=== PATIENT | male | born 1965 | race Hispanic/Latino ===

== ENCOUNTER 2017-01-28 07:02 | Inpatient (IN) | payer MEDICAID, OTHER ==
--- NOTE | 2017-01-28 07:29 | ED PDOC ---
Arrival/HPI - General Time Seen by Provider: 01/28/17 07:13 Historian: Patient - Critical Care Critical Care Minutes: 30 minutes - History of Present Illness Narrative History of Present Illness (Text): 01/28/17 07:29 A 51 year old male presents to the emergency department complaining of worsening bilateral lower extremity edema and dyspnea of exertion for the past 10 days. Patient notes bilateral lower extremity pain when walking but denies any shortness of breath at rest, chest pain, cough, upper respiratory symptoms, or any other complaints at this time. Patient never smoked, drinks occasional, and does not use drugs. PMD: None Time/Duration: Other (10 days) Symptom Onset: Sudden Symptom Course: Worsening Quality: Other Activities at Onset: Other Context: Exertion, Home Associated Symptoms (Text): 01/28/17 07:53 Approximately 10 day history of worsening bilateral lower extremity edema. Patient also has dyspnea on exertion. No dyspnea at rest. No chest pain. No palpitations. No fever or chills. 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 Past Medical History - Provider Review Nursing Documentation Reviewed: Yes Family/Social History - Physician Review Nursing Documentation Reviewed: Yes Family/Social History: Unknown Family HX Smoking Status: Never Smoked Hx Alcohol Use: Yes Frequency of alcohol use: Socially Hx Substance Use: No Allergies/Home Meds Allergies/Adverse Reactions: Allergies No Known Allergies Allergy (Verified 01/28/17 08:49) Home Medications: Home Meds Medication Instructions Recorded Confirmed No Known Home Med 01/28/17 01/28/17 Review of Systems - Physician Review All systems were reviewed & negative as marked: Yes - Review of Systems Constitutional: Fatigue. absent: Fevers ENT: absent: Sore Throat, Rhinorrhea, Sinus Congestion Respiratory: absent: Cough, Wheezing Cardiovascular: Edema, REYNOSO. absent: Chest Pain, Palpitations, Syncope Gastrointestinal: absent: Abdominal Pain, Constipation, Diarrhea, Nausea, Vomiting Genitourinary Male: absent: Dysuria, Frequency, Hematuria Neurological: absent: Headache, Dizziness Physical Exam Vital Signs Reviewed: Yes Vital Signs Temp Pulse Resp BP Pulse Ox 01/28/17 09:59 197/146 H 01/28/17 09:03 107 H 221/168 H 01/28/17 08:53 104 H 16 221/158 H 94 L 01/28/17 08:39 98.1 F 106 H 17 237/164 H 96 Appearance: Positive for: Well-Appearing, Non-Toxic, Comfortable, Other (obese) Pain Distress: None Mental Status: Positive for: Alert and Oriented X 3 - Systems Exam Head: Present: Atraumatic, Normocephalic Pupils: Present: PERRL Extroacular Muscles: Present: EOMI Conjunctiva: Present: Normal Mouth: Present: Moist Mucous Membranes Pharnyx: No: ERYTHEMA, EXUDATE, TONSILS ENLARGED Neck: Present: Normal Range of Motion Respiratory/Chest: Present: Good Air Exchange, Decreased Breath Sounds. No: Respiratory Distress, Accessory Muscle Use, Rales, Retracting, Rhonchi, Tachypneic, Tender to Palpation Cardiovascular: Present: Regular Rate and Rhythm, Normal S1, S2. No: Murmurs Abdomen: Present: Normal Bowel Sounds. No: Tenderness, Distention, Peritoneal Signs Back: Present: Normal Inspection Upper Extremity: Present: Normal Inspection. No: Cyanosis, Edema Lower Extremity: Present: Edema (2+ edema up to the level of the knees bilaterally), Normal ROM, Swelling, Neurovascularly Intact. No: CALF TENDERNESS , Cyanosis, Regina's Sign, Tenderness, Erythema, Deformity Neurological: Present: GCS=15, CN II-XII Intact, Speech Normal, Motor Func Grossly Intact Skin: Present: Warm, Dry, Normal Color. No: Rashes Psychiatric: Present: Alert, Oriented x 3, Normal Insight, Normal Concentration Medical Decision Making ED Course and Treatment: 01/28/17 07:29 Impression: A 51 year old male with edema and dyspnea on exertion. Differential Diagnosis include but are not limited to: CHF vs. PE vs. DVT vs. ACS Plan: -- EKG -- Chest X-ray -- Bilateral Lower Extremity Duplex -- Labs -- Reassess and disposition Progress Notes: 01/28/17 08:39 Patient blood pressure was just taken for the first time. It is found to be 237/ 164. Will give Lopressor. 01/28/17 08:45 Chest x-ray 2 views shows severe cardiomegaly with no infiltrate or effusion 01/28/17 08:46 EKG shows sinus tachycardia rate approximately 110 with a right axis LVH and nonspecific ST and T-wave changes with no old available - Lab Interpretations Lab Results: 01/28/17 08:00 01/28/17 08:00 Lab Results 01/28/17 08:00: Sodium 135, Potassium 3.1 L, Chloride 92 L, Carbon Dioxide 31, Anion Gap 15, BUN 51 H, Creatinine 2.8 H, Est GFR ( Amer) 29, Est GFR ( Non-Af Amer) 24, Random Glucose 139 H, Calcium 9.5, Total Bilirubin 1.8 H, AST 46, ALT 48, Alkaline Phosphatase 167 H, Lactate Dehydrogenase 764 H, Total Creatine Kinase 166, Troponin I 0.19 H*, NT-Pro-B Natriuret Pep 26615 H, Total Protein 7.9, Albumin 3.7, Globulin 4.2, Albumin/Globulin Ratio 0.9 L 01/28/17 08:00: PT 12.0 H, INR 1.11 H, APTT 27.6, D-Dimer, Quantitative 0.73 H 01/28/17 08:00: WBC 9.3, RBC 5.10, Hgb 13.0 L, Hct 39.9 L, MCV 78.2 L, MCH 25.5 , MCHC 32.6, RDW 16.6 H, Plt Count 294, MPV 10.8, Gran % 83.0 H, Lymph % (Auto) 9.8 L, [place] % (Auto) 4.9, Eos % (Auto) 1.0 L, Baso % (Auto) 1.3, Gran # 7.68 H, Lymph # 0.9 L, [place] # 0.5, Eos # 0.1, Baso # 0.12 I have reviewed the lab results: Yes - RAD Interpretation Radiology Orders: 01/28/17 07:30 CHEST TWO VIEWS (PA/LAT) [RAD] Stat DUPLEX LOWER EXTRM VEIN BILAT [US] Stat Bilateral lower extremity venous Doppler as read by the radiologist is negative for DVT Electrician Manager: Radiologist - Medication Orders Current Medication Orders: Discontinued Medications Aspirin (Aspirin Chewable) 324 mg PO STAT STA Stop: 01/28/17 09:42 Last Admin: 01/28/17 10:00 Dose: 324 mg Furosemide (Lasix) 40 mg IVP ONCE ONE Stop: 01/28/17 09:40 Last Admin: 01/28/17 09:59 Dose: 40 mg Metoprolol Tartrate (Lopressor) 5 mg IVP STAT STA Stop: 01/28/17 08:44 Last Admin: 01/28/17 09:03 Dose: 5 mg Nitroglycerin (Nitro-Bid 2% Oint) 1 ea TOP STAT STA Stop: 01/28/17 09:42 Last Admin: 01/28/17 10:00 Dose: 1 ea - Scribe Statement The provider has reviewed the documentation as recorded by the Dwightibe Cy Cheng Provider Dwightibe Attestation: All medical record entries made by the Scribe were at my direction and personally dictated by me. I have reviewed the chart and agree that the record accurately reflects my personal performance of the history, physical exam, medical decision making, and the department course for this patient. I have also personally directed, reviewed, and agree with the discharge instructions and disposition. Disposition/Present on Arrival - Present on Arrival Any Indicators Present on Arrival: No History of DVT/PE: No History of Uncontrolled Diabetes: No Urinary Catheter: No History of Decub. Ulcer: No - Disposition Have Diagnosis and Disposition been Completed?: Yes Diagnosis: Hypertension, Renal failure, Cardiomegaly, Elevated troponin, Tachycardia, Hypokalemia, Anemia, Congestive heart failure Disposition: HOSPITALIZED Disposition Time: 10:01 Patient Plan: Admission, Telemetry Patient Problems: Current Active Problems Problem Status Onset Cardiomegaly Acute Elevated troponin Acute Hypertension Acute Hypokalemia Acute Renal failure Acute Tachycardia Acute Condition: CRITICAL Discharge Instructions (ExitCare): Heart Failure (ED) Referrals: PCP,NO [Primary Care Provider] - Follow up with primary
--- NOTE | 2017-01-28 08:35 | US ---
HISTORY: Leg pain and swelling. Evaluate for DVT PHYSICIAN(S): Isiah Angel MD. TECHNIQUE: Duplex sonography and color-flow Doppler with graded compression were used to evaluate the deep venous systems of both lower extremities. The exam is limited by body habitus and edema. FINDINGS: The visualized deep venous systems of both lower extremities are sonographically normal and compressible. Normal wave forms and augmentation are seen. There is no sonographic evidence for deep venous thrombosis in the visualized segments of both lower extremities. IMPRESSION: No sonographic evidence for deep venous thrombosis in the visualized segments of both lower extremities.
[2017-01-28] MEDS ORDERED: Metoprolol 1 mg/ml Inj IVP STA (08:43)
--- NOTE | 2017-01-28 08:59 | RAD ---
HISTORY: sob COMPARISON: No prior. TECHNIQUE: Chest PA and lateral FINDINGS: LUNGS: No active pulmonary disease. PLEURA: No significant pleural effusion identified. No pneumothorax apparent. CARDIOVASCULAR: Normal. OSSEOUS STRUCTURES: No significant abnormalities. VISUALIZED UPPER ABDOMEN: Normal. OTHER FINDINGS: None. IMPRESSION: No active disease.
[2017-01-28 09:04] LABS: ADD MANUAL DIFF? NO
[2017-01-28 09:09] LABS: BASO # 0.12 K/mm3 (0.0-2.0); BASO % 1.3 % (0.0-3.0); EOS # 0.1 (0.0-0.7); GRAN # 7.68 (1.4-6.5); HEMATOCRIT 39.9 % (42.0-52.0); LYMPH # 0.9 (1.2-3.4); LYMPH % 9.8 % (22.0-35.0); MEAN CELL VOLUME 78.2 fL (80.0-105.0); MEAN CORPUSCULAR HEMOGLOBIN 25.5 pg (25.0-35.0); MEAN CORPUSCULAR HGB CONC 32.6 g/dl (31.0-37.0); MEAN PLATELET VOLUME 10.8 fl (7.0-11.0); MONO # 0.5 (0.1-0.6); MONO % 4.9 % (1.0-6.0); PLATELET COUNT 294 10^3/uL (120.0-450.0); RED CELL DISTRIBUTION WIDTH 16.6 % (11.5-14.5); WHITE BLOOD COUNT 9.3 10^3/ul (4.5-11.0)
[2017-01-28 09:19] LABS: ALB/GLOB RATIO 0.9 (1.1-1.8); BILIRUBIN,TOTAL 1.8 mg/dL (0.2-1.3); CALCIUM 9.5 mg/dL (8.4-10.5); POTASSIUM 3.1 mmol/L (3.6-5.0); TOTAL PROTEIN 7.9 g/dL (5.8-8.3)
[2017-01-28 09:21] LABS: INR 1.11 (0.93-1.08); PARTIAL THROMBOPLASTIN TIME 27.6 Seconds (23.7-30.8)
[2017-01-28 09:33] LABS: TROPONIN I 0.19 ng/mL
[2017-01-28] MEDS ORDERED: Nitroglycerin 2% Ointment Foilpak UD TOP STA (09:41)
[2017-01-28 09:43] LABS: D DIMER 0.73 mg/L FEU (0-0.50)
[2017-01-28] MEDS ORDERED: Nitroglycerin 50mg in D5W 50 MG/250 ML BOTTLE IV PRN (10:53)
--- NOTE | 2017-01-28 11:09 | CP.PCM.HP ---
<Arin Sow - Last Filed: 01/28/17 14:48> History of Present Illness - History of Present Illness History of Present Illness: PGY-1 H&P 51 yo male with no significant PMH presented to ED with bilateral lower extremity swelling. Patient states that the swelling started about a week ago and has never occurred before. He states that the swelling increases after standing at work. He denies any weakness or numbness. Patient states that during the day the swelling increases to the back of his thighs. He experiences some tingling and discomfort when the swelling decreases at the end of the day. Patients reports sob on exertions. Over the past 3-4 days patient is unable to walk more then 2-3 blocks without having to stop. He Patient denies headache, dizziness, chest pain, n/v/d/c, urinary symptoms. He has not seen medical doctor within last 5 years. PMH: denies PSH: denies Social hx: denies smoking, social alcohol use (6 beers/week), denies illicit drug use works as a [employer], lives with girlfriend fam hx: father glioblastoma, mother breast ca allergy: NKDA home meds: none Present on Admission - Present on Admission Any Indicators Present on Admission: No Review of Systems - Constitutional Constitutional: absent: Chills, Fever - EENT Eyes: absent: Blurred Vision, Change in Vision Nose/Mouth/Throat: absent: Nasal Congestion, Sore Throat - Cardiovascular Cardiovascular: Dyspnea on Exertion. absent: Chest Pain, Dyspnea, Lightheadedness, Orthopnea, Palpitations - Respiratory Respiratory: Dyspnea on Exertion. absent: Cough, Dyspnea - Gastrointestinal Gastrointestinal: absent: Abdominal Pain, Constipation, Diarrhea, Nausea, Vomiting - Genitourinary Genitourinary: absent: Change in Urinary Stream, Difficulty Urinating, Dysuria - Musculoskeletal Musculoskeletal: Tingling. absent: Muscle Weakness, Myalgias, Numbness - Integumentary Integumentary: Swelling (bilateral legs). absent: Rash, Skin Ulcer - Neurological Neurological: Tingling. absent: Dizziness, Numbness, Headaches, Weakness - Hematologic/Lymphatic Hematologic: absent: Easy Bleeding, Easy Bruising Past Patient History - Infectious Disease Hx of Infectious Diseases: None - Past Social History Smoking Status: Never Smoked - PSYCHIATRIC Hx Substance Use: No - SURGICAL HISTORY Hx Surgeries: No Meds Allergies/Adverse Reactions: Allergies Allergy/AdvReac Type Severity Reaction Status Date / Time No Known Allergies Allergy Verified 01/28/17 08:49 Physical Exam - Constitutional Appears: Well, No Acute Distress - Head Exam Head Exam: ATRAUMATIC, NORMOCEPHALIC - Eye Exam Eye Exam: EOMI, Normal appearance - ENT Exam ENT Exam: Mucous Membranes Moist - Respiratory Exam Respiratory Exam: Clear to Auscultation Bilateral, NORMAL BREATHING PATTERN. absent: Rhonchi, Wheezes, Respiratory Distress - Cardiovascular Exam Cardiovascular Exam: REGULAR RHYTHM. absent: Tachycardia, Diastolic murmur, Systolic Murmur - GI/Abdominal Exam GI & Abdominal Exam: Normal Bowel Sounds, Soft. absent: Firm, Guarding, Tenderness - Extremities Exam Additional comments: bilateral +3 pitting edema of lower extremities - Neurological Exam Neurological exam: Alert, Oriented x3 - Skin Skin Exam: Dry, Intact, Normal Color, Warm Results - Vital Signs Recent Vital Signs: Last Vital Signs Temp 98.1 F 01/28/17 08:39 Pulse 94 H 01/28/17 10:25 Resp 16 01/28/17 10:11 BP 205/154 H 01/28/17 10:25 Pulse Ox 95 01/28/17 10:25 - Labs Result Diagrams: 01/28/17 08:00 01/28/17 08:00 Assessment & Plan - Assessment and Plan (Free Text) Assessment: 51 yo male with no significant PMH presented with HTN emergency with maribeth, myocardial ischemia, anemia and hypokalemia. Plan: 1. HTN emergency - admitted to ICU - patient was given nitroglycerin, lopressor, lasix to decrease BP - started on nitroglycerin drip - started on heparin drip - started on norvasc, lipitor - UDS was negative - cardio consulted - nephrology consulted - cont to monitor BP 2. MARIBETH - consulted nephro - cont to monitor kidney function 3. myocardial ischemia - cardio consulted - trend trops - echo ordered 4. hypokalemia - replaced - repeat in AM <Gladys Sosa - Last Filed: 01/29/17 16:40> Results - Vital Signs Recent Vital Signs: Last Vital Signs Temp 97.8 F 01/29/17 08:00 Pulse 71 01/29/17 14:40 Resp 24 01/29/17 14:40 BP 158/88 H 01/29/17 14:34 Pulse Ox 94 L 01/29/17 14:40 - Labs Result Diagrams: 01/29/17 06:10 01/29/17 06:10 Labs: Laboratory Results - last 24 hr 01/28/17 01/28/17 01/28/17 17:00 19:10 19:10 WBC RBC Hgb Hct MCV MCH MCHC RDW Plt Count MPV Gran % Lymph % (Auto) [place] % (Auto) Eos % (Auto) Baso % (Auto) Gran # Lymph # [place] # Eos # Baso # APTT 32.1 H Sodium Potassium Chloride Carbon Dioxide Anion Gap BUN Creatinine Est GFR ( Amer) Est GFR (Non-Af Amer) Random Glucose Calcium Phosphorus Total Bilirubin AST ALT Alkaline Phosphatase Troponin I 0.15 H* D Total Protein Albumin Globulin Albumin/Globulin Ratio Procalcitonin 0.30 Ur Random Creatinine Complement C3 Complement C4 01/29/17 01/29/17 01/29/17 02:00 02:15 06:10 WBC 10.6 RBC 5.11 Hgb 12.8 L Hct 40.3 L MCV 78.9 L MCH 25.0 MCHC 31.8 RDW 16.8 H Plt Count 308 MPV 11.4 H Gran % 76.3 H Lymph % (Auto) 14.2 L [place] % (Auto) 5.8 Eos % (Auto) 2.6 Baso % (Auto) 1.1 Gran # 8.08 H Lymph # 1.5 [place] # 0.6 Eos # 0.3 Baso # 0.12 APTT 49.5 H Sodium Potassium Chloride Carbon Dioxide Anion Gap BUN Creatinine Est GFR ( Amer) Est GFR (Non-Af Amer) Random Glucose Calcium Phosphorus Total Bilirubin AST ALT Alkaline Phosphatase Troponin I Total Protein Albumin Globulin Albumin/Globulin Ratio Procalcitonin Ur Random Creatinine Complement C3 138.0 Complement C4 22.8 01/29/17 01/29/17 06:10 10:30 WBC RBC Hgb Hct MCV MCH MCHC RDW Plt Count MPV Gran % Lymph % (Auto) [place] % (Auto) Eos % (Auto) Baso % (Auto) Gran # Lymph # [place] # Eos # Baso # APTT Sodium 138 Potassium 2.6 L* Chloride 92 L Carbon Dioxide 30 Anion Gap 19 BUN 48 H Creatinine 2.6 H Est GFR ( Amer) 32 Est GFR (Non-Af Amer) 26 Random Glucose 69 L Calcium 9.2 Phosphorus 4.5 Total Bilirubin 1.6 H AST 63 H ALT 49 Alkaline Phosphatase 162 H Troponin I Total Protein 7.9 Albumin 3.8 Globulin 4.2 Albumin/Globulin Ratio 0.9 L Procalcitonin Ur Random Creatinine 43 Complement C3 Complement C4 Attending/Attestation - Attestation I have personally seen and examined this patient.: Yes I have fully participated in the care of the patient.: Yes I have reviewed all pertinent clinical information: Yes Notes (Text): 01/29/17 15:00 attending note; Patient seen and examined With resident in ER. patient is a 51-year-old male admitted with progressive leg swelling for the past few weeks. Patient did not follow-up with any PMD over years. Patient was found to be in hypertensive emergency with acute renal failure, elevated troponin and elevated BNP. patient will be admitted to ICU for close monitoring. Will start IV nicardipine drip. monitor troponin closely. Cardiology evaluation requested. Echocardiogram ordered. started on aspirin and Plavix. heparin drip ordered. Elevated creatinine; baseline kidney function not known. urine studies ordered. Nephrology evaluation requested. diagnosis, follow-up plan discussed with patient in detail. Upon discharge the patient needs close follow-up with nephrology and cardiology. Patient will be referred to [facility].
[2017-01-28 11:24] LABS: URINE BILIRUBIN NEGATIVE (NEGATIVE); URINE BLOOD MODERATE (NEGATIVE); URINE GLUCOSE (UA) NEGATIVE (NEGATIVE); URINE KETONE NEGATIVE (NEGATIVE); URINE LEUKOCYTE ESTERASE NEGATIVE Leu/uL (NEGATIVE); URINE PROTEIN >=300 mg/dL (<30 mg/dL); URINE UROBILINOGEN 0.2 E.U./dL (<1 E.U./dL)
--- NOTE | 2017-01-28 11:24 | CON ---
DATE: 01/28/2017 HISTORY OF PRESENT ILLNESS: The patient is a 51-year-old gentleman without significant past medical history who presented with 7 days or so of increased lower extremity swelling, which became so bad that he was not able to bend his knees. At the same time, his shortness of breath became more progressive and his exercise tolerance decreased. The patient denies chest pain, nausea, vomiting, diarrhea, or constipation. Around the same time, patient had some flu -like symptoms which, however, went away. As patient walked a few steps today, he decided to seek medical attention for it. PAST MEDICAL HISTORY: None. SOCIAL HISTORY: No alcohol or illicit drug abuse. No tobacco smoking. FAMILY HISTORY: Noncontributory. ALLERGIES: NKDA. REVIEW OF SYSTEMS: Revealed 12-organ system other than mentioned in history of present illness is negative. MEDICATIONS AT HOME: None. PHYSICAL EXAMINATION: VITAL SIGNS: Blood pressure 205/154, heart rate 94, oxygen saturation 95% on room air, respiratory rate 16. HEAD AND NECK: Atraumatic. LUNGS: Clear to auscultation bilaterally. HEART: Regular rate and rhythm. S1, S2 normal. ABDOMEN: Soft, nontender, nondistended. MUSCULOSKELETAL: 2+ bilateral pedal and ankle edema. NEUROLOGIC: The patient moves all extremities spontaneously. SKIN: Moist. PSYCHIATRIC: The patient is alert and oriented x 3. LABORATORY DATA: WBC 9.3, hemoglobin 13, platelet count 294. Sodium 135, potassium 3.1, chloride 92, carbon dioxide 31, BUN 51, creatinine 2.8, AST 46, ALT 48. Troponin 0.19. ProBNP 17,600. Albumin 3.7. INR 1.11. Chest x-ray showed bilateral vascular congestion. ASSESSMENT AND PLAN: This is a 51-year-old gentleman who presented with hypertensive emergency with acute kidney injury and myocardial ischemia as a new onset hypertension. At present time, we will proceed with nitroglycerin drip, Lasix (with concomitant repletion of potassium and magnesium) to drop MAP 15-20% within first hour with subsequent normalization of BP over next 23 hours slowly and gradually.. I will start patient on metoprolol p.o. I agree with aspirin and Plavix. I will continue with trending troponin. I will order echocardiogram. There are some ST-T changes in the anterolateral leads of the EKG. I will start patient on heparin drip as well. I will get cardiology consult for consideration of coronary angiography/percutaneous coronary intervention. We will continue with gastrointestinal prophylaxis, statins, beta blockers, aspirin and Plavix. Addendum: switched to cardene drip, stopped Nitro as BP continued to be elevated despite uptitration. Echo--moderate LV systolic dysfunction--started hydralazine/isosorbide ccm time 40 min Elvis Cuellar MD cc: [id number] TT: 01/28/2017 11:23:03 Confirmation # [id number] Dictation # [id number] MTDD
[2017-01-28 11:34] LABS: URINE APPEARANCE CLEAR (CLEAR); URINE COLOR YELLOW (YELLOW)
[2017-01-28] MEDS: Heparin25000 units/250ml 1/2NS 25,000 UNITS/250 ML BAG IV SCH (11:51)
[2017-01-28 12:13] LABS: URINE BACTERIA FEW (NEG); URINE EPITHELIAL CELLS 0 - 2 /hpf (0-5); URINE RBC 0 - 2 /hpf (0-2); URINE WBC 0 - 2 /hpf (0-6)
[2017-01-28] MEDS ORDERED: Potassium Chloride 20 mEq ER Tab PO ONE (13:11)
[2017-01-28] MEDS: Nicardipine 20 MG/200 ML 20 MG/200 ML BAG IV PRN ×2 (14:17→18:00)
[2017-01-28 17:09] VITALS: BMI 39.3
[2017-01-28] MEDS ORDERED: Pneumococcal 23-Valent Vaccine IM ONE (17:09)
--- NOTE | 2017-01-28 17:59 | CARD ---
APPROVED REPORT EXAM: Two-dimensional and M-mode echocardiogram with Doppler and color Doppler. INDICATION NEW ONSET CHF 2D DIMENSIONS Left Atrium (2D)5.2 (1.6-4.0cm)IVSd1.5 (0.7-1.1cm) LVDd5.4 (3.9-5.9cm)PWd1.6 (0.7-1.1cm) LVDs4.3 (2.5-4.0cm)FS (%) 20.0 % LVEF (%)40.6 (>50%) M-Mode DIMENSIONS Aortic Root2.80 (2.2-3.7cm)Aortic Cusp Exc.1.60 (1.5-2.0cm) Aortic Valve AoV Peak Zibonvlj662.0cm/Gaby Peak GR.10mmHg Mitral Valve E/A ratio0.0 TDI E/Lateral E'0.0E/Medial E'0.0 Tricuspid Valve TR Peak [id number]/sRAP [id number] Peak Gr.40mmHg [id number] LEFT VENTRICLE The left ventricle is normal size. There is moderate concentric left ventricular hypertrophy. The systolic function is moderately impaired. There is global hypokinesis of the left ventricle. RIGHT VENTRICLE The right ventricle is mildly dilated. RV Systolic function is mildly to moderately reduced. ATRIA The left atrium is moderately dilated. The right atrium is mildly dilated. AORTIC VALVE The aortic valve is normal in structure. MITRAL VALVE Mitral regurgitation is moderate. TRICUSPID VALVE There is moderate pulmonary hypertension. GREAT VESSELS The aortic root is normal in size. The IVC collapses <50% with inspiration. PERICARDIAL EFFUSION There is no pericardial effusion. <Conclusion> The left ventricle is normal size. There is moderate concentric left ventricular hypertrophy. The systolic function is moderately impaired. There is global hypokinesis of the left ventricle. Mitral regurgitation is moderate. There is moderate pulmonary hypertension.
--- NOTE | 2017-01-28 22:42 | CARD ---
APPROVED REPORT EKG Measurement Heart [id number] <Conclusion> Sinus tachycardia Left atrial enlargement Rightward axis ST & T wave abnormality, consider inferior ischemia Abnormal ECG
[2017-01-29] MEDS: Heparin25000 units/250ml 1/2NS 25,000 UNITS/250 ML BAG IV SCH (01:35)
[2017-01-29] MEDS: Nicardipine 20 MG/200 ML 20 MG/200 ML BAG IV PRN ×3 (02:00→17:27)
[2017-01-29 06:45] LABS: ADD MANUAL DIFF? NO
[2017-01-29 06:59] LABS: BASO # 0.12 K/mm3 (0.0-2.0); BASO % 1.1 % (0.0-3.0); EOS # 0.3 (0.0-0.7); EOS % 2.6 % (1.5-5.0); GRAN # 8.08 (1.4-6.5); GRAN % 76.3 % (50.0-68.0); HEMATOCRIT 40.3 % (42.0-52.0); LYMPH # 1.5 (1.2-3.4); LYMPH % 14.2 % (22.0-35.0); MEAN CELL VOLUME 78.9 fL (80.0-105.0); MEAN CORPUSCULAR HGB CONC 31.8 g/dl (31.0-37.0); MEAN PLATELET VOLUME 11.4 fl (7.0-11.0); MONO # 0.6 (0.1-0.6); MONO % 5.8 % (1.0-6.0); PLATELET COUNT 308 10^3/uL (120.0-450.0); RED CELL DISTRIBUTION WIDTH 16.8 % (11.5-14.5); WHITE BLOOD COUNT 10.6 10^3/ul (4.5-11.0)
[2017-01-29] MEDS ORDERED: Heparin25000 units/250ml 1/2NS 25,000 UNITS/250 ML BAG IV SCH (07:30)
[2017-01-29 07:33] LABS: ALB/GLOB RATIO 0.9 (1.1-1.8); BILIRUBIN,TOTAL 1.6 mg/dL (0.2-1.3); CALCIUM 9.2 mg/dL (8.4-10.5); PHOSPHOROUS 4.5 mg/dL (2.5-4.5); TOTAL PROTEIN 7.9 g/dL (5.8-8.3)
[2017-01-29 07:35] LABS: POTASSIUM 2.6 mmol/L (3.6-5.0)
--- NOTE | 2017-01-29 08:11 | CON ---
DATE: 01/28/2017 HISTORY OF PRESENT ILLNESS: A 51-year-old male with no significant past medical history, presented t [facility] with increasing bilateral leg swelling, found to have hypertensive emergency with acute renal fa ilure and troponin elevation and found to be in decompensated CHF. The patient reports that overall his symptoms started about 2 weeks ago when he suffered what he call s a chest cold during which period, he was having a dry hacking cough and with inability to lay down without exacerbating the cough. 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 Shortness of b reath had improved. However, leg swelling continued to progress and he estimates that he has put on about 6 pounds during this period. The patient otherwise denies any chest pain or palpitations. Den ies any urinary symptoms (no dysuria, no hematuria, no difficulty urinating or decreased urination). Denies any fever or chills. PAST MEDICAL HISTORY: As mentioned above. ALLERGIES: None. SOCIAL HISTORY: Denies every smoking. Denies any illicit drugs. Occasional alcohol use. 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 FAMILY HISTORY: Mother with breast cancer, . Father with glioblastoma, . Brother w ith hypertension. REVIEW OF SYSTEMS: CONSTITUTIONAL: Denies any fevers, chills, weight loss or night sweats. Appetite is very good. HEENT: No visual disturbances. No hearing deficits. No sinus pain. RESPIRATORY: As mentioned in HPI, cough currently resolved. CARDIOVASCULAR: As mentioned in HPI. GASTROINTESTINAL: Denies nausea, vomiting or diarrhea. GENITOURINARY: As mentioned in HPI. HEMATOLOGIC: Denies easy bruising. SKIN: Reports small rash around his right wrist that he attributes possibly to a bug bite. Otherwis e, denies any itching or rashes. PSYCHIATRIC: Denies depression or anxiety. NEUROLOGIC: Denies any numbness in extremities. MUSCULOSKELETAL: Occasional knee pains. Denies using any pain medications. PHYSICAL EXAMINATION: VITAL SIGNS: On presentation, blood pressure 237/164, heart rate 106. Blood pressure this evening 1 34/68, heart rate 92, respirations 20, O2 sat 91%. GENERAL: No distress, lying flat, able to converse coherently in full sentences. HEENT: Moist mucous membranes. Nonicteric. NECK: No cervical lymphadenopathy. No thyromegaly. RESPIRATORY: Lungs clear to auscultation bilaterally. No rales, no rhonchi, no wheezes. CARDIOVASCULAR: Heart S1, S2 normal. Prominent S3. JVD elevated to earlobes.. GASTROINTESTINAL: Obese abdomen. Otherwise, soft, nontender, nondistended. GENITOURINARY: Bladder nondistended. EXTREMITIES: 3+ bilateral lower leg edema extending to upper thighs and lower back and abdominal wal l area. Normal capillary refill. SKIN: Bilateral toes and feet with blanching petechiae. No cyanosis. NEUROLOGIC: 5/5 motor strength in bilateral upper and lower extremities. No sensory deficits in fee t. PSYCHIATRIC: Normal affect, normal mood. LABORATORY DATA: CBC: WBC 9.3, hemoglobin 13.0, hematocrit 39.9, platelets 294. Chemistry: Sodium 135, potassium 3.1, chloride 92, bicarb 31, BUN 51, creatinine 2.8, glucose 139, calcium 9.5, LCH 76 4, CK 166. Pro BNP 17,600. Albumin 3.7. Troponin 0.19. UA: Urine protein greater than glucose of 300 mg/dL, moderate blood with 0-2 RBCs per high power field. Urine toxicology negative. Chest x-r ay directly observed consistent with mild pulmonary edema and increased pulmonary vascular congestion . ASSESSMENT AND PLAN: 1. Acute renal failure. Baseline serum creatinine unknown as the patient has not had medical care i n many years. However, the patient presents with severe hypertension with hematuria and elevated ser um creatinine. Acute renal failure possibly due to malignant hypertension. Significant proteinuria as well per urinalysis. However, this may be in the setting of markedly elevated glomerular pressure s. We will need to repeat urinalysis after blood pressure better controlled. We will check random u rine for protein and creatinine. Will check complements and hepatitis B and C serologies as we canno t rule out an acute glomerulonephritis. 2. Hypertensive emergency. Severely elevated blood pressures with findings of decompensated congest julius heart failure and acute renal failure. The patient currently put on nicardipine drip with signif icant improvement in blood pressure. Need to ensure that blood pressure is not lowered by more than 25% over the first 24 hours as this can precipitate further exacerbation of renal failure in the sett ing of loss of renal autoregulation. 3. Malignant hypertension. Need to rule out secondary causes of hypertension with markedly elevated blood pressures. We will check for hyperaldosteronism and pheochromocytoma screening with plasma re nnin aldosterone levels as well as plasma metanephrines, respectively. 4. Acute decompensated congestive heart failure, severe exacerbation with echo showing systolic dysf unction. The patient with signs of volume overload with elevated jugular venous distention and prese nce of S3. Agree with diuresis with IV Lasix 40 mg q. 12 hours. 5. Hypokalemia, possibly consistent with hyperaldosteronism in the setting of congestive heart failu re. Would recommend to keep potassium level closer to 4 mmol/L. 6. Myocardial ischemic, possible non-ST elevation myocardial infarction with elevated troponins, cur rently on heparin drip. We will follow up with cardiology recommendations. Devon Adams MD cc: [id number] TT: 01/29/2017 08:10:44 Confirmation # [id number] Dictation # [id number] tn
--- NOTE | 2017-01-29 08:42 | PN ---
DATE: 01/29/2017 The patient seen and examined at bedside. He is comfortable. He feels subjectively much better. He is not in respiratory or otherwise distress. PHYSICAL EXAMINATION: VITAL SIGNS: Heart rate 92, blood pressure 175/110, respiratory rate 16, oxygen saturation 96% on room air. The patient is on Cardene drip 3.5 mg per hour and heparin drip 12 units per kilogram per hour. HEAD AND NECK: Atraumatic. LUNGS: Clear to auscultation bilaterally. HEART: Regular rate and rhythm. S1, S2 normal. ABDOMEN: Soft, nontender, nondistended. MUSCULOSKELETAL: 2+ bilateral pedal and ankle edema; however, it appears to be a little bit better than yesterday. SKIN: Moist. PSYCHIATRIC: The patient is alert and oriented, more comfortable than yesterday. LABORATORY DATA: Sodium 135, potassium 3.1, chloride 92, BUN 51, creatinine 2.8 , glucose 139, calcium 9.5, AST 46, ALT 48. Troponin 0.15 down from 0.19. ProBNP 17,600. Albumin 3.7. PTT 49.5. MEDICATIONS: Norvasc, aspirin, Lipitor 80 mg daily, Plavix 75 mg daily, Lasix 20 mg IV q. 12, heparin drip, hydralazine 25 mg p.o. q.i.d., metoprolol 50 mg p.o. b.i.d., Cardene drip, Protonix, potassium supplementation. ASSESSMENT AND PLAN: This is a 51-year-old gentleman with hypertensive emergency complicated by myocardial ischemia and acute kidney injury. The patient is on Cardene drip. Echocardiogram revealed moderate left ventricular systolic dysfunction. The patient was started on amlodipine, hydralazine and Imdur for afterload reduction. PRADEEP inhibitors try to be avoided due to concern for acute kidney injury. The patient is subjectively doing better. He was also started on aspirin, Plavix, beta blockers, statins and therapeutic anticoagulation for acute coronary syndrome (shortness of breath, EKG changes, troponin leak). Cardiology consultation is still pending. Once patient is off of drip, he will be transferred out to telemetry. We will continue to target euvolemia, euglycemia, normothermia and oxygen saturation more than 90%. ccm time 40 min Elvis Cuellar MD cc: [id number] TT: 01/29/2017 08:41:57 Confirmation # [id number] Dictation # [id number] tn MTDD
[2017-01-29] MEDS: Pantoprazole 40 mg EC Tab PO SCH (09:17)
--- NOTE | 2017-01-29 10:52 | CP.PCM.PN ---
<Arin Sow - Last Filed: 01/29/17 15:39> Subjective - Date & Time of Evaluation Date of Evaluation: 01/29/17 Time of Evaluation: 10:00 - Subjective Subjective: PGY-1 Medicine progress note Patient seen and examined at bedside in the ICU. No acute distress. Nurse reports no events overnight. Patient is doing well, has no complaints. He denies fever, chills, sob, chest pain, n/v/d/c. He states that the swelling the his legs are unchanged. Patient is tolerating diet. Objective - Vital Signs/Intake and Output Vital Signs (last 24 hours): Temp Pulse Resp BP Pulse Ox 98.4 F 82 16 170/107 H 90 L 01/29/17 04:00 01/29/17 09:16 01/29/17 06:00 01/29/17 09:17 01/29/17 06:00 Intake and Output: 01/29/17 01/29/17 06:59 18:59 Intake Total 765 125 Output Total 4975 Balance -4210 125 - Medications Medications: Current Medications Amlodipine Besylate (Norvasc) 5 mg PO DAILY [facility] Last Admin: 01/29/17 09:17 Dose: 5 mg Aspirin (Aspirin Chewable) 81 mg PO DAILY [facility] Last Admin: 01/29/17 09:18 Dose: 81 mg Atorvastatin Calcium (Lipitor) 80 mg PO DAILY [facility] Last Admin: 01/29/17 09:17 Dose: 80 mg Furosemide (Lasix) 20 mg IVP Q12 [facility] Hydralazine HCl (Apresoline) 25 mg PO QID [facility] Last Admin: 01/29/17 09:17 Dose: 25 mg Nicardipine HCl (Cardene Iv Premix) 20 mg in 200 mls @ 50 mls/hr IV .Q4H PRN; Protocol; 5 MG/HR PRN Reason: TITRATE PER MD ORDER Last Admin: 01/29/17 08:50 Dose: 3.5 mg/hr, 35 mls/hr Potassium Chloride (Potassium Chloride 20 Meq/100 Ml) 20 meq in 100 mls @ 50 mls/hr IVPB Q2H [facility] Stop: 01/29/17 11:44 Last Admin: 01/29/17 08:00 Dose: 50 mls/hr Isosorbide Mononitrate (Imdur) 60 mg PO DAILY [facility] Last Admin: 01/29/17 09:16 Dose: 60 mg Metoprolol Tartrate (Lopressor) 50 mg PO BID [facility] Last Admin: 01/29/17 09:16 Dose: 50 mg Pantoprazole Sodium (Protonix Ec Tab) 40 mg PO 0630 [facility] Last Admin: 01/29/17 09:17 Dose: 40 mg - Labs Labs: 01/29/17 06:10 01/29/17 06:10 PT 12.0 Seconds (9.9-11.8) H 01/28/17 08:00 INR 1.11 (0.93-1.08) H 01/28/17 08:00 APTT 49.5 Seconds (23.7-30.8) H 01/29/17 02:15 - Constitutional Appears: Well, No Acute Distress - Head Exam Head Exam: ATRAUMATIC, NORMOCEPHALIC - Eye Exam Eye Exam: Normal appearance - ENT Exam ENT Exam: Mucous Membranes Moist - Respiratory Exam Respiratory Exam: Clear to Ausculation Bilateral, NORMAL BREATHING PATTERN. absent: Rales, Rhonchi, Wheezes, Respiratory Distress - GI/Abdominal Exam GI & Abdominal Exam: Soft, Normal Bowel Sounds. absent: Firm, Guarding, Tenderness - Extremities Exam Additional comments: bilateral lower extremity pitting edema +2 - Neurological Exam Neurological Exam: Alert, Awake, Oriented x3 - Skin Skin Exam: Dry, Intact, Normal Color, Warm Assessment and Plan - Assessment and Plan (Free Text) Assessment: 51 yo male with no significant PMH presented with HTN emergency with maribeth, myocardial ischemia, anemia and hypokalemia. Patient was admitted to ICU. Plan: 1. HTN emergency - BP improved - admitted to ICU - currently on nicardipine drip - started on lasix, hydralazine, metoprolol - cont norvasc and lipitor - UDS was negative - cardio consulted - nephrology consulted - cont to monitor BP 2. MARIBETH - unknown baseline functions - consulted nephro - once HTN is controlled will repeat UA - random urine protein and creatinine order - cont to monitor kidney function - aviod nephro toxic medication 3. myocardial ischemia - cardio consulted, recommend an eventual cardiac - trops elevated, trending down - echo showed EF of 40%, moderate left ventricular hypertrophy and hypokinesis, please see full report 4. hypokalemia - potassium 2.6 this AM - replaced - repeat in AM <Gladys Sosa - Last Filed: 01/29/17 16:49> Objective - Vital Signs/Intake and Output Vital Signs (last 24 hours): Temp Pulse Resp BP Pulse Ox 97.8 F 71 24 158/88 H 94 L 01/29/17 08:00 01/29/17 14:40 01/29/17 14:40 01/29/17 14:34 01/29/17 14:40 Intake and Output: 01/29/17 01/29/17 06:59 18:59 Intake Total 765 125 Output Total 4975 Balance -4210 125 - Medications Medications: Current Medications Amlodipine Besylate (Norvasc) 5 mg PO DAILY [facility] Last Admin: 01/29/17 09:17 Dose: 5 mg Aspirin (Aspirin Chewable) 81 mg PO DAILY [facility] Last Admin: 01/29/17 09:18 Dose: 81 mg Atorvastatin Calcium (Lipitor) 80 mg PO DAILY [facility] Last Admin: 01/29/17 09:17 Dose: 80 mg Furosemide (Lasix) 20 mg IVP Q12 [facility] Hydralazine HCl (Apresoline) 25 mg PO QID [facility] Last Admin: 01/29/17 14:34 Dose: 25 mg Nicardipine HCl (Cardene Iv Premix) 20 mg in 200 mls @ 50 mls/hr IV .Q4H PRN; Protocol; 5 MG/HR PRN Reason: TITRATE PER MD ORDER Last Admin: 01/29/17 08:50 Dose: 3.5 mg/hr, 35 mls/hr Isosorbide Mononitrate (Imdur) 60 mg PO DAILY [facility] Last Admin: 01/29/17 09:16 Dose: 60 mg Metoprolol Tartrate (Lopressor) 50 mg PO BID [facility] Last Admin: 01/29/17 09:16 Dose: 50 mg Pantoprazole Sodium (Protonix Ec Tab) 40 mg PO 0630 [facility] Last Admin: 01/29/17 09:17 Dose: 40 mg - Labs Labs: 01/29/17 06:10 01/29/17 06:10 PT 12.0 Seconds (9.9-11.8) H 01/28/17 08:00 INR 1.11 (0.93-1.08) H 01/28/17 08:00 APTT 49.5 Seconds (23.7-30.8) H 01/29/17 02:15 Attending/Attestation - Attestation I have personally seen and examined this patient.: Yes I have fully participated in the care of the patient.: Yes I have reviewed all pertinent clinical information, including history, physical exam and plan: Yes Notes (Text): 01/29/17 16:43 attending note; Patient seen and examined With resident in ICU. Patient is a 51-year-old male admitted with progressive leg swelling for the past few weeks. admitted to ICU for hypertensive emergency with end organ damage. on IV nicardipine drip. started on metoprolol, hydralazine,Imdur and Norvasc. blood pressure improved significantly. Will taper and discontinue nicardipine drip. troponin is trending down. Cardiology evaluation with Dr. Paredes appreciated. Echocardiogram showed impaired LV function/LVH and moderate pulmonary hypertension. Heparin drip discontinued by cardiology. Elevated creatinine; creatinine stable at 2.6. Nephrology evaluation appreciated. upon discharge the patient will follow up with [facility]. the diagnosis and follow-up plan discussed patient and patient's girlfriend in detail.
--- NOTE | 2017-01-29 11:57 | US ---
PROCEDURE: Ultrasound of the Kidneys HISTORY: Renal failure, htn emergency COMPARISON: None available. TECHNIQUE: Sonogram of the kidneys. FINDINGS: RIGHT KIDNEY: Measures: 11.3 x 4.3 x 5.8 cm. Normal in size, contour and echogenicity. No stone, solid mass lesion or hydronephrosis visualized. 2.1 x 2.1 x 2.1 cm lower pole renal cyst noted LEFT KIDNEY: Measures: 10.9 x 4.8 x 6.1 cm. Normal in size, contour and echogenicity. No stone, solid mass lesion or hydronephrosis visualized. OTHER FINDINGS: None. IMPRESSION: Right lower renal pole 2 cm cyst
--- NOTE | 2017-01-29 12:23 | CON ---
DATE: 01/29/2017 REQUESTING PHYSICIAN: Dr. Sosa. REASON FOR CONSULTATION: Accelerated hypertension. HISTORY OF PRESENT ILLNESS: This is a 51-year-old man who was unaware of any prior medical problems who presented to the Emergency Room with increasing leg edema. He was found to be markedly hypertens julius and admitted to the CCU. He is currently on intravenous nicardipine as well as heparin. He shawn es any prior cardiac history. He was last seen by a physician over 5 years ago. He takes no medicat ions at home. PAST MEDICAL HISTORY: Otherwise, unremarkable. SOCIAL HISTORY: He denies tobacco abuse. He drinks a few beers weekly. He currently works as a [employer] and has physical activity at his job. He has noticed some increasing dyspnea with exertion a s well as reduced stamina. He lives with his girlfriend. 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 FAMILY HISTORY: There is no premature heart disease noted. Mother of complications of breast c ancer. Father from a glioblastoma. ALLERGIES: None. REVIEW OF SYSTEMS: A 10-point review of systems is notable only for the problems mentioned above. PHYSICAL EXAMINATION: GENERAL: He is an overweight middle-aged man. VITAL SIGNS: His current blood pressure is 168/100 with a pulse of 90, respirations are 16. He is a febrile. HEENT: Normocephalic, atraumatic. NECK: No JVD noted. CHEST: A few scattered rhonchi heard. HEART: PMI displaced laterally with a systolic murmur at the apex. ABDOMEN: Soft, mildly obese, nontender, normoactive bowel sounds. EXTREMITIES: 1 to 2+ leg edema. SKIN: Warm and dry. PSYCHIATRIC: Normal mood and affect. NEUROLOGIC: Alert and oriented x 3. No gross motor or sensory deficits are present. DIAGNOSTIC DATA: Electrocardiogram reveals sinus rhythm with LVH. Chest x-ray reveals an enlarged c ardiac silhouette with increased vascular markings at the bases. Echocardiogram reveals a markedly e nlarged left atrium with moderately reduced LV systolic function and global hypokinesis as well as mo derate mitral regurgitation. Lower extremity ultrasound reveals no evidence of DVT. White count 10. 6, hemoglobin and hematocrit are 12.8 and 40.3 with an MCV of 78, platelet count is 308,000. Initial ____ PTT 12 and 27.6. Potassium 3.1. BUN and creatinine are 51 and 2.8, glucose 139. CK 166 with a troponin of 0.19, repeat of 0.15. BNP 17,600. Urinalysis is notable for 4+ protein. IMPRESSION: 1. Accelerated hypertension with evidence of end-organ damage. 2. Borderline troponin with negative CK and no evidence of chest pain, doubt acute myocardial ischem ia, likely elevated troponin secondary to reduced renal clearance. 3. Left ventricular dysfunction likely due to hypertensive heart disease. 4. Moderate mitral regurgitation due to the same. 5. Renal insufficiency with evidence of proteinuria, possible nephrotic syndrome. RECOMMENDATIONS: At this time, oral antihypertensive therapy with beta nikunj and calcium nikunj c an be initiated. Angiotensin receptor blockers and PRADEEP inhibitors will be avoided given his renal in sufficiency. IV heparin can be discontinued at this time. A followup electrocardiogram will be plan basil. An eventual cardiac stress test will be arranged. A 24-hour urine collection is advisable. Fu rther recommendations will be made based upon his clinical course and results of the above findings. Thank you for this consultation. Roberto Stapleton MD cc: [id number] TT: 01/29/2017 10:08:36 Confirmation # [id number] Dictation # [id number] mn 01/29/2017 11:22:29
--- NOTE | 2017-01-29 14:42 | US ---
PROCEDURE: Bilateral renal artery duplex ultrasound. CLINICAL HISTORY: Renal artery stenosis. Uncontrolled hypertension. Evaluate for renovascular hypertension. PHYSICIAN(S): Isiah Angel M.D. TECHNIQUE: Duplex sonography with color-flow Doppler was used to evaluate the visualized segments of the main renal arteries. The patient was evaluated in a fasting state. Imaging in a supine and decubitus position was performed. Limited evaluation of the arcuate waveforms and resistive indices were performed. FINDINGS: The exam is very limited by body habitus and bowel gas. The main renal arteries are not well seen. The kidneys are normal in size, shape, and location. The right kidney measures 12.0cm in length and the left kidney measures 11.4cm in length. No solid renal masses, abnormal calcifications, or hydronephrosis is seen. The main right renal artery is only visualized in segments from the aorta to the hilum.. The peak systolic velocity in the right main renal artery is 49 cm/sec. This is consistent with a 0 to 49% stenosis in the main right renal artery. The arcuate waveforms are normal. The resistive index is normal. The main left renal artery is also only visualized in segments from the aorta to the hilum.. The peak systolic velocity in the main left renal artery is 70cm/sec. This corresponds to a 0 to 49% stenosis in the main left renal artery. The arcuate waveforms and resistive indices are normal. IMPRESSION: 1. The main renal arteries are not well visualized. If clinical suspicion for renal artery stenosis is high, a CTA, MRA, or conventional arteriogram can be performed. 2. No sonographically significant stenosis is identified. 3. The kidneys are normal and symmetric in size. There are no solid renal masses, abnormal calcifications or hydronephrosis noted.
[2017-01-29 20:16] LABS: CALCIUM 8.9 mg/dL (8.4-10.5); POTASSIUM 4.2 mmol/L (3.6-5.0)
[2017-01-30 06:41] LABS: CREATININE, RANDOM URINE 51 mg/dL (20-370)
[2017-01-31] MEDS: Pantoprazole 40 mg EC Tab PO SCH (06:00)
[2017-01-31 06:57] LABS: ADD MANUAL DIFF? NO
[2017-01-31 07:09] LABS: BASO # 0.09 K/mm3 (0.0-2.0); BASO % 1.2 % (0.0-3.0); EOS # 0.3 (0.0-0.7); GRAN % 70.3 % (50.0-68.0); HEMATOCRIT 37.5 % (42.0-52.0); LYMPH # 1.1 (1.2-3.4); LYMPH % 14.8 % (22.0-35.0); MEAN CELL VOLUME 78.8 fL (80.0-105.0); MEAN CORPUSCULAR HGB CONC 31.7 g/dl (31.0-37.0); MEAN PLATELET VOLUME 11.1 fl (7.0-11.0); MONO # 0.7 (0.1-0.6); MONO % 9.7 % (1.0-6.0); PLATELET COUNT 276 10^3/uL (120.0-450.0); RED CELL DISTRIBUTION WIDTH 16.9 % (11.5-14.5); WHITE BLOOD COUNT 7.3 10^3/ul (4.5-11.0)
[2017-01-31 07:54] LABS: ALB/GLOB RATIO 0.9 (1.1-1.8); BILIRUBIN,TOTAL 1.1 mg/dL (0.2-1.3); CALCIUM 8.9 mg/dL (8.4-10.5); POTASSIUM 3.5 mmol/L (3.6-5.0); TOTAL PROTEIN 7.4 g/dL (5.8-8.3)
[2017-01-31] MEDS ORDERED: Metoprolol 1 mg/ml Inj IVP PRN (08:35)
[2017-01-31] MEDS ORDERED: Metoprolol 1 mg/ml Inj IVP STA (08:35)
--- NOTE | 2017-01-31 08:39 | CP.PCM.PN ---
Subjective - Date & Time of Evaluation Date of Evaluation: 01/31/17 Time of Evaluation: 07:00 - Subjective Subjective: Stable on 2R. BP up today. I spoke with Dr. Sosa. V/S noted PE: Lungs: clear Cor.: S1S2, sys. murmur Abd.: soft Ext.; + edema Neuro.; alert Labs noted: Cr.= 2.8, K+= 3.5 Echo noted Objective - Vital Signs/Intake and Output Vital Signs (last 24 hours): Temp Pulse Resp BP Pulse Ox 98.3 F 92 H 18 185/124 H 97 01/31/17 05:48 01/31/17 08:21 01/31/17 05:48 01/31/17 08:21 01/31/17 05:48 Intake and Output: 01/31/17 01/31/17 06:59 18:59 Intake Total 0 Output Total 875 Balance -875 - Medications Medications: Current Medications Amlodipine Besylate (Norvasc) 5 mg PO DAILY [facility] Last Admin: 01/31/17 08:21 Dose: 5 mg Aspirin (Aspirin Chewable) 81 mg PO DAILY [facility] Last Admin: 01/29/17 09:18 Dose: 81 mg Atorvastatin Calcium (Lipitor) 80 mg PO DAILY [facility] Last Admin: 01/29/17 09:17 Dose: 80 mg Clonidine HCl (Catapres) 0.1 mg PO TID [facility] Last Admin: 01/31/17 08:19 Dose: 0.1 mg Furosemide (Lasix) 40 mg IVP Q12 [facility] Last Admin: 01/30/17 22:13 Dose: 40 mg Hydralazine HCl (Apresoline) 25 mg PO QID [facility] Last Admin: 01/30/17 22:20 Dose: 25 mg Nicardipine HCl (Cardene Iv Premix) 20 mg in 200 mls @ 50 mls/hr IV .Q4H PRN; Protocol; 5 MG/HR PRN Reason: TITRATE PER MD ORDER Last Admin: 01/29/17 17:27 Dose: 2.5 mg/hr, 25 mls/hr Isosorbide Mononitrate (Imdur) 60 mg PO DAILY [facility] Last Admin: 01/29/17 09:16 Dose: 60 mg Metoprolol Tartrate (Lopressor) 50 mg PO BID [facility] Last Admin: 01/29/17 17:28 Dose: 50 mg Pantoprazole Sodium (Protonix Ec Tab) 40 mg PO 0630 [facility] Last Admin: 01/31/17 06:00 Dose: 40 mg - Labs Labs: 01/31/17 06:30 01/31/17 06:30 PT 12.0 Seconds (9.9-11.8) H 01/28/17 08:00 INR 1.11 (0.93-1.08) H 01/28/17 08:00 APTT 49.5 Seconds (23.7-30.8) H 01/29/17 02:15 Assessment and Plan - Assessment and Plan (Free Text) Plan: Assessment: Edema HBP, new LVD and mod. MR on echo Abn. ECG Acute/chronic renal insufficiency Plan: Needs increased antihypertensive therapy and renal evaluation for primary cause of hypertension-as per Dr. Adams. Once stabilized would get nuclear stress test to evaluate possible CAD Continue tel. Case D/W Dr. Sosa.
[2017-01-31] MEDS ORDERED: Potassium Chloride 20 mEq ER Tab PO STA (08:40)
[2017-01-31 12:28] LABS: HEMATOCRIT 39.9 % (42.0-52.0); MEAN CELL VOLUME 78.7 fL (80.0-105.0); MEAN CORPUSCULAR HEMOGLOBIN 25.4 pg (25.0-35.0); MEAN CORPUSCULAR HGB CONC 32.3 g/dl (31.0-37.0); MEAN PLATELET VOLUME 11.2 fl (7.0-11.0); RED CELL DISTRIBUTION WIDTH 16.8 % (11.5-14.5); WHITE BLOOD COUNT 9.1 10^3/ul (4.5-11.0)
--- NOTE | 2017-01-31 12:42 | CP.PCM.PN ---
<Arin Sow - Last Filed: 01/31/17 13:31> Subjective - Date & Time of Evaluation Date of Evaluation: 01/31/17 Time of Evaluation: 11:00 - Subjective Subjective: PGY-1 medicine progress not Pageant seen and examined at bedside. No acute distress. Patient was transferred out of ICU yesterday. Nurse reports no acute events overnight. Patient states he is feeling good. He denies any chest pain, SOB, headache, dizziness. He states that the swelling in his legs have improved. He denies any difficulty ambulating. Tolerating diet. Objective - Vital Signs/Intake and Output Vital Signs (last 24 hours): Temp Pulse Resp BP Pulse Ox 97.7 F 59 L 20 116/78 97 01/31/17 12:00 01/31/17 12:00 01/31/17 12:00 01/31/17 12:00 01/31/17 05:48 Intake and Output: 01/31/17 01/31/17 06:59 18:59 Intake Total 0 Output Total 875 Balance -875 - Medications Medications: Current Medications Amlodipine Besylate (Norvasc) 10 mg PO DAILY [facility] Last Admin: 01/31/17 09:38 Dose: 5 mg Aspirin (Aspirin Chewable) 81 mg PO DAILY [facility] Last Admin: 01/31/17 09:42 Dose: 81 mg Atorvastatin Calcium (Lipitor) 80 mg PO DAILY [facility] Last Admin: 01/31/17 09:52 Dose: 80 mg Carvedilol (Coreg) 6.25 mg PO BID [facility] Last Admin: 01/31/17 12:00 Dose: Not Given Clonidine HCl (Catapres) 0.2 mg PO TID [facility] Last Admin: 01/31/17 09:35 Dose: 0.1 mg Furosemide (Lasix) 40 mg IVP Q12 [facility] Last Admin: 01/31/17 09:42 Dose: 40 mg Hydralazine HCl (Apresoline) 50 mg PO QID [facility] Last Admin: 01/31/17 09:41 Dose: 50 mg Isosorbide Mononitrate (Imdur) 120 mg PO DAILY [facility] Last Admin: 01/31/17 09:38 Dose: 120 mg Metoprolol Tartrate (Lopressor) 5 mg IVP Q6 PRN PRN Reason: Systolic Blood Pressure Pantoprazole Sodium (Protonix Ec Tab) 40 mg PO 0630 [facility] Last Admin: 01/31/17 06:00 Dose: 40 mg - Labs Labs: 01/31/17 06:30 01/31/17 06:30 PT 12.0 Seconds (9.9-11.8) H 01/28/17 08:00 INR 1.11 (0.93-1.08) H 01/28/17 08:00 APTT 49.5 Seconds (23.7-30.8) H 01/29/17 02:15 - Constitutional Appears: Well, No Acute Distress - Head Exam Head Exam: ATRAUMATIC, NORMOCEPHALIC - Eye Exam Eye Exam: Normal appearance - ENT Exam ENT Exam: Mucous Membranes Moist - Respiratory Exam Respiratory Exam: Clear to Ausculation Bilateral, NORMAL BREATHING PATTERN. absent: Decreased Breath Sounds, Rhonchi, Wheezes, Respiratory Distress - Cardiovascular Exam Cardiovascular Exam: REGULAR RHYTHM. absent: Tachycardia, Murmur - GI/Abdominal Exam GI & Abdominal Exam: Soft, Normal Bowel Sounds. absent: Firm, Guarding, Rigid, Tenderness - Extremities Exam Additional comments: bilateral lower extremity +1 pitting edema - Neurological Exam Neurological Exam: Alert, Awake, Oriented x3 - Skin Skin Exam: Dry, Intact, Normal Color, Warm Assessment and Plan - Assessment and Plan (Free Text) Assessment: 51 yo male with no significant PMH presented with HTN emergency with maribeth, myocardial ischemia, anemia and hypokalemia. Patient was downgraded from ICU. Plan: 1. HTN emergency - BP improved, no longer on cardene drip - downgraded from ICU - BP increased this morning - norvasc, clonidine, hydralazine, imdur were increased - cont lasix - IV metoprolol PRN - cont asa and lipitor - coreg was started per nephro - UDS was negative - cardio consulted - nephrology consulted - cont to monitor BP 2. MARIBETH - unknown baseline functions - consulted nephro, recommend kidney biopsy once HTN is stablized - random total protein is elevated - cont to monitor kidney function - avoid nephro toxic medication 3. myocardial ischemia - cardio following, recommend an eventual cardiac stress test - trops elevated, trending down - echo showed EF of 40%, moderate left ventricular hypertrophy and hypokinesis, please see full report 4. hypokalemia - potassium 3.5, improved - replaced - repeat in AM Ppx - GI - protonix - DVT- scds <Gladys Sosa - Last Filed: 01/31/17 13:56> Objective - Vital Signs/Intake and Output Vital Signs (last 24 hours): Temp Pulse Resp BP Pulse Ox 97.7 F 59 L 20 116/78 97 01/31/17 12:00 01/31/17 12:00 01/31/17 12:00 01/31/17 12:00 01/31/17 05:48 Intake and Output: 01/31/17 01/31/17 06:59 18:59 Intake Total 0 Output Total 875 Balance -875 - Medications Medications: Current Medications Amlodipine Besylate (Norvasc) 10 mg PO DAILY [facility] Last Admin: 01/31/17 09:38 Dose: 5 mg Aspirin (Aspirin Chewable) 81 mg PO DAILY [facility] Last Admin: 01/31/17 09:42 Dose: 81 mg Atorvastatin Calcium (Lipitor) 80 mg PO DAILY [facility] Last Admin: 01/31/17 09:52 Dose: 80 mg Carvedilol (Coreg) 6.25 mg PO BID [facility] Last Admin: 01/31/17 12:00 Dose: Not Given Clonidine HCl (Catapres) 0.2 mg PO TID [facility] Last Admin: 01/31/17 09:35 Dose: 0.1 mg Furosemide (Lasix) 40 mg IVP Q12 [facility] Last Admin: 01/31/17 09:42 Dose: 40 mg Hydralazine HCl (Apresoline) 50 mg PO QID [facility] Last Admin: 01/31/17 09:41 Dose: 50 mg Methylprednisolone 1,000 mg/ (Sodium Chloride) 250 mls @ 250 mls/hr IVPB ONCE ONE Stop: 01/31/17 14:02 Isosorbide Mononitrate (Imdur) 120 mg PO DAILY [facility] Last Admin: 01/31/17 09:38 Dose: 120 mg Metoprolol Tartrate (Lopressor) 5 mg IVP Q6 PRN PRN Reason: Systolic Blood Pressure Pantoprazole Sodium (Protonix Ec Tab) 40 mg PO 0630 [facility] Last Admin: 01/31/17 06:00 Dose: 40 mg - Labs Labs: 01/31/17 06:30 01/31/17 06:30 PT 12.0 Seconds (9.9-11.8) H 01/28/17 08:00 INR 1.11 (0.93-1.08) H 01/28/17 08:00 APTT 49.5 Seconds (23.7-30.8) H 01/29/17 02:15 Attending/Attestation - Attestation I have personally seen and examined this patient.: Yes I have fully participated in the care of the patient.: Yes I have reviewed all pertinent clinical information, including history, physical exam and plan: Yes Notes (Text): 01/31/17 13:45 attending note; Patient seen and examined With resident. Patient is a 51-year-old male admitted with progressive leg swelling for few weeks. Initially admitted to ICU for hypertensive emergency with end organ damage. treated with IV nicardipine drip. started on coreg , hydralazine,Imdur and Norvasc. blood pressure improved significantly. today patient with elevated blood pressure. No headache,chest pain, shortness of breath. medications adjusted. Cardiology evaluation with Dr. Ricci appreciated. Echocardiogram showed impaired LV function/LVH and moderate pulmonary hypertension. patient needs stress test as outpatient. Elevated creatinine; creatinine stable at 2.8. Nephrology evaluation appreciated. 24-hour urine protein is 3.8 gram.got 1 dose of IV methylprednisolone. Kidney biopsy planned for Friday. dietitian education given. Patient is advised to complete [facility] Paperwork. upon discharge the patient will [place] [facility] [place]. 01/31/17 13:56
[2017-01-31 14:05] LABS: ALB/GLOB RATIO 0.9 (1.1-1.8); BILIRUBIN,TOTAL 1.2 mg/dL (0.2-1.3); CALCIUM 8.9 mg/dL (8.4-10.5); MAGNESIUM 2.1 mg/dL (1.7-2.2); PHOSPHOROUS 4.2 mg/dL (2.5-4.5); POTASSIUM 3.7 mmol/L (3.6-5.0); TOTAL PROTEIN 7.6 g/dL (5.8-8.3)
--- NOTE | 2017-01-31 21:12 | PN ---
DATE: 01/31/2017 NEPHROLOGY FOLLOWUP NOTE A 51-year-old male with no past medical history admitted with hypertensive emergency, acute renal gina banks, nephrology following for the same. The patient reports feeling well. Feels that his leg swelling has decreased and is ambulating around the hallways. PHYSICAL EXAMINATION: VITAL SIGNS: This evening blood pressure 132/102, heart rate 62, respirations earlier today 20, temp erature 97.7, O2 sat 100% on room air. GENERAL: No distress, conversing coherently in full sentences. HEENT: Moist mucous membranes. Nonicteric. LUNGS: Clear to auscultation bilaterally. No rales, no rhonchi, no wheezes. CARDIOVASCULAR: S1, S2 normal. S3 present. Elevated JVD. GASTROINTESTINAL: Soft, nontender, nondistended. EXTREMITIES: 2+ bilateral lower leg edema. SKIN: Warm. No cyanosis. PSYCHIATRIC: Normal mood, normal affect. LABORATORY DATA: This morning, CBC: WBC 7.3, hemoglobin 11.9, hematocrit 37.5, platelets 276. Chem istry panel: Sodium 135, potassium 3.5, chloride 93, bicarbonate 33, BUN 49, creatinine 2.8, glucose 96, calcium 8.9, albumin 3.5. Urine protein to creatinine ratio 3875 mg/g. ASSESSMENT: 1. Acute renal failure. Very suspicious for rapidly aggressive glomerulonephritis with marked hemat uria and almost nephrotic range proteinuria in the setting of marked hypertension consistent with a n ephritic picture, compliments normal. The patient was to undergo a renal biopsy today, but held off due to uncontrolled blood pressure, started on pulse dose Solu-Medrol 1 gram. We will repeat again f or the next 2 days. Otherwise, relatively stable renal function. Stable electrolyte status. 2. Malignant hypertension. Secondary causes workup in progress, awaiting result of plasma, renin an d aldosterone levels, as well as plasma metanephrines. 3. Hypertensive emergency. Blood pressure meds adjusted today. Currently on Coreg 6.25 mg b.i.d., switched from metoprolol today. Also on clonidine 0.1 mg t.i.d., hydralazine 50 mg q.i.d. and Imdur 120 mg daily increased from 60 mg today. Also on Lasix 40 mg IV push q. 12 hours. Still volume over loaded on exam. We will increase frequency of Lasix to q. 8 hours. 4. Acute decompensated congestive heart failure, severe exacerbation with echo showing systolic dysf unction. Increasing diuretics as mentioned above. 5. Hypokalemia, currently resolved. Continue to replenish as needed. Monitor magnesium level daily with the patient on increased diuretic doses. Devon Adams MD cc: [id number] TT: 01/31/2017 21:11:55 Confirmation # [id number] Dictation # [id number] mn
[2017-02-01] MEDS: Pantoprazole 40 mg EC Tab PO SCH (06:14)
[2017-02-01 07:52] LABS: ADD MANUAL DIFF? NO
[2017-02-01 08:01] LABS: GRAN # 5.95 (1.4-6.5); GRAN % 92.8 % (50.0-68.0); HEMATOCRIT 37.8 % (42.0-52.0); LYMPH # 0.4 (1.2-3.4); LYMPH % 6.7 % (22.0-35.0); MEAN CELL VOLUME 77.8 fL (80.0-105.0); MEAN CORPUSCULAR HEMOGLOBIN 24.9 pg (25.0-35.0); MEAN PLATELET VOLUME 11.8 fl (7.0-11.0); MONO % 0.5 % (1.0-6.0); PLATELET COUNT 259 10^3/uL (120.0-450.0); RED CELL DISTRIBUTION WIDTH 16.5 % (11.5-14.5); WHITE BLOOD COUNT 6.4 10^3/ul (4.5-11.0)
[2017-02-01 08:30] LABS: ALB/GLOB RATIO 1.1 (1.1-1.8); BILIRUBIN,TOTAL 1.2 mg/dL (0.2-1.3); CALCIUM 9.5 mg/dL (8.4-10.5); MAGNESIUM 2.3 mg/dL (1.7-2.2); POTASSIUM 4.2 mmol/L (3.6-5.0); TOTAL PROTEIN 7.2 g/dL (5.8-8.3)
--- NOTE | 2017-02-01 09:12 | PN ---
DATE: 02/01/2017 SUBJECTIVE: The patient is seen sitting in a chair on telemetry. He feels comfortable. His leg julianna ma has improved. His blood pressure control is improved as well. He is scheduled for renal biopsy o friday. CURRENT MEDICATIONS: Include hydralazine 50 mg q.i.d., aspirin, Catapres 0.1 mg t.i.d., carvedilol 6 .25 mg b.i.d., Imdur 120 mg daily, Lasix 40 mg IV q. 8 hours, Lipitor 80 mg daily, methylprednisolone , Norvasc 10 mg daily, Protonix 40 mg daily. OBJECTIVE: GENERAL: He is a middle-aged man who appears comfortable at rest. VITAL SIGNS: His blood pressure 146/80 with a pulse of 90, respirations are 16. He is afebrile. HEENT: No JVD. CHEST: Clear to auscultation and percussion. HEART: PMI displaced laterally, 4th heart sound is present. Systolic murmur is present in left ster nal border. ABDOMEN: Soft, nontender, normoactive bowel sounds. EXTREMITIES: Compression stockings are in place, 1+ edema is noted. DIAGNOSTIC DATA: White count 6.4, hemoglobin and hematocrit 12.1 and 37.8, with MCV of 78, platelet count is 249,000. BMP is pending for the morning. Intake and output were 1210 and 1800 respectively . IMPRESSION: 1. Hypertensive crisis, clinically improved. 2. Renal insufficiency, likely secondary to nephrotic syndrome. 3. Moderate mitral regurgitation. 4. Mild to moderate left ventricular systolic dysfunction. RECOMMENDATIONS: His current medications should be continued. He is stable from a cardiac standpoin t to proceed with the renal biopsy as planned. An eventual nuclear stress test will be planned. The need for compliance with sodium and fluid restriction as well as the appropriate medications was dis cussed in detail with him. We will be happy to follow as needed. Roberto Stapleton MD cc: [id number] TT: 02/01/2017 09:12:07 Confirmation # [id number] Dictation # [id number] gertrudis
--- NOTE | 2017-02-01 12:24 | CP.PCM.PN ---
<Arin Sow - Last Filed: 02/01/17 17:17> Subjective - Date & Time of Evaluation Date of Evaluation: 02/01/17 Time of Evaluation: 12:22 - Subjective Subjective: PGY-1 Medicine progress note Patient seen and examined at bedside on telemetry. No acute distress. Nurse reports no events overnight. Patient states he is doing well, swelling in his legs has improved. No other complaints, denies headache, dizziness, chest pain, n/v/d/c, urinary problems. Tolerating diet. Objective - Vital Signs/Intake and Output Vital Signs (last 24 hours): Temp Pulse Resp BP Pulse Ox 97.6 F 82 18 140/85 97 02/01/17 06:00 02/01/17 11:11 02/01/17 06:00 02/01/17 11:11 02/01/17 06:00 Intake and Output: 02/01/17 02/01/17 06:59 18:59 Intake Total 1210 Output Total 1800 Balance -590 - Medications Medications: Current Medications Amlodipine Besylate (Norvasc) 10 mg PO DAILY [facility] Last Admin: 02/01/17 11:11 Dose: 10 mg Aspirin (Aspirin Chewable) 81 mg PO DAILY [facility] Last Admin: 02/01/17 11:11 Dose: 81 mg Atorvastatin Calcium (Lipitor) 80 mg PO DAILY [facility] Last Admin: 02/01/17 11:10 Dose: 80 mg Carvedilol (Coreg) 6.25 mg PO BID [facility] Last Admin: 02/01/17 11:11 Dose: 6.25 mg Clonidine HCl (Catapres) 0.1 mg PO TID [facility] Last Admin: 02/01/17 11:10 Dose: 0.1 mg Furosemide (Lasix) 40 mg IVP Q8H [facility] Last Admin: 02/01/17 05:30 Dose: 40 mg Hydralazine HCl (Apresoline) 50 mg PO QID [facility] Last Admin: 02/01/17 11:10 Dose: 50 mg Methylprednisolone 1,000 mg/ (Sodium Chloride) 250 mls @ 200 mls/hr IVPB ONCE ONE Stop: 02/01/17 14:14 Isosorbide Mononitrate (Imdur) 120 mg PO DAILY [facility] Last Admin: 02/01/17 11:10 Dose: 120 mg Metoprolol Tartrate (Lopressor) 5 mg IVP Q6 PRN PRN Reason: Systolic Blood Pressure Pantoprazole Sodium (Protonix Ec Tab) 40 mg PO 0630 [facility] Last Admin: 02/01/17 06:14 Dose: Not Given - Labs Labs: 02/01/17 07:49 02/01/17 07:49 PT 12.0 Seconds (9.9-11.8) H 01/28/17 08:00 INR 1.11 (0.93-1.08) H 01/28/17 08:00 APTT 49.5 Seconds (23.7-30.8) H 01/29/17 02:15 - Constitutional Appears: Well, No Acute Distress - Head Exam Head Exam: ATRAUMATIC, NORMOCEPHALIC - Eye Exam Eye Exam: Normal appearance - ENT Exam ENT Exam: Mucous Membranes Moist - Respiratory Exam Respiratory Exam: Clear to Ausculation Bilateral, NORMAL BREATHING PATTERN. absent: Rhonchi, Wheezes, Respiratory Distress - Cardiovascular Exam Cardiovascular Exam: REGULAR RHYTHM. absent: Tachycardia, Murmur - GI/Abdominal Exam GI & Abdominal Exam: Soft, Normal Bowel Sounds. absent: Firm, Guarding, Tenderness - Extremities Exam Additional comments: bilateral lower extremity +1 pitting edema, improved - Neurological Exam Neurological Exam: Alert, Awake, Oriented x3 - Skin Skin Exam: Abrasion, Dry, Intact, Normal Color, Warm Assessment and Plan - Assessment and Plan (Free Text) Assessment: 51 yo male with no significant PMH presented with HTN emergency with maribeth, anemia and hypokalemia. Patient was downgraded from ICU 2 days ago. Plan: 1. HTN emergency - BP improved, no longer on cardene drip - BP improved continues to fluctuate - cont norvasc 10mg, hydralazine 50mg QID, imdur 120mg daily, theses meds were increased yesterday - cont clonidine 6.25mg - lasix were increased to q8 hours per nephro - IV metoprolol PRN - cont asa and lipitor - cont coreg 6.25 - UDS was negative - cardio following - nephrology following - cont to monitor BP 2. MARIBETH - unknown baseline functions - consulted nephro, recommend kidney biopsy once HTN is stablized - biopsy possibly on Friday - random total protein is elevated - cont to monitor kidney function - avoid nephro toxic medication 3. myocardial ischemia - cardio following, recommend an eventual outpatient cardiac stress test - trops trending down - echo showed EF of 40%, moderate left ventricular hypertrophy and hypokinesis, please see full report 4. hypokalemia - potassium 4.2 this morning, improved - continue to monitor Ppx - GI - protonix - DVT- scds <Gladys Sosa - Last Filed: 02/01/17 17:35> Objective - Vital Signs/Intake and Output Vital Signs (last 24 hours): Temp Pulse Resp BP Pulse Ox 97.5 F L 96 H 20 137/85 99 02/01/17 13:08 02/01/17 14:32 02/01/17 13:08 02/01/17 14:32 02/01/17 09:00 Intake and Output: 02/01/17 02/01/17 06:59 18:59 Intake Total 1210 Output Total 1800 Balance -590 - Medications Medications: Current Medications Amlodipine Besylate (Norvasc) 10 mg PO DAILY [facility] Last Admin: 02/01/17 11:11 Dose: 10 mg Aspirin (Aspirin Chewable) 81 mg PO DAILY [facility] Last Admin: 02/01/17 11:11 Dose: 81 mg Atorvastatin Calcium (Lipitor) 80 mg PO DAILY [facility] Last Admin: 02/01/17 11:10 Dose: 80 mg Carvedilol (Coreg) 6.25 mg PO BID [facility] Last Admin: 02/01/17 11:11 Dose: 6.25 mg Clonidine HCl (Catapres) 0.1 mg PO TID [facility] Last Admin: 02/01/17 14:32 Dose: 0.1 mg Furosemide (Lasix) 40 mg IVP Q8H [facility] Last Admin: 02/01/17 05:30 Dose: 40 mg Hydralazine HCl (Apresoline) 50 mg PO QID [facility] Last Admin: 02/01/17 14:32 Dose: 50 mg Isosorbide Mononitrate (Imdur) 120 mg PO DAILY [facility] Last Admin: 02/01/17 11:10 Dose: 120 mg Metoprolol Tartrate (Lopressor) 5 mg IVP Q6 PRN PRN Reason: Systolic Blood Pressure Pantoprazole Sodium (Protonix Ec Tab) 40 mg PO 0630 [facility] Last Admin: 02/01/17 06:14 Dose: Not Given - Labs Labs: 02/01/17 07:49 02/01/17 07:49 PT 12.0 Seconds (9.9-11.8) H 01/28/17 08:00 INR 1.11 (0.93-1.08) H 01/28/17 08:00 APTT 49.5 Seconds (23.7-30.8) H 01/29/17 02:15 Attending/Attestation - Attestation I have personally seen and examined this patient.: Yes I have fully participated in the care of the patient.: Yes I have reviewed all pertinent clinical information, including history, physical exam and plan: Yes Notes (Text): 02/01/17 17:34 attending note; Patient seen and examined With resident. Patient is a 51-year-old male admitted with progressive leg swelling for few weeks. Initially admitted to ICU for hypertensive emergency with end organ damage. treated with IV nicardipine drip. started on coreg , hydralazine,Imdur and Norvasc. blood pressure is adequately controlled. Cardiology evaluation with Dr. Ricci appreciated. Echocardiogram showed impaired LV function/LVH and moderate pulmonary hypertension. patient needs stress test as outpatient. Elevated creatinine; creatinine is 3.1 today. Nephrology evaluation appreciated. 24-hour urine protein is 3.8 gram.got 2 dose of IV methylprednisolone. Kidney biopsy planned for Friday. dietitian education given. Patient is advised to complete [facility] Paperwork. upon discharge the patient will follow up with [facility] [place].
[2017-02-02] MEDS: Pantoprazole 40 mg EC Tab PO SCH (05:46)
[2017-02-02 06:44] LABS: ADD MANUAL DIFF? NO
[2017-02-02 07:01] LABS: ALB/GLOB RATIO 1.1 (1.1-1.8); ALKALINE PHOSPHATASE 191 U/L (38-133); ALT/SGPT 45 U/L (7-56); AST/SGOT 42 U/L (15-59); BLOOD UREA NITROGEN 62 mg/dL (7-21); CALCIUM 8.8 mg/dL (8.4-10.5); CARBON DIOXIDE 29 mmol/L (21-33); CHLORIDE 90 mmol/L (98-107); GFR AFRICAN-AMERICAN 28; MAGNESIUM 2.1 mg/dL (1.7-2.2); POTASSIUM 4.2 mmol/L (3.6-5.0); SODIUM 130 mmol/L (132-148); TOTAL PROTEIN 7.7 g/dL (5.8-8.3)
[2017-02-02 07:14] LABS: GRAN # 14.71 (1.4-6.5); GRAN % 96.4 % (50.0-68.0); HEMATOCRIT 36.8 % (42.0-52.0); LYMPH # 0.3 (1.2-3.4); LYMPH % 1.9 % (22.0-35.0); MEAN CORPUSCULAR HEMOGLOBIN 25.1 pg (25.0-35.0); MEAN CORPUSCULAR HGB CONC 32.6 g/dl (31.0-37.0); MEAN PLATELET VOLUME 11.9 fl (7.0-11.0); MONO # 0.3 (0.1-0.6); MONO % 1.7 % (1.0-6.0); PLATELET COUNT 252 10^3/uL (120.0-450.0); RED CELL DISTRIBUTION WIDTH 16.4 % (11.5-14.5); WHITE BLOOD COUNT 15.3 10^3/ul (4.5-11.0)
[2017-02-02 07:38] LABS: GLUCOSE,RANDOM 304 mg/dL (70-110)
--- NOTE | 2017-02-02 10:50 | CP.PCM.PN ---
Subjective - Date & Time of Evaluation Date of Evaluation: 02/02/17 Time of Evaluation: 08:00 - Subjective Subjective: patient seen and examined in room 260. Patient is alert, awake and oriented. sitting in the chair. Denies any chest pain. Denies any shortness of breath. Denies any abdominal pain, nausea, vomiting. Denies any urinary symptoms. Leg swelling improved significantly. Review of Systems - Constitutional Constitutional: absent: Fever, Chills - EENT Eyes: absent: Blurred Vision Nose/Mouth/Throat: absent: Nasal Congestion - Cardiovascular Cardiovascular: absent: Chest Pain, Chest Pain at Rest - Respiratory Respiratory: absent: Cough, Dyspnea, Dyspnea on Exertion - Gastrointestinal Gastrointestinal: absent: Abdominal Pain, Nausea, Vomiting - Genitourinary Genitourinary: absent: Change in Urinary Stream - Psychiatric Psychiatric: absent: Anxiety, Depression - Hematologic/Lymphatic Hematologic: absent: Easy Bleeding, Easy Bruising Objective - Vital Signs/Intake and Output Vital Signs (last 24 hours): Temp Pulse Resp BP Pulse Ox 98.7 F 82 18 166/94 H 99 02/01/17 23:40 02/02/17 09:36 02/02/17 00:01 02/02/17 09:36 02/01/17 09:00 Intake and Output: 02/02/17 02/02/17 06:59 18:59 Intake Total 540 250 Output Total 1975 3475 Balance -1435 -3225 - Medications Medications: Current Medications Amlodipine Besylate (Norvasc) 10 mg PO DAILY [facility] Last Admin: 02/02/17 09:36 Dose: 10 mg Aspirin (Aspirin Chewable) 81 mg PO DAILY [facility] Last Admin: 02/02/17 09:33 Dose: 81 mg Atorvastatin Calcium (Lipitor) 80 mg PO DAILY [facility] Last Admin: 02/02/17 09:36 Dose: 80 mg Carvedilol (Coreg) 6.25 mg PO BID [facility] Last Admin: 02/02/17 09:35 Dose: 6.25 mg Clonidine HCl (Catapres) 0.1 mg PO Q8H [facility] Furosemide (Lasix) 40 mg IVP Q8H [facility] Last Admin: 02/02/17 04:32 Dose: 40 mg Hydralazine HCl (Apresoline) 50 mg PO QID [facility] Last Admin: 02/02/17 09:32 Dose: 50 mg Methylprednisolone 1,000 mg/ (Sodium Chloride) 250 mls @ 250 mls/hr IVPB ONCE ONE Stop: 02/02/17 11:18 Insulin Human Regular (Humulin R Low) 0 units SC ACHS [facility] PRN Reason: Protocol Isosorbide Mononitrate (Imdur) 120 mg PO DAILY [facility] Last Admin: 02/02/17 09:35 Dose: 120 mg Metoprolol Tartrate (Lopressor) 5 mg IVP Q6 PRN PRN Reason: Systolic Blood Pressure Pantoprazole Sodium (Protonix Ec Tab) 40 mg PO 0630 [facility] Last Admin: 02/02/17 05:46 Dose: 40 mg - Labs Labs: 02/02/17 06:00 02/02/17 06:00 PT 12.0 Seconds (9.9-11.8) H 01/28/17 08:00 INR 1.11 (0.93-1.08) H 01/28/17 08:00 APTT 49.5 Seconds (23.7-30.8) H 01/29/17 02:15 - Constitutional Appears: Well, Non-toxic - Head Exam Head Exam: NORMAL INSPECTION - Eye Exam Eye Exam: Normal appearance - ENT Exam ENT Exam: Mucous Membranes Moist - Neck Exam Neck Exam: Normal Inspection - Respiratory Exam Respiratory Exam: NORMAL BREATHING PATTERN - GI/Abdominal Exam GI & Abdominal Exam: Soft, Normal Bowel Sounds. absent: Tenderness - Extremities Exam Extremities Exam: Pedal Edema - Back Exam Back Exam: absent: CVA tenderness (L), CVA tenderness (R) - Neurological Exam Neurological Exam: Alert - Psychiatric Exam Psychiatric exam: Normal Affect - Skin Skin Exam: Normal Color Attending/Attestation - Attestation I have personally seen and examined this patient.: Yes I have fully participated in the care of the patient.: Yes I have reviewed all pertinent clinical information, including history, physical exam and plan: Yes Notes (Text): 02/02/17 10:45 1.Patient is a 51-year-old male admitted with progressive leg swelling for few weeks. Initially admitted to ICU for hypertensive emergency with end organ damage. treated with IV nicardipine drip. Currently on coreg , hydralazine, Lasix, clonidine, Imdur and Norvasc. blood pressure is adequately controlled. Cardiology evaluation with Dr. Ricci appreciated. Echocardiogram showed impaired LV function/LVH and moderate pulmonary hypertension. patient needs stress test as outpatient. Elevated creatinine; creatinine is 2.9 today. Nephrology evaluation appreciated. 24-hour urine protein is 3.8 gram.got 2 dose of IV methylprednisolone. Kidney biopsy planned for Friday. mild hyponatremia; corrected sodium is 132. leukocytosis; secondary to high dose of steroids. Patient is afebrile and nontoxic. Monitor closely. Elevated blood sugar; secondary to steroids. Started on insulin sliding scale.started on glpizide. Diabetic nurse education evaluation ordered. Hemoglobin A1c ordered. dietitian education given. Patient is advised to complete [facility] Paperwork. upon discharge the [place] [facility] [place]
[2017-02-02] MEDS ORDERED: Insulin Reg-LOW-Coverage SC SCH (11:30)
[2017-02-02] MEDS: Insulin Reg-HIGH-Coverage SC SCH ×3 (11:56→21:43)
--- NOTE | 2017-02-02 13:04 | PN ---
DATE: 02/02/2017 A 51-year-old male with no past medical history, admitted with hypertensive emergency with decompensa андрей CHF and acute renal failure. Nephrology following for the same. The patient reports leg swelling is improved since yesterday. Otherwise, denies any complaints. PHYSICAL EXAMINATION: VITAL SIGNS: This morning, blood pressure 166/94, heart rate 82, respirations 20, temperature 97.6. GENERAL: No distress, sitting up in chair, conversing coherently, in full sentences. HEENT: Moist mucous membranes. Nonicteric. CHEST: Clear to auscultation bilaterally. No rales, no rhonchi, no wheezes. CARDIOVASCULAR: S1, S2 normal. S3 present. No murmurs, no rubs. ABDOMEN: Soft, nontender, nondistended. EXTREMITIES: Mild to moderate bilateral lower leg edema. SKIN: Blanching erythema over lower legs. No cyanosis. Warm to touch extremities. LABORATORIES: WBC 15.3, hemoglobin 12.0, hematocrit 36.8, platelets 252. Chemistry panel: Sodium 1 30, potassium 4.2, chloride 90, bicarb 29, BUN 62, creatinine 2.9, glucose 304, albumin 3.9. ASSESSMENT: 1. 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 Started on pulse Solu-Medrol 1 gram daily, today being day #3. Biopsy was supposed to take place 2 days ago. However, postponed due to uncontrolled hypertension, which poses a bleeding risk. Biopsy now schedul ed for tomorrow. 2. Follow up on rest of serologic workup (ANCA, anti-GBM antibody, hepatitis B and C profile, HIV). 3. Malignant hypertension, secondary, workup in progress. Awaiting plasma renin and aldosterone lev els as well as plasma metanephrines. 4. Hypertensive emergency. Blood pressure control worsened in the setting of pulse Solu-Medrol admi nistration. Changing clonidine to q. 8 hours for longer lasting coverage and giving p.r.n. clonidine 0.1 q. 6 hours as needed. Will keep Lasix as 40 mg IV q. 8 hours as patient still has signs of volu me excess on exam. 5. Acute decompensated systolic congestive heart failure, still with evidence of volume excess on ex am with a positive S3. Continue with diuresis as mentioned above. Holding off on renin-angiotensin system blockade in the setting of advanced renal dysfunction. However, if this current level of crea tinine is his baseline, should add renin-angiotensin system blockade at some point as this will help control the proteinuria as well as improve cardiac optimization. Continue with beta blockers. Devon Adams MD cc: [id number] TT: 02/02/2017 13:04:07 Confirmation # [id number] Dictation # [id number]
[2017-02-03 06:28] LABS: HEMATOCRIT 35.5 % (42.0-52.0); MEAN CELL VOLUME 77.2 fL (80.0-105.0); MEAN CORPUSCULAR HEMOGLOBIN 24.8 pg (25.0-35.0); MEAN CORPUSCULAR HGB CONC 32.1 g/dl (31.0-37.0); MEAN PLATELET VOLUME 11.3 fl (7.0-11.0); PLATELET COUNT 217 10^3/uL (120.0-450.0); RED CELL DISTRIBUTION WIDTH 16.3 % (11.5-14.5); WHITE BLOOD COUNT 13.7 10^3/ul (4.5-11.0)
[2017-02-03 06:45] LABS: ADD MANUAL DIFF? YES
[2017-02-03 07:08] LABS: ALB/GLOB RATIO 1.2 (1.1-1.8); BILIRUBIN,TOTAL 0.7 mg/dL (0.2-1.3); CALCIUM 8.6 mg/dL (8.4-10.5); POTASSIUM 3.2 mmol/L (3.6-5.0); TOTAL PROTEIN 6.6 g/dL (5.8-8.3)
[2017-02-03] MEDS: Insulin Reg-HIGH-Coverage SC SCH ×4 (07:49→22:06)
[2017-02-03 08:39] LABS: BAND 2 % (0-2); HYPOCHROMIA SLIGHT; NEUTROPHIL 95 % (50.0-70.0); PLATELET ESTIMATE NORMAL (NORMAL); POIKILOCYTOSIS SLIGHT
[2017-02-03 08:40] LABS: ANISOCYTOSIS 1+; MICROCYTOSIS 1+; OVALOCYTES SLIGHT; TEAR DROP CELLS SLIGHT; TOXIC GRANULATION SLIGHT
--- NOTE | 2017-02-03 08:55 | PN ---
DATE: 02/01/2017 A 51-year-old male with no past medical history, admitted with acute decompensated congestive heart f ailure, hypertensive emergency and acute renal failure, nephrology following for the same. The patient reports feeling well. He is ambulating in the hallways. Reports that his leg swelling h as improved. VITAL SIGNS: This morning, blood pressure 145/80, heart rate 91, respirations 18, temperature 97.6, O2 sat 97% on room air. PHYSICAL EXAMINATION: GENERAL: No distress, conversing coherently in full sentences. HEENT: Moist mucous membranes. Nonicteric. CHEST: Clear to auscultation bilaterally. No rales, no rhonchi, no wheezes. HEART: S1, S2 normal. S3 present. ABDOMEN: Soft, nontender, nondistended. EXTREMITIES: 2+ bilateral lower leg edema. Normal capillary refill. PSYCHIATRIC: Normal mood, normal affect. LABORATORY DATA: This morning, CBC: WBC 6.4, hemoglobin 12.1, hematocrit 37.8, platelets 259. Chem istry panel: Sodium 130, potassium 4.2, chloride 91, bicarbonate 30, BUN 55, creatinine 3.1, glucose 226, calcium 9.5, albumin 3.7. 24-hour urine protein is 5547 mg. ASSESSMENT: 1. Acute renal failure, suspicious for RPGN with nephritic picture as patient presented with hyperte nsion, hematuria and proteinuria, nephrotic range proteinuria per 24-hour protein collection. The pa tient is status post day 1 of pulse Solu-Medrol 1 gram yesterday, getting second dose today followed by third dose tomorrow. Planning for renal biopsy on Friday (was not done yesterday due to uncontrol led hypertension). 2. Malignant hypertension, secondary causes. Workup in progress. Awaiting result of plasma rennin and aldosterone levels as well as plasma metanephrines. 3. Hypertensive emergency. Blood pressure meds continue to be adjusted. Lasix 40 mg IV push increas ed to q. 8 hours yesterday, was likely the cause of increase in creatinine seen today, still volume o verloaded on exam. We will decrease frequency back to q. 12 hours. 4. Acute decompensated congestive heart failure, severe exacerbation with echo showing systolic dysf unction. Continue diuretics as mentioned above. 5. Electrolyte imbalances, hypokalemia currently resolved. Continue to replenish as needed and jessy tor magnesium levels daily. 6. Proteinuria, nephrotic range. Compliments unremarkable. 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 Serology sent, awaiting result. We will hold off on starting blockade as renal function is still not stable. Devon Adams MD cc: 1630 TT: 02/01/2017 13:56:55 Confirmation # [id number] Dictation # [id number] rn
[2017-02-03] MEDS ORDERED: Midazolam 2 MG/2 ML VIAL ONE (10:33)
[2017-02-03] MEDS ORDERED: Oxycodone/Acetaminophen 5/325 mg Tab PO PRN (11:18)
[2017-02-03] MEDS ORDERED: Sodium Chloride 0.45% 1,000 ML IV SCH (11:30)
[2017-02-03 12:14] LABS: METANEPHRINES <25 pg/mL (<=57); TOTAL METANEPHRINES 120 pg/mL (<=205)
[2017-02-03 12:54] LABS: ALDO/PRA RATIO 0.2 Ratio (0.9-28.9)
--- NOTE | 2017-02-03 16:28 | CP.PCM.PN ---
<Ally Collins - Last Filed: 02/03/17 16:25> Subjective - Date & Time of Evaluation Date of Evaluation: 02/03/17 Time of Evaluation: 16:25 - Subjective Subjective: HOSPITALISTS PROGRESS NOTE Pt is seen and examined at bedside. No acute events overnight. Patient will be going for kidney biopsy today and has been NPO past midnight. Patient denies having any CP, SOB, abd pain, N/V/D/C. Patient is resting comfortably. Objective - Vital Signs/Intake and Output Vital Signs (last 24 hours): Temp Pulse Resp BP Pulse Ox 98.3 F 76 19 140/80 99 02/03/17 12:20 02/03/17 14:18 02/03/17 12:20 02/03/17 14:18 02/03/17 12:20 Intake and Output: 02/03/17 02/03/17 06:59 18:59 Intake Total 300 50 Output Total 3000 Balance -2700 50 - Medications Medications: Current Medications Acetaminophen (Tylenol 325mg Tab) 650 mg PO Q4 PRN PRN Reason: Pain, Mild (1-3) Amlodipine Besylate (Norvasc) 10 mg PO DAILY [facility] Last Admin: 02/03/17 12:51 Dose: 10 mg Aspirin (Aspirin Chewable) 81 mg PO DAILY [facility] Last Admin: 02/03/17 10:03 Dose: Not Given Atorvastatin Calcium (Lipitor) 80 mg PO DAILY [facility] Last Admin: 02/03/17 12:49 Dose: 80 mg Carvedilol (Coreg) 6.25 mg PO BID [facility] Last Admin: 02/03/17 12:50 Dose: 6.25 mg Clonidine HCl (Catapres) 0.1 mg PO Q6H PRN PRN Reason: Systolic Blood Pressure Clonidine HCl (Catapres) 0.2 mg PO Q8H [facility] Last Admin: 02/03/17 12:50 Dose: 0.2 mg Furosemide (Lasix) 40 mg IVP Q8H [facility] Last Admin: 02/03/17 12:51 Dose: 40 mg Glipizide (Glucotrol) 5 mg PO ACB [facility] Last Admin: 02/03/17 08:06 Dose: 5 mg Hydralazine HCl (Apresoline) 50 mg PO QID [facility] Last Admin: 02/03/17 12:49 Dose: 50 mg Sodium Chloride (Sodium Chloride 0.45%) 1,000 mls @ 80 mls/hr IV .[id number] [facility] Insulin Human Regular (Humulin R High) 0 units SC ACHS [facility] PRN Reason: Protocol Last Admin: 02/03/17 13:23 Dose: 4 units Isosorbide Mononitrate (Imdur) 120 mg PO DAILY [facility] Last Admin: 02/03/17 12:49 Dose: 120 mg Metoprolol Tartrate (Lopressor) 5 mg IVP Q6 PRN PRN Reason: Systolic Blood Pressure Oxycodone/Acetaminophen (Percocet 5/325 Mg Tab) 1 tab PO Q4H PRN PRN Reason: Pain, moderate (4-7) Stop: 02/06/17 11:19 Pantoprazole Sodium (Protonix Ec Tab) 40 mg PO 0630 [facility] Last Admin: 02/02/17 05:46 Dose: 40 mg - Labs Labs: 02/03/17 06:00 02/03/17 06:00 PT 12.0 Seconds (9.9-11.8) H 01/28/17 08:00 INR 1.11 (0.93-1.08) H 01/28/17 08:00 APTT 49.5 Seconds (23.7-30.8) H 01/29/17 02:15 - Constitutional Appears: Non-toxic, No Acute Distress - Head Exam Head Exam: ATRAUMATIC - Eye Exam Eye Exam: EOMI - ENT Exam ENT Exam: Mucous Membranes Moist - Respiratory Exam Respiratory Exam: Clear to Ausculation Bilateral, NORMAL BREATHING PATTERN. absent: Rales, Rhonchi, Wheezes - Cardiovascular Exam Cardiovascular Exam: REGULAR RHYTHM, +S1, +S2. absent: Diastolic murmur, Gallop , Rubs, Murmur - GI/Abdominal Exam GI & Abdominal Exam: Soft, Normal Bowel Sounds. absent: Distended, Firm, Guarding, Rigid, Tenderness - Extremities Exam Extremities Exam: absent: Pedal Edema, Tenderness Additional comments: pressure stockings in place. No edema noted - Neurological Exam Neurological Exam: Alert, Awake, Oriented x3 - Psychiatric Exam Psychiatric exam: Normal Affect, Normal Mood - Skin Skin Exam: Dry, Intact, Normal Color, Warm Assessment and Plan - Assessment and Plan (Free Text) Assessment: 51 yo male with no significant PMH presented with HTN emergency with maribeth, myocardial ischemia, anemia and hypokalemia. Plan: 1. HTN emergency with end organ damage - Patient is currently on hydralazine, clonidine q8 prn, coreg 6.25 mg, Imdur, Lasix 40 mg IVP q8, Metoprolol 5 mg q6 PRN, Norvasc 10 mg po qd - Cardiology is consulted - nephrology consulted - cont to monitor BP - Plasma metanephrines are negative 2. 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 Will f/u results - Patient is getting doses of steroids - Will follow up on renal workup. - Hep B & C and HIV are negative 3. myocardial ischemia - cardio following, recommend an eventual cardiac stress test outpatient - trops elevated, trending down - echo showed EF of 40%, moderate left ventricular hypertrophy and hypokinesis, please see full report 4. hypokalemia - replaced - repeat in AM 5. 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 Escobar <Shreya Escobar - Last Filed: 02/03/17 17:51> Objective - Vital Signs/Intake and Output Vital Signs (last 24 hours): Temp Pulse Resp BP Pulse Ox 98.3 F 76 19 140/80 99 02/03/17 12:20 02/03/17 14:18 02/03/17 12:20 02/03/17 14:18 02/03/17 12:20 Intake and Output: 02/03/17 02/03/17 06:59 18:59 Intake Total 300 50 Output Total 3000 Balance -2700 50 - Medications Medications: Current Medications Acetaminophen (Tylenol 325mg Tab) 650 mg PO Q4 PRN PRN Reason: Pain, Mild (1-3) Amlodipine Besylate (Norvasc) 10 mg PO DAILY [facility] Last Admin: 02/03/17 12:51 Dose: 10 mg Aspirin (Aspirin Chewable) 81 mg PO DAILY [facility] Last Admin: 02/03/17 10:03 Dose: Not Given Atorvastatin Calcium (Lipitor) 80 mg PO DAILY [facility] Last Admin: 02/03/17 12:49 Dose: 80 mg Carvedilol (Coreg) 6.25 mg PO BID [facility] Last Admin: 02/03/17 12:50 Dose: 6.25 mg Clonidine HCl (Catapres) 0.1 mg PO Q6H PRN PRN Reason: Systolic Blood Pressure Clonidine HCl (Catapres) 0.2 mg PO Q8H [facility] Last Admin: 02/03/17 12:50 Dose: 0.2 mg Furosemide (Lasix) 40 mg IVP Q8H [facility] Last Admin: 02/03/17 12:51 Dose: 40 mg Glipizide (Glucotrol) 5 mg PO ACB [facility] Last Admin: 02/03/17 08:06 Dose: 5 mg Hydralazine HCl (Apresoline) 50 mg PO QID [facility] Last Admin: 02/03/17 12:49 Dose: 50 mg Insulin Human Regular (Humulin R High) 0 units SC ACHS [facility] PRN Reason: Protocol Last Admin: 02/03/17 17:30 Dose: 7 units Isosorbide Mononitrate (Imdur) 120 mg PO DAILY [facility] Last Admin: 02/03/17 12:49 Dose: 120 mg Metoprolol Tartrate (Lopressor) 5 mg IVP Q6 PRN PRN Reason: Systolic Blood Pressure Oxycodone/Acetaminophen (Percocet 5/325 Mg Tab) 1 tab PO Q4H PRN PRN Reason: Pain, moderate (4-7) Stop: 02/06/17 11:19 Pantoprazole Sodium (Protonix Ec Tab) 40 mg PO 0630 [facility] Last Admin: 02/02/17 05:46 Dose: 40 mg - Labs Labs: 02/03/17 06:00 02/03/17 06:00 PT 12.0 Seconds (9.9-11.8) H 01/28/17 08:00 INR 1.11 (0.93-1.08) H 01/28/17 08:00 APTT 49.5 Seconds (23.7-30.8) H 01/29/17 02:15 Attending/Attestation - Attestation I have personally seen and examined this patient.: Yes I have fully participated in the care of the patient.: Yes I have reviewed all pertinent clinical information, including history, physical exam and plan: Yes Notes (Text): I have seen and examined patient at bedside with the resident. Agree with the note dictated by the resident with the following additions/ exceptions: This is 51 year old male who came for bilateral lower extremity swelling and found to have decompensated CHF due to systolic dysfunction (EF~40%), moderate pulmonary hypertension , Moderate MR, hypertensive emergency, elevated troponin, acute renal failure, microcytic anemia and leukocytosis. BP much improved today. Work up in progress to rule out secondary causes of hypertension. Continue norvasc, coreg, clonidine 0.1 q8, 0.1 q6 prb, lasix q8 iv , lopressor prn and imdur. Renal on board. Carpet Inspector Finished recommended stress test as an outpatient. He also has uremia, hematuria, proteinuria and hypertension which points more toward nephritic syndrome. Hep panel, HIV and UDS negative. Complement levels are normal. He was given pulse doses of steroids. Patient is scheduled for renal biopsy today by IR. He has leukocytosis which can be due to steroids. Cultures and procal pending. He has hyperglycemia and is currently on glipizide and ISS. Hba1c is pending. Upon discharge the patient will follow up with [facility] clinic. Dr Shreya Escobar
--- NOTE | 2017-02-03 23:42 | CP.PCM.PN ---
Subjective - Date & Time of Evaluation Date of Evaluation: 02/03/17 Time of Evaluation: 12:00 - Subjective Subjective: Patient s/p renal biopsy today, denies any associated pain; leg swelling improved; Objective - Vital Signs/Intake and Output Vital Signs (last 24 hours): Temp Pulse Resp BP Pulse Ox 97.6 F 74 20 140/83 99 02/03/17 18:00 02/03/17 18:00 02/03/17 18:00 02/03/17 22:07 02/03/17 16:30 Intake and Output: 02/03/17 02/04/17 18:59 06:59 Intake Total 50 Balance 50 - Medications Medications: Current Medications Acetaminophen (Tylenol 325mg Tab) 650 mg PO Q4 PRN PRN Reason: Pain, Mild (1-3) Amlodipine Besylate (Norvasc) 10 mg PO DAILY [facility] Last Admin: 02/03/17 12:51 Dose: 10 mg Aspirin (Aspirin Chewable) 81 mg PO DAILY [facility] Last Admin: 02/03/17 10:03 Dose: Not Given Atorvastatin Calcium (Lipitor) 80 mg PO DAILY [facility] Last Admin: 02/03/17 12:49 Dose: 80 mg Carvedilol (Coreg) 6.25 mg PO BID [facility] Last Admin: 02/03/17 17:33 Dose: 6.25 mg Clonidine HCl (Catapres) 0.1 mg PO Q6H PRN PRN Reason: Systolic Blood Pressure Clonidine HCl (Catapres) 0.2 mg PO Q8H [facility] Last Admin: 02/03/17 12:50 Dose: 0.2 mg Furosemide (Lasix) 40 mg IVP Q8H [facility] Last Admin: 02/03/17 22:07 Dose: 40 mg Glipizide (Glucotrol) 5 mg PO ACB [facility] Last Admin: 02/03/17 08:06 Dose: 5 mg Hydralazine HCl (Apresoline) 50 mg PO QID [facility] Last Admin: 02/03/17 17:34 Dose: 50 mg Insulin Human Regular (Humulin R High) 0 units SC ACHS [facility] PRN Reason: Protocol Last Admin: 02/03/17 22:06 Dose: 2 units Isosorbide Mononitrate (Imdur) 120 mg PO DAILY [facility] Last Admin: 02/03/17 12:49 Dose: 120 mg Metoprolol Tartrate (Lopressor) 5 mg IVP Q6 PRN PRN Reason: Systolic Blood Pressure Oxycodone/Acetaminophen (Percocet 5/325 Mg Tab) 1 tab PO Q4H PRN PRN Reason: Pain, moderate (4-7) Stop: 02/06/17 11:19 Pantoprazole Sodium (Protonix Ec Tab) 40 mg PO 0630 [facility] Last Admin: 02/02/17 05:46 Dose: 40 mg - Labs Labs: 02/03/17 06:00 02/03/17 06:00 PT 12.0 Seconds (9.9-11.8) H 01/28/17 08:00 INR 1.11 (0.93-1.08) H 01/28/17 08:00 APTT 49.5 Seconds (23.7-30.8) H 01/29/17 02:15 - Constitutional Appears: Well, No Acute Distress - Head Exam Head Exam: NORMAL INSPECTION - Eye Exam Eye Exam: Normal appearance. absent: Scleral icterus - ENT Exam ENT Exam: Mucous Membranes Moist - Neck Exam Neck Exam: Normal Inspection - Respiratory Exam Respiratory Exam: Clear to Ausculation Bilateral, NORMAL BREATHING PATTERN. absent: Rales - Cardiovascular Exam Cardiovascular Exam: REGULAR RHYTHM, +S1, +S2 Additional comments: S3 present; - GI/Abdominal Exam GI & Abdominal Exam: Soft. absent: Distended, Tenderness - Extremities Exam Additional comments: Mild bilateral lower leg edema; - Neurological Exam Neurological Exam: Alert, Awake - Psychiatric Exam Psychiatric exam: Normal Affect, Normal Mood - Skin Skin Exam: Warm. absent: Cyanosis Assessment and Plan (1) Acute renal failure Assessment & Plan: Suspecting RPGN with nephritic picture (hematuria, proteinuria, hypertension); s /p renal biopsy today, will seek to obtain results tomorrow; s/p pulse solumedrol 1 g daily x 3 days; renal function relatively stable; if crescentic GN present, will plan for a dose of immunosuppressive agent while still admitted ; Status: Acute (2) Hypertensive emergency Assessment & Plan: Improved after increasing clonidine dose to 0.2 mg q8h; worsened by pulse solumedrol; secondary causes of hyperaldosteronism and pheo ruled out; continue current anti-htn regimen including lasix 40 mg IV q8h, will switch to PO tomorrow in preparation for outpatient regimen; Status: Acute (3) Proteinuria Assessment & Plan: Nephrotic range by 24 hr urine collection; will need to be on ARB/PRADEEP inhibitor ; will start small dose lisinopril tomorrow if renal function remains stable; Status: Acute (4) Congestive heart failure Assessment & Plan: Acute severely decompensated systolic CHF; still with volume excess on exam although much improved; continue IV lasix as above; Status: Acute (5) Hypokalemia Assessment & Plan: Improved; continue to monitor especially since on diuretics; Status: Acute
[2017-02-04 02:46] LABS: TOTAL PROTEIN, SERUM 6.3 g/dL (6.1-8.1)
[2017-02-04 06:48] LABS: HEMATOCRIT 35.7 % (42.0-52.0); MEAN CELL VOLUME 77.1 fL (80.0-105.0); MEAN CORPUSCULAR HEMOGLOBIN 24.8 pg (25.0-35.0); MEAN CORPUSCULAR HGB CONC 32.2 g/dl (31.0-37.0); MEAN PLATELET VOLUME 11.2 fl (7.0-11.0); RED CELL DISTRIBUTION WIDTH 16.1 % (11.5-14.5); WHITE BLOOD COUNT 10.9 10^3/ul (4.5-11.0)
[2017-02-04] MEDS: Pantoprazole 40 mg EC Tab PO SCH (06:52)
[2017-02-04] MEDS: Insulin Reg-LOW-Coverage SC SCH ×3 (08:27→17:10)
[2017-02-04 09:13] LABS: CALCIUM 8.7 mg/dL (8.4-10.5); POTASSIUM 3.6 mmol/L (3.6-5.0)
[2017-02-04] MEDS: Insulin Human NPH/Reg 70/30 Vial(3 ml) SC SCH ×2 (10:23→22:17)
--- NOTE | 2017-02-04 16:39 | CP.PCM.PN ---
<Ally Collins - Last Filed: 02/04/17 16:35> Subjective - Date & Time of Evaluation Date of Evaluation: 02/04/17 Time of Evaluation: 16:35 - Subjective Subjective: HOSPITALISTS PROGRESS NOTE Pt is seen and examined at bedside. No acute events overnight. Patient had kidney biopsy (Left) yesterday which he tolerated well. Patient denies having any pain at site of biopsy, no CP, SOB, abd pain, N/V/D/C, dysuria, hematuria. Patient is tolerating diet and ambulating. Objective - Vital Signs/Intake and Output Vital Signs (last 24 hours): Temp Pulse Resp BP Pulse Ox 96.6 F L 76 20 150/100 H 99 02/04/17 12:00 02/04/17 14:45 02/04/17 12:00 02/04/17 14:46 02/03/17 16:30 Intake and Output: 02/04/17 02/04/17 06:59 18:59 Intake Total 720 Output Total 2600 Balance -1880 - Medications Medications: Current Medications Acetaminophen (Tylenol 325mg Tab) 650 mg PO Q4 PRN PRN Reason: Pain, Mild (1-3) Amlodipine Besylate (Norvasc) 10 mg PO DAILY [facility] Last Admin: 02/04/17 10:20 Dose: 10 mg Aspirin (Aspirin Chewable) 81 mg PO DAILY [facility] Last Admin: 02/04/17 10:22 Dose: 81 mg Atorvastatin Calcium (Lipitor) 80 mg PO DAILY [facility] Last Admin: 02/04/17 10:23 Dose: 80 mg Carvedilol (Coreg) 6.25 mg PO BID [facility] Last Admin: 02/04/17 10:22 Dose: 6.25 mg Clonidine HCl (Catapres) 0.1 mg PO Q6H PRN PRN Reason: Systolic Blood Pressure Last Admin: 02/04/17 07:03 Dose: 0.1 mg Clonidine HCl (Catapres) 0.2 mg PO Q8H [facility] Last Admin: 02/04/17 11:58 Dose: 0.2 mg Furosemide (Lasix) 40 mg PO Q8 [facility] Last Admin: 02/04/17 14:46 Dose: 40 mg Glipizide (Glucotrol) 5 mg PO ACB [facility] Last Admin: 02/04/17 08:27 Dose: 5 mg Hydralazine HCl (Apresoline) 50 mg PO QID [facility] Last Admin: 02/04/17 14:45 Dose: 50 mg Insulin Human Regular (Humulin R Low) 0 units SC ACHS [facility] PRN Reason: Protocol Last Admin: 02/04/17 11:58 Dose: 3 units Isosorbide Mononitrate (Imdur) 120 mg PO DAILY [facility] Last Admin: 02/04/17 10:22 Dose: 120 mg Metoprolol Tartrate (Lopressor) 5 mg IVP Q6 PRN PRN Reason: Systolic Blood Pressure Oxycodone/Acetaminophen (Percocet 5/325 Mg Tab) 1 tab PO Q4H PRN PRN Reason: Pain, moderate (4-7) Stop: 02/06/17 11:19 Pantoprazole Sodium (Protonix Ec Tab) 40 mg PO 0630 [facility] Last Admin: 02/04/17 06:52 Dose: 40 mg - Labs Labs: 02/04/17 06:05 02/04/17 06:05 PT 12.0 Seconds (9.9-11.8) H 01/28/17 08:00 INR 1.11 (0.93-1.08) H 01/28/17 08:00 APTT 49.5 Seconds (23.7-30.8) H 01/29/17 02:15 - Constitutional Appears: Non-toxic, No Acute Distress - Head Exam Head Exam: ATRAUMATIC - Eye Exam Eye Exam: EOMI - ENT Exam ENT Exam: Mucous Membranes Moist - Respiratory Exam Respiratory Exam: Clear to Ausculation Bilateral, NORMAL BREATHING PATTERN. absent: Rales, Rhonchi, Wheezes - Cardiovascular Exam Cardiovascular Exam: REGULAR RHYTHM, +S1, +S2. absent: Gallop, Rubs, Murmur - GI/Abdominal Exam GI & Abdominal Exam: Soft, Normal Bowel Sounds. absent: Distended, Firm, Guarding, Rigid, Tenderness - Extremities Exam Extremities Exam: absent: Pedal Edema, Tenderness - Neurological Exam Neurological Exam: Alert, Awake, Oriented x3 - Psychiatric Exam Psychiatric exam: Normal Affect, Normal Mood - Skin Skin Exam: Dry, Intact, Normal Color, Warm Assessment and Plan - Assessment and Plan (Free Text) Assessment: 51 yo male with no significant PMH presented with HTN emergency with maribeth, myocardial ischemia, anemia and hypokalemia. Plan: 1. HTN emergency with end organ damage - Patient is currently on hydralazine, clonidine q8 prn, coreg 6.25 mg, Imdur, Metoprolol 5 mg q6 PRN, Norvasc 10 mg po qd. will switch lasix IV to PO 40 mg q8 - Cardiology is consulted - nephrology consulted - cont to monitor BP - Plasma metanephrines are negative 2. 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 - Hep B & C and HIV are negative 3. myocardial ischemia - cardio following, recommend an eventual cardiac stress test outpatient - trops elevated, trending down - echo showed EF of 40%, moderate left ventricular hypertrophy and hypokinesis, please see full report 4. hypokalemia -resolved. will continue to follow and replace as needed 5. 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 Escobar <Shreya Escobar - Last Filed: 02/04/17 17:11> Objective - Vital Signs/Intake and Output Vital Signs (last 24 hours): Temp Pulse Resp BP Pulse Ox 96.6 F L 76 20 150/100 H 99 02/04/17 12:00 02/04/17 14:45 02/04/17 12:00 02/04/17 14:46 02/03/17 16:30 Intake and Output: 02/04/17 02/04/17 06:59 18:59 Intake Total 720 Output Total 2600 Balance -1880 - Medications Medications: Current Medications Acetaminophen (Tylenol 325mg Tab) 650 mg PO Q4 PRN PRN Reason: Pain, Mild (1-3) Amlodipine Besylate (Norvasc) 10 mg PO DAILY [facility] Last Admin: 02/04/17 10:20 Dose: 10 mg Aspirin (Aspirin Chewable) 81 mg PO DAILY [facility] Last Admin: 02/04/17 10:22 Dose: 81 mg Atorvastatin Calcium (Lipitor) 80 mg PO DAILY [facility] Last Admin: 02/04/17 10:23 Dose: 80 mg Carvedilol (Coreg) 6.25 mg PO BID [facility] Last Admin: 02/04/17 10:22 Dose: 6.25 mg Clonidine HCl (Catapres) 0.1 mg PO Q6H PRN PRN Reason: Systolic Blood Pressure Last Admin: 02/04/17 07:03 Dose: 0.1 mg Clonidine HCl (Catapres) 0.2 mg PO Q8H [facility] Last Admin: 02/04/17 11:58 Dose: 0.2 mg Furosemide (Lasix) 40 mg PO Q8 [facility] Last Admin: 02/04/17 14:46 Dose: 40 mg Glipizide (Glucotrol) 10 mg PO ACB [facility] Hydralazine HCl (Apresoline) 50 mg PO QID [facility] Last Admin: 02/04/17 14:45 Dose: 50 mg Insulin Human Regular (Humulin R Low) 0 units SC ACHS [facility] PRN Reason: Protocol Last Admin: 02/04/17 11:58 Dose: 3 units Isosorbide Mononitrate (Imdur) 120 mg PO DAILY [facility] Last Admin: 02/04/17 10:22 Dose: 120 mg Metoprolol Tartrate (Lopressor) 5 mg IVP Q6 PRN PRN Reason: Systolic Blood Pressure Oxycodone/Acetaminophen (Percocet 5/325 Mg Tab) 1 tab PO Q4H PRN PRN Reason: Pain, moderate (4-7) Stop: 02/06/17 11:19 Pantoprazole Sodium (Protonix Ec Tab) 40 mg PO 0630 [facility] Last Admin: 02/04/17 06:52 Dose: 40 mg - Labs Labs: 02/04/17 06:05 02/04/17 06:05 PT 12.0 Seconds (9.9-11.8) H 01/28/17 08:00 INR 1.11 (0.93-1.08) H 01/28/17 08:00 APTT 49.5 Seconds (23.7-30.8) H 01/29/17 02:15 Attending/Attestation - Attestation I have personally seen and examined this patient.: Yes I have fully participated in the care of the patient.: Yes I have reviewed all pertinent clinical information, including history, physical exam and plan: Yes Notes (Text): I have seen and examined patient at bedside with the resident. Agree with the note dictated by the resident with the following additions/ exceptions: This is 51 year old male who came for bilateral lower extremity swelling and found to have decompensated CHF due to systolic dysfunction (EF~40%), moderate pulmonary hypertension, Moderate MR, hypertensive emergency, elevated troponin, acute renal failure, microcytic anemia and leukocytosis. BP much improved today. Work up in progress to rule out secondary causes of hypertension. Pheo and Hyperaldosteronism ruled out. Continue norvasc, coreg, clonidine 0.1 q8, 0.1 q6 prn, lasix q8 iv, lopressor prn and imdur. Account Manager recommended stress test as an outpatient. He also has uremia, hematuria, proteinuria and hypertension which points more toward nephritic syndrome. Hep panel, HIV and UDS negative. Complement levels are normal. He was given pulse doses of steroids. Patient underwent renal biopsy yesterday which he tolerated that well. Results are pending. Discussed with Dr Adams. He has leukocytosis which can be due to steroids. Procal 0.3. He has hyperglycemia. Will increase the dose of glipizide and continue ISS. Hba1c is still pending. Upon discharge the patient will follow up with [facility]. Dr Shreya Escobar
[2017-02-04 17:09] LABS: BETA 1 GLOBULIN 0.5 g/dL (0.4-0.6); BETA 2 GLOBULIN 0.3 g/dL (0.2-0.5); GAMMA GLOBULIN 1.1 g/dL (0.8-1.7)
--- NOTE | 2017-02-04 18:54 | CT ---
PROCEDURE: CT guided left renal cortex biopsy. HISTORY: Proteinuria. Possible glomerulonephritis. Acute renal failure. Diabetes. Hypertension PHYSICIAN(S): Isiah Angel MD. TECHNIQUE: The relative risks and indications of the procedure were explained to the patient and consent obtained. The patient was placed prone on the CT scanner and preliminary images through the lower kidneys obtained. Conscious sedation and monitoring were provided throughout the procedure by a nurse. Limited noncontrast images of the kidneys is unremarkable. A left posterior approach was selected and the area prepped and draped in the usual sterile fashion. 1% Xylocaine was used to anesthetize the skin and soft tissues. A 17-gauge guiding needle was advanced into the left renal cortex laterally and inferiorly.. Its position was confirmed with CT. Using coaxial technique, multiple core biopsies were obtained. The postprocedure images show no evidence of significant hemorrhage. IMPRESSION: 1. CT-guided left renal cortex biopsy as described above.
--- NOTE | 2017-02-04 22:56 | CP.PCM.PN ---
Objective - Vital Signs/Intake and Output Vital Signs (last 24 hours): Temp Pulse Resp BP Pulse Ox 97 F L 64 20 145/89 99 02/04/17 18:00 02/04/17 18:00 02/04/17 18:00 02/04/17 22:19 02/03/17 16:30 - Medications Medications: Current Medications Acetaminophen (Tylenol 325mg Tab) 650 mg PO Q4 PRN PRN Reason: Pain, Mild (1-3) Amlodipine Besylate (Norvasc) 10 mg PO DAILY [facility] Last Admin: 02/04/17 10:20 Dose: 10 mg Aspirin (Aspirin Chewable) 81 mg PO DAILY [facility] Last Admin: 02/04/17 10:22 Dose: 81 mg Atorvastatin Calcium (Lipitor) 80 mg PO DAILY [facility] Last Admin: 02/04/17 10:23 Dose: 80 mg Carvedilol (Coreg) 6.25 mg PO BID [facility] Last Admin: 02/04/17 17:35 Dose: 6.25 mg Clonidine HCl (Catapres) 0.1 mg PO Q6H PRN PRN Reason: Systolic Blood Pressure Last Admin: 02/04/17 07:03 Dose: 0.1 mg Clonidine HCl (Catapres) 0.2 mg PO Q8H [facility] Last Admin: 02/04/17 20:37 Dose: 0.2 mg Furosemide (Lasix) 40 mg PO Q8 [facility] Last Admin: 02/04/17 22:19 Dose: 40 mg Glipizide (Glucotrol) 10 mg PO ACB [facility] Hydralazine HCl (Apresoline) 50 mg PO QID [facility] Last Admin: 02/04/17 22:18 Dose: 50 mg Insulin Human Regular (Humulin R Low) 0 units SC ACHS [facility] PRN Reason: Protocol Last Admin: 02/04/17 17:10 Dose: 1 units Isosorbide Mononitrate (Imdur) 120 mg PO DAILY [facility] Last Admin: 02/04/17 10:22 Dose: 120 mg Metoprolol Tartrate (Lopressor) 5 mg IVP Q6 PRN PRN Reason: Systolic Blood Pressure Oxycodone/Acetaminophen (Percocet 5/325 Mg Tab) 1 tab PO Q4H PRN PRN Reason: Pain, moderate (4-7) Stop: 02/06/17 11:19 Pantoprazole Sodium (Protonix Ec Tab) 40 mg PO 0630 [facility] Last Admin: 02/04/17 06:52 Dose: 40 mg - Labs Labs: 02/04/17 06:05 02/04/17 06:05 PT 12.0 Seconds (9.9-11.8) H 01/28/17 08:00 INR 1.11 (0.93-1.08) H 01/28/17 08:00 APTT 49.5 Seconds (23.7-30.8) H 01/29/17 02:15 Assessment and Plan (1) Acute renal failure Status: Acute (2) Hypertensive emergency Status: Acute (3) Proteinuria Status: Acute (4) Congestive heart failure Status: Acute (5) Hypokalemia Status: Acute
[2017-02-05 01:24] VITALS: O2SAT 96
[2017-02-05] MEDS: Pantoprazole 40 mg EC Tab PO SCH (06:14)
[2017-02-05] MEDS: Insulin Reg-LOW-Coverage SC SCH ×3 (06:51→12:16)
[2017-02-05 07:18] LABS: CALCIUM 8.4 mg/dL (8.4-10.5); POTASSIUM 3.1 mmol/L (3.6-5.0)
[2017-02-05 07:43] LABS: HEMATOCRIT 37.4 % (42.0-52.0); MEAN CELL VOLUME 77.6 fL (80.0-105.0); MEAN CORPUSCULAR HEMOGLOBIN 24.5 pg (25.0-35.0); MEAN CORPUSCULAR HGB CONC 31.6 g/dl (31.0-37.0); MEAN PLATELET VOLUME 11.3 fl (7.0-11.0); RED CELL DISTRIBUTION WIDTH 16.2 % (11.5-14.5); WHITE BLOOD COUNT 9.6 10^3/ul (4.5-11.0)
[2017-02-05] MEDS ORDERED: Potassium Chloride 20 mEq ER Tab PO ONE (08:18)
[2017-02-05] MEDS: Insulin Human NPH/Reg 70/30 Vial(3 ml) SC SCH (09:58)
[2017-02-05 12:07] VITALS: BP 160/100; PULSE 64; RESP 18; TEMP 97.7
--- NOTE | 2017-02-05 13:31 | CP.PCM.DIS ---
<Ally Collins - Last Filed: 02/05/17 15:18> Provider - Provider Date of Admission: 01/28/17 10:23 Attending physician: Shreya Escobar MD Primary care physician: NO PRIMARY CARE PROVIDER Consults: Nephrology, Dr. Adams Cardiology: Dr. Ricci Vascular: Dr. Angel Time Spent in preparation of Discharge (in minutes): 45 Diagnosis - Discharge Diagnosis (1) Hypertensive emergency Status: Acute (2) Hypokalemia Status: Acute (3) Proteinuria Status: Acute Hospital Course - Lab Results Lab Results: Most Recent Lab Values WBC 9.6 10^3/ul (4.5-11.0) 02/05/17 06:30 RBC 4.82 10^6/uL (3.5-6.1) 02/05/17 06:30 Hgb 11.8 gm/dL (14.0-18.0) L 02/05/17 06:30 Hct 37.4 % (42.0-52.0) L 02/05/17 06:30 MCV 77.6 fL (80.0-105.0) L 02/05/17 06:30 MCH 24.5 pg (25.0-35.0) L 02/05/17 06:30 MCHC 31.6 g/dl (31.0-37.0) 02/05/17 06:30 RDW 16.2 % (11.5-14.5) H 02/05/17 06:30 Plt Count 209 10^3/uL (120.0-450.0) 02/05/17 06:30 MPV 11.3 fl (7.0-11.0) H 02/05/17 06:30 Gran % [employer]lass Autobody Repairer 02/03/17 06:00 Lymph % (Auto) [employer] Autobody Repairer 02/03/17 06:00 Ceiba % (Auto) [employer]lass Autobody Repairer 02/03/17 06:00 Eos % (Auto) [employer] Autobody Repairer 02/03/17 06:00 Baso % (Auto) [employer]ob[employer] Repairer 02/03/17 06:00 Gran # [employer] Repairer 02/03/17 06:00 Lymph # [employer]ob[employer] Repairer 02/03/17 06:00 Ceiba # [employer] Autob[employer] Repairer 02/03/17 06:00 Eos # [employer]ob[employer] Repairer 02/03/17 06:00 Baso # [employer] Repairer 02/03/17 06:00 Neutrophils % (Manual) 95 % (50.0-70.0) H 02/03/17 06:00 Band Neutrophils % 2 % (0-2) 02/03/17 06:00 Lymphocytes % (Manual) 2 % (22.0-35.0) L 02/03/17 06:00 Monocytes % (Manual) 1 % (1.0-6.0) 02/03/17 06:00 Toxic Granulation Slight 02/03/17 06:00 Platelet Evaluation Normal (NORMAL) 02/03/17 06:00 Hypochromasia Slight 02/03/17 06:00 Poikilocytosis (manual Slight 02/03/17 06:00 Anisocytosis (manual) 1+ 02/03/17 06:00 Microcytosis (manual) 1+ 02/03/17 06:00 Tear Drop Cells Slight 02/03/17 06:00 Ovalocytes Slight 02/03/17 06:00 PT 12.0 Seconds (9.9-11.8) H 01/28/17 08:00 INR 1.11 (0.93-1.08) H 01/28/17 08:00 APTT 49.5 Seconds (23.7-30.8) H 01/29/17 02:15 D-Dimer, Quantitative 0.73 mg/L FEU (0-0.50) H 01/28/17 08:00 Sodium 136 mmol/L (132-148) 02/05/17 06:30 Potassium 3.1 mmol/L (3.6-5.0) L 02/05/17 06:30 Chloride 91 mmol/L (98-107) L 02/05/17 06:30 Carbon Dioxide 37 mmol/L (21-33) H 02/05/17 06:30 Anion Gap 11 (10-20) 02/05/17 06:30 BUN 68 mg/dL (7-21) H 02/05/17 06:30 Creatinine 2.9 mg/dL (0.5-1.4) H 02/05/17 06:30 Est GFR ( Amer) 28 02/05/17 06:30 Est GFR (Non-Af Amer) 23 02/05/17 06:30 POC Glucose (mg/dL) 335 mg/dL (65-110) H 02/03/17 21:04 Random Glucose 88 mg/dL (70-110) 02/05/17 06:30 Hemoglobin A1c 7.1 % (4.2-6.5) H 02/03/17 06:15 Calcium 8.4 mg/dL (8.4-10.5) 02/05/17 06:30 Phosphorus 4.2 mg/dL (2.5-4.5) 01/30/17 07:00 Magnesium 2.0 mg/dL (1.7-2.2) 02/03/17 06:00 Total Bilirubin 0.7 mg/dL (0.2-1.3) 02/03/17 06:00 AST 25 U/L (15-59) 02/03/17 06:00 ALT 41 U/L (7-56) 02/03/17 06:00 Alkaline Phosphatase 160 U/L (38-133) H 02/03/17 06:00 Lactate Dehydrogenase 764 U/L (333-699) H 01/28/17 08:00 Total Creatine Kinase 166 U/L (35-230) 01/28/17 08:00 Troponin I 0.15 ng/mL H* D 01/28/17 19:10 NT-Pro-B Natriuret Pep 76251 pg/mL (0-450) H 01/28/17 08:00 Total Protein 6.6 g/dL (5.8-8.3) 02/03/17 06:00 Total Protein (PEP) 6.3 g/dL (6.1-8.1) 02/03/17 06:00 Albumin 3.6 g/dL (3.0-4.8) 02/03/17 06:00 Albumin (PEP) 3.0 g/dL (3.8-4.8) L 02/03/17 06:00 Globulin 3.1 gm/dL 02/03/17 06:00 Albumin/Globulin Ratio 1.2 (1.1-1.8) 02/03/17 06:00 Wbwwd-3-Qzuzdfday 0.4 g/dL (0.2-0.3) H 02/03/17 06:00 Ecxsv-1-Tmabbqfgx 0.9 g/dL (0.5-0.9) 02/03/17 06:00 Gixk-1-Rkhprqfb 0.5 g/dL (0.4-0.6) 02/03/17 06:00 Wcen-7-Aatnzckt 0.3 g/dL (0.2-0.5) 02/03/17 06:00 Gamma Globulins 1.1 g/dL (0.8-1.7) 02/03/17 06:00 Abnorm Protein Band 1 TEST NOT PERFORMED 02/03/17 06:00 Abnorm Protein Band 2 TEST NOT PERFORMED 02/03/17 06:00 Abnorm Protein Band 3 TEST NOT PERFORMED 02/03/17 06:00 Renin 21.67 ng/mL/h (0.25-5.82) H 01/29/17 02:00 Aldosterone 5 ng/dL 01/29/17 02:00 Aldosterone/Renin Ratio 0.2 Ratio (0.9-28.9) L 01/29/17 02:00 Procalcitonin 0.30 NG/ML (0.19-0.49) 01/28/17 17:00 Plasma Metanephrine <25 pg/mL (<=57) 01/31/17 05:00 Plasma Normetanephrine 120 pg/mL (<=148) 01/31/17 05:00 Plas Total Metaneph 120 pg/mL (<=205) 01/31/17 05:00 Urine Color Yellow (YELLOW) 01/28/17 11:00 Urine Appearance Clear (CLEAR) 01/28/17 11:00 Urine pH 6.0 (4.7-8.0) 01/28/17 11:00 Ur Specific [place] 1.025 (1.005-1.035) 01/28/17 11:00 Urine Protein >=300 mg/dL (<30 mg/dL) H 01/28/17 11:00 Urine Glucose (UA) Negative mg/dL (NEGATIVE) 01/28/17 11:00 Urine Ketones Negative mg/dL (NEGATIVE) 01/28/17 11:00 Urine Blood Moderate (NEGATIVE) H 01/28/17 11:00 Urine Nitrate Negative (NEGATIVE) 01/28/17 11:00 Urine Bilirubin Negative (NEGATIVE) 01/28/17 11:00 Urine Urobilinogen 0.2 E.U./dL (<1 E.U./dL) 01/28/17 11:00 Ur Leukocyte Esterase Negative Hector/uL (NEGATIVE) 01/28/17 11:00 Urine RBC 0 - 2 /hpf (0-2) 01/28/17 11:00 Urine WBC 0 - 2 /hpf (0-6) 01/28/17 11:00 Ur Epithelial Cells 0 - 2 /hpf (0-5) 01/28/17 11:00 Urine Bacteria Few (NEG) 01/28/17 11:00 Ur Random Creatinine 43 mg/dL 01/29/17 10:30 U Random Total Protein 1681 mg/L (50-250) H 01/31/17 09:00 Urine Collection Time 24 HOURS 01/30/17 09:00 Urine Total Volume 3300 mL (800-1400) H 01/30/17 09:00 Creatinine Clearance 37.0 ml/min (80-120) L 01/30/17 09:00 Ur Total Protein 24 Hr 5547 mg/24 h (<150) H 01/31/17 09:00 Urine Opiates Screen Negative (NEGATIVE) 01/28/17 11:00 Urine Methadone Screen Negative (NEGATIVE) 01/28/17 11:00 Ur Barbiturates Screen Negative (NEGATIVE) 01/28/17 11:00 Ur Phencyclidine Scrn Negative (NEGATIVE) 01/28/17 11:00 Ur Amphetamines Screen Negative (NEGATIVE) 01/28/17 11:00 U Benzodiazepines Scrn Negative (NEGATIVE) 01/28/17 11:00 U Oth Cocaine Metabols Negative (NEGATIVE) 01/28/17 11:00 U Cannabinoids Screen Negative (NEGATIVE) 01/28/17 11:00 HUNTER & SPEP Interp See note 02/03/17 06:00 TAWNY Screen Negative (Negative) 02/03/17 06:00 Proteinase 3 (PR3) <1.0 AI (<1.0) 01/31/17 05:00 Myeloperoxidase Ab <1.0 AI (<1.0) 01/31/17 05:00 Glomerular Base Mem IgG <1.0 AI (<1.0) 01/31/17 05:00 Complement C3 138.0 mg/dL (88.0-165.0) 01/29/17 02:00 Complement C4 22.8 mg/dL (14.0-44.0) 01/29/17 02:00 Hep Bs Antigen Negative (NEGATIVE) 02/02/17 06:00 Hepatitis C Antibody Negative (NEGATIVE) 02/02/17 06:00 HIV 1&2 Antibody Screen Negative (NEGATIVE) 02/02/17 06:00 - Hospital Course Hospital Course: 51 year old male with no past medical history presented with hypertensive emergency with end organ dysfunction, MARIBETH and myocardial ischemia. Patient was admitted to ICU and started on medication to control his blood pressure. Patient 's blood pressure was eventually lowered and stabilized on multiple medications. He was transferred out of ICU. 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 Nephrology was consulted. Patient had extensive workup for renal damage including immune markers, renal US, renal doppler and renal biopsy. Biopsy showed like FSGN. During the stay, patient received pulse doses of prednisone for treatment of glomerulonephritis. Patient eventually became hyperglycemic and developed new onset diabetes. Patient was started on oral hypoglycemic agent as well as insulin. Patient was given diabetic education as well. Patient presented with myrocardial ischemia as well. Troponins eventually started trending down. ECHO showed impaired LV function/LVH and moderate pulmonary hypertension. Patient will need stress test as outpatient. Please see MAR for full details. - Date & Time of H&P Date of H&P: 02/05/17 Time of H&P: 13:31 Discharge Exam - Head Exam Head Exam: ATRAUMATIC - ENT Exam ENT Exam: Mucous Membranes Moist - Respiratory Exam Respiratory Exam: Clear to PA & Lateral, NORMAL BREATHING PATTERN. absent: Rales, Rhonchi, Wheezes - Cardiovascular Exam Cardiovascular Exam: REGULAR RHYTHM, +S1, +S2. absent: Diastolic murmur, Gallop , Rubs, Systolic Murmur - GI/Abdominal Exam GI & Abdominal Exam: Normal Bowel Sounds, Soft. absent: Distended, Firm, Guarding, Rigid, Tenderness - Extremities Exam Extremities exam: pedal edema (trace edema ), tenderness - Neurological Exam Neurological exam: Alert, Oriented x3 - Psychiatric Exam Psychiatric exam: Normal Affect, Normal Mood - Skin Skin Exam: Dry, Intact, Normal Color, Warm Discharge Plan - Discharge Medications Prescriptions: amLODIPine [Norvasc] 10 mg PO DAILY #30 tab Aspirin [Aspirin Chewable] 81 mg PO DAILY #30 Atorvastatin [Lipitor] 80 mg PO DAILY #30 tab Carvedilol [Coreg] 6.25 mg PO BID #60 tab cloNIDine [Catapres] 0.2 mg PO Q8 #120 tab Furosemide [Lasix] 40 mg PO Q8 #120 tab GlipiZIDE [Glucotrol] 10 mg PO ACB #30 tab hydrALAZINE [Apresoline] 50 mg PO QID #30 tab Insulin Lispro Mix 75/25 [HumaLog MIX 75/25] 5 units SC Q12 #1 vial Isosorbide Mononitrate [Imdur] 120 mg PO DAILY #30 tab Losartan [Cozaar] 25 mg PO DAILY #30 tab Pantoprazole [Protonix EC Tab] 40 mg PO 0630 #30 ect Potassium Chloride 10 meq PO DAILY #30 tab.er.prt predniSONE [predniSONE Tab] 60 mg PO DAILY #14 tab - Follow Up Plan Condition: CRITICAL Disposition: HOME/ ROUTINE Instructions: Acute Kidney Injury (DC), Acute Kidney Injury (GEN), Heart Healthy Diet (DC), Heart Healthy Diet (GEN), Hypertensive Crisis (DC), Hypertension (DC), Hypertension (GEN), Glomerulonephritis (GEN) Additional Instructions: Patient is to follow up with PMD upon discharge. Patient is to follow up with control supervisor, Dr. Adams upon discharge. Patient will get [facility] information prior to being discharged. Patient is sent home with the following medications: Norvasc, Aspirin, prednisone, lipitor, coreg, coreg, catapres, Lasixs, glucotrol, apresoline, Humalog 75/25, Imdur, protonix. Scripts will be delivered to patient before discharge. Patient will need outpatient stress test. Patient is given referral to [facility]. Please follow up with [facility] upon discharge. Referrals: Jan Ricci MD [Staff Provider] - Devon Adams MD [Staff Provider] - PCP,NO [Primary Care Provider] - <Shreya Escobar - Last Filed: 02/05/17 16:30> Provider - Provider Date of Admission: 01/28/17 10:23 Attending physician: Shreya Escobar MD Primary care physician: NO PRIMARY CARE PROVIDER Hospital Course - Lab Results Lab Results: Most Recent Lab Values WBC 9.6 10^3/ul (4.5-11.0) 02/05/17 06:30 RBC 4.82 10^6/uL (3.5-6.1) 02/05/17 06:30 Hgb 11.8 gm/dL (14.0-18.0) L 02/05/17 06:30 Hct 37.4 % (42.0-52.0) L 02/05/17 06:30 MCV 77.6 fL (80.0-105.0) L 02/05/17 06:30 MCH 24.5 pg (25.0-35.0) L 02/05/17 06:30 MCHC 31.6 g/dl (31.0-37.0) 02/05/17 06:30 RDW 16.2 % (11.5-14.5) H 02/05/17 06:30 Plt Count 209 10^3/uL (120.0-450.0) 02/05/17 06:30 MPV 11.3 fl (7.0-11.0) H 02/05/17 06:30 Gran % [employer] Repairer 02/03/17 06:00 Lymph % (Auto) [employer] Repairer 02/03/17 06:00 Ceiba % (Auto) [employer] Repairer 02/03/17 06:00 Eos % (Auto) [employer] Repairer 02/03/17 06:00 Baso % (Auto) [employer] Repairer 02/03/17 06:00 Gran # [employer] Repairer 02/03/17 06:00 Lymph # [employer] Repairer 02/03/17 06:00 Ceiba # [employer]ob[employer] Repairer 02/03/17 06:00 Eos # [employer] Autob[employer] Repairer 02/03/17 06:00 Baso # [employer] Repairer 02/03/17 06:00 Neutrophils % (Manual) 95 % (50.0-70.0) H 02/03/17 06:00 Band Neutrophils % 2 % (0-2) 02/03/17 06:00 Lymphocytes % (Manual) 2 % (22.0-35.0) L 02/03/17 06:00 Monocytes % (Manual) 1 % (1.0-6.0) 02/03/17 06:00 Toxic Granulation Slight 02/03/17 06:00 Platelet Evaluation Normal (NORMAL) 02/03/17 06:00 Hypochromasia Slight 02/03/17 06:00 Poikilocytosis (manual Slight 02/03/17 06:00 Anisocytosis (manual) 1+ 02/03/17 06:00 Microcytosis (manual) 1+ 02/03/17 06:00 Tear Drop Cells Slight 02/03/17 06:00 Ovalocytes Slight 02/03/17 06:00 PT 12.0 Seconds (9.9-11.8) H 01/28/17 08:00 INR 1.11 (0.93-1.08) H 01/28/17 08:00 APTT 49.5 Seconds (23.7-30.8) H 01/29/17 02:15 D-Dimer, Quantitative 0.73 mg/L FEU (0-0.50) H 01/28/17 08:00 Sodium 136 mmol/L (132-148) 02/05/17 06:30 Potassium 3.1 mmol/L (3.6-5.0) L 02/05/17 06:30 Chloride 91 mmol/L (98-107) L 02/05/17 06:30 Carbon Dioxide 37 mmol/L (21-33) H 02/05/17 06:30 Anion Gap 11 (10-20) 02/05/17 06:30 BUN 68 mg/dL (7-21) H 02/05/17 06:30 Creatinine 2.9 mg/dL (0.5-1.4) H 02/05/17 06:30 Est GFR ( Amer) 28 02/05/17 06:30 Est GFR (Non-Af Amer) 23 02/05/17 06:30 POC Glucose (mg/dL) 335 mg/dL (65-110) H 02/03/17 21:04 Random Glucose 88 mg/dL (70-110) 02/05/17 06:30 Hemoglobin A1c 7.1 % (4.2-6.5) H 02/03/17 06:15 Calcium 8.4 mg/dL (8.4-10.5) 02/05/17 06:30 Phosphorus 4.2 mg/dL (2.5-4.5) 01/30/17 07:00 Magnesium 2.0 mg/dL (1.7-2.2) 02/03/17 06:00 Total Bilirubin 0.7 mg/dL (0.2-1.3) 02/03/17 06:00 AST 25 U/L (15-59) 02/03/17 06:00 ALT 41 U/L (7-56) 02/03/17 06:00 Alkaline Phosphatase 160 U/L (38-133) H 02/03/17 06:00 Lactate Dehydrogenase 764 U/L (333-699) H 01/28/17 08:00 Total Creatine Kinase 166 U/L (35-230) 01/28/17 08:00 Troponin I 0.15 ng/mL H* D 01/28/17 19:10 NT-Pro-B Natriuret Pep 19559 pg/mL (0-450) H 01/28/17 08:00 Total Protein 6.6 g/dL (5.8-8.3) 02/03/17 06:00 Total Protein (PEP) 6.3 g/dL (6.1-8.1) 02/03/17 06:00 Albumin 3.6 g/dL (3.0-4.8) 02/03/17 06:00 Albumin (PEP) 3.0 g/dL (3.8-4.8) L 02/03/17 06:00 Globulin 3.1 gm/dL 02/03/17 06:00 Albumin/Globulin Ratio 1.2 (1.1-1.8) 02/03/17 06:00 Ogkvz-9-Acnvauddl 0.4 g/dL (0.2-0.3) H 02/03/17 06:00 Kizfa-0-Zgwznqozo 0.9 g/dL (0.5-0.9) 02/03/17 06:00 Cwgy-6-Vlofggjk 0.5 g/dL (0.4-0.6) 02/03/17 06:00 Nrge-7-Hiipmswe 0.3 g/dL (0.2-0.5) 02/03/17 06:00 Gamma Globulins 1.1 g/dL (0.8-1.7) 02/03/17 06:00 Abnorm Protein Band 1 TEST NOT PERFORMED 02/03/17 06:00 Abnorm Protein Band 2 TEST NOT PERFORMED 02/03/17 06:00 Abnorm Protein Band 3 TEST NOT PERFORMED 02/03/17 06:00 Renin 21.67 ng/mL/h (0.25-5.82) H 01/29/17 02:00 Aldosterone 5 ng/dL 01/29/17 02:00 Aldosterone/Renin Ratio 0.2 Ratio (0.9-28.9) L 01/29/17 02:00 Procalcitonin 0.30 NG/ML (0.19-0.49) 01/28/17 17:00 Plasma Metanephrine <25 pg/mL (<=57) 01/31/17 05:00 Plasma Normetanephrine 120 pg/mL (<=148) 01/31/17 05:00 Plas Total Metaneph 120 pg/mL (<=205) 01/31/17 05:00 Urine Color Yellow (YELLOW) 01/28/17 11:00 Urine Appearance Clear (CLEAR) 01/28/17 11:00 Urine pH 6.0 (4.7-8.0) 01/28/17 11:00 Ur Specific [place] 1.025 (1.005-1.035) 01/28/17 11:00 Urine Protein >=300 mg/dL (<30 mg/dL) H 01/28/17 11:00 Urine Glucose (UA) Negative mg/dL (NEGATIVE) 01/28/17 11:00 Urine Ketones Negative mg/dL (NEGATIVE) 01/28/17 11:00 Urine Blood Moderate (NEGATIVE) H 01/28/17 11:00 Urine Nitrate Negative (NEGATIVE) 01/28/17 11:00 Urine Bilirubin Negative (NEGATIVE) 01/28/17 11:00 Urine Urobilinogen 0.2 E.U./dL (<1 E.U./dL) 01/28/17 11:00 Ur Leukocyte Esterase Negative Hector/uL (NEGATIVE) 01/28/17 11:00 Urine RBC 0 - 2 /hpf (0-2) 01/28/17 11:00 Urine WBC 0 - 2 /hpf (0-6) 01/28/17 11:00 Ur Epithelial Cells 0 - 2 /hpf (0-5) 01/28/17 11:00 Urine Bacteria Few (NEG) 01/28/17 11:00 Ur Random Creatinine 43 mg/dL 01/29/17 10:30 U Random Total Protein 1681 mg/L (50-250) H 01/31/17 09:00 Urine Collection Time 24 HOURS 01/30/17 09:00 Urine Total Volume 3300 mL (800-1400) H 01/30/17 09:00 Creatinine Clearance 37.0 ml/min (80-120) L 01/30/17 09:00 Ur Total Protein 24 Hr 5547 mg/24 h (<150) H 01/31/17 09:00 Urine Opiates Screen Negative (NEGATIVE) 01/28/17 11:00 Urine Methadone Screen Negative (NEGATIVE) 01/28/17 11:00 Ur Barbiturates Screen Negative (NEGATIVE) 01/28/17 11:00 Ur Phencyclidine Scrn Negative (NEGATIVE) 01/28/17 11:00 Ur Amphetamines Screen Negative (NEGATIVE) 01/28/17 11:00 U Benzodiazepines Scrn Negative (NEGATIVE) 01/28/17 11:00 U Oth Cocaine Metabols Negative (NEGATIVE) 01/28/17 11:00 U Cannabinoids Screen Negative (NEGATIVE) 01/28/17 11:00 HUNTER & SPEP Interp See note 02/03/17 06:00 TAWNY Screen Negative (Negative) 02/03/17 06:00 Proteinase 3 (PR3) <1.0 AI (<1.0) 01/31/17 05:00 Myeloperoxidase Ab <1.0 AI (<1.0) 01/31/17 05:00 Glomerular Base Mem IgG <1.0 AI (<1.0) 01/31/17 05:00 Complement C3 138.0 mg/dL (88.0-165.0) 01/29/17 02:00 Complement C4 22.8 mg/dL (14.0-44.0) 01/29/17 02:00 Hep Bs Antigen Negative (NEGATIVE) 02/02/17 06:00 Hepatitis C Antibody Negative (NEGATIVE) 02/02/17 06:00 HIV 1&2 Antibody Screen Negative (NEGATIVE) 02/02/17 06:00 Attending/Attestation - Attestation I have personally seen and examined this patient.: Yes I have fully participated in the care of the patient.: Yes I have reviewed all pertinent clinical information, including history, physical exam and plan: Yes Notes (Text): I have seen and examined patient at bedside with the resident. Agree with the note dictated by the resident with the following additions/ exceptions: This is 51 year old male who came for bilateral lower extremity swelling and found to have decompensated CHF due to systolic dysfunction (EF~40%), moderate pulmonary hypertension, Moderate MR, hypertensive emergency, elevated troponin, acute renal failure, microcytic anemia and leukocytosis. BP much improved. Work up in progress to rule out secondary causes of hypertension. Pheo and Hyperaldosteronism ruled out. Medications adjusted by control supervisor. Shaping Machine Operator recommended stress test as an outpatient. He also has uremia, hematuria, proteinuria and hypertension which points more toward nephritic syndrome. Hep panel, HIV and UDS negative. Complement levels are normal. He was given pulse doses of steroids. 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 Discussed with Dr Adams. Patient will be sent home on PO steroids. He has leukocytosis which can be due to steroids. Procal 0.3. He has hyperglycemia. Will continue glipizide. Hba1c is 7.1. Upon discharge the patient will follow up with [facility] clinic. Dr Shreya Escobar
[2017-02-05 18:08] LABS: KAPPA/LAMBDA FREE RATIO 1.11 (0.26-1.65)
--- NOTE | 2017-02-05 19:50 | PN ---
DATE: 02/05/2017 A 51-year-old male with no past medical history admitted with hypertensive emergency and acute decomp ensated systolic congestive heart failure and acute renal failure. Nephrology following for the same . The patient reports feeling well. Reports leg swelling is much improved. PHYSICAL EXAMINATION: VITAL SIGNS: Blood pressure this morning 160/100, heart rate 64, respirations 18, temperature 97.7. GENERAL: No distress, conversing coherently in full sentences. HEENT: Moist mucous membranes. Nonicteric. RESPIRATORY: Lungs clear to auscultation bilaterally. No rales, no rhonchi, no wheezes. HEART: S1, S2 normal, no murmurs, no gallops, no rubs. ABDOMEN: Soft, nontender, nondistended. EXTREMITIES: Mild to moderate bilateral lower leg edema. SKIN: Warm. No cyanosis. PSYCHIATRIC: Normal mood, normal affect. LABORATORY DATA: This morning, WBC 9.6, hemoglobin 11.8, hematocrit 37.4, platelets 209. Chemistry panel: Sodium 136, potassium 3.1, chloride 91, bicarbonate 37, BUN 68, creatinine 2.9, glucose 88, c alcium 8.4. Previous serologic workup: TAWNY negative, free kappa light chains and light chains ratio 1.1. ASSESSMENT: 1. Acute renal failure. Renal biopsy results reviewed with pathologist from [facility]. Reports no prolif erative GN findings, does have FSGS findings and also has significant arterial sclerosis consistent w ith his malignant hypertension. Whether this FSGS is primary, particularly with nephrotic range prot einuria or whether this is secondary to vascular damage, is unclear at this point and proteinuria jazmin l need to be reassessed once blood pressure is better controlled. Nevertheless, as it is unclear whe ther this is a primary process. We will start patient on prednisone 60 mg daily and will follow as o utpatient. 2. Malignant hypertension. No secondary cause found, still with elevated blood pressure, although s ignificantly improved. We will discharge patient on current regimen of Coreg 6.25 mg b.i.d., clonidi ne 0.2 mg q. 8 hours, amlodipine 10 mg daily, hydralazine 50 mg b.i.d. instead of q.i.d. and Lasix 40 mg b.i.d. instead of q. 8 hours. Continue Imdur 120 mg daily. We will also add losartan 25 mg raven y. 3. Proteinuria, nephrotic range. As mentioned above, it may be due to the primary FSGS or may simpl y be a transient findings associated with severe uncontrolled hypertension. If this is primary FSGS, then immunosuppressive therapy is warranted for nephrotic range proteinuria, will also start RAAS bl ockade as mentioned above. 4. Acute decompensated systolic congestive heart failure. Volume status overall, improved, still wi th some lower extremity edema. Will decrease Lasix to 40 mg p.o. q. 12 hours, especially as patient is becoming alkalotic per chemistry panel. 5. Electrolyte imbalances. The patient hypokalemia that is being induced with intense diuretic des tment should improve with cutting back of diuretics and also starting losartan. Agree with continuin g small dose of p.o. potassium chloride 10 mEq daily. 6. Diabetes, new diagnosis with hemoglobin A1c 7.1. Started on glipizide 10 mg before breakfast. A lso started on 75/25 insulin lispro 5 units q. 12 hours. We will need to adjust regimen as patient w ill be on a high dose of prednisone for the time being. Devon Adams MD cc: [id number] TT: 02/05/2017 19:49:44 Confirmation # [id number] Dictation # [id number] jn
--- NOTE | 2017-02-26 09:38 | PQF GENQUE ---
This form is a permanent part of the medical recordDr. Dr. Adams, Clarification of your documentation is requested to better reflect the severity of illness and intensity of treatment of your patient. Indicators present : patient was diagnosed with hypertensive emergency with end organ dysfunction with MARIBETH. He had kidney bx done on 02/03/17. We just received the kidney bx pathology report. Please provide us a specific diagnosis (see result in the EMR). Thank you. [] Specify: [] [] Specify: [] [] Specify: [] [] Specify: [] Location in the medical record that reflects the above clinical findings: [] kidney pathology report Treatment Provided: [] PHYSICIAN'S RESPONSE Based on your medical judgment of the clinical indicators outlined above please clarify the following: [] Practitioner response [] If unable to determine, please check the box, sign and date. Present On Admission (POA) Indicator: [] Present at the time of admission [] Not present at the time of admission [] Clinically Undetermined In responding to this query, please exercise your independent professional judgment. The fact that a question is asked does not imply that any particular answer is desired or expected. Thank you for your clarification on this documentation. If you have any questions please call:[ ] * Thank you, [ ]jorge a MAreview rn AMANDA
== END 2017-02-05 18:55 | disposition home or self-care (01) | DRG 543 ==
LOC: ED 07:02 → ERH 10:23 → CCU 13:36 → 2RNO 01-30 16:45
PROVIDERS: ADMIT Internal Medicine; ATTEND Hospitalist
PROC: 0TB13ZX Excision of Left Kidney, Percutaneous Approach, Diagnostic (ICD-10-PCS; principal; 2017-02-03 14:00)
DX: I16.1 Hypertensive emergency (principal); N17.9 Acute kidney failure, unspecified; I50.23 Acute on chronic systolic (congestive) heart failure; I27.2 Other secondary pulmonary hypertension; E87.1 Hypo-osmolality and hyponatremia; N18.9 Chronic kidney disease, unspecified; E87.6 Hypokalemia; E09.65 Drug or chemical induced diabetes mellitus with hyperglycemia; T38.0X5A Adverse effect of glucocorticoids and synthetic analogues, initial encounter; I13.0 Hypertensive heart and chronic kidney disease with heart failure and stage 1 through stage 4 chronic kidney disease, or unspecified chronic kidney disease; D50.9 Iron deficiency anemia, unspecified; N05.1 Unspecified nephritic syndrome with focal and segmental glomerular lesions; I25.9 Chronic ischemic heart disease, unspecified; I34.0 Nonrheumatic mitral (valve) insufficiency; D72.829 Elevated white blood cell count, unspecified

== ENCOUNTER 2017-06-13 17:14 | Inpatient (IN) | payer MEDICAID ==
--- NOTE | 2017-06-13 17:26 | ED PDOC ---
Arrival/HPI - General Time Seen by Provider: 06/13/17 17:17 Historian: Patient - Critical Care Critical Care Minutes: 45 minutes (patient required immediate attention upon arrival, in respiratory distress) - History of Present Illness Narrative History of Present Illness (Text): 06/13/17 17:23 A 51 year old male, whose past medical history includes hypertension, hyperlipidemia, diabetes, and chronic kidney disease/glomerulonephritis, CHF EF 40%, is brought in by EMS and presents to the emergency department complaining of shortness of breath prior to arrival. Patient experiences subjective fever, cough productive of yellow sputum. Denies pain, vomiting, dysuria. PMD: Dr. Nohemi Tan Past Medical History - Provider Review Nursing Documentation Reviewed: Yes - Infectious Disease Hx of Infectious Diseases: None - Cardiac Hx Hypertension: Yes Hx Peripheral Vascular Disease: Yes - Pulmonary Hx Asthma: (SOB) - HEENT Hx HEENT Disorder: Yes (reading glasses) - Integumentary Other/Comment: lower arms and lower legs tanned, brown skin discolorations to ble noted - Musculoskeletal/Rheumatological Hx Falls: No - Gastrointestinal Hx Gastrointestinal Disorders: Yes (obese) - Psychiatric Hx Substance Use: No Family/Social History - Physician Review Nursing Documentation Reviewed: Yes Family/Social History: No Known Family HX Smoking Status: Never Smoked Hx Alcohol Use: Yes (occasional social) Hx Substance Use: No Allergies/Home Meds Allergies/Adverse Reactions: Allergies No Known Allergies Allergy (Verified 06/13/17 17:28) Home Medications: Home Meds Medication Instructions Recorded Confirmed hydrALAZINE [Apresoline] 50 mg PO TID 02/26/17 06/13/17 Atorvastatin [Lipitor] 80 mg PO HS 06/13/17 06/13/17 Furosemide [Lasix] 40 mg PO BID 06/13/17 06/13/17 Isosorbide Mononitrate [Imdur] 60 mg PO BID 06/13/17 06/13/17 Losartan [Cozaar] 100 mg PO DAILY 06/13/17 06/13/17 Pantoprazole [Protonix EC Tab] 40 mg PO DAILY 06/13/17 06/13/17 Prednisone [Mireya] 30 mg PO .AM 06/13/17 06/13/17 cloNIDine [Catapres] 0.2 mg PO TID 06/13/17 06/13/17 predniSONE [predniSONE Tab] 20 mg PO .HS 06/13/17 06/13/17 Review of Systems - Physician Review All systems were reviewed & negative as marked: Yes - Review of Systems Constitutional: Fevers Respiratory: SOB. absent: Cough Physical Exam - Physical Exam Narrative Physical Exam (Text): Constitutional: In respiratory distress. Head: Normocephalic. Atraumatic. Eyes: PERRL. ENT: Moist mucous membranes. Neck: Supple. Cardiovascular: Tachycardic. Chest: No tenderness. Respiratory: Rhonchi bilaterally. Pulse Oximetry currently at 90% on CPAP. GI: Soft. Nontender. Nondistended. Back: No CVA tenderness. Musculoskeletal: Bilateral foot edema Skin: No rash. Neurologic: Alert, no focal deficit. Vital Signs Temp Pulse Resp BP Pulse Ox 06/13/17 19:40 100 F H 06/13/17 19:31 110 H 21 95/58 L 98 06/13/17 17:24 101.7 F H 119 H 28 H 145/74 92 L Medical Decision Making ED Course and Treatment: 06/13/17 17:26 Impression: 51 year old male p/w shortness of breath, fever, tachycardia, hypoxia. Physical exam shows b/l rhonchi and decreased breath sounds of the lungs. Plan: -- EKG -- Chest X-ray -- Labs -- Urine Culture -- Blood Culture -- Urinalysis -- Blood Gas -- Reassess and disposition Prior Visits: Notes and results from previous visits were reviewed. Patient was last seen in the emergency department on 01/28/2017 for worsening b/l lower extremity edema and dyspnea of exertion. Patient was admitted. Progress Notes: Upon arrival, patient's blood pressure was at 110/80. EKG: Ordered, reviewed, and independently interpreted the EKG. Rate : 120 BPM Rhythm : Sinus tachycardia Interpretation : No ST-segment elevations. Poor baseline. Comparison : No previous EKG for comparison. 06/13/17 17:41 Chest X-ray shows left side consolidation, as interpreted by me. 06/13/17 17:51 Code Sepsis called. Antibiotics initiated. Discussed fluid resuscitation with patient, he requested that full IVF bolus not be given due to his history of CHF and the possibility of intubation. Patient with elevated troponin, aspirin administered. Dr. Hale consulted for ICU , will accept to unit. - Critical Care Critical Care Minutes: 45 minutes (patient requires immediate attention upon arrival) - Lab Interpretations Lab Results: 06/13/17 17:26 06/13/17 17:26 Lab Results 06/13/17 19:19: POC Glucose (mg/dL) 87 06/13/17 17:51: POC Glucose (mg/dL) 25 L* 06/13/17 17:26: Sodium 130 L, Chloride 92 L, Potassium 4.1, Carbon Dioxide 22, Anion Gap 20, BUN 74 H, Creatinine 4.8 H, Est GFR ( Amer) 16, Est GFR ( Non-Af Amer) 13, Random Glucose 40 L* D, Calcium 9.0, Total Bilirubin 1.4 H, AST 63 H, ALT 57 H, Alkaline Phosphatase 64, Total Creatine Kinase 95, Troponin I 0.26 H* D, NT-Pro-B Natriuret Pep 6960 H, Total Protein 7.1, Albumin 3.7, Globulin 3.4, Albumin/Globulin Ratio 1.1, Lipase 152 06/13/17 17:26: pO2 33, VBG pH 7.35, VBG pCO2 39.0 L, VBG HCO3 21.5, VBG Total CO2 22.7, VBG O2 Sat (Calc) 65.6 H, VBG Base Excess -3.8 L, VBG Potassium 4.9, Sodium 128.0 L, Chloride 93.0 L, Glucose 37 L*, Lactate 2.9 H, FiO2 21.0, Venous Blood Potassium 4.9 06/13/17 17:26: PT 10.7, INR 0.99, APTT 35.3 H 06/13/17 17:26: WBC 18.5 H D, RBC 3.42 L, Hgb 10.4 L, Hct 30.5 L, MCV 89.2, MCH 30.4, MCHC 34.1, RDW 16.1 H, Plt Count 97 L, MPV 9.9, Gran % 97.3 H, Lymph % ( Auto) 1.3 L, Swift % (Auto) 1.3, Eos % (Auto) 0.0 L, Baso % (Auto) 0.1, Gran # 18.04 H, Lymph # 0.2 L, Swift # 0.2, Eos # 0.0, Baso # 0.01, Neutrophils % ( Manual) 87 H, Band Neutrophils % 9 H, Lymphocytes % (Manual) 2 L, Monocytes % ( Manual) 2, Large Platelets Present I have reviewed the lab results: Yes - RAD Interpretation Radiology Orders: 06/13/17 17:29 CHEST PORTABLE [RAD] Stat - Medication Orders Current Medication Orders: Cefepime HCl (Maxipime 1gm) 1 gm in 100 mls @ 100 mls/hr IVPB Q24H OSCAR PRN Reason: Protocol Last Admin: 06/13/17 18:10 Dose: 100 mls/hr eMAR Start Stop Document 06/13/17 18:10 MD (Rec: 06/13/17 18:10 [id number] Intravenous Solution Start Date 06/13/17 Start Time 18:10 End Date 06/13/17 End time 19:05 Total Infusion Time 55 Discontinued Medications Acetaminophen (Tylenol 325mg Tab) 650 mg PO STAT STA Stop: 06/13/17 18:34 Last Admin: 06/13/17 18:48 Dose: 650 mg MAR Pain/Vitals Document 06/13/17 18:48 (Rec: 06/13/17 18:50 [id number] Pain Reassessment Is This A Pain ReAssessment? Yes Sleep Is patient sleeping during reassessment? No Presence of Pain Presence of Pain No Aspirin (Aspirin) 325 mg PO STAT STA Stop: 06/13/17 18:09 Last Admin: 06/13/17 18:11 Dose: 325 mg Dextrose (Dextrose 50% Inj) 50 ml IVP STAT STA Stop: 06/13/17 18:35 Last Admin: 06/13/17 18:50 Dose: 50 ml IVP Administration Document 06/13/17 18:50 (Rec: 06/13/17 18:50 [id number] Charges for Administration # of IVP Administrations 1 Vancomycin HCl (Vancomycin 1gm) 1 gm in 250 mls @ 167 mls/hr IVPB STAT STA PRN Reason: Protocol Stop: 06/13/17 19:10 Last Admin: 06/13/17 19:05 Dose: 167 mls/hr eMAR Start Stop Document 06/13/17 19:05 (Rec: 06/13/17 19:05 [id number] Intravenous Solution Start Date 06/13/17 Start Time 19:05 Sodium Chloride (Sodium Chloride 0.9%) 1,000 mls @ 999 mls/hr IV .Q1H1M STA Stop: 06/13/17 18:54 Last Admin: 06/13/17 18:10 Dose: 999 mls/hr eMAR Start Stop Document 06/13/17 18:10 (Rec: 06/13/17 18:10 [id number] Intravenous Solution Start Date 06/13/17 Start Time 18:10 - Scribe Statement The provider has reviewed the documentation as recorded by the Dale Vaughn Provider Scribe Attestation: All medical record entries made by the Dwightibkimberly were at my direction and personally dictated by me. I have reviewed the chart and agree that the record accurately reflects my personal performance of the history, physical exam, medical decision making, and the department course for this patient. I have also personally directed, reviewed, and agree with the discharge instructions and disposition. Disposition/Present on Arrival - Present on Arrival Any Indicators Present on Arrival: No History of DVT/PE: No History of Uncontrolled Diabetes: No Urinary Catheter: No History Surgical Site Infection Following: None - Disposition Have Diagnosis and Disposition been Completed?: Yes Diagnosis: Elevated troponin, Pneumonia, Sepsis, Hypoglycemia Disposition: HOSPITALIZED Disposition Time: 19:47 Patient Plan: Admission, ICU Condition: CRITICAL
[2017-06-13 17:39] LABS: BASO # 0.01 K/mm3 (0.0-2.0); BASO % 0.1 % (0.0-3.0); GRAN # 18.04 (1.4-6.5); GRAN % 97.3 % (50.0-68.0); HEMATOCRIT 30.5 % (42.0-52.0); LYMPH # 0.2 (1.2-3.4); LYMPH % 1.3 % (22.0-35.0); MEAN CELL VOLUME 89.2 fl (80.0-105.0); MEAN CORPUSCULAR HEMOGLOBIN 30.4 pg (25.0-35.0); MEAN CORPUSCULAR HGB CONC 34.1 g/dl (31.0-37.0); MEAN PLATELET VOLUME 9.9 fl (7.0-11.0); MONO # 0.2 (0.1-0.6); MONO % 1.3 % (1.0-6.0); PLATELET COUNT 97 10^3/uL (120.0-450.0); RED CELL DISTRIBUTION WIDTH 16.1 % (11.5-14.5); WHITE BLOOD COUNT 18.5 10^3/ul (4.5-11.0)
[2017-06-13 17:40] LABS: VENOUS BLOOD GAS BASE EXCESS -3.8 mmol/L (0.0-2.0); VENOUS BLOOD PH 7.35 (7.32-7.43)
[2017-06-13] MEDS ORDERED: Vancomycin 1gm in NS 250ml 1 GM/250 ML BAG IVPB STA (17:41)
[2017-06-13] MEDS ORDERED: Cefepime 1gm in NS 100ml 1 GM/100 ML BAG IVPB SCH (17:45)
[2017-06-13 17:47] LABS: ALB/GLOB RATIO 1.1 (1.1-1.8); BILIRUBIN,TOTAL 1.4 mg/dL (0.2-1.3); POTASSIUM 4.1 mmol/L (3.6-5.0); TOTAL PROTEIN 7.1 g/dL (5.8-8.3)
[2017-06-13 17:50] LABS: INR 0.99 (0.93-1.08); PARTIAL THROMBOPLASTIN TIME 35.3 Seconds (23.7-30.8)
[2017-06-13] MEDS ORDERED: Sodium Chloride 0.9% 1,000 ML IV STA (17:54)
[2017-06-13 18:03] LABS: TROPONIN I 0.26 ng/mL
[2017-06-13 18:07] LABS: BAND 9 % (0-2); LARGE PLATELETS PRESENT; NEUTROPHIL 87 % (50.0-70.0)
[2017-06-13] MEDS ORDERED: Dextrose 50% SYRINGE Inj (50 ml) IVP STA ×2 (18:34→21:15)
--- NOTE | 2017-06-13 19:21 | RAD ---
HISTORY: SOB COMPARISON: Chest 01/28/2017. FINDINGS: LUNGS: Interval infiltrates are identified throughout the majority left lung with the left apex spared. Limited right infrahilar infiltrate is not excluded. PLEURA: A left pleural effusions not excluded. None is seen the right. No pneumothorax bilaterally. CARDIOVASCULAR: Stable cardiomegaly. No pulmonary vascular derangement. OSSEOUS STRUCTURES: No significant abnormalities. VISUALIZED UPPER ABDOMEN: Normal. OTHER FINDINGS: None. IMPRESSION: Bilateral airspace disease seen greater the left and right chest as discussed above with trace of pleural effusion not excluded. Cardiomegaly appears stable.
[2017-06-13 20:27] LABS: ARTERIAL BLOOD GAS HCO3 19.2 mmol/L (21-28); ARTERIAL BLOOD GAS PH 7.46 (7.35-7.45)
[2017-06-13 21:08] LABS: VENOUS BLOOD GAS BASE EXCESS -3.3 mmol/L (0.0-2.0); VENOUS BLOOD PH 7.38 (7.32-7.43)
[2017-06-13] MEDS ORDERED: Dextrose 5%/0.9% NS 1,000 ML IV SCH (21:45)
[2017-06-13 22:26] VITALS: BMI 37.3
--- NOTE | 2017-06-13 22:34 | CP.PCM.HP ---
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 Patient admits that he has been feeling poorly for the past few days, and believed he had a cold. Today, he awoke, and felt like he had no energy, had difficulty getting out of bed. at bedside reports patient has been coughing up some greenish mucous for the last 2-3 days. Denies ever having been short of breath like this before, does not wear O2 at home, denies any smoking hx. Admits to subjective fevers/chills, but denies nausea/emesis, chest pain, pain with respiration, hemoptysis/hematemesis, diarrhea, constipation, dysuria/hematuria, focal weakness or focal paresthesias. Reports on a prednisone taper (previously on chronic oral prednisone for his FSGS), now down to 20mg PO BID. All other ROS negative in 12-point system review. In the ED, patient was initially hypertensive to 145/74, tachy to 119, tachypnic to 28, and satting 92% on Bipap, with a temp of 101.7F. Lactate on VBG was 2.9, and labs were also notable for a glucose was 40. Code sepsis was called, and patient was given a 1L Bolus of NS (not full fluid-resucitation due to hx of CHF and acute signs of fluid overload in bilateral LE), and an amp of D50. His was switched to Non-rebreather mask and began to sat at 98%, tachycardia improved to 110, and tachypnea improved to 21. PMH: as above PSH: Renal Biopsy FHx: father glioblastoma, mother breast ca SHx: Denies tobacco/alcohol/Illicits/IVDA PMD: Dr. Tan Present on Admission - Present on Admission Any Indicators Present on Admission: No History of DVT/PE: No History of Uncontrolled Diabetes: No Urinary Catheter: No Review of Systems - Review of Systems All systems: reviewed and no additional remarkable complaints except (as per HPI ) Past Patient History - Infectious Disease Hx of Infectious Diseases: None - Past Social History Smoking Status: Never Smoked - CARDIAC Hx Hypertension: Yes Hx Peripheral Vascular Disease: Yes - PULMONARY Hx Asthma: (SOB) - NEUROLOGICAL Hx Neurological Disorder: No - HEENT Hx HEENT Problems: Yes (reading glasses) - RENAL Hx Chronic Kidney Disease: No - ENDOCRINE/METABOLIC Hx Endocrine Disorders: Yes Hx Diabetes Mellitus Type 2: Yes - HEMATOLOGICAL/ONCOLOGICAL Hx Blood Disorders: No - INTEGUMENTARY Other/Comment: lower arms and lower legs tanned, brown skin discolorations to ble noted - MUSCULOSKELETAL/RHEUMATOLOGICAL Hx Falls: No - GASTROINTESTINAL Hx Gastrointestinal Disorders: Yes (obese) - GENITOURINARY/GYNECOLOGICAL Hx Genitourinary Disorders: No - PSYCHIATRIC Hx Substance Use: No - SURGICAL HISTORY Hx Surgeries: No Meds Allergies/Adverse Reactions: Allergies Allergy/AdvReac Type Severity Reaction Status Date / Time No Known Allergies Allergy Verified 06/13/17 17:28 Physical Exam - Constitutional Appears: Non-toxic, In Acute Distress (mildly tachypnic, but not overtly gasping for breath) - Head Exam Head Exam: ATRAUMATIC, NORMAL INSPECTION, NORMOCEPHALIC Additional comments: Gutiérrez facies - Eye Exam Eye Exam: EOMI, Normal appearance, PERRL. absent: Conjunctival injection, Scleral icterus Pupil Exam: NORMAL ACCOMODATION, PERRL. absent: Fixed, Irregular, Unequal - ENT Exam ENT Exam: Mucous Membranes Dry - Neck Exam Neck exam: Positive for: Full Rom, Normal Inspection. Negative for: Lymphadenopathy, Tenderness, Thyromegaly - Respiratory Exam Respiratory Exam: Decreased Breath Sounds (decreased breath sounds most prominently ), Clear to Auscultation Bilateral, Rales (bilateral rales, most prominent at bases bilaterally). absent: Accessory Muscle Use, Chest Wall Tenderness, Prolonged Expiratory Phase, Rhonchi, Wheezes, NORMAL BREATHING PATTERN (tachypnic) - Cardiovascular Exam Cardiovascular Exam: REGULAR RHYTHM, RRR, +S1, +S2. absent: Bradycardia, Tachycardia, Irregular Rhythm, JVD, +S4 - GI/Abdominal Exam GI & Abdominal Exam: Normal Bowel Sounds, Soft. absent: Diminished Bowel Sounds , Distended, Firm, Guarding, Hyperactive Bowel Sounds, Hypoactive Bowel Sounds, Rigid, Tenderness - Extremities Exam Extremities exam: Positive for: normal inspection. Negative for: calf tenderness, normal capillary refill, pedal edema, tenderness, pedal pulses present - Neurological Exam Neurological exam: Alert, CN II-XII Intact, Oriented x3 - Psychiatric Exam Psychiatric exam: Normal Affect, Normal Mood - Skin Skin Exam: Dry, Intact, Pallor, Warm Results - Vital Signs Recent Vital Signs: Last Vital Signs Temp 100 F H 06/13/17 19:40 Pulse 101 H 06/13/17 21:25 Resp 19 06/13/17 21:25 BP 104/67 06/13/17 21:25 Pulse Ox 98 06/13/17 21:25 - Labs Result Diagrams: 06/13/17 17:26 06/13/17 17:26 Labs: Laboratory Results - last 24 hr 06/13/17 06/13/17 06/13/17 20:25 21:03 21:10 pCO2 27 L pO2 150.0 H 132 H HCO3 19.2 L ABG pH 7.46 H ABG Total CO2 20.0 L ABG O2 Saturation 99.1 H ABG Base Excess -3.9 L ABG Potassium 3.8 VBG pH 7.38 VBG pCO2 36.0 L VBG HCO3 21.3 VBG Total CO2 22.4 VBG O2 Sat (Calc) 98.5 H VBG Base Excess -3.3 L VBG Potassium 4.1 Sodium 128.0 L 127.0 L Chloride 100.0 98.0 Glucose 61 L 66 L Lactate 1.2 1.4 FiO2 100.0 21.0 POC Glucose (mg/dL) 55 L Arterial Blood Potassium 3.8 Venous Blood Potassium 4.1 Assessment & Plan - Assessment and Plan (Free Text) Assessment: This is a 51 yo M with PMH of HTN, DLD, DM, CHF (EF 40%), and 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 He was called as a code Sepsis for pneumonia with elevated lactate and hypotension. Plan: Neuro: -awake and alert, oriented, following commands -febrile in the ED, Tmax 101.7F, given tylenol in ED -maintain normothermia Pulm: -Shortness of breath likely multifactorial, CHF exacerbation vs pneumonia -CXR in the ED concerning for left lower lobe pneumonia, CT chest ordered -Desatting on Bipap, improved on Non-rebreather, ABG on non-rebreather pCO2 27, pO2 150, HCO3 19.2, pH 7.46 -Procal ordered, f/u -BNP elevated at 6960 -Covering with Vanco and Cefepime IV -legionella sent, f/u -maintain SaO2 > 92%, paO2 > 60 -Aspiration precautions Cardio: -continue home ASA, lipitor, Coreg -hx of CHF, avoid aggressive fluid replacement, D5NS at 100 cc/hr given repeated hypoglycemic episodes -Maintain MAP > 65, no need for pressor support at this time -EKG in ED with sinus tachy at 120, will repeat in AM and f/u -trop of 0.26, elevated over baseline of 0.15-0.19 but may be elevated 2/2 worsening renal injury -BNP elevated at 6960 GI: -NPO -Protonix for GI ppx, Zofran prn for nausea/emesis Renal: -Cr 4.8 (baseline per prior charting 2.5-3.0); MARIBETH on CKD -hx of FSGS confirmed on biopsy, placed on prolonged steroids, now on steroid taper (20mg PO BID), continue taper to prevent adrenal insufficiency -monitor and replete electrolyes as needed -Dr. Bianchi (Nephro) consulted, appreciate all recs -Maintain euglycemia, now on D5NS due to repeated hypoglycemic episodes Heme: -Hgb 10.4, platelets 97, INR 0.99 -continue to monitor -SCDs for DVT ppx ID: -leukocytosis of 18.5 on admission, Tmax 101.7F -Started on Vanco and Cefepime -Procal and Legionella pending -CXR suspicious for PNA, UA not indicative of UTI Endo: -initial hypoglycemic episode likely 2/2 taking Glipizide without eating today, patient admits to this -hold Glipizide and home Insulin, start on fingersticks Q2 and sliding scale insulin low q6 -D5NS 100cc/hr Dispo: ICU on IV abx, Ventilatory support with High-flow NC, pending sepsis workup and chest CT FEN: NPO overnight, D5NS 100cc/hr, s/p 2x D50 and 1/2 D50 amp Access: Peripheral IV Consults: Nephro Ppx: Protonix for GI, SCDs for DVT Patient seen, reviewed, and discussed with attending, Dr. Hale. Decision To Admit - Pt Status Changed To: Hospital Disposition Of: Inpatient Admission - Admit Certification Admit to Inpatient:: After my assessment, the patient will require hospitalization for at least two midnights. This is because of the severity of symptoms shown, intensity of services needed, and/or the medical risk in this patient being treated as an outpatient. - . Bed Request Type: Critical Care <Edy Hale Q - Last Filed: 06/14/17 06:37> Results - Vital Signs Recent Vital Signs: Last Vital Signs Temp 99.5 F 06/14/17 00:00 Pulse 118 H 06/14/17 05:10 Resp 25 H 06/14/17 05:10 BP 120/69 06/13/17 23:56 Pulse Ox 99 06/14/17 05:10 - Labs Result Diagrams: 06/14/17 05:20 06/14/17 05:20 Labs: Laboratory Results - last 24 hr 06/13/17 06/13/17 06/13/17 20:25 21:03 21:10 WBC RBC Hgb Hct MCV MCH MCHC RDW Plt Count MPV Gran % Lymph % (Auto) Polk % (Auto) Eos % (Auto) Baso % (Auto) Gran # Lymph # Polk # Eos # Baso # pCO2 27 L pO2 150.0 H 132 H HCO3 19.2 L ABG pH 7.46 H ABG Total CO2 20.0 L ABG O2 Saturation 99.1 H ABG Base Excess -3.9 L ABG Potassium 3.8 VBG pH 7.38 VBG pCO2 36.0 L VBG HCO3 21.3 VBG Total CO2 22.4 VBG O2 Sat (Calc) 98.5 H VBG Base Excess -3.3 L VBG Potassium 4.1 Sodium 128.0 L 127.0 L Chloride 100.0 98.0 Glucose 61 L 66 L Lactate 1.2 1.4 FiO2 100.0 21.0 Potassium Carbon Dioxide Anion Gap BUN Creatinine Est GFR ( Amer) Est GFR (Non-Af Amer) POC Glucose (mg/dL) 55 L Random Glucose Calcium Total Bilirubin AST ALT Alkaline Phosphatase Troponin I Total Protein Albumin Globulin Albumin/Globulin Ratio Arterial Blood Potassium 3.8 Venous Blood Potassium 4.1 Urine Color Urine Appearance Urine pH Ur Specific [place] Urine Protein Urine Glucose (UA) Urine Ketones Urine Blood Urine Nitrate Urine Bilirubin Urine Urobilinogen Ur Leukocyte Esterase Urine RBC Urine WBC Ur Epithelial Cells Amorphous Sediment Urine Bacteria 06/13/17 06/13/17 06/13/17 22:56 23:11 23:59 WBC RBC Hgb Hct MCV MCH MCHC RDW Plt Count MPV Gran % Lymph % (Auto) Polk % (Auto) Eos % (Auto) Baso % (Auto) Gran # Lymph # Polk # Eos # Baso # pCO2 pO2 HCO3 ABG pH ABG Total CO2 ABG O2 Saturation ABG Base Excess ABG Potassium VBG pH VBG pCO2 VBG HCO3 VBG Total CO2 VBG O2 Sat (Calc) VBG Base Excess VBG Potassium Sodium Chloride Glucose Lactate FiO2 Potassium Carbon Dioxide Anion Gap BUN Creatinine Est GFR ( Amer) Est GFR (Non-Af Amer) POC Glucose (mg/dL) 57 L 120 H Random Glucose Calcium Total Bilirubin AST ALT Alkaline Phosphatase Troponin I Total Protein Albumin Globulin Albumin/Globulin Ratio Arterial Blood Potassium Venous Blood Potassium Urine Color Yellow Urine Appearance Clear Urine pH 5.5 Ur Specific [place] 1.020 Urine Protein 30 H Urine Glucose (UA) Negative Urine Ketones Negative Urine Blood Negative Urine Nitrate Negative Urine Bilirubin Negative Urine Urobilinogen 0.2 Ur Leukocyte Esterase Negative Urine RBC 0 - 2 Urine WBC Negative Ur Epithelial Cells 0 - 2 Amorphous Sediment Moderate Urine Bacteria Many 06/14/17 06/14/17 06/14/17 00:45 02:02 04:21 WBC RBC Hgb Hct MCV MCH MCHC RDW Plt Count MPV Gran % Lymph % (Auto) Polk % (Auto) Eos % (Auto) Baso % (Auto) Gran # Lymph # Polk # Eos # Baso # pCO2 pO2 HCO3 ABG pH ABG Total CO2 ABG O2 Saturation ABG Base Excess ABG Potassium VBG pH VBG pCO2 VBG HCO3 VBG Total CO2 VBG O2 Sat (Calc) VBG Base Excess VBG Potassium Sodium Chloride Glucose Lactate FiO2 Potassium Carbon Dioxide Anion Gap BUN Creatinine Est GFR ( Amer) Est GFR (Non-Af Amer) POC Glucose (mg/dL) 63 L 62 L Random Glucose Calcium Total Bilirubin AST ALT Alkaline Phosphatase Troponin I 0.23 H* Total Protein Albumin Globulin Albumin/Globulin Ratio Arterial Blood Potassium Venous Blood Potassium Urine Color Urine Appearance Urine pH Ur Specific [place] Urine Protein Urine Glucose (UA) Urine Ketones Urine Blood Urine Nitrate Urine Bilirubin Urine Urobilinogen Ur Leukocyte Esterase Urine RBC Urine WBC Ur Epithelial Cells Amorphous Sediment Urine Bacteria 06/14/17 06/14/17 05:20 05:20 WBC 9.9 D RBC 2.93 L Hgb 8.8 L Hct 25.8 L MCV 88.1 MCH 30.0 MCHC 34.1 RDW 15.8 H Plt Count 72 L MPV 10.0 Gran % 97.5 H Lymph % (Auto) 1.4 L Polk % (Auto) 1.1 Eos % (Auto) 0.0 L Baso % (Auto) 0.0 Gran # 9.62 H Lymph # 0.1 L Polk # 0.1 Eos # 0.0 Baso # 0.00 pCO2 pO2 HCO3 ABG pH ABG Total CO2 ABG O2 Saturation ABG Base Excess ABG Potassium VBG pH VBG pCO2 VBG HCO3 VBG Total CO2 VBG O2 Sat (Calc) VBG Base Excess VBG Potassium Sodium 129 L Chloride 97 L Glucose Lactate FiO2 Potassium 4.1 Carbon Dioxide 19 L Anion Gap 17 BUN 76 H Creatinine 5.2 H Est GFR ( Amer) 14 Est GFR (Non-Af Amer) 12 POC Glucose (mg/dL) Random Glucose 66 L Calcium 8.3 L Total Bilirubin 1.0 AST 57 ALT 55 Alkaline Phosphatase 51 Troponin I 0.22 H* Total Protein 5.7 L Albumin 2.9 L Globulin 2.8 Albumin/Globulin Ratio 1.0 L Arterial Blood Potassium Venous Blood Potassium Urine Color Urine Appearance Urine pH Ur Specific [place] Urine Protein Urine Glucose (UA) Urine Ketones Urine Blood Urine Nitrate Urine Bilirubin Urine Urobilinogen Ur Leukocyte Esterase Urine RBC Urine WBC Ur Epithelial Cells Amorphous Sediment Urine Bacteria Attending/Attestation - Attestation I have personally seen and examined this patient.: Yes I have fully participated in the care of the patient.: Yes I have reviewed all pertinent clinical information: Yes Notes (Text): 06/14/17 06:31 51 yo M with PMH of HTN, dyslipidemia, acute kidney injury earlier this year secondary to FSGS (baseline Cr around 3.0 since), steroid induced hyperglycemia presented to the ED with acute shortness of breath, malaise, lethargy along with fevers/chills. Patient was treated as a code SEPSIS however did not fully recieve IVF bolus' secondary to elevated BNP. CT Chest done overnight shows an impressive left sided infiltrate concerning for bacterial pneumonia. He was treated with Vanco + Cefepime in the ED, however continued to spike a fever overnight (tmax 101.3). He was admitted to the ICU for severe sepsis secondary to bacterial pneumonia. He was also shown to have persistently low blood sugars , so he was placed on D5 overnight along with normal saline without a significant improvement in his blood glucose levels. D10 drip started this AM; ID consult for further IV Abx; endocrine consulted for persistent hypoglycemia and nephrology consulted secondary to MARIBETH on CKD. Patient was also being tapered recently off of prednisone which was prescribed for his renal failure. Case discussed with Dr. Henderson in the ED labs and imaging reviewed Total time of care: 55 minutes
[2017-06-13] MEDS ORDERED: Dextrose 50% SYRINGE Inj (50 ml) IVP ONE (22:58)
[2017-06-13 23:22] LABS: PH,URINE 5.5 (4.7-8.0); URINE BILIRUBIN NEGATIVE (NEGATIVE); URINE BLOOD NEGATIVE (NEGATIVE); URINE GLUCOSE (UA) NEGATIVE (NEGATIVE); URINE KETONE NEGATIVE (NEGATIVE); URINE LEUKOCYTE ESTERASE NEGATIVE Leu/uL (NEGATIVE); URINE PROTEIN 30 mg/dL (<30 mg/dL); URINE UROBILINOGEN 0.2 E.U./dL (<1 E.U./dL)
--- NOTE | 2017-06-13 23:42 | PCM.SEPTIC ---
Sepsis Progress Note - Reassessment Type Date of Evaluation: 06/13/17 Time of Evaluation: 23:41 Reassessment Type: Non-invasive reassessment - Non Invasive Reassessment Were the most recent vital sign reviewed: Yes Vital Sign (Latest): Temp Pulse Resp BP Pulse Ox 101.3 F H 96 H 32 H 118/70 98 06/13/17 22:05 06/13/17 22:05 06/13/17 22:05 06/13/17 22:05 06/13/17 21:25 Cardiovascular: Yes: Regular Rate, Rhythm. No: Bradycardia, Tachycardia, Irregularly Irregular Respiratory: Yes: Decreased Breath Sounds, Rales. No: Normal Breath Sounds, Accessory Muscle Use, Rhonchi, Stridor, Wheezing, Respiratory Distress Capillary Refill: Normal (Less than 2 sec) Pulses: Normal Radial, Normal Dorsalis Pedis, Absent Posterior Tibialis (unable to palpate) Skin: Normal Color, Warm, Dry
[2017-06-13 23:59] LABS: URINE APPEARANCE CLEAR (CLEAR); URINE BACTERIA MANY (NEG); URINE COLOR YELLOW (YELLOW); URINE EPITHELIAL CELLS 0 - 2 /hpf (0-5); URINE RBC 0 - 2 /hpf (0-2); URINE WBC NEGATIVE /hpf (0-6)
[2017-06-14] LABS: URINE AMORPHOUS SEDIMENT MODERATE
[2017-06-14 05:48] LABS: GRAN # 9.62 (1.4-6.5); GRAN % 97.5 % (50.0-68.0); HEMATOCRIT 25.8 % (42.0-52.0); LYMPH # 0.1 (1.2-3.4); LYMPH % 1.4 % (22.0-35.0); MEAN CELL VOLUME 88.1 fl (80.0-105.0); MEAN CORPUSCULAR HGB CONC 34.1 g/dl (31.0-37.0); MONO # 0.1 (0.1-0.6); MONO % 1.1 % (1.0-6.0); RED CELL DISTRIBUTION WIDTH 15.8 % (11.5-14.5); WHITE BLOOD COUNT 9.9 10^3/ul (4.5-11.0)
[2017-06-14 05:55] LABS: CALCIUM 8.3 mg/dL (8.4-10.5); POTASSIUM 4.1 mmol/L (3.6-5.0); TOTAL PROTEIN 5.7 g/dL (5.8-8.3)
[2017-06-14 06:23] LABS: TROPONIN I 0.22 ng/mL
[2017-06-14] MEDS ORDERED: Sodium Chloride 0.9% 1,000 ML IV SCH (06:30)
[2017-06-14] MEDS ORDERED: Insulin Lispro (humaLOG) LOW Coverage SC SCH (07:30)
[2017-06-14] MEDS ORDERED: Dextrose 50% SYRINGE Inj (50 ml) IVP ONE ×2 (08:11→15:58)
--- NOTE | 2017-06-14 08:44 | CARD ---
APPROVED REPORT EKG Measurement Heart [id number] <Conclusion> Sinus tachycardia with premature atrial complex PRWP Possible Left atrial enlargement T wave abnormality, consider lateral ischemia ST elevations 2,3,F, possible acute IMI
--- NOTE | 2017-06-14 08:53 | CT ---
EXAM: CT Chest Without Intravenous Contrast CLINICAL HISTORY: 51 years old, male; Pain; Chest pain; Type not specified; Additional info: Assess pna vs pleural effusion TECHNIQUE: Axial computed tomography images of the chest without intravenous contrast. All CT scans at this facility use one or more dose reduction techniques, viz.: automated exposure control; ma/kV adjustment per patient size (including targeted exams where dose is matched to indication; i.e. head); or iterative reconstruction technique. MIP reconstructed images were created and reviewed. Coronal and sagittal reformatted images were created and reviewed. COMPARISON: DX - CHEST PORTABLE 06/13/2017 5:31:25 PM FINDINGS: Lungs: There is scattered dense consolidation throughout the left upper and lower lobes with air bronchograms and patchy nodular changes in the left lower lobe. Similar but less pronounced findings are present within the right lower lobe. Findings are compatible with bilateral lobar pneumonia. Close clinical and imaging followup is recommended to confirm resolution following treatment. Pleural space: Unremarkable. No pneumothorax. No significant effusion. Heart: There is cardiomegaly. There is a small pericardial effusion. Bones/joints: Unremarkable. No acute fracture. No dislocation. Soft tissues: Unremarkable. Vasculature: Unremarkable. No thoracic aortic aneurysm. Lymph nodes: There are scattered borderline enlarged mediastinal lymph nodes. Spleen: There is splenomegaly. IMPRESSION: 1. There is scattered dense consolidation throughout the left upper and lower lobes with air bronchograms and patchy nodular changes in the left lower lobe. Similar but less pronounced findings are present within the right lower lobe. Findings are compatible with bilateral lobar pneumonia. Close clinical and imaging followup is recommended to confirm resolution following treatment. 2. There is cardiomegaly. 3. There is splenomegaly. 4. There is a small pericardial effusion.
--- NOTE | 2017-06-14 09:14 | RAD ---
HISTORY: f/u pneumonia COMPARISON: 06/13/2017 FINDINGS: LUNGS: Extensive left-sided diffuse pulmonary opacity. Followup to clearing advised to exclude underlying neoplasm. Right perihilar opacity, possibly artifact. PLEURA: Left costophrenic angle excluded from this film. Right costophrenic angle clear. No pneumothorax. CARDIOVASCULAR: Normal. OSSEOUS STRUCTURES: No significant abnormalities. VISUALIZED UPPER ABDOMEN: Normal. OTHER FINDINGS: Limited examination due to oblique positioning. Extensive diffuse left-sided pulmonary opacity. Right perihilar opacity. IMPRESSION: No active disease.
--- NOTE | 2017-06-14 09:18 | CP.CCUPN ---
CCU Subjective - Physician Review Events Since Last Encounter (Free Text): 06/14/17 09:13 51 y/o M w/ Large multifocal PNA . Ovrnight placed on HFNC and abx started with minimal improvement. Patient continues to have coughing episodes and SOB. Currently speaking in phrases and is borderline for possible intubation. CCU Objective - Vital Signs / Intake & Output Vital Signs (Last 4 hours): Vital Signs Temp Pulse Resp Pulse Ox 06/14/17 08:20 102.9 F H 06/14/17 06:40 122 H 28 H 96 06/14/17 06:30 124 H 32 H 97 06/14/17 06:20 119 H 35 H 95 06/14/17 06:10 120 H 33 H 97 06/14/17 06:00 117 H 29 H 97 06/14/17 05:50 120 H 34 H 96 06/14/17 05:40 118 H 25 H 99 06/14/17 05:30 115 H 24 99 06/14/17 05:20 121 H 34 H 97 Intake and Output (Last 8hrs): Intake & Output 06/13/17 06/14/17 06/14/17 22:59 06:59 14:59 Intake Total 900 Output Total 250 Balance 650 Weight 275 lb 299 lb 11.2 oz Intake: IV 900 Left Antecubital 900 Output: Urine 250 Urine, Voided 250 - Physical Exam Head: Positive for: Atraumatic, Normocephalic Pupils: Positive for: PERRL Extroacular Muscles: Positive for: EOMI Conjunctiva: Positive for: Normal Mouth: Positive for: Moist Mucous Membranes Nose (Internal): Positive for: Normal Inspection Respiratory/Chest: Positive for: Rhonchi Cardiovascular: Positive for: Regular Rate and Rhythm Abdomen: Positive for: Normal Bowel Sounds Lower Extremity: Positive for: Edema Neurological: Positive for: CN II-XII Intact Skin: Positive for: Warm Psychiatric: Positive for: Alert, Oriented x 3 - Medications Active Medications: Active Medications Generic Name Dose Route Start Last Admin Trade Name Freq PRN Reason Stop Dose Admin Acetaminophen 650 mg 06/14/17 00:27 06/14/17 08:20 Tylenol 325mg Tab PO 650 mg Q6H PRN Administration Fever >100.4 F Aspirin 81 mg 06/14/17 10:00 Aspirin Chewable PO DAILY OSCAR Atorvastatin Calcium 80 mg 06/14/17 22:00 Lipitor PO HS OSCAR Carvedilol 6.25 mg 06/14/17 10:00 Coreg PO BID OSCAR Cefepime HCl 1 gm in 100 mls @ 100 mls/hr 06/13/17 17:45 06/13/17 18:10 Maxipime 1gm IVPB 100 mls/hr Q24H OSCAR Administration Protocol Vancomycin HCl 1 gm in 250 mls @ 167 mls/hr 06/14/17 10:00 Vancomycin 1gm IVPB Q12H OSCAR Protocol Dextrose 500 mls @ 30 mls/hr 06/14/17 06:30 06/14/17 06:33 Dextrose 10% In Water IV 30 mls/hr .[id number] OSCAR Administration Sodium Chloride 1,000 mls @ 100 mls/hr 06/14/17 06:30 06/14/17 08:54 Sodium Chloride 0.9% IV 100 mls/hr .Q10H OSCAR Administration Insulin Human Lispro 0 units 06/14/17 07:30 Humalog Low SC ACHS OSCAR Protocol Ondansetron HCl 4 mg 06/14/17 00:28 Zofran Inj IVP Q6H PRN Nausea/Vomiting Pantoprazole Sodium 40 mg 06/14/17 10:00 Protonix Ec Tab PO DAILY OSCAR Prednisone 20 mg 06/14/17 10:00 Prednisone Tab PO BID OSCAR - Patient Studies Lab Studies: Lab Studies 06/14/17 06/14/17 06/14/17 Range/Units 08:08 07:30 06:17 WBC (4.5-11.0) 10^3/ul RBC (3.5-6.1) 10^6/uL Hgb (14.0-18.0) g/dL Hct (42.0-52.0) % MCV (80.0-105.0) fl MCH (25.0-35.0) pg MCHC (31.0-37.0) g/dl RDW (11.5-14.5) % Plt Count (120.0-450.0) 10^3/uL MPV (7.0-11.0) fl Gran % (50.0-68.0) % Lymph % (Auto) (22.0-35.0) % [place] % (Auto) (1.0-6.0) % Eos % (Auto) (1.5-5.0) % Baso % (Auto) (0.0-3.0) % Gran # (1.4-6.5) Lymph # (1.2-3.4) [place] # (0.1-0.6) Eos # (0.0-0.7) Baso # (0.0-2.0) K/mm3 pCO2 (35-45) mm/Hg pO2 (80-100) mm/Hg HCO3 (21-28) mmol/L ABG pH (7.35-7.45) ABG Total CO2 (22-28) mmol.L ABG O2 Saturation (95-98) % ABG Base Excess (-2.0-3.0) mmol/L ABG Potassium (3.6-5.2) mmol/L VBG pH (7.32-7.43) VBG pCO2 (40-60) VBG HCO3 (21-28) mmol/l VBG Total CO2 (22-28) mmol.L VBG O2 Sat (Calc) (40-65) % VBG Base Excess (0.0-2.0) mmol/L VBG Potassium (3.6-5.2) mmol/L Sodium (132-148) mmol/L Chloride (98-107) mmol/L Glucose (75-110) mg/dl Lactate (0.7-2.1) mmol/L FiO2 % Potassium (3.6-5.0) mmol/L Carbon Dioxide (21-33) mmol/L Anion Gap (10-20) BUN (7-21) mg/dL Creatinine (0.5-1.4) mg/dL Est GFR ( Amer) Est GFR (Non-Af Amer) POC Glucose (mg/dL) 50 L 54 L (65-110) mg/dL Random Glucose (70-110) mg/dL Calcium (8.4-10.5) mg/dL Total Bilirubin (0.2-1.3) mg/dL AST (17-59) U/L ALT (7-56) U/L Alkaline Phosphatase (38-126) U/L Troponin I ng/mL Total Protein (5.8-8.3) g/dL Albumin (3.0-4.8) g/dL Globulin gm/dL Albumin/Globulin Ratio (1.1-1.8) Arterial Blood Potassium (3.6-5.2) mmol/L Venous Blood Potassium (3.6-5.2) mmol/L Urine Color (YELLOW) Urine Appearance (CLEAR) Urine pH (4.7-8.0) Ur Specific [place] (1.005-1.035) Urine Protein (<30 mg/dL) mg/dL Urine Glucose (UA) (NEGATIVE) mg/dL Urine Ketones (NEGATIVE) mg/dL Urine Blood (NEGATIVE) Urine Nitrate (NEGATIVE) Urine Bilirubin (NEGATIVE) Urine Urobilinogen (<1 E.U./dL) E.U./dL Ur Leukocyte Esterase (NEGATIVE) Hector/uL Urine RBC (0-2) /hpf Urine WBC (0-6) /hpf Ur Epithelial Cells (0-5) /hpf Amorphous Sediment Urine Bacteria (NEG) Influenza Typ A,B (EIA) Negative for flu a/b (NEGATIVE) 06/14/17 06/14/17 06/14/17 Range/Units 05:20 05:20 04:21 WBC 9.9 D (4.5-11.0) 10^3/ul RBC 2.93 L (3.5-6.1) 10^6/uL Hgb 8.8 L (14.0-18.0) g/dL Hct 25.8 L (42.0-52.0) % MCV 88.1 (80.0-105.0) fl MCH 30.0 (25.0-35.0) pg MCHC 34.1 (31.0-37.0) g/dl RDW 15.8 H (11.5-14.5) % Plt Count 72 L (120.0-450.0) 10^3/uL MPV 10.0 (7.0-11.0) fl Gran % 97.5 H (50.0-68.0) % Lymph % (Auto) 1.4 L (22.0-35.0) % [place] % (Auto) 1.1 (1.0-6.0) % Eos % (Auto) 0.0 L (1.5-5.0) % Baso % (Auto) 0.0 (0.0-3.0) % Gran # 9.62 H (1.4-6.5) Lymph # 0.1 L (1.2-3.4) [place] # 0.1 (0.1-0.6) Eos # 0.0 (0.0-0.7) Baso # 0.00 (0.0-2.0) K/mm3 pCO2 (35-45) mm/Hg pO2 (80-100) mm/Hg HCO3 (21-28) mmol/L ABG pH (7.35-7.45) ABG Total CO2 (22-28) mmol.L ABG O2 Saturation (95-98) % ABG Base Excess (-2.0-3.0) mmol/L ABG Potassium (3.6-5.2) mmol/L VBG pH (7.32-7.43) VBG pCO2 (40-60) VBG HCO3 (21-28) mmol/l VBG Total CO2 (22-28) mmol.L VBG O2 Sat (Calc) (40-65) % VBG Base Excess (0.0-2.0) mmol/L VBG Potassium (3.6-5.2) mmol/L Sodium 129 L (132-148) mmol/L Chloride 97 L (98-107) mmol/L Glucose (75-110) mg/dl Lactate (0.7-2.1) mmol/L FiO2 % Potassium 4.1 (3.6-5.0) mmol/L Carbon Dioxide 19 L (21-33) mmol/L Anion Gap 17 (10-20) BUN 76 H (7-21) mg/dL Creatinine 5.2 H (0.5-1.4) mg/dL Est GFR ( Amer) 14 Est GFR (Non-Af Amer) 12 POC Glucose (mg/dL) 62 L (65-110) mg/dL Random Glucose 66 L (70-110) mg/dL Calcium 8.3 L (8.4-10.5) mg/dL Total Bilirubin 1.0 (0.2-1.3) mg/dL AST 57 (17-59) U/L ALT 55 (7-56) U/L Alkaline Phosphatase 51 (38-126) U/L Troponin I 0.22 H* ng/mL Total Protein 5.7 L (5.8-8.3) g/dL Albumin 2.9 L (3.0-4.8) g/dL Globulin 2.8 gm/dL Albumin/Globulin Ratio 1.0 L (1.1-1.8) Arterial Blood Potassium (3.6-5.2) mmol/L Venous Blood Potassium (3.6-5.2) mmol/L Urine Color (YELLOW) Urine Appearance (CLEAR) Urine pH (4.7-8.0) Ur Specific [place] (1.005-1.035) Urine Protein (<30 mg/dL) mg/dL Urine Glucose (UA) (NEGATIVE) mg/dL Urine Ketones (NEGATIVE) mg/dL Urine Blood (NEGATIVE) Urine Nitrate (NEGATIVE) Urine Bilirubin (NEGATIVE) Urine Urobilinogen (<1 E.U./dL) E.U./dL Ur Leukocyte Esterase (NEGATIVE) Hector/uL Urine RBC (0-2) /hpf Urine WBC (0-6) /hpf Ur Epithelial Cells (0-5) /hpf Amorphous Sediment Urine Bacteria (NEG) Influenza Typ A,B (EIA) (NEGATIVE) 06/14/17 06/14/17 06/13/17 Range/Units 02:02 00:45 23:59 WBC (4.5-11.0) 10^3/ul RBC (3.5-6.1) 10^6/uL Hgb (14.0-18.0) g/dL Hct (42.0-52.0) % MCV (80.0-105.0) fl MCH (25.0-35.0) pg MCHC (31.0-37.0) g/dl RDW (11.5-14.5) % Plt Count (120.0-450.0) 10^3/uL MPV (7.0-11.0) fl Gran % (50.0-68.0) % Lymph % (Auto) (22.0-35.0) % [place] % (Auto) (1.0-6.0) % Eos % (Auto) (1.5-5.0) % Baso % (Auto) (0.0-3.0) % Gran # (1.4-6.5) Lymph # (1.2-3.4) [place] # (0.1-0.6) Eos # (0.0-0.7) Baso # (0.0-2.0) K/mm3 pCO2 (35-45) mm/Hg pO2 (80-100) mm/Hg HCO3 (21-28) mmol/L ABG pH (7.35-7.45) ABG Total CO2 (22-28) mmol.L ABG O2 Saturation (95-98) % ABG Base Excess (-2.0-3.0) mmol/L ABG Potassium (3.6-5.2) mmol/L VBG pH (7.32-7.43) VBG pCO2 (40-60) VBG HCO3 (21-28) mmol/l VBG Total CO2 (22-28) mmol.L VBG O2 Sat (Calc) (40-65) % VBG Base Excess (0.0-2.0) mmol/L VBG Potassium (3.6-5.2) mmol/L Sodium (132-148) mmol/L Chloride (98-107) mmol/L Glucose (75-110) mg/dl Lactate (0.7-2.1) mmol/L FiO2 % Potassium (3.6-5.0) mmol/L Carbon Dioxide (21-33) mmol/L Anion Gap (10-20) BUN (7-21) mg/dL Creatinine (0.5-1.4) mg/dL Est GFR ( Amer) Est GFR (Non-Af Amer) POC Glucose (mg/dL) 63 L 120 H (65-110) mg/dL Random Glucose (70-110) mg/dL Calcium (8.4-10.5) mg/dL Total Bilirubin (0.2-1.3) mg/dL AST (17-59) U/L ALT (7-56) U/L Alkaline Phosphatase (38-126) U/L Troponin I 0.23 H* ng/mL Total Protein (5.8-8.3) g/dL Albumin (3.0-4.8) g/dL Globulin gm/dL Albumin/Globulin Ratio (1.1-1.8) Arterial Blood Potassium (3.6-5.2) mmol/L Venous Blood Potassium (3.6-5.2) mmol/L Urine Color (YELLOW) Urine Appearance (CLEAR) Urine pH (4.7-8.0) Ur Specific [place] (1.005-1.035) Urine Protein (<30 mg/dL) mg/dL Urine Glucose (UA) (NEGATIVE) mg/dL Urine Ketones (NEGATIVE) mg/dL Urine Blood (NEGATIVE) Urine Nitrate (NEGATIVE) Urine Bilirubin (NEGATIVE) Urine Urobilinogen (<1 E.U./dL) E.U./dL Ur Leukocyte Esterase (NEGATIVE) Hector/uL Urine RBC (0-2) /hpf Urine WBC (0-6) /hpf Ur Epithelial Cells (0-5) /hpf Amorphous Sediment Urine Bacteria (NEG) Influenza Typ A,B (EIA) (NEGATIVE) 06/13/17 06/13/17 06/13/17 Range/Units 23:11 22:56 21:10 WBC (4.5-11.0) 10^3/ul RBC (3.5-6.1) 10^6/uL Hgb (14.0-18.0) g/dL Hct (42.0-52.0) % MCV (80.0-105.0) fl MCH (25.0-35.0) pg MCHC (31.0-37.0) g/dl RDW (11.5-14.5) % Plt Count (120.0-450.0) 10^3/uL MPV (7.0-11.0) fl Gran % (50.0-68.0) % Lymph % (Auto) (22.0-35.0) % [place] % (Auto) (1.0-6.0) % Eos % (Auto) (1.5-5.0) % Baso % (Auto) (0.0-3.0) % Gran # (1.4-6.5) Lymph # (1.2-3.4) [place] # (0.1-0.6) Eos # (0.0-0.7) Baso # (0.0-2.0) K/mm3 pCO2 (35-45) mm/Hg pO2 (80-100) mm/Hg HCO3 (21-28) mmol/L ABG pH (7.35-7.45) ABG Total CO2 (22-28) mmol.L ABG O2 Saturation (95-98) % ABG Base Excess (-2.0-3.0) mmol/L ABG Potassium (3.6-5.2) mmol/L VBG pH (7.32-7.43) VBG pCO2 (40-60) VBG HCO3 (21-28) mmol/l VBG Total CO2 (22-28) mmol.L VBG O2 Sat (Calc) (40-65) % VBG Base Excess (0.0-2.0) mmol/L VBG Potassium (3.6-5.2) mmol/L Sodium (132-148) mmol/L Chloride (98-107) mmol/L Glucose (75-110) mg/dl Lactate (0.7-2.1) mmol/L FiO2 % Potassium (3.6-5.0) mmol/L Carbon Dioxide (21-33) mmol/L Anion Gap (10-20) BUN (7-21) mg/dL Creatinine (0.5-1.4) mg/dL Est GFR ( Amer) Est GFR (Non-Af Amer) POC Glucose (mg/dL) 57 L 55 L (65-110) mg/dL Random Glucose (70-110) mg/dL Calcium (8.4-10.5) mg/dL Total Bilirubin (0.2-1.3) mg/dL AST (17-59) U/L ALT (7-56) U/L Alkaline Phosphatase (38-126) U/L Troponin I ng/mL Total Protein (5.8-8.3) g/dL Albumin (3.0-4.8) g/dL Globulin gm/dL Albumin/Globulin Ratio (1.1-1.8) Arterial Blood Potassium (3.6-5.2) mmol/L Venous Blood Potassium (3.6-5.2) mmol/L Urine Color Yellow (YELLOW) Urine Appearance Clear (CLEAR) Urine pH 5.5 (4.7-8.0) Ur Specific [place] 1.020 (1.005-1.035) Urine Protein 30 H (<30 mg/dL) mg/dL Urine Glucose (UA) Negative (NEGATIVE) mg/dL Urine Ketones Negative (NEGATIVE) mg/dL Urine Blood Negative (NEGATIVE) Urine Nitrate Negative (NEGATIVE) Urine Bilirubin Negative (NEGATIVE) Urine Urobilinogen 0.2 (<1 E.U./dL) E.U./dL Ur Leukocyte Esterase Negative (NEGATIVE) Hector/uL Urine RBC 0 - 2 (0-2) /hpf Urine WBC Negative (0-6) /hpf Ur Epithelial Cells 0 - 2 (0-5) /hpf Amorphous Sediment Moderate Urine Bacteria Many (NEG) Influenza Typ A,B (EIA) (NEGATIVE) 06/13/17 06/13/17 Range/Units 21:03 20:25 WBC (4.5-11.0) 10^3/ul RBC (3.5-6.1) 10^6/uL Hgb (14.0-18.0) g/dL Hct (42.0-52.0) % MCV (80.0-105.0) fl MCH (25.0-35.0) pg MCHC (31.0-37.0) g/dl RDW (11.5-14.5) % Plt Count (120.0-450.0) 10^3/uL MPV (7.0-11.0) fl Gran % (50.0-68.0) % Lymph % (Auto) (22.0-35.0) % [place] % (Auto) (1.0-6.0) % Eos % (Auto) (1.5-5.0) % Baso % (Auto) (0.0-3.0) % Gran # (1.4-6.5) Lymph # (1.2-3.4) [place] # (0.1-0.6) Eos # (0.0-0.7) Baso # (0.0-2.0) K/mm3 pCO2 27 L (35-45) mm/Hg pO2 132 H 150.0 H (80-100) mm/Hg HCO3 19.2 L (21-28) mmol/L ABG pH 7.46 H (7.35-7.45) ABG Total CO2 20.0 L (22-28) mmol.L ABG O2 Saturation 99.1 H (95-98) % ABG Base Excess -3.9 L (-2.0-3.0) mmol/L ABG Potassium 3.8 (3.6-5.2) mmol/L VBG pH 7.38 (7.32-7.43) VBG pCO2 36.0 L (40-60) VBG HCO3 21.3 (21-28) mmol/l VBG Total CO2 22.4 (22-28) mmol.L VBG O2 Sat (Calc) 98.5 H (40-65) % VBG Base Excess -3.3 L (0.0-2.0) mmol/L VBG Potassium 4.1 (3.6-5.2) mmol/L Sodium 127.0 L 128.0 L (132-148) mmol/L Chloride 98.0 100.0 (98-107) mmol/L Glucose 66 L 61 L (75-110) mg/dl Lactate 1.4 1.2 (0.7-2.1) mmol/L FiO2 21.0 100.0 % Potassium (3.6-5.0) mmol/L Carbon Dioxide (21-33) mmol/L Anion Gap (10-20) BUN (7-21) mg/dL Creatinine (0.5-1.4) mg/dL Est GFR ( Amer) Est GFR (Non-Af Amer) POC Glucose (mg/dL) (65-110) mg/dL Random Glucose (70-110) mg/dL Calcium (8.4-10.5) mg/dL Total Bilirubin (0.2-1.3) mg/dL AST (17-59) U/L ALT (7-56) U/L Alkaline Phosphatase (38-126) U/L Troponin I ng/mL Total Protein (5.8-8.3) g/dL Albumin (3.0-4.8) g/dL Globulin gm/dL Albumin/Globulin Ratio (1.1-1.8) Arterial Blood Potassium 3.8 (3.6-5.2) mmol/L Venous Blood Potassium 4.1 (3.6-5.2) mmol/L Urine Color (YELLOW) Urine Appearance (CLEAR) Urine pH (4.7-8.0) Ur Specific [place] (1.005-1.035) Urine Protein (<30 mg/dL) mg/dL Urine Glucose (UA) (NEGATIVE) mg/dL Urine Ketones (NEGATIVE) mg/dL Urine Blood (NEGATIVE) Urine Nitrate (NEGATIVE) Urine Bilirubin (NEGATIVE) Urine Urobilinogen (<1 E.U./dL) E.U./dL Ur Leukocyte Esterase (NEGATIVE) Hector/uL Urine RBC (0-2) /hpf Urine WBC (0-6) /hpf Ur Epithelial Cells (0-5) /hpf Amorphous Sediment Urine Bacteria (NEG) Influenza Typ A,B (EIA) (NEGATIVE) Laboratory Results - last 24 hr 06/13/17 06/13/17 06/13/17 20:25 21:03 21:10 WBC RBC Hgb Hct MCV MCH MCHC RDW Plt Count MPV Gran % Lymph % (Auto) [place] % (Auto) Eos % (Auto) Baso % (Auto) Gran # Lymph # [place] # Eos # Baso # pCO2 27 L pO2 150.0 H 132 H HCO3 19.2 L ABG pH 7.46 H ABG Total CO2 20.0 L ABG O2 Saturation 99.1 H ABG Base Excess -3.9 L ABG Potassium 3.8 VBG pH 7.38 VBG pCO2 36.0 L VBG HCO3 21.3 VBG Total CO2 22.4 VBG O2 Sat (Calc) 98.5 H VBG Base Excess -3.3 L VBG Potassium 4.1 Sodium 128.0 L 127.0 L Chloride 100.0 98.0 Glucose 61 L 66 L Lactate 1.2 1.4 FiO2 100.0 21.0 Potassium Carbon Dioxide Anion Gap BUN Creatinine Est GFR ( Amer) Est GFR (Non-Af Amer) POC Glucose (mg/dL) 55 L Random Glucose Calcium Total Bilirubin AST ALT Alkaline Phosphatase Troponin I Total Protein Albumin Globulin Albumin/Globulin Ratio Arterial Blood Potassium 3.8 Venous Blood Potassium 4.1 Urine Color Urine Appearance Urine pH Ur Specific [place] Urine Protein Urine Glucose (UA) Urine Ketones Urine Blood Urine Nitrate Urine Bilirubin Urine Urobilinogen Ur Leukocyte Esterase Urine RBC Urine WBC Ur Epithelial Cells Amorphous Sediment Urine Bacteria Influenza Typ A,B (EIA) 06/13/17 06/13/17 06/13/17 22:56 23:11 23:59 WBC RBC Hgb Hct MCV MCH MCHC RDW Plt Count MPV Gran % Lymph % (Auto) [place] % (Auto) Eos % (Auto) Baso % (Auto) Gran # Lymph # [place] # Eos # Baso # pCO2 pO2 HCO3 ABG pH ABG Total CO2 ABG O2 Saturation ABG Base Excess ABG Potassium VBG pH VBG pCO2 VBG HCO3 VBG Total CO2 VBG O2 Sat (Calc) VBG Base Excess VBG Potassium Sodium Chloride Glucose Lactate FiO2 Potassium Carbon Dioxide Anion Gap BUN Creatinine Est GFR ( Amer) Est GFR (Non-Af Amer) POC Glucose (mg/dL) 57 L 120 H Random Glucose Calcium Total Bilirubin AST ALT Alkaline Phosphatase Troponin I Total Protein Albumin Globulin Albumin/Globulin Ratio Arterial Blood Potassium Venous Blood Potassium Urine Color Yellow Urine Appearance Clear Urine pH 5.5 Ur Specific [place] 1.020 Urine Protein 30 H Urine Glucose (UA) Negative Urine Ketones Negative Urine Blood Negative Urine Nitrate Negative Urine Bilirubin Negative Urine Urobilinogen 0.2 Ur Leukocyte Esterase Negative Urine RBC 0 - 2 Urine WBC Negative Ur Epithelial Cells 0 - 2 Amorphous Sediment Moderate Urine Bacteria Many Influenza Typ A,B (EIA) 06/14/17 06/14/17 06/14/17 00:45 02:02 04:21 WBC RBC Hgb Hct MCV MCH MCHC RDW Plt Count MPV Gran % Lymph % (Auto) [place] % (Auto) Eos % (Auto) Baso % (Auto) Gran # Lymph # [place] # Eos # Baso # pCO2 pO2 HCO3 ABG pH ABG Total CO2 ABG O2 Saturation ABG Base Excess ABG Potassium VBG pH VBG pCO2 VBG HCO3 VBG Total CO2 VBG O2 Sat (Calc) VBG Base Excess VBG Potassium Sodium Chloride Glucose Lactate FiO2 Potassium Carbon Dioxide Anion Gap BUN Creatinine Est GFR ( Amer) Est GFR (Non-Af Amer) POC Glucose (mg/dL) 63 L 62 L Random Glucose Calcium Total Bilirubin AST ALT Alkaline Phosphatase Troponin I 0.23 H* Total Protein Albumin Globulin Albumin/Globulin Ratio Arterial Blood Potassium Venous Blood Potassium Urine Color Urine Appearance Urine pH Ur Specific [place] Urine Protein Urine Glucose (UA) Urine Ketones Urine Blood Urine Nitrate Urine Bilirubin Urine Urobilinogen Ur Leukocyte Esterase Urine RBC Urine WBC Ur Epithelial Cells Amorphous Sediment Urine Bacteria Influenza Typ A,B (EIA) 06/14/17 06/14/17 06/14/17 05:20 05:20 06:17 WBC 9.9 D RBC 2.93 L Hgb 8.8 L Hct 25.8 L MCV 88.1 MCH 30.0 MCHC 34.1 RDW 15.8 H Plt Count 72 L MPV 10.0 Gran % 97.5 H Lymph % (Auto) 1.4 L [place] % (Auto) 1.1 Eos % (Auto) 0.0 L Baso % (Auto) 0.0 Gran # 9.62 H Lymph # 0.1 L [place] # 0.1 Eos # 0.0 Baso # 0.00 pCO2 pO2 HCO3 ABG pH ABG Total CO2 ABG O2 Saturation ABG Base Excess ABG Potassium VBG pH VBG pCO2 VBG HCO3 VBG Total CO2 VBG O2 Sat (Calc) VBG Base Excess VBG Potassium Sodium 129 L Chloride 97 L Glucose Lactate FiO2 Potassium 4.1 Carbon Dioxide 19 L Anion Gap 17 BUN 76 H Creatinine 5.2 H Est GFR ( Amer) 14 Est GFR (Non-Af Amer) 12 POC Glucose (mg/dL) 54 L Random Glucose 66 L Calcium 8.3 L Total Bilirubin 1.0 AST 57 ALT 55 Alkaline Phosphatase 51 Troponin I 0.22 H* Total Protein 5.7 L Albumin 2.9 L Globulin 2.8 Albumin/Globulin Ratio 1.0 L Arterial Blood Potassium Venous Blood Potassium Urine Color Urine Appearance Urine pH Ur Specific [place] Urine Protein Urine Glucose (UA) Urine Ketones Urine Blood Urine Nitrate Urine Bilirubin Urine Urobilinogen Ur Leukocyte Esterase Urine RBC Urine WBC Ur Epithelial Cells Amorphous Sediment Urine Bacteria Influenza Typ A,B (EIA) 06/14/17 06/14/17 07:30 08:08 WBC RBC Hgb Hct MCV MCH MCHC RDW Plt Count MPV Gran % Lymph % (Auto) [place] % (Auto) Eos % (Auto) Baso % (Auto) Gran # Lymph # [place] # Eos # Baso # pCO2 pO2 HCO3 ABG pH ABG Total CO2 ABG O2 Saturation ABG Base Excess ABG Potassium VBG pH VBG pCO2 VBG HCO3 VBG Total CO2 VBG O2 Sat (Calc) VBG Base Excess VBG Potassium Sodium Chloride Glucose Lactate FiO2 Potassium Carbon Dioxide Anion Gap BUN Creatinine Est GFR ( Amer) Est GFR (Non-Af Amer) POC Glucose (mg/dL) 50 L Random Glucose Calcium Total Bilirubin AST ALT Alkaline Phosphatase Troponin I Total Protein Albumin Globulin Albumin/Globulin Ratio Arterial Blood Potassium Venous Blood Potassium Urine Color Urine Appearance Urine pH Ur Specific [place] Urine Protein Urine Glucose (UA) Urine Ketones Urine Blood Urine Nitrate Urine Bilirubin Urine Urobilinogen Ur Leukocyte Esterase Urine RBC Urine WBC Ur Epithelial Cells Amorphous Sediment Urine Bacteria Influenza Typ A,B (EIA) Negative for flu a/b EKG/Cardiology Studies: Cardiology / EKG Studies 06/13/17 17:20 EKG [ELECTROCARDIOGRAM] Stat Comment: Reason For Exam: TROUBLE BREATHING 06/14/17 07:00 EKG [ELECTROCARDIOGRAM] DAILY Comment: Reason For Exam: f/u, elevated trop Fingerstick Blood Sugar Results: 54 Review of Systems - EENT Eyes: UNREMARKABLE Nose/Mouth/Throat: UNREMARKABLE - Cardiovascular Cardiovascular: UNREMARKABLE - Respiratory Respiratory: Cough, Dyspnea on Exertion, Snoring, Change in Mucous Color - Genitourinary Genitourinary: UNREMARKABLE Critical Care Progress Note - Ventilator Checklist Daily Spontaneous Breathing Trial: Yes PUD Prophalyxis: Yes DVT Prophylaxis: Yes Oral Care with Chlorhexidine Gluconate {CHG}: Yes Assessment/Plan - Assessment and Plan (Free Text) Assessment: 51 y/o M w/ Multifocal PNA Chest XR and CT reviewed. Multifocal infiltrates noted. Hypoxia and dyspnea noted . On hfnc 90% 50L. If any furthe distress, will need to be intubated. Plan was discussed with the patient. On empiric abx, w/ cx and further lab work pending. Fevers controlled. Immunocompromised state due to chronic steroid use. FSGS noted, Nephrology following along. dvt p cc time 55 min
[2017-06-14] MEDS: Pantoprazole 40 mg EC Tab PO SCH (09:24)
[2017-06-14] MEDS ORDERED: Vancomycin 1gm in NS 250ml 1 GM/250 ML BAG IVPB SCH (10:00)
--- NOTE | 2017-06-14 10:41 | CP.PCM.PN ---
<Subha Noriega - Last Filed: 06/14/17 13:34> Subjective - Date & Time of Evaluation Date of Evaluation: 06/14/17 Time of Evaluation: 10:15 - Subjective Subjective: Hospitalist Service Progress Note: Patient seen and examined at bedside. Patient still having recurrent episodes of hypoglycemia. Currently in bed with HFNC on, still SOB. States still coughing with greenish sputum production. Also states that he is having trouble passing urine x 1 day, however flow is normal. Denies headaches, dizziness, cp, palpitations, abdominal pain. Objective - Vital Signs/Intake and Output Vital Signs (last 24 hours): Temp Pulse Resp BP Pulse Ox 102.8 F H 117 H 28 H 130/61 96 06/14/17 09:19 06/14/17 09:23 06/14/17 06:40 06/14/17 09:23 06/14/17 06:40 Intake and Output: 06/14/17 06/14/17 06:59 18:59 Intake Total 900 Output Total 250 Balance 650 - Medications Medications: Current Medications Acetaminophen (Tylenol 325mg Tab) 650 mg PO Q6H PRN PRN Reason: Fever >100.4 F Last Admin: 06/14/17 08:20 Dose: 650 mg Aspirin (Aspirin Chewable) 81 mg PO DAILY [facility] Last Admin: 06/14/17 09:24 Dose: 81 mg Atorvastatin Calcium (Lipitor) 80 mg PO HS [facility] Carvedilol (Coreg) 6.25 mg PO BID [facility] Last Admin: 06/14/17 09:23 Dose: 6.25 mg Cefepime HCl (Maxipime 1gm) 1 gm in 100 mls @ 100 mls/hr IVPB Q24H [facility] PRN Reason: Protocol Last Admin: 06/13/17 18:10 Dose: 100 mls/hr Vancomycin HCl (Vancomycin 1gm) 1 gm in 250 mls @ 167 mls/hr IVPB Q12H [facility] PRN Reason: Protocol Last Admin: 06/14/17 09:23 Dose: 167 mls/hr Dextrose (Dextrose 10% In Water) 500 mls @ 30 mls/hr IV .[id number] [facility] Last Admin: 06/14/17 06:33 Dose: 30 mls/hr Sodium Chloride (Sodium Chloride 0.9%) 1,000 mls @ 100 mls/hr IV .Q10H [facility] Last Admin: 06/14/17 08:54 Dose: 100 mls/hr Insulin Human Lispro (Humalog Low) 0 units SC ACHS [facility] PRN Reason: Protocol Ondansetron HCl (Zofran Inj) 4 mg IVP Q6H PRN PRN Reason: Nausea/Vomiting Pantoprazole Sodium (Protonix Ec Tab) 40 mg PO DAILY [facility] Last Admin: 06/14/17 09:24 Dose: 40 mg Prednisone (Prednisone Tab) 20 mg PO BID [facility] - Labs Labs: 06/14/17 05:20 06/14/17 05:20 PT 10.7 Seconds (9.9-11.8) 06/13/17 17:26 INR 0.99 (0.93-1.08) 06/13/17 17:26 APTT 35.3 Seconds (23.7-30.8) H 06/13/17 17:26 - Constitutional Appears: In Acute Distress, Older Than Stated Age - Head Exam Head Exam: ATRAUMATIC, NORMAL INSPECTION - Eye Exam Eye Exam: EOMI, Normal appearance Pupil Exam: PERRL - ENT Exam ENT Exam: Mucous Membranes Moist Additional comments: With HFNC on currently - Neck Exam Neck Exam: Full ROM - Respiratory Exam Respiratory Exam: Decreased Breath Sounds, Rhonchi, Respiratory Distress - Cardiovascular Exam Cardiovascular Exam: Tachycardia, +S1, +S2 - GI/Abdominal Exam GI & Abdominal Exam: Soft, Normal Bowel Sounds. absent: Guarding, Rigid, Tenderness - Extremities Exam Additional comments: +2 b/l lower extremity edema - Back Exam Back Exam: NORMAL INSPECTION - Neurological Exam Neurological Exam: Alert, Awake, Oriented x3 - Psychiatric Exam Psychiatric exam: Normal Affect, Normal Mood - Skin Skin Exam: Normal Color, Warm Assessment and Plan - Assessment and Plan (Free Text) Assessment: 51 year old male with past medical history of HTN, DLD, CHF (EF 40%), FSGS presents with shortness of breath x 1 week, currently being treated for sepsis 2 /2 multifocal pneumonia. Plan: 1. Sepsis 2/2 multifocal pneumonia -Last fever 101.3 yesterday 22:05 -Currently afebrile -Leukocytosis improving 18.5 --> 9.9 today -Abx: Cefepime and Vancomycin -Tylenol prn fever, Zofran prn nausea -CT Chest official read pending -Currently on HFNC, sats 90s -F/U procal, urine legionella/strep ag, rodriguez cultures -As patient is immunocompromised 2/2 chronic steroid use, will f/u CMV, cryptoccocus studies -If respiratory status declines, may need to be intubated -ID on consult f/u recommendations -ICU management in progress 2. Acute on Chronic Kidney disease/ Hx of Focal Segmental Glomerular Sclerosis -Baseline Cr 2.5-3.0 -BUN/Cr today 76/5.2 -MARIBETH likely secondary to dehydration -Continue IVF hydration -Continue steroids -Nephrology on consult, f/u recommendations 3. Recurrent Hypoglycemia -Continue accuchecks -Continue D10% 4. Elevated Troponins -Trops 0.26 -> 0.23 -> 0.22 (trending down) -Likely secondary to acute on chronic kidney disease -Cardiology following, f/u recommendations 5. Hx of CHF (EF 40%) -BNP 6960 on admission -Strict I/Os, daily weights -Lower extremity swelling noted -Will order LE ultrasound -Cardiology on consult, f/u recommendations 6. Hx of Hypertension -Currently normotensive -Continue Coreg 7. Hx of CAD -Continue ASA and Lipitor GI/DVT ppx Protonix 40mg daily <Shreya Escobar - Last Filed: 06/14/17 18:02> Objective - Vital Signs/Intake and Output Vital Signs (last 24 hours): Temp Pulse Resp BP Pulse Ox 101.9 F H 119 H 33 H 140/66 93 L 06/14/17 16:47 06/14/17 17:31 06/14/17 16:30 06/14/17 17:31 06/14/17 16:30 Intake and Output: 06/14/17 06/14/17 06:59 18:59 Intake Total 900 Output Total 250 Balance 650 - Medications Medications: Current Medications Acetaminophen (Tylenol 325mg Tab) 650 mg PO Q6H PRN PRN Reason: Fever >100.4 F Last Admin: 06/14/17 16:47 Dose: 650 mg Aspirin (Aspirin Chewable) 81 mg PO DAILY [facility] Last Admin: 06/14/17 09:24 Dose: 81 mg Atorvastatin Calcium (Lipitor) 80 mg PO HS [facility] Carvedilol (Coreg) 6.25 mg PO BID [facility] Last Admin: 09/30/17 17:31 Dose: 6.25 mg Doxycycline Hyclate (Doryx) 100 mg PO Q12 [facility] PRN Reason: Protocol Stop: 06/22/17 11:01 Last Admin: 06/14/17 11:20 Dose: 100 mg Dextrose (Dextrose 10% In Water) 500 mls @ 30 mls/hr IV .[id number] [facility] Last Admin: 06/14/17 06:33 Dose: 30 mls/hr Sodium Chloride (Sodium Chloride 0.9%) 1,000 mls @ 100 mls/hr IV .Q10H [facility] Last Admin: 06/14/17 08:54 Dose: 100 mls/hr Meropenem 250 mg/ Sodium (Chloride) 100 mls @ 100 mls/hr IVPB Q12H [facility] PRN Reason: Protocol Stop: 06/23/17 11:01 Last Admin: 06/14/17 11:40 Dose: 100 mls/hr Insulin Human Lispro (Humalog Low) 0 units SC ACHS [facility] PRN Reason: Protocol Ondansetron HCl (Zofran Inj) 4 mg IVP Q6H PRN PRN Reason: Nausea/Vomiting Pantoprazole Sodium (Protonix Ec Tab) 40 mg PO DAILY [facility] Last Admin: 06/14/17 09:24 Dose: 40 mg Prednisone (Prednisone Tab) 20 mg PO BID [facility] Last Admin: 06/14/17 17:31 Dose: 20 mg - Labs Labs: 06/14/17 05:20 06/14/17 05:20 PT 10.7 Seconds (9.9-11.8) 06/13/17 17:26 INR 0.99 (0.93-1.08) 06/13/17 17:26 APTT 35.3 Seconds (23.7-30.8) H 06/13/17 17:26 Attending/Attestation - Attestation I have personally seen and examined this patient.: Yes I have fully participated in the care of the patient.: Yes I have reviewed all pertinent clinical information, including history, physical exam and plan: Yes Notes (Text): I have seen and examined the patient at bedside. Agree with the above note with the following additions/ exceptions: Briefly this is 51 year old male with history of HTN, dyslipidemia, CHF due to systolic dysfunction (EF~40%), 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 Patient is on HFNC and is able to talk in complete sentences. He has bilateral rhonchi. He also was found to have acute on CKD, anemia, elevated troponins and hypoglycemia. Leukocytosis improved from 18.5 to 9. Will do anemia work up. Patient is on IV antibiotics. Echo and cardiology consult pending. Baseline Cr is 2.5. Today Cr is 5.2. Urine lytes pending. Renal on board. He is on chronic steroids for FSGS. Blood sugars need to be monitored closely. LE ultrasound negative for DVT. Upon discharge patient will follow up with Dr Dominick Pickett. Dr Shreya Escobar
[2017-06-14 14:33] LABS: ARTERIAL BLOOD GAS HCO3 17.7 mmol/L (21-28); ARTERIAL BLOOD GAS PH 7.41 (7.35-7.45)
--- NOTE | 2017-06-14 15:45 | US ---
HISTORY: Leg pain and swelling. Evaluate for DVT PHYSICIAN(S): Isiah Angel MD. TECHNIQUE: Duplex sonography and color-flow Doppler with graded compression were used to evaluate the deep venous systems of both lower extremities. The study is limited by body habitus and edema. FINDINGS: The visualized deep venous systems of both lower extremities are sonographically normal and compressible. Normal wave forms and augmentation are seen. There is no sonographic evidence for deep venous thrombosis in the visualized segments of both lower extremities. IMPRESSION: No sonographic evidence for deep venous thrombosis in the visualized segments of both lower extremities.
--- NOTE | 2017-06-14 18:42 | CON ---
DATE: The patient is seen in the ICU and CCU 129, bed 1. CHIEF COMPLAINT: Shortness of breath. HISTORY OF PRESENT ILLNESS: This is a 51-year-old male with morbid obesity with a BMI of 41. 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 The patient does have fevers that was up to 102, he states and shortness of breath. Significant for hypertension, morbid obesity with a BMI of 41, diabetes mellitus, congestive heart failure, peripheral vascular disease, and high cholesterol. PAST SURGICAL HISTORY: Significant for kidney biopsy and the kidney biopsy had showed FSGS. MEDICATIONS AT HOME: Reveals the patient to be on prednisone 30 mg q.a.m. and 20 mg h.s. The duration of the prednisone is not clear in addition to insulin, Catapres, Lasix, aspirin, and Lipitor. REVIEW OF SYSTEMS: Reveals no abdominal pain, no diarrhea or constipation and no dysuria or frequency. PHYSICAL EXAMINATION GENERAL: The patient is in bed. VITAL SIGNS: Temperature of 102.9, pulse of 124, respiratory rate of 32, blood pressure is 130/60. HEENT: Unremarkable NECK: Supple. HEART: Normal S1 and S2. LUNGS: Decreased breath sounds. ABDOMEN: Soft, nontender. No rebound or guarding. LABORATORY DATA: Reveals white count of 18,500, hemoglobin 10, platelets of 97 with 97% granulocytosis, 9% lymphocytosis, coagulation is noted. Blood gases are reviewed, BUN of 76, creatinine of 5.2. Urinalysis is noted and has many bacteria. Negative WBC serology, his influenza is negative, microbiology is pending. Review of orders reveals a blood cultures are pending, urine cultures are pending, sputum cultures are pending. IMAGING: Reveals the patient's chest x-ray interval infiltrates throughout the majority of the left lung and bilateral airspace disease. The patient also had a CAT scan of the chest, which revealed consolidation air bronchogram, nodules. ASSESSMENT: This is a 51-year-old male with morbid obesity with BMI of 41, hypertension, diabetes, hyperlipidemia, chronic kidney disease, focal segmental glomerulosclerosis on kidney biopsy, congestive heart failure, peripheral vascular disease now with severe sepsis with healthcare associated pneumonia on prednisone high dose at home with acute kidney injury on top of chronic kidney disease with a troponin of 0.22. Procalcitonin pending, Legionella pending, rodriguez cultures pending. The patient had a HIV test done in January of 2017, which was negative. Hepatitis profile was negative at the time. PLAN: We will treat the patient with apparently on cefepime 1 g q.24h., a dose of vancomycin was given. The patient was placed on a gram of vancomycin q.12h, we discontinued that because of the acute kidney injury with a creatinine of 5. We will discontinue the cefepime also and treat the patient with meropenem and doxycycline, pending initial culture results. Overall prognosis is quite poor with the empiric antibiotics as the patient does not respond with empiric antibiotics, will need further workup to determine the etiology of this infiltrate. We will follow closely with you. Case was discussed with director global medical affairs unit and nursing staff in the unit and Dr. Escobar, the union representative in the ICU at length. The patient's condition is guarded. We will order urine Legionella and Strep. Nayan Jones MD
[2017-06-14] MEDS ORDERED: Levalbuterol 1.25 MG/3 ML Inhal Soln UD IH PRN (19:46)
[2017-06-14] MEDS: Levalbuterol 1.25 MG/3 ML Inhal Soln UD IH SCH (20:15)
[2017-06-14] MEDS: MethylPREDNISolone 40 mg Vial IVP SCH (21:09)
--- NOTE | 2017-06-14 22:39 | CON ---
DATE: 06/14/2017 REASON FOR CONSULTATION: Acute kidney injury, hyponatremia, shortness of breath. HISTORY OF PRESENT ILLNESS: A 51-year-old male known to Dr. Bianchi from our group, presented to the emergency room yesterday with complaints of difficulty getting out of bed, shortness of breath, cough, fever, chills, which has been progressively getting worse for the last one week. The patient denies any abdominal pain, nausea, vomiting, diarrhea. He denies any urinary complaints at home, but today he is reporting that he has not been able to urinate since this morning. Review of his old record show that he has a history of malignant hypertension, acute kidney injury, nephrotic syndrome, biopsy showing primary and secondary FSGS. In the emergency room, the patient was found to have bilateral pneumonia, bilateral consolidations and also found to have cardiomegaly and splenomegaly on his CT scan. The patient is currently now in the ICU, appears to be in moderate respiratory distress, unable to complete a sentences. He also febrile, temperature is 102.9. His initial WBC count was 18,000. PAST MEDICAL AND SURGICAL HISTORY: Poor medical followup prior to January?, presented with hypertensive emergency, acute kidney injury, nephrotic syndrome. Biopsy revealed malignant hypertension, primary and secondary FSGS. The patient was started on steroids in January. He was seen by Dr. Bianchi in the office in April and May. Steroids were being tapered off because of secondary FSGS. His creatinine was 2.7 in April. Therefore, he has underlying chronic kidney disease, stage IV. FAMILY HISTORY: Glioblastoma, in father. Breast cancer in mother. SOCIAL HISTORY: No smoking, no alcohol use, no IV drug abuse. ALLERGIES: NO KNOWN DRUG ALLERGIES. MEDICATIONS AT HOME: 1. Prednisone 20 mg, 15 mg daily, was being tapered. 2. Insulin. 3. Clonidine 0.2 t.i.d. 4. Lasix 40 b.i.d. 5. Amlodipine 10. 6. Coreg 6.125. 7. Lipitor. 8. Aspirin. 9. I think his Cozaar was discontinued because of advanced kidney failure. REVIEW OF SYSTEMS: All systems are reviewed, pertinent positives as mentioned in the history of presenting illness, rest unremarkable. PHYSICAL EXAMINATION: GENERAL: Morbidly obese male, lying in bed in moderate respiratory distress. VITAL SIGNS: Blood pressure 117/69, heart rate 118, respiratory rate 27-40, and temperature 102.8. HEENT: Normocephalic, atraumatic, positive pallor, no icterus. NECK: Supple, no JVD. CARDIAC: S1 and S2, regular rate and rhythm, no murmur, no rub. LUNGS: Bilateral air entry, bilateral equal expansion, no rales appreciated anteriorly. ABDOMEN: Obese, distended, soft, bowel sounds present. EXTREMITIES: 3+ pitting edema. INTAKE AND OUTPUT: 900/250. LABORATORY DATA: WBC 9.9, hemoglobin 8.8, hematocrit 25.8, and platelets 72 with poly 97.5% and bands 9%. Sodium 129, potassium 4.1, chloride 97, CO2 of 19, BUN 76, creatinine 5.2, glucose 66, calcium 8.3, AST 57, ALT 55, troponin 0.22, and albumin 2.9. Urinalysis yellow clear pH of 5.5, specific gravity 1.020, protein 30, nitrite negative, leukocyte esterase negative. Influenza negative. Blood gas pH of 7.4, pCO2 of 28, pO2 of 125 on 96%. INR 0.99. Sputum culture pending. Lower extremity Dopperls negative for DVT. Chest CT showing scattered dense consolidation throughout left upper and lower lobes with air bronchograms and patchy nodular changes in the left lower lobe, bilateral consolidations of right lower lobe, cardiomegaly, splenomegaly, and small pericardial effusion. CURRENT MEDICATIONS: Aspirin, Coreg 6.25 b.i.d., D5W at 30 mL/hour, doxycycline 100 q. 12 hours, insulin, Lipitor, meropenem 250 q. 12 hours, prednisone 20 b.i.d., Protonix 40, normal saline at 100, Tylenol and vancomycin 1 g given yesterday and 1 g given today. ASSESSMENT: 1. Acute kidney injury superimposed on chronic kidney disease stage IV. 2. Systemic inflammatory response syndrome. 3. Bilateral pneumonia. 4. Respiratory failure. 5. Hyponatremia. 6. Anion gap metabolic acidosis. 7. Severe anemia. 8. Leukocytosis with bandemia. 9. Immunocompromised state secondary to steroid use. 10. Biopsy proven primary and secondary focal segmental glomerulosclerosis. 11. Nephrotic syndrome. 12. Lower extremity edema. 13. Congestive heart failure/total body volume overload/cardiac strain. PLAN: 1. Bladder scan. 2. Place Mas if greater than 150 mL of urine in bladder. 3. Antibiotics for community acquired pneumonia. 4. Dual antibiotics for creatinine clearance 10-30. 5. Close monitoring of respiratory status. 6. Check urine sodium, urine osmolality, urine creatinine, uric acid levels. 7. Monitor daily labs. Monitor Fingerstick's closely, the patient is profoundly hypoglycemic. 8. Continue prednisone for the time being, agree with 40 mg a day. 9. Discussed case with the patient at bedside at length, may need renal replacement therapy soon. Case discussed with ICU staff at length. More than 35 minutes was spent in the care of this critically ill patient. Shelly Marte MD
[2017-06-14] MEDS ORDERED: levoFLOXacin 750 mg in D5W 750 MG/150 ML BAG IVPB STA (23:49)
[2017-06-15] MEDS: Levalbuterol 1.25 MG/3 ML Inhal Soln UD IH SCH ×5 (04:00→20:36)
[2017-06-15 06:21] LABS: BILIRUBIN,TOTAL 0.9 mg/dL (0.2-1.3); CALCIUM 8.2 mg/dL (8.4-10.5); MAGNESIUM 1.8 mg/dL (1.7-2.2); PHOSPHOROUS 9.8 mg/dL (2.5-4.5); POTASSIUM 4.4 mmol/L (3.6-5.0); TOTAL PROTEIN 5.6 g/dL (5.8-8.3)
[2017-06-15 06:38] LABS: GRAN # 5.48 (1.4-6.5); GRAN % 97.1 % (50.0-68.0); LYMPH # 0.1 (1.2-3.4); LYMPH % 0.9 % (22.0-35.0); MEAN CELL VOLUME 87.7 fl (80.0-105.0); MEAN CORPUSCULAR HEMOGLOBIN 29.9 pg (25.0-35.0); MEAN CORPUSCULAR HGB CONC 34.1 g/dl (31.0-37.0); MEAN PLATELET VOLUME 10.3 fl (7.0-11.0); MONO # 0.1 (0.1-0.6); PLATELET COUNT 58 10^3/uL (120.0-450.0); RED CELL DISTRIBUTION WIDTH 15.5 % (11.5-14.5); RETIC% 0.93 % (0.5-1.5); WHITE BLOOD COUNT 5.6 10^3/ul (4.5-11.0)
[2017-06-15 06:57] LABS: HEMATOCRIT 22.9 % (42.0-52.0)
--- NOTE | 2017-06-15 08:18 | CARD ---
APPROVED REPORT EKG Measurement Heart [id number] ID [id number] <Conclusion> Sinus tachycardia Possible Left atrial enlargement ST & T wave abnormality, consider lateral ischemia ST elevations 2,3,F c/w [place] or injury pattern, new Artifact present
[2017-06-15 08:34] LABS: ARTERIAL BLOOD GAS HCO3 16.3 mmol/L (21-28); ARTERIAL BLOOD GAS O2 CAPACITY 15.9 mL/dl (16-24); ARTERIAL BLOOD GAS O2 CONTENT 15.5 ML/dl (15-23); ARTERIAL BLOOD GAS PH 7.39 (7.35-7.45); ARTERIAL BLOOD HGB O2 SAT 95.9 % (95.0-98.0); CARBOXYHEMOGLOBIN 0.8 % (0.5-1.5); HHB 2.5 % (0-5); METHEMOGLOBIN 0.8 % (0.0-3.0)
--- NOTE | 2017-06-15 08:50 | PN ---
DATE: 06/15/2017 SUBJECTIVE: The patient is in bed, in no acute distress, nontoxic. He has much improved. He states he had noted an uneventful night. He still had a temperature. PHYSICAL EXAMINATION VITAL SIGNS: This morning, his temperature is 98, T-max is 102.2, respiratory rate of 22, heart rate of 105, blood pressure is 135/75. HEENT: Unremarkable. NECK: Supple. LUNGS: Decreased breath sounds. HEART: Normal S1 and S2. ABDOMEN: Soft and nontender. No rebound or guarding. No masses. LABORATORY DATA: Reveals a white count has came down from 18,000 to 5,000, hemoglobin of 7.8, platelets are 58. Coagulation is noted. ABGs were reviewed. Chemistry reveals BUN of 87, creatinine of 6.1, AST is 246, ALT is 139, and normal alkaline phosphatase. The patient's procalcitonin is elevated at 85. Urinalysis is many bacteria, but no wbc's. Urine for legionella antigen is positive. Microbiology reveals a gram negative sarah in urine and blood cultures have no growth. ASSESSMENT AND PLAN: This is a 51-year-old male with morbid obesity with a BMI of 41, history of hypertension, hyperlipidemia, diabetes mellitus, chronic kidney disease with focal sclerotic glomerulonephritis with hypertension and congestive heart failure, admitted now with severe sepsis with legionella pneumonia and acute kidney injury. We will continue treatment with Levaquin. Most likely, we will discontinue the meropenem for the next 24 hours. The patient also has a gram negative sarah in urine, however, the patient was on idosteroids since January since he was discharged. He has a history of coronary artery disease and congestive heart failure. We will follow closely with you. Nayan Jones MD
[2017-06-15 08:55] LABS: IRON 16 ug/dL (45-180)
[2017-06-15] MEDS: MethylPREDNISolone 40 mg Vial IVP SCH ×2 (09:46→21:41)
[2017-06-15] MEDS: Pantoprazole 40 mg EC Tab PO SCH (09:47)
--- NOTE | 2017-06-15 09:56 | RAD ---
HISTORY: evaluate left lung infiltrate COMPARISON: 06/14/2017 FINDINGS: LUNGS: Extensive left-sided pulmonary opacity. No clear right-sided infiltrate identified. PLEURA: Cannot rule out left pleural effusion due to superimposed opacity of left-sided consolidation. CARDIOVASCULAR: Normal. OSSEOUS STRUCTURES: No significant abnormalities. VISUALIZED UPPER ABDOMEN: Normal. OTHER FINDINGS: None. IMPRESSION: Extensive left-sided opacity. No significant change from previous. Right-sided perihilar opacity not evident.
[2017-06-15] MEDS ORDERED: levoFLOXacin 500 mg in D5W 500 MG/100 ML BAG IVPB SCH (10:00)
--- NOTE | 2017-06-15 10:24 | CON ---
"ADDENDUM" DATE: LABORATORY DATA: His glucose levels have ranged from 25 to 55 and 87 mg/dL. His chemistry showed a BUN of 74, sodium 130, potassium 4.1, chloride 92, CO2 of 22, glucose 40 and creatinine 4.2. His ProBNP is 6960. ASSESSMENT: This is a 51-year-old male with uncontrolled and decompensated type 2 insulin-requiring diabetes, presenting here with extreme glycemic fluctuation and marked hypoglycemia with associated neuroglycopenic and hyperadrenergic manifestations to the same and this is most likely related to the aggressive renal insufficiency with continued insulin administration as an outpatient with no recent glucose monitoring and developing supervening hypoglycemic episode as expected at all. He also has diabetic microvascular complications of retinopathy, polyneuropathy and nephropathy with progressive renal insufficiency as noted above. He also has diabetic microvascular complications with coronary artery disease and severe cardiomyopathy with fluid overload and congestive heart failure with continued admissions for the same conditions. PLAN OF MANAGEMENT: As discussed with the staff. We will continue the low-dose correction scale using regular insulin with fingersticks done a.c. and at bedtime as ordered. We will observe his glycemic fluctuation and determine the need to start on a low dose or hypoglycemic therapy as indicated and/or based on insulin therapy also indicated. Hemoglobin A1c to confirm his prior glycemic control and baseline thyroid function studies will be ordered. We will follow and advise accordingly. Angela Ledezma MD
--- NOTE | 2017-06-15 11:01 | CP.CCUPN ---
CCU Subjective - Physician Review Events Since Last Encounter (Free Text): 06/15/17 10:58 Overnight remained on HFNC 90-100% for acute hypoxemic failure secondary to pneumonia. No other acute events. CCU Objective - Vital Signs / Intake & Output Vital Signs (Last 4 hours): Vital Signs Temp Pulse Resp BP Pulse Ox 06/15/17 09:46 104 H 155/91 H 06/15/17 09:00 108 H 28 H 93 L 06/15/17 08:50 107 H 25 H 96 06/15/17 08:40 107 H 15 97 06/15/17 08:30 106 H 20 96 06/15/17 08:20 105 H 23 97 06/15/17 08:10 105 H 33 H 98 06/15/17 08:00 98 F 107 H 27 H 98 06/15/17 07:56 24 06/15/17 07:50 108 H 29 H 97 06/15/17 07:40 106 H 27 H 97 06/15/17 07:30 108 H 27 H 97 06/15/17 07:20 109 H 27 H 97 06/15/17 07:10 107 H 24 96 06/15/17 07:00 106 H 24 144/82 98 Intake and Output (Last 8hrs): Intake & Output 06/14/17 06/15/17 06/15/17 22:59 06:59 14:59 Intake Total 850 Output Total 900 Balance -50 Intake: IV 850 Left Antecubital 850 Output: Urine 900 Urine, Voided 900 - Physical Exam Head: Positive for: Atraumatic, Normocephalic Pupils: Positive for: PERRL Extroacular Muscles: Positive for: EOMI Conjunctiva: Positive for: Normal Mouth: Positive for: Moist Mucous Membranes Pharnyx: Positive for: Normal Nose (Internal): Positive for: Normal Inspection Neck: Positive for: Normal Range of Motion Respiratory/Chest: Positive for: Respiratory Distress, Accessory Muscle Use, Rhonchi Cardiovascular: Positive for: Regular Rate and Rhythm, Tachycardic Abdomen: Positive for: Normal Bowel Sounds Upper Extremity: Positive for: Normal Inspection Lower Extremity: Positive for: Normal Inspection, Edema Neurological: Positive for: CN II-XII Intact, Speech Normal Skin: Positive for: Warm, Dry Psychiatric: Positive for: Alert, Oriented x 3 - Medications Active Medications: Active Medications Generic Name Dose Route Start Last Admin Trade Name Freq PRN Reason Stop Dose Admin Acetaminophen 650 mg 06/14/17 00:27 06/15/17 01:48 Tylenol 325mg Tab PO 650 mg Q6H PRN Administration Fever >100.4 F Aspirin 81 mg 06/14/17 10:00 06/15/17 09:47 Aspirin Chewable PO 81 mg DAILY OSCAR Administration Atorvastatin Calcium 80 mg 06/14/17 22:00 06/14/17 21:09 Lipitor PO 80 mg HS OSCAR Administration Carvedilol 6.25 mg 06/14/17 10:00 06/15/17 09:46 Coreg PO 6.25 mg BID OSCAR Administration Meropenem 250 mg/ Sodium 100 mls @ 100 mls/hr 06/14/17 11:00 06/14/17 23:58 Chloride IVPB 06/23/17 11:01 100 mls/hr Q12H OSCAR Administration Protocol Levofloxacin/Dextrose 500 mg in 100 mls @ 100 mls/hr 06/15/17 10:00 06/15/17 09:46 Levaquin 500mg IVPB 100 mls/hr DAILY OSCAR Administration Dextrose 500 mls @ 10 mls/hr 06/15/17 08:08 06/15/17 08:20 Dextrose 10% In Water IV 10 mls/hr .Q24H OSCAR Administration Insulin Human Lispro 0 units 06/14/17 07:30 Humalog Low SC ACHS OSCAR Protocol Levalbuterol HCl 1.25 mg 06/14/17 19:46 Xopenex IH [id number] PRN Shortness of Breath Levalbuterol HCl 1.25 mg 06/15/17 14:00 Xopenex IH [id number] OSCAR Methylprednisolone 40 mg 06/14/17 22:00 06/15/17 09:46 Solu-Medrol IVP 40 mg Q12 OSCAR Administration Ondansetron HCl 4 mg 06/14/17 00:28 Zofran Inj IVP Q6H PRN Nausea/Vomiting Pantoprazole Sodium 40 mg 06/14/17 10:00 06/15/17 09:47 Protonix Ec Tab PO 40 mg DAILY OSCAR Administration - Patient Studies Lab Studies: Microbiology Studies 06/13/17 23:08 MRSA Culture (Admit) - Final Naris MRSA NOT DETECTED 06/13/17 23:11 Urine Culture - Preliminary Urine,Clean Catch Gram Negative Barry 06/14/17 08:00 Gram Stain - Final Sputum Lab Studies 06/15/17 06/15/17 06/15/17 Range/Units 10: 08:30 07:50 WBC (4.5-11.0) 10^3/ul RBC (3.5-6.1) 10^6/uL Hgb (14.0-18.0) g/dL Hct (42.0-52.0) % MCV (80.0-105.0) fl MCH (25.0-35.0) pg MCHC (31.0-37.0) g/dl RDW (11.5-14.5) % Plt Count (120.0-450.0) 10^3/uL MPV (7.0-11.0) fl Gran % (50.0-68.0) % Lymph % (Auto) (22.0-35.0) % Bibb % (Auto) (1.0-6.0) % Eos % (Auto) (1.5-5.0) % Baso % (Auto) (0.0-3.0) % Gran # (1.4-6.5) Lymph # (1.2-3.4) Bibb # (0.1-0.6) Eos # (0.0-0.7) Baso # (0.0-2.0) K/mm3 Retic Count (0.5-1.5) % pCO2 27 L (35-45) mm/Hg pO2 97.0 (80-100) mm/Hg HCO3 16.3 L (21-28) mmol/L ABG pH 7.39 (7.35-7.45) ABG Total CO2 17.1 L (22-28) mmol.L ABG O2 Saturation 97.5 (95-98) % ABG O2 Content 15.5 (15-23) ML/dl ABG Base Excess -7.3 L (-2.0-3.0) mmol/L ABG Hemoglobin 11.4 L (11.7-17.4) g/dL ABG Carboxyhemoglobin 0.8 (0.5-1.5) % POC ABG HHb (Measured) 2.5 (0-5) % ABG Methemoglobin 0.8 (0.0-3.0) % ABG O2 Capacity 15.9 L (16-24) mL/dl ABG Potassium (3.6-5.2) mmol/L Hgb O2 Saturation 95.9 (95.0-98.0) % Sodium (132-148) mmol/L Chloride (98-107) mmol/L Glucose (75-110) mg/dl Lactate (0.7-2.1) mmol/L FiO2 90.0 % Potassium (3.6-5.0) mmol/L Carbon Dioxide (21-33) mmol/L Anion Gap (10-20) BUN (7-21) mg/dL Creatinine (0.5-1.4) mg/dL Est GFR ( Amer) Est GFR (Non-Af Amer) POC Glucose (mg/dL) 175 H 182 H (65-110) mg/dL Random Glucose (70-110) mg/dL Uric Acid (3.5-8.5) mg/dL Calcium (8.4-10.5) mg/dL Phosphorus (2.5-4.5) mg/dL Magnesium (1.7-2.2) mg/dL Iron (45-180) ug/dL TIBC (261-462) ug/dL % Saturation (20-55) % Total Bilirubin (0.2-1.3) mg/dL AST (17-59) U/L ALT (7-56) U/L Alkaline Phosphatase (38-126) U/L Total Protein (5.8-8.3) g/dL Albumin (3.0-4.8) g/dL Globulin gm/dL Albumin/Globulin Ratio (1.1-1.8) Vitamin B12 (239-931) pg/mL Procalcitonin (0.19-0.49) NG/ML TSH 3rd Generation (0.46-4.68) mIU/mL Arterial Blood Potassium (3.6-5.2) mmol/L Urine Osmolality (300-1000) mosm/kg Ur Random Creatinine mg/dL Ur Random Sodium meq/L Ur L.pneumophila Ag (NEGATIVE) 06/15/17 06/15/17 06/15/17 Range/Units 05:52 05:30 05:30 WBC (4.5-11.0) 10^3/ul RBC (3.5-6.1) 10^6/uL Hgb (14.0-18.0) g/dL Hct (42.0-52.0) % MCV (80.0-105.0) fl MCH (25.0-35.0) pg MCHC (31.0-37.0) g/dl RDW (11.5-14.5) % Plt Count (120.0-450.0) 10^3/uL MPV (7.0-11.0) fl Gran % (50.0-68.0) % Lymph % (Auto) (22.0-35.0) % Bibb % (Auto) (1.0-6.0) % Eos % (Auto) (1.5-5.0) % Baso % (Auto) (0.0-3.0) % Gran # (1.4-6.5) Lymph # (1.2-3.4) Bibb # (0.1-0.6) Eos # (0.0-0.7) Baso # (0.0-2.0) K/mm3 Retic Count (0.5-1.5) % pCO2 (35-45) mm/Hg pO2 (80-100) mm/Hg HCO3 (21-28) mmol/L ABG pH (7.35-7.45) ABG Total CO2 (22-28) mmol.L ABG O2 Saturation (95-98) % ABG O2 Content (15-23) ML/dl ABG Base Excess (-2.0-3.0) mmol/L ABG Hemoglobin (11.7-17.4) g/dL ABG Carboxyhemoglobin (0.5-1.5) % POC ABG HHb (Measured) (0-5) % ABG Methemoglobin (0.0-3.0) % ABG O2 Capacity (16-24) mL/dl ABG Potassium (3.6-5.2) mmol/L Hgb O2 Saturation (95.0-98.0) % Sodium (132-148) mmol/L Chloride (98-107) mmol/L Glucose (75-110) mg/dl Lactate (0.7-2.1) mmol/L FiO2 % Potassium (3.6-5.0) mmol/L Carbon Dioxide (21-33) mmol/L Anion Gap (10-20) BUN (7-21) mg/dL Creatinine (0.5-1.4) mg/dL Est GFR ( Amer) Est GFR (Non-Af Amer) POC Glucose (mg/dL) 174 H (65-110) mg/dL Random Glucose (70-110) mg/dL Uric Acid (3.5-8.5) mg/dL Calcium (8.4-10.5) mg/dL Phosphorus (2.5-4.5) mg/dL Magnesium (1.7-2.2) mg/dL Iron 16 L (45-180) ug/dL TIBC 151 L (261-462) ug/dL % Saturation 10 L (20-55) % Total Bilirubin (0.2-1.3) mg/dL AST (17-59) U/L ALT (7-56) U/L Alkaline Phosphatase (38-126) U/L Total Protein (5.8-8.3) g/dL Albumin (3.0-4.8) g/dL Globulin gm/dL Albumin/Globulin Ratio (1.1-1.8) Vitamin B12 (239-931) pg/mL Procalcitonin (0.19-0.49) NG/ML TSH 3rd Generation 1.28 (0.46-4.68) mIU/mL Arterial Blood Potassium (3.6-5.2) mmol/L Urine Osmolality (300-1000) mosm/kg Ur Random Creatinine mg/dL Ur Random Sodium meq/L Ur L.pneumophila Ag (NEGATIVE) 06/15/17 06/15/17 06/15/17 Range/Units 05:30 05:30 03:53 WBC 5.6 D (4.5-11.0) 10^3/ul RBC 2.61 L (3.5-6.1) 10^6/uL Hgb 7.8 L (14.0-18.0) g/dL Hct 22.9 L (42.0-52.0) % MCV 87.7 (80.0-105.0) fl MCH 29.9 (25.0-35.0) pg MCHC 34.1 (31.0-37.0) g/dl RDW 15.5 H (11.5-14.5) % Plt Count 58 L (120.0-450.0) 10^3/uL MPV 10.3 (7.0-11.0) fl Gran % 97.1 H (50.0-68.0) % Lymph % (Auto) 0.9 L (22.0-35.0) % Bibb % (Auto) 2.0 (1.0-6.0) % Eos % (Auto) 0.0 L (1.5-5.0) % Baso % (Auto) 0.0 (0.0-3.0) % Gran # 5.48 (1.4-6.5) Lymph # 0.1 L (1.2-3.4) Bibb # 0.1 (0.1-0.6) Eos # 0.0 (0.0-0.7) Baso # 0.00 (0.0-2.0) K/mm3 Retic Count 0.93 (0.5-1.5) % pCO2 (35-45) mm/Hg pO2 (80-100) mm/Hg HCO3 (21-28) mmol/L ABG pH (7.35-7.45) ABG Total CO2 (22-28) mmol.L ABG O2 Saturation (95-98) % ABG O2 Content (15-23) ML/dl ABG Base Excess (-2.0-3.0) mmol/L ABG Hemoglobin (11.7-17.4) g/dL ABG Carboxyhemoglobin (0.5-1.5) % POC ABG HHb (Measured) (0-5) % ABG Methemoglobin (0.0-3.0) % ABG O2 Capacity (16-24) mL/dl ABG Potassium (3.6-5.2) mmol/L Hgb O2 Saturation (95.0-98.0) % Sodium 130 L (132-148) mmol/L Chloride 97 L (98-107) mmol/L Glucose (75-110) mg/dl Lactate (0.7-2.1) mmol/L FiO2 % Potassium 4.4 (3.6-5.0) mmol/L Carbon Dioxide 18 L (21-33) mmol/L Anion Gap 19 (10-20) BUN 87 H (7-21) mg/dL Creatinine 6.1 H (0.5-1.4) mg/dL Est GFR ( Amer) 12 Est GFR (Non-Af Amer) 10 POC Glucose (mg/dL) 157 H (65-110) mg/dL Random Glucose 157 H (70-110) mg/dL Uric Acid (3.5-8.5) mg/dL Calcium 8.2 L (8.4-10.5) mg/dL Phosphorus 9.8 H (2.5-4.5) mg/dL Magnesium 1.8 (1.7-2.2) mg/dL Iron (45-180) ug/dL TIBC (261-462) ug/dL % Saturation (20-55) % Total Bilirubin 0.9 (0.2-1.3) mg/dL AST 246 H D (17-59) U/L ALT 139 H (7-56) U/L Alkaline Phosphatase 54 (38-126) U/L Total Protein 5.6 L (5.8-8.3) g/dL Albumin 2.8 L (3.0-4.8) g/dL Globulin 2.8 gm/dL Albumin/Globulin Ratio 1.0 L (1.1-1.8) Vitamin B12 562 (239-931) pg/mL Procalcitonin (0.19-0.49) NG/ML TSH 3rd Generation (0.46-4.68) mIU/mL Arterial Blood Potassium (3.6-5.2) mmol/L Urine Osmolality (300-1000) mosm/kg Ur Random Creatinine mg/dL Ur Random Sodium meq/L Ur L.pneumophila Ag (NEGATIVE) 06/15/17 06/14/17 06/14/17 Range/Units 02:11 23:58 22:37 WBC (4.5-11.0) 10^3/ul RBC (3.5-6.1) 10^6/uL Hgb (14.0-18.0) g/dL Hct (42.0-52.0) % MCV (80.0-105.0) fl MCH (25.0-35.0) pg MCHC (31.0-37.0) g/dl RDW (11.5-14.5) % Plt Count (120.0-450.0) 10^3/uL MPV (7.0-11.0) fl Gran % (50.0-68.0) % Lymph % (Auto) (22.0-35.0) % Bibb % (Auto) (1.0-6.0) % Eos % (Auto) (1.5-5.0) % Baso % (Auto) (0.0-3.0) % Gran # (1.4-6.5) Lymph # (1.2-3.4) Bibb # (0.1-0.6) Eos # (0.0-0.7) Baso # (0.0-2.0) K/mm3 Retic Count (0.5-1.5) % pCO2 (35-45) mm/Hg pO2 (80-100) mm/Hg HCO3 (21-28) mmol/L ABG pH (7.35-7.45) ABG Total CO2 (22-28) mmol.L ABG O2 Saturation (95-98) % ABG O2 Content (15-23) ML/dl ABG Base Excess (-2.0-3.0) mmol/L ABG Hemoglobin (11.7-17.4) g/dL ABG Carboxyhemoglobin (0.5-1.5) % POC ABG HHb (Measured) (0-5) % ABG Methemoglobin (0.0-3.0) % ABG O2 Capacity (16-24) mL/dl ABG Potassium (3.6-5.2) mmol/L Hgb O2 Saturation (95.0-98.0) % Sodium (132-148) mmol/L Chloride (98-107) mmol/L Glucose (75-110) mg/dl Lactate (0.7-2.1) mmol/L FiO2 % Potassium (3.6-5.0) mmol/L Carbon Dioxide (21-33) mmol/L Anion Gap (10-20) BUN (7-21) mg/dL Creatinine (0.5-1.4) mg/dL Est GFR ( Amer) Est GFR (Non-Af Amer) POC Glucose (mg/dL) 128 H 111 H 91 (65-110) mg/dL Random Glucose (70-110) mg/dL Uric Acid (3.5-8.5) mg/dL Calcium (8.4-10.5) mg/dL Phosphorus (2.5-4.5) mg/dL Magnesium (1.7-2.2) mg/dL Iron (45-180) ug/dL TIBC (261-462) ug/dL % Saturation (20-55) % Total Bilirubin (0.2-1.3) mg/dL AST (17-59) U/L ALT (7-56) U/L Alkaline Phosphatase (38-126) U/L Total Protein (5.8-8.3) g/dL Albumin (3.0-4.8) g/dL Globulin gm/dL Albumin/Globulin Ratio (1.1-1.8) Vitamin B12 (239-931) pg/mL Procalcitonin (0.19-0.49) NG/ML TSH 3rd Generation (0.46-4.68) mIU/mL Arterial Blood Potassium (3.6-5.2) mmol/L Urine Osmolality (300-1000) mosm/kg Ur Random Creatinine mg/dL Ur Random Sodium meq/L Ur L.pneumophila Ag (NEGATIVE) 06/14/17 06/14/17 06/14/17 Range/Units 19:31 17:48 16:30 WBC (4.5-11.0) 10^3/ul RBC (3.5-6.1) 10^6/uL Hgb (14.0-18.0) g/dL Hct (42.0-52.0) % MCV (80.0-105.0) fl MCH (25.0-35.0) pg MCHC (31.0-37.0) g/dl RDW (11.5-14.5) % Plt Count (120.0-450.0) 10^3/uL MPV (7.0-11.0) fl Gran % (50.0-68.0) % Lymph % (Auto) (22.0-35.0) % Bibb % (Auto) (1.0-6.0) % Eos % (Auto) (1.5-5.0) % Baso % (Auto) (0.0-3.0) % Gran # (1.4-6.5) Lymph # (1.2-3.4) Bibb # (0.1-0.6) Eos # (0.0-0.7) Baso # (0.0-2.0) K/mm3 Retic Count (0.5-1.5) % pCO2 (35-45) mm/Hg pO2 (80-100) mm/Hg HCO3 (21-28) mmol/L ABG pH (7.35-7.45) ABG Total CO2 (22-28) mmol.L ABG O2 Saturation (95-98) % ABG O2 Content (15-23) ML/dl ABG Base Excess (-2.0-3.0) mmol/L ABG Hemoglobin (11.7-17.4) g/dL ABG Carboxyhemoglobin (0.5-1.5) % POC ABG HHb (Measured) (0-5) % ABG Methemoglobin (0.0-3.0) % ABG O2 Capacity (16-24) mL/dl ABG Potassium (3.6-5.2) mmol/L Hgb O2 Saturation (95.0-98.0) % Sodium (132-148) mmol/L Chloride (98-107) mmol/L Glucose (75-110) mg/dl Lactate (0.7-2.1) mmol/L FiO2 % Potassium (3.6-5.0) mmol/L Carbon Dioxide (21-33) mmol/L Anion Gap (10-20) BUN (7-21) mg/dL Creatinine (0.5-1.4) mg/dL Est GFR ( Amer) Est GFR (Non-Af Amer) POC Glucose (mg/dL) 79 83 (65-110) mg/dL Random Glucose (70-110) mg/dL Uric Acid (3.5-8.5) mg/dL Calcium (8.4-10.5) mg/dL Phosphorus (2.5-4.5) mg/dL Magnesium (1.7-2.2) mg/dL Iron (45-180) ug/dL TIBC (261-462) ug/dL % Saturation (20-55) % Total Bilirubin (0.2-1.3) mg/dL AST (17-59) U/L ALT (7-56) U/L Alkaline Phosphatase (38-126) U/L Total Protein (5.8-8.3) g/dL Albumin (3.0-4.8) g/dL Globulin gm/dL Albumin/Globulin Ratio (1.1-1.8) Vitamin B12 (239-931) pg/mL Procalcitonin (0.19-0.49) NG/ML TSH 3rd Generation (0.46-4.68) mIU/mL Arterial Blood Potassium (3.6-5.2) mmol/L Urine Osmolality (300-1000) mosm/kg Ur Random Creatinine 91 mg/dL Ur Random Sodium 55 meq/L Ur L.pneumophila Ag (NEGATIVE) 06/14/17 06/14/17 06/14/17 Range/Units 16:30 16:30 15:40 WBC (4.5-11.0) 10^3/ul RBC (3.5-6.1) 10^6/uL Hgb (14.0-18.0) g/dL Hct (42.0-52.0) % MCV (80.0-105.0) fl MCH (25.0-35.0) pg MCHC (31.0-37.0) g/dl RDW (11.5-14.5) % Plt Count (120.0-450.0) 10^3/uL MPV (7.0-11.0) fl Gran % (50.0-68.0) % Lymph % (Auto) (22.0-35.0) % Bibb % (Auto) (1.0-6.0) % Eos % (Auto) (1.5-5.0) % Baso % (Auto) (0.0-3.0) % Gran # (1.4-6.5) Lymph # (1.2-3.4) Bibb # (0.1-0.6) Eos # (0.0-0.7) Baso # (0.0-2.0) K/mm3 Retic Count (0.5-1.5) % pCO2 (35-45) mm/Hg pO2 (80-100) mm/Hg HCO3 (21-28) mmol/L ABG pH (7.35-7.45) ABG Total CO2 (22-28) mmol.L ABG O2 Saturation (95-98) % ABG O2 Content (15-23) ML/dl ABG Base Excess (-2.0-3.0) mmol/L ABG Hemoglobin (11.7-17.4) g/dL ABG Carboxyhemoglobin (0.5-1.5) % POC ABG HHb (Measured) (0-5) % ABG Methemoglobin (0.0-3.0) % ABG O2 Capacity (16-24) mL/dl ABG Potassium (3.6-5.2) mmol/L Hgb O2 Saturation (95.0-98.0) % Sodium (132-148) mmol/L Chloride (98-107) mmol/L Glucose (75-110) mg/dl Lactate (0.7-2.1) mmol/L FiO2 % Potassium (3.6-5.0) mmol/L Carbon Dioxide (21-33) mmol/L Anion Gap (10-20) BUN (7-21) mg/dL Creatinine (0.5-1.4) mg/dL Est GFR ( Amer) Est GFR (Non-Af Amer) POC Glucose (mg/dL) 54 L (65-110) mg/dL Random Glucose (70-110) mg/dL Uric Acid (3.5-8.5) mg/dL Calcium (8.4-10.5) mg/dL Phosphorus (2.5-4.5) mg/dL Magnesium (1.7-2.2) mg/dL Iron (45-180) ug/dL TIBC (261-462) ug/dL % Saturation (20-55) % Total Bilirubin (0.2-1.3) mg/dL AST (17-59) U/L ALT (7-56) U/L Alkaline Phosphatase (38-126) U/L Total Protein (5.8-8.3) g/dL Albumin (3.0-4.8) g/dL Globulin gm/dL Albumin/Globulin Ratio (1.1-1.8) Vitamin B12 (239-931) pg/mL Procalcitonin (0.19-0.49) NG/ML TSH 3rd Generation (0.46-4.68) mIU/mL Arterial Blood Potassium (3.6-5.2) mmol/L Urine Osmolality 297 L (300-1000) mosm/kg Ur Random Creatinine mg/dL Ur Random Sodium meq/L Ur L.pneumophila Ag Positive H (NEGATIVE) 06/14/17 06/14/17 06/14/17 Range/Units 14:29 13:38 11:56 WBC (4.5-11.0) 10^3/ul RBC (3.5-6.1) 10^6/uL Hgb (14.0-18.0) g/dL Hct (42.0-52.0) % MCV (80.0-105.0) fl MCH (25.0-35.0) pg MCHC (31.0-37.0) g/dl RDW (11.5-14.5) % Plt Count (120.0-450.0) 10^3/uL MPV (7.0-11.0) fl Gran % (50.0-68.0) % Lymph % (Auto) (22.0-35.0) % Bibb % (Auto) (1.0-6.0) % Eos % (Auto) (1.5-5.0) % Baso % (Auto) (0.0-3.0) % Gran # (1.4-6.5) Lymph # (1.2-3.4) Bibb # (0.1-0.6) Eos # (0.0-0.7) Baso # (0.0-2.0) K/mm3 Retic Count (0.5-1.5) % pCO2 28 L (35-45) mm/Hg pO2 125.0 H (80-100) mm/Hg HCO3 17.7 L (21-28) mmol/L ABG pH 7.41 (7.35-7.45) ABG Total CO2 18.6 L (22-28) mmol.L ABG O2 Saturation 98.2 H (95-98) % ABG O2 Content (15-23) ML/dl ABG Base Excess -5.5 L (-2.0-3.0) mmol/L ABG Hemoglobin (11.7-17.4) g/dL ABG Carboxyhemoglobin (0.5-1.5) % POC ABG HHb (Measured) (0-5) % ABG Methemoglobin (0.0-3.0) % ABG O2 Capacity (16-24) mL/dl ABG Potassium 4.0 (3.6-5.2) mmol/L Hgb O2 Saturation (95.0-98.0) % Sodium 128.0 L (132-148) mmol/L Chloride 100.0 (98-107) mmol/L Glucose 66 L (75-110) mg/dl Lactate 0.9 (0.7-2.1) mmol/L FiO2 96.0 % Potassium (3.6-5.0) mmol/L Carbon Dioxide (21-33) mmol/L Anion Gap (10-20) BUN (7-21) mg/dL Creatinine (0.5-1.4) mg/dL Est GFR ( Amer) Est GFR (Non-Af Amer) POC Glucose (mg/dL) 62 L 62 L (65-110) mg/dL Random Glucose (70-110) mg/dL Uric Acid (3.5-8.5) mg/dL Calcium (8.4-10.5) mg/dL Phosphorus (2.5-4.5) mg/dL Magnesium (1.7-2.2) mg/dL Iron (45-180) ug/dL TIBC (261-462) ug/dL % Saturation (20-55) % Total Bilirubin (0.2-1.3) mg/dL AST (17-59) U/L ALT (7-56) U/L Alkaline Phosphatase (38-126) U/L Total Protein (5.8-8.3) g/dL Albumin (3.0-4.8) g/dL Globulin gm/dL Albumin/Globulin Ratio (1.1-1.8) Vitamin B12 (239-931) pg/mL Procalcitonin (0.19-0.49) NG/ML TSH 3rd Generation (0.46-4.68) mIU/mL Arterial Blood Potassium 4.0 (3.6-5.2) mmol/L Urine Osmolality (300-1000) mosm/kg Ur Random Creatinine mg/dL Ur Random Sodium meq/L Ur L.pneumophila Ag (NEGATIVE) 06/14/17 06/14/17 Range/Units 05:20 00:45 WBC (4.5-11.0) 10^3/ul RBC (3.5-6.1) 10^6/uL Hgb (14.0-18.0) g/dL Hct (42.0-52.0) % MCV (80.0-105.0) fl MCH (25.0-35.0) pg MCHC (31.0-37.0) g/dl RDW (11.5-14.5) % Plt Count (120.0-450.0) 10^3/uL MPV (7.0-11.0) fl Gran % (50.0-68.0) % Lymph % (Auto) (22.0-35.0) % Bibb % (Auto) (1.0-6.0) % Eos % (Auto) (1.5-5.0) % Baso % (Auto) (0.0-3.0) % Gran # (1.4-6.5) Lymph # (1.2-3.4) Bibb # (0.1-0.6) Eos # (0.0-0.7) Baso # (0.0-2.0) K/mm3 Retic Count (0.5-1.5) % pCO2 (35-45) mm/Hg pO2 (80-100) mm/Hg HCO3 (21-28) mmol/L ABG pH (7.35-7.45) ABG Total CO2 (22-28) mmol.L ABG O2 Saturation (95-98) % ABG O2 Content (15-23) ML/dl ABG Base Excess (-2.0-3.0) mmol/L ABG Hemoglobin (11.7-17.4) g/dL ABG Carboxyhemoglobin (0.5-1.5) % POC ABG HHb (Measured) (0-5) % ABG Methemoglobin (0.0-3.0) % ABG O2 Capacity (16-24) mL/dl ABG Potassium (3.6-5.2) mmol/L Hgb O2 Saturation (95.0-98.0) % Sodium (132-148) mmol/L Chloride (98-107) mmol/L Glucose (75-110) mg/dl Lactate (0.7-2.1) mmol/L FiO2 % Potassium (3.6-5.0) mmol/L Carbon Dioxide (21-33) mmol/L Anion Gap (10-20) BUN (7-21) mg/dL Creatinine (0.5-1.4) mg/dL Est GFR ( Amer) Est GFR (Non-Af Amer) POC Glucose (mg/dL) (65-110) mg/dL Random Glucose (70-110) mg/dL Uric Acid 11.9 H (3.5-8.5) mg/dL Calcium (8.4-10.5) mg/dL Phosphorus (2.5-4.5) mg/dL Magnesium (1.7-2.2) mg/dL Iron (45-180) ug/dL TIBC (261-462) ug/dL % Saturation (20-55) % Total Bilirubin (0.2-1.3) mg/dL AST (17-59) U/L ALT (7-56) U/L Alkaline Phosphatase (38-126) U/L Total Protein (5.8-8.3) g/dL Albumin (3.0-4.8) g/dL Globulin gm/dL Albumin/Globulin Ratio (1.1-1.8) Vitamin B12 (239-931) pg/mL Procalcitonin 85.40 H (0.19-0.49) NG/ML TSH 3rd Generation (0.46-4.68) mIU/mL Arterial Blood Potassium (3.6-5.2) mmol/L Urine Osmolality (300-1000) mosm/kg Ur Random Creatinine mg/dL Ur Random Sodium meq/L Ur L.pneumophila Ag (NEGATIVE) Laboratory Results - last 24 hr 06/14/17 06/14/17 06/14/17 00:45 05:20 11:56 WBC RBC Hgb Hct MCV MCH MCHC RDW Plt Count MPV Gran % Lymph % (Auto) Bibb % (Auto) Eos % (Auto) Baso % (Auto) Gran # Lymph # Bibb # Eos # Baso # Retic Count pCO2 pO2 HCO3 ABG pH ABG Total CO2 ABG O2 Saturation ABG O2 Content ABG Base Excess ABG Hemoglobin ABG Carboxyhemoglobin POC ABG HHb (Measured) ABG Methemoglobin ABG O2 Capacity ABG Potassium Hgb O2 Saturation Sodium Chloride Glucose Lactate FiO2 Potassium Carbon Dioxide Anion Gap BUN Creatinine Est GFR ( Amer) Est GFR (Non-Af Amer) POC Glucose (mg/dL) 62 L Random Glucose Uric Acid 11.9 H Calcium Phosphorus Magnesium Iron TIBC % Saturation Total Bilirubin AST ALT Alkaline Phosphatase Total Protein Albumin Globulin Albumin/Globulin Ratio Vitamin B12 Procalcitonin 85.40 H TSH 3rd Generation Arterial Blood Potassium Urine Osmolality Ur Random Creatinine Ur Random Sodium Ur L.pneumophila Ag 06/14/17 06/14/17 06/14/17 13:38 14:29 15:40 WBC RBC Hgb Hct MCV MCH MCHC RDW Plt Count MPV Gran % Lymph % (Auto) Bibb % (Auto) Eos % (Auto) Baso % (Auto) Gran # Lymph # Bibb # Eos # Baso # Retic Count pCO2 28 L pO2 125.0 H HCO3 17.7 L ABG pH 7.41 ABG Total CO2 18.6 L ABG O2 Saturation 98.2 H ABG O2 Content ABG Base Excess -5.5 L ABG Hemoglobin ABG Carboxyhemoglobin POC ABG HHb (Measured) ABG Methemoglobin ABG O2 Capacity ABG Potassium 4.0 Hgb O2 Saturation Sodium 128.0 L Chloride 100.0 Glucose 66 L Lactate 0.9 FiO2 96.0 Potassium Carbon Dioxide Anion Gap BUN Creatinine Est GFR ( Amer) Est GFR (Non-Af Amer) POC Glucose (mg/dL) 62 L 54 L Random Glucose Uric Acid Calcium Phosphorus Magnesium Iron TIBC % Saturation Total Bilirubin AST ALT Alkaline Phosphatase Total Protein Albumin Globulin Albumin/Globulin Ratio Vitamin B12 Procalcitonin TSH 3rd Generation Arterial Blood Potassium 4.0 Urine Osmolality Ur Random Creatinine Ur Random Sodium Ur L.pneumophila Ag 06/14/17 06/14/17 06/14/17 16:30 16:30 16:30 WBC RBC Hgb Hct MCV MCH MCHC RDW Plt Count MPV Gran % Lymph % (Auto) Bibb % (Auto) Eos % (Auto) Baso % (Auto) Gran # Lymph # Bibb # Eos # Baso # Retic Count pCO2 pO2 HCO3 ABG pH ABG Total CO2 ABG O2 Saturation ABG O2 Content ABG Base Excess ABG Hemoglobin ABG Carboxyhemoglobin POC ABG HHb (Measured) ABG Methemoglobin ABG O2 Capacity ABG Potassium Hgb O2 Saturation Sodium Chloride Glucose Lactate FiO2 Potassium Carbon Dioxide Anion Gap BUN Creatinine Est GFR ( Amer) Est GFR (Non-Af Amer) POC Glucose (mg/dL) Random Glucose Uric Acid Calcium Phosphorus Magnesium Iron TIBC % Saturation Total Bilirubin AST ALT Alkaline Phosphatase Total Protein Albumin Globulin Albumin/Globulin Ratio Vitamin B12 Procalcitonin TSH 3rd Generation Arterial Blood Potassium Urine Osmolality 297 L Ur Random Creatinine 91 Ur Random Sodium 55 Ur L.pneumophila Ag Positive H 06/14/17 06/14/17 06/14/17 17:48 19:31 22:37 WBC RBC Hgb Hct MCV MCH MCHC RDW Plt Count MPV Gran % Lymph % (Auto) Bibb % (Auto) Eos % (Auto) Baso % (Auto) Gran # Lymph # Bibb # Eos # Baso # Retic Count pCO2 pO2 HCO3 ABG pH ABG Total CO2 ABG O2 Saturation ABG O2 Content ABG Base Excess ABG Hemoglobin ABG Carboxyhemoglobin POC ABG HHb (Measured) ABG Methemoglobin ABG O2 Capacity ABG Potassium Hgb O2 Saturation Sodium Chloride Glucose Lactate FiO2 Potassium Carbon Dioxide Anion Gap BUN Creatinine Est GFR ( Amer) Est GFR (Non-Af Amer) POC Glucose (mg/dL) 83 79 91 Random Glucose Uric Acid Calcium Phosphorus Magnesium Iron TIBC % Saturation Total Bilirubin AST ALT Alkaline Phosphatase Total Protein Albumin Globulin Albumin/Globulin Ratio Vitamin B12 Procalcitonin TSH 3rd Generation Arterial Blood Potassium Urine Osmolality Ur Random Creatinine Ur Random Sodium Ur L.pneumophila Ag 06/14/17 06/15/17 06/15/17 23:58 02:11 03:53 WBC RBC Hgb Hct MCV MCH MCHC RDW Plt Count MPV Gran % Lymph % (Auto) Bibb % (Auto) Eos % (Auto) Baso % (Auto) Gran # Lymph # Bibb # Eos # Baso # Retic Count pCO2 pO2 HCO3 ABG pH ABG Total CO2 ABG O2 Saturation ABG O2 Content ABG Base Excess ABG Hemoglobin ABG Carboxyhemoglobin POC ABG HHb (Measured) ABG Methemoglobin ABG O2 Capacity ABG Potassium Hgb O2 Saturation Sodium Chloride Glucose Lactate FiO2 Potassium Carbon Dioxide Anion Gap BUN Creatinine Est GFR ( Amer) Est GFR (Non-Af Amer) POC Glucose (mg/dL) 111 H 128 H 157 H Random Glucose Uric Acid Calcium Phosphorus Magnesium Iron TIBC % Saturation Total Bilirubin AST ALT Alkaline Phosphatase Total Protein Albumin Globulin Albumin/Globulin Ratio Vitamin B12 Procalcitonin TSH 3rd Generation Arterial Blood Potassium Urine Osmolality Ur Random Creatinine Ur Random Sodium Ur L.pneumophila Ag 06/15/17 06/15/17 06/15/17 05:30 05:30 05:30 WBC 5.6 D RBC 2.61 L Hgb 7.8 L Hct 22.9 L MCV 87.7 MCH 29.9 MCHC 34.1 RDW 15.5 H Plt Count 58 L MPV 10.3 Gran % 97.1 H Lymph % (Auto) 0.9 L Bibb % (Auto) 2.0 Eos % (Auto) 0.0 L Baso % (Auto) 0.0 Gran # 5.48 Lymph # 0.1 L Bibb # 0.1 Eos # 0.0 Baso # 0.00 Retic Count 0.93 pCO2 pO2 HCO3 ABG pH ABG Total CO2 ABG O2 Saturation ABG O2 Content ABG Base Excess ABG Hemoglobin ABG Carboxyhemoglobin POC ABG HHb (Measured) ABG Methemoglobin ABG O2 Capacity ABG Potassium Hgb O2 Saturation Sodium 130 L Chloride 97 L Glucose Lactate FiO2 Potassium 4.4 Carbon Dioxide 18 L Anion Gap 19 BUN 87 H Creatinine 6.1 H Est GFR ( Amer) 12 Est GFR (Non-Af Amer) 10 POC Glucose (mg/dL) Random Glucose 157 H Uric Acid Calcium 8.2 L Phosphorus 9.8 H Magnesium 1.8 Iron 16 L TIBC 151 L % Saturation 10 L Total Bilirubin 0.9 AST 246 H D ALT 139 H Alkaline Phosphatase 54 Total Protein 5.6 L Albumin 2.8 L Globulin 2.8 Albumin/Globulin Ratio 1.0 L Vitamin B12 562 Procalcitonin TSH 3rd Generation Arterial Blood Potassium Urine Osmolality Ur Random Creatinine Ur Random Sodium Ur L.pneumophila Ag 06/15/17 06/15/17 06/15/17 05:30 05:52 07:50 WBC RBC Hgb Hct MCV MCH MCHC RDW Plt Count MPV Gran % Lymph % (Auto) Bibb % (Auto) Eos % (Auto) Baso % (Auto) Gran # Lymph # Bibb # Eos # Baso # Retic Count pCO2 pO2 HCO3 ABG pH ABG Total CO2 ABG O2 Saturation ABG O2 Content ABG Base Excess ABG Hemoglobin ABG Carboxyhemoglobin POC ABG HHb (Measured) ABG Methemoglobin ABG O2 Capacity ABG Potassium Hgb O2 Saturation Sodium Chloride Glucose Lactate FiO2 Potassium Carbon Dioxide Anion Gap BUN Creatinine Est GFR ( Amer) Est GFR (Non-Af Amer) POC Glucose (mg/dL) 174 H 182 H Random Glucose Uric Acid Calcium Phosphorus Magnesium Iron TIBC % Saturation Total Bilirubin AST ALT Alkaline Phosphatase Total Protein Albumin Globulin Albumin/Globulin Ratio Vitamin B12 Procalcitonin TSH 3rd Generation 1.28 Arterial Blood Potassium Urine Osmolality Ur Random Creatinine Ur Random Sodium Ur L.pneumophila Ag 06/15/17 06/15/17 08:30 10:01 WBC RBC Hgb Hct MCV MCH MCHC RDW Plt Count MPV Gran % Lymph % (Auto) Bibb % (Auto) Eos % (Auto) Baso % (Auto) Gran # Lymph # Bibb # Eos # Baso # Retic Count pCO2 27 L pO2 97.0 HCO3 16.3 L ABG pH 7.39 ABG Total CO2 17.1 L ABG O2 Saturation 97.5 ABG O2 Content 15.5 ABG Base Excess -7.3 L ABG Hemoglobin 11.4 L ABG Carboxyhemoglobin 0.8 POC ABG HHb (Measured) 2.5 ABG Methemoglobin 0.8 ABG O2 Capacity 15.9 L ABG Potassium Hgb O2 Saturation 95.9 Sodium Chloride Glucose Lactate FiO2 90.0 Potassium Carbon Dioxide Anion Gap BUN Creatinine Est GFR ( Amer) Est GFR (Non-Af Amer) POC Glucose (mg/dL) 175 H Random Glucose Uric Acid Calcium Phosphorus Magnesium Iron TIBC % Saturation Total Bilirubin AST ALT Alkaline Phosphatase Total Protein Albumin Globulin Albumin/Globulin Ratio Vitamin B12 Procalcitonin TSH 3rd Generation Arterial Blood Potassium Urine Osmolality Ur Random Creatinine Ur Random Sodium Ur L.pneumophila Ag Fingerstick Blood Sugar Results: 182 Review of Systems - Review of Systems Systems not reviewed;Unavailable: Acuity of Condition Critical Care Progress Note - Ventilator Checklist Daily Assessment of Readiness to Wean: Yes PUD Prophalyxis: Yes DVT Prophylaxis: Yes Oral Care with Chlorhexidine Gluconate {CHG}: Yes Assessment/Plan - Assessment and Plan (Free Text) Assessment: 51 y/o M w/ acute respiratory failure Found to have dense multilobar infiltrates on CT chest. Postiive for urine legionella ABX on levaquin and Meropenum. ( immunocompromised state) CX pending, Urin cx gram - barry. ABG, keep pao2 > 60. If any new respiratory distress , would intubate as the next step. Discussed with the patient. FSGS , nephrology following. Urine output adequate. Immunocompromised state bloodwork pending. c time 65 min
--- NOTE | 2017-06-15 12:36 | CP.PCM.PN ---
<Subha Noriega - Last Filed: 06/15/17 13:10> Subjective - Date & Time of Evaluation Date of Evaluation: 06/15/17 Time of Evaluation: 09:50 - Subjective Subjective: Hospitalist Service Progress Note: Patient seen and examined at bedside. Per nursing no acute events overnight. Urine legionella ab positive. Patient started on Levaquin. Reports being less short of breath today, currently on HFNC. Offers no other complaints at this time. Denies headaches, dizziness, cp, palpitations, abdominal pain, urinary symptoms, changes in bowel habits. Objective - Vital Signs/Intake and Output Vital Signs (last 24 hours): Temp Pulse Resp BP Pulse Ox 98.9 F 106 H 27 H 136/82 95 06/15/17 12:00 06/15/17 12:00 06/15/17 12:00 06/15/17 12:00 06/15/17 12:00 Intake and Output: 06/15/17 06/15/17 06:59 18:59 Intake Total 850 Output Total 900 Balance -50 - Medications Medications: Current Medications Aspirin (Aspirin Chewable) 81 mg PO DAILY [facility] Last Admin: 06/15/17 09:47 Dose: 81 mg Aspirin (Aspirin) 325 mg PO Q6 PRN PRN Reason: Fever >100.4 F Atorvastatin Calcium (Lipitor) 80 mg PO HS [facility] Last Admin: 06/14/17 21:09 Dose: 80 mg Carvedilol (Coreg) 6.25 mg PO BID [facility] Last Admin: 06/15/17 09:46 Dose: 6.25 mg Meropenem 250 mg/ Sodium (Chloride) 100 mls @ 100 mls/hr IVPB Q12H [facility] PRN Reason: Protocol Stop: 06/23/17 11:01 Last Admin: 06/15/17 10:56 Dose: 100 mls/hr Levofloxacin/Dextrose (Levaquin 500mg) 500 mg in 100 mls @ 100 mls/hr IVPB DAILY [facility] Last Admin: 06/15/17 09:46 Dose: 100 mls/hr Dextrose (Dextrose 10% In Water) 500 mls @ 10 mls/hr IV .Q24H [facility] Last Admin: 06/15/17 08:20 Dose: 10 mls/hr Insulin Human Lispro (Humalog Low) 0 units SC ACHS [facility] PRN Reason: Protocol Levalbuterol HCl (Xopenex) 1.25 mg IH [id number] PRN PRN Reason: Shortness of Breath Levalbuterol HCl (Xopenex) 1.25 mg IH [id number] [facility] Methylprednisolone (Solu-Medrol) 40 mg IVP Q12 [facility] Last Admin: 06/15/17 09:46 Dose: 40 mg Ondansetron HCl (Zofran Inj) 4 mg IVP Q6H PRN PRN Reason: Nausea/Vomiting Pantoprazole Sodium (Protonix Ec Tab) 40 mg PO DAILY [facility] Last Admin: 06/15/17 09:47 Dose: 40 mg - Labs Labs: 06/15/17 05:30 06/15/17 05:30 PT 10.7 Seconds (9.9-11.8) 06/13/17 17:26 INR 0.99 (0.93-1.08) 06/13/17 17:26 APTT 35.3 Seconds (23.7-30.8) H 06/13/17 17:26 - Constitutional Appears: Non-toxic, No Acute Distress - Head Exam Head Exam: ATRAUMATIC, NORMAL INSPECTION - Eye Exam Eye Exam: EOMI, Normal appearance Pupil Exam: NORMAL ACCOMODATION, PERRL - ENT Exam ENT Exam: Mucous Membranes Moist - Neck Exam Neck Exam: Full ROM - Respiratory Exam Respiratory Exam: Rhonchi, NORMAL BREATHING PATTERN. absent: Clear to Ausculation Bilateral, Rales, Wheezes - Cardiovascular Exam Cardiovascular Exam: Tachycardia, +S1, +S2 - GI/Abdominal Exam GI & Abdominal Exam: Soft. absent: Guarding, Rigid, Tenderness - Exam Additional comments: Mas in draining tea colored cloudy urine - Extremities Exam Extremities Exam: absent: Calf Tenderness Additional comments: LE pedal edema L>R +SCDs in place - Neurological Exam Neurological Exam: Alert, Awake, Oriented x3 - Psychiatric Exam Psychiatric exam: Normal Affect, Normal Mood - Skin Skin Exam: Normal Color, Warm Assessment and Plan - Assessment and Plan (Free Text) Assessment: 51 year old male with past medical history of HTN, DLD, CHF (EF 40%), FSGS presents with shortness of breath x 1 week, currently being treated for sepsis 2 /2 multifocal pneumonia. Plan: 1. Sepsis 2/2 Multifocal Pneumonia/UTI -Last fever 102.2 at 01:48, currently afebrile -ASA 325mg Q6H prn fever -Currently on HFNC, sats 90-100s -Urine legionalla ag positive -Urine cx growing gram negative rods, f/u sensitivities -Abx: Levaquin and Merrem -CT Chest showing dense multilobar infiltrates -F/U procal, urine strep ag, rodriguez cultures -As patient is immunocompromised 2/2 chronic steroid use, will f/u CMV, cryptoccocus studies -If any new respiratory distress, may need to be intubated -ID on consult f/u recommendations -ICU management in progress 2. Acute on Chronic Kidney disease/ Hx of Focal Segmental Glomerular Sclerosis -Baseline Cr 2.5-3.0 -BUN/Cr today 87/6.1 -MARIBETH likely secondary to dehydration; Fena suggesting intrinsic cause -Continue IVF hydration -Continue Prednisone 40mg Q12H -Strict I/Os -Nephrology on consult, f/u recommendations 3. Recurrent Hypoglycemia -F/U hga1c -Continue accuchecks -No hypoglycemic events overnight -Endocrine consulted, f/u recommendations 4. Transaminitis likely 2/2 to Acetaminophen administration -AST/ALT trending up, today 246/139 -Will discontinue Tylenol, avoid hepatotoxic agents -Hepatic US ordered -F/U Hepatitis panel 5. Anemia (multifactorial) -Hgb 7.8 today; baseline 11.0 -F/U iron studies -Will continue to monitor 6. Elevated Troponins -Trops 0.26 -> 0.23 -> 0.22 (trending down) -Likely secondary to acute on chronic kidney disease -Cardiology following, f/u recommendations 7. Hx of CHF (EF 40%) -BNP 6960 on admission -F/U echo -Strict I/Os, daily weights -Lower extremity swelling noted -Extremity US negative for DVT -Cardiology on consult, f/u recommendations 8. Hx of Hypertension -Currently normotensive -Continue Coreg 9. Hx of CAD -Continue ASA and Lipitor GI/DVT ppx Protonix 40mg daily <Shreya Escobar - Last Filed: 06/15/17 14:59> Objective - Vital Signs/Intake and Output Vital Signs (last 24 hours): Temp Pulse Resp BP Pulse Ox 98.9 F 107 H 27 H 138/82 95 06/15/17 12:00 06/15/17 14:20 06/15/17 14:20 06/15/17 14:00 06/15/17 14:20 Intake and Output: 06/15/17 06/15/17 06:59 18:59 Intake Total 850 Output Total 900 Balance -50 - Medications Medications: Current Medications Aspirin (Aspirin Chewable) 81 mg PO DAILY [facility] Last Admin: 06/15/17 09:47 Dose: 81 mg Aspirin (Aspirin) 325 mg PO Q6 PRN PRN Reason: Fever >100.4 F Atorvastatin Calcium (Lipitor) 80 mg PO HS [facility] Last Admin: 06/14/17 21:09 Dose: 80 mg Carvedilol (Coreg) 6.25 mg PO BID [facility] Last Admin: 06/15/17 09:46 Dose: 6.25 mg Meropenem 250 mg/ Sodium (Chloride) 100 mls @ 100 mls/hr IVPB Q12H [facility] PRN Reason: Protocol Stop: 06/23/17 11:01 Last Admin: 06/15/17 10:56 Dose: 100 mls/hr Levofloxacin/Dextrose (Levaquin 500mg) 500 mg in 100 mls @ 100 mls/hr IVPB DAILY [facility] Last Admin: 06/15/17 09:46 Dose: 100 mls/hr Dextrose (Dextrose 10% In Water) 500 mls @ 10 mls/hr IV .Q24H [facility] Last Admin: 06/15/17 08:20 Dose: 10 mls/hr Insulin Human Lispro (Humalog Low) 0 units SC ACHS [facility] PRN Reason: Protocol Levalbuterol HCl (Xopenex) 1.25 mg IH [id number] PRN PRN Reason: Shortness of Breath Levalbuterol HCl (Xopenex) 1.25 mg IH [id number] [facility] Last Admin: 06/15/17 13:10 Dose: 1.25 mg Methylprednisolone (Solu-Medrol) 40 mg IVP Q12 [facility] Last Admin: 06/15/17 09:46 Dose: 40 mg Ondansetron HCl (Zofran Inj) 4 mg IVP Q6H PRN PRN Reason: Nausea/Vomiting Pantoprazole Sodium (Protonix Ec Tab) 40 mg PO DAILY [facility] Last Admin: 06/15/17 09:47 Dose: 40 mg - Labs Labs: 06/15/17 05:30 06/15/17 05:30 PT 10.7 Seconds (9.9-11.8) 06/13/17 17:26 INR 0.99 (0.93-1.08) 06/13/17 17:26 APTT 35.3 Seconds (23.7-30.8) H 06/13/17 17:26 Attending/Attestation - Attestation I have personally seen and examined this patient.: Yes I have fully participated in the care of the patient.: Yes I have reviewed all pertinent clinical information, including history, physical exam and plan: Yes Notes (Text): I have seen and examined the patient at bedside. Agree with the above note with the following additions/ exceptions: Briefly this is 51 year old male with history of HTN, dyslipidemia, CHF due to systolic dysfunction (EF~40%), 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 Urine legionella antigen came back positive. He was started on levaquin. Ucx is growing gram negative sarah. Continue meropenem. Patient had fever last night. Patient is on HFNC and is able to talk in complete sentences. He also was found to have acute on CKD, anemia and elevated troponins . Hypoglycemia and leukocytosis resolved. He has anemia of chronic disease. Echo and cardiology consult pending. Baseline Cr is 2.5. Today Cr is 6. FeNA suggests intrinsic cause. Renal on board. He is on chronic steroids for FSGS. Blood sugars need to be monitored closely. Mas in place and urine output is adequate. LE ultrasound negative for DVT. Upon discharge patient will follow up with Dr Dominick Pickett. Dr Shreya Escobar
--- NOTE | 2017-06-15 17:40 | US ---
HISTORY: Transaminitis COMPARISON: None. TECHNIQUE: Sonographic evaluation of the right upper quadrant of the abdomen. FINDINGS: LIVER: Measures 18.0 cm in length. Diffusely increased echogenicity of the liver parenchyma. Consistent with fatty infiltration. No mass. Smooth contour. No biliary dilatation. GALLBLADDER: Unremarkable. No gallstones. COMMON BILE DUCT: Measures 3 mm. No stones. No dilatation. PANCREAS: Unremarkable as visualized. No mass. No ductal dilatation. RIGHT KIDNEY: Measures 9.2 cm in length. Normal cortical echogenicity. Right parapelvic renal cyst, 1.2 x 1.3 x 2.0 cm. No solid mass. No calculus or hydronephrosis. AORTA: Obscured. IVC: Obscured OTHER FINDINGS: None . IMPRESSION: Limited examination due to patient body habitus. Mild hepatomegaly with fatty infiltration of the liver. Incidental 2.0 cm right parapelvic renal cyst. No evidence of biliary obstruction or cholecystitis.
[2017-06-16] MEDS: Levalbuterol 1.25 MG/3 ML Inhal Soln UD IH SCH ×4 (02:51→20:06)
--- NOTE | 2017-06-16 04:35 | PN ---
DATE: 06/15/2017 SUBJECTIVE: The patient is seen in the ICU. He is lying in bed. He appears comfortable today. He appears to be in mild respiratory distress. He denies any problems overnight. He is receiving meropenem 250 Levaquin 500 daily. PHYSICAL EXAMINATION: GENERAL: Morbidly obese, middle-age male, lying in bed in the ICU. VITAL SIGNS: Blood pressure 121/76, heart rate 115, respiratory rate 26 to 30, and temperature 99.8, T-max is 102.3. HEENT: Normocephalic, atraumatic. Positive pallor. NECK: Supple, no JVD. LUNGS: Bilateral rhonchi, bilateral equal expansion, crackles scattered. CARDIAC: S1 and S2, regular rate and rhythm, no murmur, no rub. ABDOMEN: Obese, distended, soft, bowel sounds present. EXTREMITIES: 3+ pitting edema of the lower extremities. INTAKE AND OUTPUT: 850/900. LABORATORY DATA: WBC 5.6, hemoglobin 7.8, hematocrit 23, and platelets 58. Sodium 130, potassium 4.4, chloride 97, CO2 of 18, BUN 87, creatinine 6.1, glucose 157, calcium 8.2, phosphorous 9.8, magnesium 1.8, , AST is 246, ALT 139, total protein is 5.6, albumin 2.8. Urine, Legionella positive. Urine culture Gram-negative rods. CURRENT MEDICATIONS: Aspirin, Coreg 6.25 b.i.d., 10% dextrose at 10 mL/hour, insulin, Levaquin, Lipitor, meropenem 250 q.12, Protonix, Solu-Medrol 40 q.12, and Zofran. ASSESSMENT: 1. Acute kidney injury, superimposed on chronic kidney disease stage IV, worsening renal function. 2. Multilobar Legionella pneumonia. 3. Severe anemia. 4. ?Pancytopenia 5. Nephrotic syndrome\focal segmental glomerulosclerosis. 6. History of severe hypertension. 7. Septic shock. 8. Morbid obesity. 9. Anion gap metabolic acidosis. 10. Elevated liver function tests. PLAN: 1. Continue antibiotic as per ID recommendation. 2. Monitor urine output closely. 3. Monitor daily labs. 4. May need renal replacement therapy soon. 5. Continue to monitor in the ICU. Shelly Marte MD
[2017-06-16 06:16] LABS: GRAN # 6.89 (1.4-6.5); GRAN % 96.9 % (50.0-68.0); HEMATOCRIT 24.7 % (42.0-52.0); LYMPH # 0.1 (1.2-3.4); LYMPH % 1.1 % (22.0-35.0); MEAN CORPUSCULAR HEMOGLOBIN 29.6 pg (25.0-35.0); MEAN PLATELET VOLUME 10.9 fl (7.0-11.0); MONO # 0.1 (0.1-0.6); RED CELL DISTRIBUTION WIDTH 15.6 % (11.5-14.5); WHITE BLOOD COUNT 7.1 10^3/ul (4.5-11.0)
[2017-06-16 06:34] LABS: BILIRUBIN,TOTAL 0.9 mg/dL (0.2-1.3); CALCIUM 8.8 mg/dL (8.4-10.5); PHOSPHOROUS 11.2 mg/dL (2.5-4.5); POTASSIUM 4.7 mmol/L (3.6-5.0); TOTAL PROTEIN 5.9 g/dL (5.8-8.3)
--- NOTE | 2017-06-16 08:02 | RAD ---
HISTORY: evaluate left lung infiltrate COMPARISON: Portable chest 06/15/2017. FINDINGS: LUNGS: Prominent airspace disease again at the seen affecting the left lung with only the left apex spared. Right airspace disease may be increase however patient's somewhat less rotated toward the right in this may be further on covering the right right sided infiltrate rather than demonstrating an increase. PLEURA: No pneumothorax bilaterally. No right pleural effusion. Limited left pleural effusion is not excluded once again. CARDIOVASCULAR: Cardiac silhouette is obscured by a prominent left infiltrate. No prominent pulmonary vascular derangement evident grossly. OSSEOUS STRUCTURES: No significant abnormalities. VISUALIZED UPPER ABDOMEN: Normal. OTHER FINDINGS: None. IMPRESSION: Stable prominent left-sided infiltrate with potential increase in right perihilar infiltrate.
--- NOTE | 2017-06-16 09:11 | CON ---
ENDOCRINOLOGY CONSULTATION DATE: 06/14/2017 LOCATION: In [facility]U 129, room #1. HISTORY OF PRESENT ILLNESS: This is a 51-year-old male with known history of type 2 diabetes and hypertension, currently receiving a premixed insulin regimen at home with Humalog 75/25 given as 5 units b.i.d. as noted with glipizide given as 10 mg once daily also. He was admitted here with sudden onset of shortness of breath with progressive bronchorrhea and was evaluated for acute pneumonitis with concomitant fever, chills, and generalized body weakness. PAST MEDICAL HISTORY: As mentioned above, history of type 2 insulin-requiring diabetes, on a premixed insulin regimen as mentioned; history of hypertensive cardiovascular disease and dyslipidemia; history of coronary artery disease with dilated . . FAMILY HISTORY: Positive for hypertension and heart disease, and his mother had breast cancer and glioblastoma. SOCIAL HISTORY: The patient has supportive family. No known substance use. REVIEW OF SYSTEMS: As mentioned above, admitted with generalized body weakness with easy fatigability and tiredness and suboptimal energy level. Also admits to episodic bouts of dizziness and lightheadedness, worse on the day of admission. Also admits to precordial chest pain with progressive shortness of breath especially on exertion, , and pleuritic chest pain and episodic bouts of paroxysmal nocturnal dyspnea. His oral intake has been variable and suboptimal with nausea, dyspepsia, vague upper abdominal pain. No recent alterations with bowel or urinary patterns as noted. PHYSICAL EXAMINATION: GENERAL: An obese male, in mild respiratory distress. VITAL SIGNS: Blood pressure 160/100, pulse of 110 beats per minute and regular, temperature 101, respirations 28, height 6 feet, weight is 300 pounds. HEENT: Head is normocephalic. Eyes: Anicteric with pink conjunctivae. Funduscopy not possible at this time. Ears, nose and throat otherwise normal. NECK: Supple. Thyroid gland is normal in size. No carotid bruits or cervical adenopathy. CARDIOPULMONARY: Adynamic precordium. S1 and S2 is rapid and regular. LUNGS: Scattered rhonchi. ABDOMEN: Obese and soft with positive bowel sounds. EXTREMITIES: There is +1 pedal edema. Pulses are +2 bilaterally. LABORATORY DATA: His initial chemistry showed BUN of 74, sodium 130, potassium 4.1, chloride 92, CO2 22, glucose 40 and creatinine 4.8. His glucose levels have raised from 25 to . Angela Ledezma MD
[2017-06-16] MEDS: Pantoprazole 40 mg EC Tab PO SCH (09:22)
[2017-06-16] MEDS: MethylPREDNISolone 40 mg Vial IVP SCH ×2 (09:23→22:45)
[2017-06-16] MEDS: levoFLOXacin 500 mg in D5W 500 MG/100 ML BAG IVPB SCH (09:23)
--- NOTE | 2017-06-16 10:22 | CP.PCM.PN ---
Subjective - Date & Time of Evaluation Date of Evaluation: 06/16/17 Time of Evaluation: 09:50 - Subjective Subjective: Still on high flow oxygen and still having low grade fevers overnight, not in distress at rest, no diarrhea. Objective - Vital Signs/Intake and Output Vital Signs (last 24 hours): Temp Pulse Resp BP Pulse Ox 99.9 F H 115 H 35 H 135/71 89 L 06/16/17 04:00 06/16/17 06:30 06/16/17 06:30 06/16/17 06:00 06/16/17 06:40 Intake and Output: 06/16/17 06/16/17 06:59 18:59 Intake Total 450 Output Total 900 Balance -450 - Medications Medications: Current Medications Aspirin (Aspirin Chewable) 81 mg PO DAILY [facility] Last Admin: 06/15/17 09:47 Dose: 81 mg Aspirin (Aspirin) 325 mg PO Q6 PRN PRN Reason: Fever >100.4 F Atorvastatin Calcium (Lipitor) 80 mg PO HS [facility] Last Admin: 06/15/17 21:41 Dose: 80 mg Carvedilol (Coreg) 6.25 mg PO BID [facility] Last Admin: 06/15/17 17:14 Dose: 6.25 mg Meropenem 250 mg/ Sodium (Chloride) 100 mls @ 100 mls/hr IVPB Q12H [facility] PRN Reason: Protocol Stop: 06/23/17 11:01 Last Admin: 06/15/17 23:35 Dose: 100 mls/hr Levofloxacin/Dextrose (Levaquin 500mg) 500 mg in 100 mls @ 100 mls/hr IVPB QOTHERDAY [facility] Insulin Human Lispro (Humalog Low) 0 units SC ACHS [facility] PRN Reason: Protocol Levalbuterol HCl (Xopenex) 1.25 mg IH [id number] PRN PRN Reason: Shortness of Breath Levalbuterol HCl (Xopenex) 1.25 mg IH [id number] [facility] Last Admin: 06/16/17 07:28 Dose: 1.25 mg Methylprednisolone (Solu-Medrol) 40 mg IVP Q12 [facility] Last Admin: 06/15/17 21:41 Dose: 40 mg Ondansetron HCl (Zofran Inj) 4 mg IVP Q6H PRN PRN Reason: Nausea/Vomiting Pantoprazole Sodium (Protonix Ec Tab) 40 mg PO DAILY [facility] Last Admin: 06/15/17 09:47 Dose: 40 mg - Labs Labs: 06/16/17 05:50 06/16/17 05:50 PT 10.7 Seconds (9.9-11.8) 06/13/17 17:26 INR 0.99 (0.93-1.08) 06/13/17 17:26 APTT 35.3 Seconds (23.7-30.8) H 06/13/17 17:26 - Constitutional Appears: Other (on high flow oxygen) - Head Exam Head Exam: NORMAL INSPECTION - Neck Exam Neck Exam: absent: Meningismus - Respiratory Exam Respiratory Exam: Decreased Breath Sounds - Cardiovascular Exam Cardiovascular Exam: +S1, +S2 - GI/Abdominal Exam GI & Abdominal Exam: Soft. absent: Tenderness Assessment and Plan - Assessment and Plan (Free Text) Plan: Assessment Severe sepsis with acute on chronic renal failure due to multilobar Legionella pneumonia, as well as Pseudomonas UTI morbid obesity with BMI 41 HTN DM dyslipidemia chronic renal failure with focal segmental glomerulonephritis chronic CHF Plan Continue Merrem and Levaquin (day 3), renally-adjusted especially since renal failure is worsening Continue to monitor clinically, monitor oxygenation, trend fever curve
--- NOTE | 2017-06-16 10:55 | PN ---
ENDO FOLLOWUP NOTE DATE: 06/15/2017 LOCATION: In [facility] 129 room 1. SUBJECTIVE: This is a 51-year-old male with recent admission for acute pneumonitis and concomitant marked symptomatic hypoglycemic episodes and is now being followed closely for metabolic management. He was also started on IV steroid therapy with Solu-Medrol given as 40 mg IV push every 12 hours as ordered. His glycemic levels are fluctuating as noted with glucose levels today ranging from 164 to 172 and 181 mg/dL. His latest chemistry showed a BUN of 87, sodium 130, potassium 4.4, chloride 97, CO2 of 18, glucose 157 and creatinine 6.1. He also has advanced azotemia with progressive renal insufficiency as noted. So, at this time we will hold off any insulin coverage, but if hyperglycemic levels supervene over the next day also because of the IV steroid therapy and associated increased insulin resistance thereof, then we will start him on the low dose basal insulin with Levemir given twice daily as indicated. We will follow and advise accordingly. Angela Ledezma MD
--- NOTE | 2017-06-16 11:43 | PN ---
DATE: 06/16/2017 SUBJECTIVE: The patient is seen and examined at bedside. He is still on high-flow with FiO2 of 85% and flow 50 L per minute. His oxygen saturation is 95%. He subjectively reports feeling better. His chest x-ray showed Left lobar infiltrate and questionably worsening of the right hilar infiltrate as well. PHYSICAL EXAMINATION: VITAL SIGNS: Oxygen saturation 95%, respiratory rate 30 (32), blood pressure 118/74, heart rate 106, temperature 99.9 with T-max 100.3. ENT, HEAD AND NECK: Atraumatic. LUNGS: Crackles bibasilarly. HEART: Regular rate and rhythm. S1 and S2 normal. ABDOMEN: Soft, nontender, and nondistended. MUSCULOSKELETAL EXAM: There is bilateral pedal and ankle edema. SKIN: Moist. PSYCHIATRIC: The patient is alert and oriented x3. not in respiratory distress. LABORATORY DATA: Sodium 130, potassium 4.7, chloride 96, carbon dioxide 16, BUN 116, creatinine 6.6, glucose 149. WBC 7.1, hemoglobin 8.4, platelet count 80. INR of 0.99. ABG yesterday 7.39/ on 90% FiO2. Urine positive for legionella. MEDICATIONS: Aspirin, Lipitor, Coreg, Xopenex p.r.n., levofloxacin, meropenem, Solu-Medrol 40 mg IV q. 12, Zofran p.r.n. and Protonix. ASSESSMENT AND PLAN: This is a 51-year-old gentleman with history of focal segmental glomerular sclerosis, on chronic steroid therapy, who presented with hypoxemic respiratory failure secondary to legionella community-acquired pneumonia. The patient is on high-flow oxygen with high FiO2. He is subjectively doing better. However still tachypneic and his respiratory status remains teneuous. The patient is on levofloxacin. Appropriateness of double coverage for Legionella was discussed with Dr. Jones, however as per ID service, as there is no data on advantages of double coverage for Legionella over monotherapy, monotherapy will continue. We will continue with conservative oxygen (with HFO2) and conservative fluid management. Maintaining conservative fluid balance may potentially become challenging as the patient has chronic kidney disease complicated by acute kidney injury. If the patient continues to be oliguric, he may need renal replacement therapy according to nephrology service. Patient is on chronic steroids for FSGS and currently in the process of gradual taper by nephrology service. We will be careful however and monitor for any signs of BP drop to avoid adrenal insufficiency. At present time, however, the patient is doing subjectively better. We will continue close monitoring in the intensive care unit. We will continue with deep venous thrombosis and gastrointestinal prophylaxis with head of bed elevated to ?35 degrees. We will get septic workup. Addendum: spoke with Dr. Marte--will have urgent HD, catheter placed, nephro service notified. ccm time 40 min Elvis Cuellar MD MTDD
--- NOTE | 2017-06-16 12:51 | CP.PCM.PN ---
<Subha Noriega - Last Filed: 06/17/17 13:05> Subjective - Date & Time of Evaluation Date of Evaluation: 06/16/17 Time of Evaluation: 07:30 - Subjective Subjective: Hospitalist Service Progress Note: Patient seen and examined at bedside. Per nursing no acute events overnight. States sob improving, still coughing. Wants to be OOB to chair. Offers no other complaints at this time. Denies headache, dizziness, cp, palpitations, abdominal pain, urinary symptoms, changes in bowel habits. Objective - Vital Signs/Intake and Output Vital Signs (last 24 hours): Temp Pulse Resp BP Pulse Ox 99.9 F H 111 H 36 H 121/57 L 93 L 06/16/17 04:00 06/16/17 11:50 06/16/17 11:50 06/16/17 11:00 06/16/17 11:50 Intake and Output: 06/16/17 06/16/17 06:59 18:59 Intake Total 450 Output Total 900 Balance -450 - Medications Medications: Current Medications Aspirin (Aspirin Chewable) 81 mg PO DAILY [facility] Last Admin: 06/16/17 09:22 Dose: 81 mg Aspirin (Aspirin) 325 mg PO Q6 PRN PRN Reason: Fever >100.4 F Atorvastatin Calcium (Lipitor) 80 mg PO HS [facility] Last Admin: 06/15/17 21:41 Dose: 80 mg Meropenem 250 mg/ Sodium (Chloride) 100 mls @ 100 mls/hr IVPB Q12H [facility] PRN Reason: Protocol Stop: 06/23/17 11:01 Last Admin: 06/16/17 12:19 Dose: 100 mls/hr Levofloxacin/Dextrose (Levaquin 500mg) 500 mg in 100 mls @ 100 mls/hr IVPB QOTHERDAY [facility] Last Admin: 06/16/17 09:23 Dose: 100 mls/hr Insulin Human Lispro (Humalog Low) 0 units SC ACHS [facility] PRN Reason: Protocol Levalbuterol HCl (Xopenex) 1.25 mg IH [id number] PRN PRN Reason: Shortness of Breath Levalbuterol HCl (Xopenex) 1.25 mg IH [id number] [facility] Last Admin: 06/16/17 07:28 Dose: 1.25 mg Methylprednisolone (Solu-Medrol) 40 mg IVP Q12 [facility] Last Admin: 06/16/17 09:23 Dose: 40 mg Ondansetron HCl (Zofran Inj) 4 mg IVP Q6H PRN PRN Reason: Nausea/Vomiting Pantoprazole Sodium (Protonix Ec Tab) 40 mg PO DAILY [facility] Last Admin: 06/16/17 09:22 Dose: 40 mg Verapamil HCl (Calan Tab) 40 mg PO TID [facility] - Labs Labs: 06/16/17 05:50 06/16/17 05:50 PT 10.7 Seconds (9.9-11.8) 06/13/17 17:26 INR 0.99 (0.93-1.08) 06/13/17 17:26 APTT 35.3 Seconds (23.7-30.8) H 06/13/17 17:26 - Constitutional Appears: Non-toxic, No Acute Distress - Head Exam Head Exam: ATRAUMATIC, NORMAL INSPECTION - Eye Exam Eye Exam: EOMI, Normal appearance - ENT Exam ENT Exam: Mucous Membranes Moist Additional comments: HFNC on 50L - Neck Exam Neck Exam: Full ROM - Respiratory Exam Respiratory Exam: Rhonchi, Wheezes. absent: Rales - Cardiovascular Exam Cardiovascular Exam: REGULAR RHYTHM, +S1, +S2 - GI/Abdominal Exam GI & Abdominal Exam: Distended, Soft. absent: Guarding, Rigid, Tenderness - Extremities Exam Extremities Exam: Pedal Edema. absent: Calf Tenderness Additional comments: +SCDS and Heel protectors - Back Exam Back Exam: NORMAL INSPECTION - Neurological Exam Neurological Exam: Alert, Awake - Psychiatric Exam Psychiatric exam: Normal Affect, Normal Mood - Skin Skin Exam: Dry, Normal Color, Warm Assessment and Plan - Assessment and Plan (Free Text) Assessment: 51 year old male with past medical history of HTN, DLD, CHF (EF 40%), FSGS presents with shortness of breath x 1 week, currently being treated for sepsis 2 /2 multifocal pneumonia. Plan: 1. Sepsis 2/2 Multifocal Pneumonia/UTI -Currently afebrile -ASA 325mg Q6H prn fever -Currently on HFNC, sats 90-100s -Urine legionalla ag positive -Urine cx growing gram negative rods, f/u sensitivities -Abx: Levaquin and Merrem -CT Chest showing dense multilobar infiltrates -F/U procal, urine strep ag, rodriguez cultures -As patient is immunocompromised 2/2 chronic steroid use, will f/u CMV, cryptoccocus studies -If any new respiratory distress, may need to be intubated -ID on consult f/u recommendations -ICU management in progress 2. Acute on Chronic Kidney disease/ Hx of Focal Segmental Glomerular Sclerosis -Baseline Cr 2.5-3.0 -BUN/Cr today 116/6.6 -MARIBETH likely secondary to dehydration; Fena suggesting intrinsic cause -Continue IVF hydration -Taper Prednisone 30mg Q12H -Strict I/Os -Nephrology on consult, f/u recommendations 3. Recurrent Hypoglycemia -Continue accuchecks -No hypoglycemic events overnight -Endocrine consulted, f/u recommendations 4. Transaminitis likely 2/2 to Acetaminophen administration -AST/ALT trending up, today 323/220 -Avoid hepatotoxic agents -Hepatic US ordered -F/U Hepatitis panel 5. Anemia (multifactorial) -Hgb 7.8 today; baseline 11.0 -F/U iron studies -Will continue to monitor 6. Elevated Troponins -Trops 0.26 -> 0.23 -> 0.22 (trending down) -Likely secondary to acute on chronic kidney disease -Cardiology following, f/u recommendations 7. Hx of CHF (EF 40%) -BNP 6960 on admission -F/U echo -Strict I/Os, daily weights -Lower extremity swelling noted -Extremity US negative for DVT -Cardiology on consult, f/u recommendations 8. Hx of Hypertension -Currently normotensive -Continue Verapamil -Coreg on hold for bronchospasm 9. Hx of CAD -Continue ASA and Lipitor GI/DVT ppx Protonix 40mg daily SCDs <Gladys Sosa - Last Filed: 06/17/17 17:18> Objective - Vital Signs/Intake and Output Vital Signs (last 24 hours): Temp Pulse Resp BP Pulse Ox 98.8 F 127 H 33 H 125/80 90 L 06/17/17 12:00 06/17/17 15:20 06/17/17 14:40 06/17/17 15:00 06/17/17 15:20 - Medications Medications: Current Medications Atorvastatin Calcium (Lipitor) 80 mg PO HS [facility] Last Admin: 06/16/17 22:48 Dose: 80 mg Atovaquone (Mepron) 750 mg PO BID [facility] Stop: 06/26/17 10:46 Heparin Sodium (Porcine) (Heparin) 5,000 units SC Q12H [facility] PRN Reason: Protocol Last Admin: 06/17/17 08:49 Dose: 5,000 units Meropenem 250 mg/ Sodium (Chloride) 100 mls @ 100 mls/hr IVPB Q12H [facility] PRN Reason: Protocol Stop: 06/23/17 11:01 Last Admin: 06/17/17 15:00 Dose: 100 mls/hr Levofloxacin/Dextrose (Levaquin 500mg) 500 mg in 100 mls @ 100 mls/hr IVPB QOTHERDAY [facility] Last Admin: 06/16/17 09:23 Dose: 100 mls/hr NOREPINEPHRINE BIT/0.9 % NACL (Levophed 4 Mg/ 250 Ml Ns Premixed) 4 mg in 250 mls @ 18.75 mls/hr IV .[id number] PRN; Protocol; 5 MCG/MIN PRN Reason: TITRATE PER MD ORDER Fentanyl Citrate (Fentanyl Citrate/Sodium Chloride 1 Mg/100 Ml) 1,000 mcg in 100 mls @ 2 mls/hr IV .Q24H PRN; Protocol; 20 MCG/HR PRN Reason: TITRATE PER MD ORDER Doxycycline Hyclate 100 mg/ (Sodium Chloride) 100 mls @ 100 mls/hr IVPB Q12 [facility] PRN Reason: Protocol Midazolam 100 mg/100ml in NS (Midazolam 100 Mg/100ml In Ns) 100 mg in 100 mls @ 10 mls/hr IV .Q10H PRN; Protocol; 10 MG/HR PRN Reason: tachypnea Last Admin: 06/17/17 16:48 Dose: 10 mg/hr, 10 mls/hr Cisatracurium Besylate 100 mg/ (Sodium Chloride) 260 mls @ 20.45 mls/hr IV .[id number] PRN; Protocol; 1 MCG/KG/MIN PRN Reason: TITRATE PER PROTOCOL Last Admin: 06/17/17 16:47 Dose: 1 mcg/kg/min, 20.45 mls/hr Acetaminophen (Ofirmev) 1,000 mg in 100 mls @ 400 mls/hr IVPB Q6H PRN PRN Reason: T>101.9 Stop: 06/19/17 16:13 Insulin Human Lispro (Humalog Low) 0 units SC ACHS [facility] PRN Reason: Protocol Levalbuterol HCl (Xopenex) 1.25 mg IH [id number] PRN PRN Reason: Shortness of Breath Levalbuterol HCl (Xopenex) 1.25 mg IH [id number] [facility] Last Admin: 06/17/17 15:30 Dose: 1.25 mg Methylprednisolone (Solu-Medrol) 30 mg IVP Q12 [facility] Last Admin: 06/17/17 09:45 Dose: 30 mg Midazolam HCl (Versed Inj) 4 mg IVP Q4H [facility] Ondansetron HCl (Zofran Inj) 4 mg IVP Q6H PRN PRN Reason: Nausea/Vomiting Pantoprazole Sodium (Protonix Inj) 40 mg IVP DAILY [facility] Last Admin: 06/17/17 09:47 Dose: 40 mg Verapamil HCl (Calan Tab) 40 mg PO TID [facility] Last Admin: 06/17/17 15:13 Dose: Not Given - Labs Labs: 06/17/17 06:14 06/17/17 07:23 PT 10.7 Seconds (9.9-11.8) 06/13/17 17:26 INR 0.99 (0.93-1.08) 06/13/17 17:26 APTT 35.3 Seconds (23.7-30.8) H 06/13/17 17:26 Attending/Attestation - Attestation I have personally seen and examined this patient.: Yes I have fully participated in the care of the patient.: Yes I have reviewed all pertinent clinical information, including history, physical exam and plan: Yes Notes (Text): 06/17/17 17:09 attending note; Patient seen and examined with the resident in ICU. Patient is alert, awake. On high flow oxygen. Patient is a 51 year old male with history of HTN, dyslipidemia, CHF due to systolic dysfunction (EF~40%), FSGS on chronic steroids who presented with SOB and found to have multifocal legionella pneumonia. on levaquin. E. coli UTI. Continue meropenem. acute on CKD: monitor creatinine closely.follow-up with nephrology. might need HD. anemia; secondary to CKD/iron deficiency anemia. elevated troponins ; Possibly secondary to demand ischemia. Cardiology evaluation requested. Follow up echo results.Monitor troponin trend. LE ultrasound negative for DVT. Monitor patient closely in CCU. Upon discharge patient will follow up with Dr. Dominick Pickett.
[2017-06-16] MEDS ORDERED: MethylPREDNISolone 40 mg Vial IVP SCH (12:53)
--- NOTE | 2017-06-16 14:30 | CON ---
DATE: 06/16/2017 CONSULT SERVICE: Cardiology. REASON FOR THE CONSULTATION: Paroxysmal atrial fibrillation, admitted with shortness of breath, acute kidney injury and morbid obesity. BRIEF CLINICAL HISTORY: This is a 51-year-old male with past medical history of chronic renal insufficiency admitted with shortness of breath, possible pneumonia, sepsis, went to atrial fibrillation and cardiology consult was called. The patient denies any chest pain, shortness of breath or any palpitation. PAST MEDICAL HISTORY: Significant for hypertension, diabetes, morbid obesity, renal insufficiency, hyperlipidemia, decreased LV function and cardiomyopathy. PREVIOUS CARDIAC WORKUP: As follows: The patient had a stress test on 02/26/2017, essentially normal myocardial perfusion study and ejection fraction 59%. The patient did echocardiography on 01/28/2017 that showed concentric LVH function impaired, global hypokinesis of left ventricle, mitral regurgitation moderate, calculated ejection fraction 40% and RVSP 50. FAMILY HISTORY: Significant for father with glioblastoma multiforme and mother with breast CA. PAST SURGICAL HISTORY: The patient had renal biopsy done and found to be significant for FSGS and renal insufficiency. SOCIAL HISTORY: Denies smoking. Denies any history of alcohol abuse. Denies any history of substance abuse. ALLERGIES: NO KNOWN DRUG ALLERGIES. CURRENT MEDICATIONS: The patient at home was taking prednisone, insulin, clonidine, Lasix, amlodipine, Coreg, Lipitor and aspirin. REVIEW OF SYSTEMS: As per HPI. Getting short of breath and admitted here. PHYSICAL EXAMINATION: VITAL SIGNS: Temperature afebrile, heart rate 110 and blood pressure 121/57. HEENT: PERRLA. Extraocular muscles intact. NECK: Supple. No carotid bruit. No thyromegaly. CHEST: Clear to auscultation. HEART: S1 and S2 regular. ABDOMEN: Soft. EXTREMITIES: Clubbing and cyanosis negative. LABORATORY DATA: Blood workup as follows: WBC 7.1, hemoglobin , hematocrit 24.7 and platelet count 80. Chemistry shows sodium 130, potassium 4.0, chloride 96, carbon dioxide 16, anion gap of 23, BUN 116 and creatinine 6.6. Admitting EKG showed normal sinus and T-wave inversion in II, III and aVF. Telemetry shows atrial fibrillation. IMPRESSION: Multilobar pneumonia, sepsis, anemia, acute kidney injury, history of chronic renal insufficiency, morbid obesity, body mass index 39.5 kg per m2, paroxysmal atrial fibrillation, diabetes, hypertension and hyperlipidemia. RECOMMENDATION: Probably, the shortness of breath is secondary to underlying condition, pneumonia and sepsis. We will start verapamil 40 t.i.d. and follow with you. If the patient in 24 hours, we will discuss considering anticoagulation. His borderline troponin 0.26 in phase of acute kidney injury is not significant. Recent stress test is normal, but we will see the trend is up and we will treat as an unstable angina, but if trend is down then probably not significant though the patient has underlying risk factor of CAD. We will closely monitor with you. Thank you Dr. Escobar for providing me the opportunity in taking care of the patient, Jeff Liriano. We will also get the lipid profile, TSH, hemoglobin and a repeat echo. We will follow with you. Ez Lynch MD
--- NOTE | 2017-06-16 15:58 | PN ---
ENDO FOLLOWUP NOTE LOCATION: CCU 129, room #1. SUBJECTIVE: This is a 51-year-old male with recent uncontrolled type 2 insulin-requiring diabetes, presenting here with symptomatic hypoglycemia and associated neuroglycopenic and hyperadrenergic manifestations of the same. He also has a concomitant acute pneumonitis and currently receiving IV antibiotic management as noted. He also has been started on IV steroid therapy as noted with Solu-Medrol given as 30 mg IV q. 12 hours as ordered. His latest glucose levels are fluctuating, but improved and the latest levels have ranged from 163 to 175 mg/dL. Latest chemistry showed a BUN of 116, sodium 130, potassium 4.7, chloride 96, CO2 of 16, glucose is 149, and creatinine is 6.6. He also has advanced azotemia with endstage renal disease as this time as noted. So, for now, we will continue the serial glycemic profile monitoring as ordered and hold off any kind of basal insulin because he is currently on IV steroid therapy which will increase insulin resistance and further impair glucose tolerance thereof. However, if hyperglycemic levels supervene, then we will start him on a low dose of basal insulin given twice daily as indicated. We will follow. Angela Ledezma MD
--- NOTE | 2017-06-16 17:09 | PN ---
DATE: 06/16/2017 SUBJECTIVE: The patient is seen lying in bed. He is on high-flow oxygen. He is in moderate respiratory distress. He is breathing at about 35-40 respirations per minute. He appears tachycardic, but he is feels okay. He complains of bad taste in his mouth. He denies any nausea, vomiting. He has not eaten since Friday. He denies any abdominal pain. He denies any chest tightness. PHYSICAL EXAMINATION: GENERAL: Morbidly obese middle-aged male, lying in bed in the ICU in moderate distress. VITAL SIGNS: Blood pressure 108/60, heart rate 121, respiratory rate 34-40, temperature 101.8. HEENT: Normocephalic, atraumatic. Positive pallor. NECK: Supple. No JVD. LUNGS: Bilateral equal air entry, bilateral rhonchi, crackles left upper zone, equal expansion. CARDIAC: S1 and S2, tachycardia. No murmur, no rub. ABDOMEN: Obese, distended, soft, nontender, bowel sounds present. EXTREMITIES: 3+ pitting edema of the lower extremities. Intake and output 690/1700. LABORATORY DATA: WBC 7, hemoglobin 8.4, hematocrit 24.7, platelets 80. Sodium 130, potassium 4.7, chloride 96, CO2 16, BUN 116, creatinine 6.6, glucose 149, calcium 8.8, phosphorus 11.2, magnesium 2.0, AST 323, ALT 220. Urine culture: Pseudomonas, sensitive to ciprofloxacin and cefepime and gentamicin, imipenem, and meropenem. Blood cultures, no growth so far. Chest x-ray: Left-sided infiltrate with potential increase in right perihilar infiltrate. CURRENT MEDICATIONS: Aspirin, 40 t.i.d., insulin, Levaquin 500 mg every other day, Lipitor 80 mg, meropenem 250 mg q.12, Protonix, Solu-Medrol 40 mg IV q.12, Xopenex, Zofran, Coreg 6.125 mg b.i.d., Lasix 60 mg IV push given yesterday at 06:00 p.m. ASSESSMENT: 1. Acute kidney injury, progressive deterioration of renal function. 2. Nonoliguric. 3. Respiratory failure, bilateral pneumonia, respiratory alkalosis. 4. Metabolic acidosis. 5. Severe anemia. 6. Hypoglycemia, likely secondary to sepsis, adrenal suppression. 7. Morbid obesity. 8. History of hypertensive nephrosclerosis plus focal segmental glomerulosclerosis. 9. Nephrotic syndrome. 10. Immunocompromised state. 11. Multilobar legionella pneumonia. PLAN: 1. The patient's condition is deteriorating. He has some uremic symptoms. His renal function is deteriorating. His respiratory function is also getting worse. 2. He has severe multilobar pneumonia. 3. At this time, in light of his worsening acidosis, respiratory status, renal function, the patient needs acute dialysis. Long discussion with ICU staff, ICU resident, pan operator. We will initiate dialysis. 4. Taper steroids as possible. 5. Continue antibiotics. 6. Continue close monitoring in the ICU. More than 35 minutes was spent in the care of this critically ill patient. Shelly Marte MD
[2017-06-17 00:19] LABS: ARTERIAL BLOOD GAS HCO3 20.6 mmol/L (21-28); ARTERIAL BLOOD GAS O2 CONTENT 12.8 ML/dl (15-23); ARTERIAL BLOOD GAS PH 7.49 (7.35-7.45); ARTERIAL BLOOD HGB O2 SAT 78.2 % (95.0-98.0); CARBOXYHEMOGLOBIN 1.4 % (0.5-1.5); HHB 19.4 % (0-5); METHEMOGLOBIN 0.9 % (0.0-3.0)
--- NOTE | 2017-06-17 00:39 | OP ---
PROCEDURE DATE: 06/16/2017 PROCEDURE: Hemodialysis catheter placement. INDICATION: Emergent dialysis. DESCRIPTION OF PROCEDURE: After obtaining an informed consent, operation area was sterilized. Maximum barrier precautions used. Common femoral vein was visualized and cannulated under real time ultrasound-guidance according to modified Seldinger technique. Guidewire removed. Hemostasis achieved. Sterile dressing applied. Elvis Cuellar MD MTDDillon
[2017-06-17] MEDS: Levalbuterol 1.25 MG/3 ML Inhal Soln UD IH SCH ×5 (01:16→19:34)
[2017-06-17 05:43] LABS: ARTERIAL BLOOD GAS HCO3 21.1 mmol/L (21-28); ARTERIAL BLOOD GAS O2 CAPACITY 13.9 mL/dl (16-24); ARTERIAL BLOOD GAS O2 CONTENT 13.3 ML/dl (15-23); ARTERIAL BLOOD GAS PH 7.47 (7.35-7.45); ARTERIAL BLOOD HGB O2 SAT 94.2 % (95.0-98.0); CARBOXYHEMOGLOBIN 0.8 % (0.5-1.5); HHB 4.5 % (0-5); METHEMOGLOBIN 0.5 % (0.0-3.0)
[2017-06-17 06:58] LABS: BASO # 0.01 K/mm3 (0.0-2.0); BASO % 0.1 % (0.0-3.0); GRAN # 10.66 (1.4-6.5); GRAN % 96.8 % (50.0-68.0); LYMPH # 0.2 (1.2-3.4); LYMPH % 1.7 % (22.0-35.0); MEAN CELL VOLUME 88.7 fl (80.0-105.0); MEAN CORPUSCULAR HEMOGLOBIN 29.6 pg (25.0-35.0); MEAN CORPUSCULAR HGB CONC 33.3 g/dl (31.0-37.0); MEAN PLATELET VOLUME 10.8 fl (7.0-11.0); MONO # 0.2 (0.1-0.6); MONO % 1.4 % (1.0-6.0); PLATELET COUNT 79 10^3/uL (120.0-450.0)
[2017-06-17 07:08] LABS: CHOLESTEROL 58 mg/dL (130-200); MAGNESIUM 2.1 mg/dL (1.7-2.2); PHOSPHOROUS 8.8 mg/dL (2.5-4.5)
[2017-06-17 07:16] LABS: HEMATOCRIT 22.8 % (42.0-52.0)
--- NOTE | 2017-06-17 07:31 | CP.PCM.PN ---
<Subha Noriega - Last Filed: 06/18/17 15:35> Subjective - Date & Time of Evaluation Date of Evaluation: 06/17/17 Time of Evaluation: 07:10 - Subjective Subjective: Hospitalist Service Progress Note: Patient seen and examined at bedside. Per nursing, patient was placed on bipap yesterday for desaturation. Patient also was having temps overnight. T Max 102.4. Currently patient is on bipap, breathing well. Wants to take bipap off for 10 minutes. Patient went for HD yesterday. Denies any headaches, dizziness, cp, palpitations, abdominal pain, urinary symptoms. Objective - Vital Signs/Intake and Output Vital Signs (last 24 hours): Temp Pulse Resp BP Pulse Ox 100.1 F H 92 H 30 H 116/62 95 06/17/17 04:00 06/17/17 06:30 06/17/17 06:30 06/17/17 04:00 06/17/17 06:30 - Medications Medications: Current Medications Aspirin (Aspirin Chewable) 81 mg PO DAILY [facility] Last Admin: 06/16/17 09:22 Dose: 81 mg Aspirin (Aspirin) 325 mg PO Q6 PRN PRN Reason: Fever >100.4 F Last Admin: 06/16/17 19:31 Dose: 325 mg Atorvastatin Calcium (Lipitor) 80 mg PO HS [facility] Last Admin: 06/16/17 22:48 Dose: 80 mg Meropenem 250 mg/ Sodium (Chloride) 100 mls @ 100 mls/hr IVPB Q12H [facility] PRN Reason: Protocol Stop: 06/23/17 11:01 Last Admin: 06/16/17 22:45 Dose: 100 mls/hr Levofloxacin/Dextrose (Levaquin 500mg) 500 mg in 100 mls @ 100 mls/hr IVPB QOTHERDAY [facility] Last Admin: 06/16/17 09:23 Dose: 100 mls/hr Insulin Human Lispro (Humalog Low) 0 units SC ACHS [facility] PRN Reason: Protocol Levalbuterol HCl (Xopenex) 1.25 mg IH [id number] PRN PRN Reason: Shortness of Breath Levalbuterol HCl (Xopenex) 1.25 mg IH [id number] [facility] Last Admin: 06/17/17 03:08 Dose: 1.25 mg Methylprednisolone (Solu-Medrol) 30 mg IVP Q12 [facility] Last Admin: 06/16/17 22:45 Dose: 30 mg Ondansetron HCl (Zofran Inj) 4 mg IVP Q6H PRN PRN Reason: Nausea/Vomiting Pantoprazole Sodium (Protonix Ec Tab) 40 mg PO DAILY [facility] Last Admin: 06/16/17 09:22 Dose: 40 mg Verapamil HCl (Calan Tab) 40 mg PO TID [facility] Last Admin: 06/16/17 22:46 Dose: 40 mg - Labs Labs: 06/17/17 06:14 06/16/17 05:50 PT 10.7 Seconds (9.9-11.8) 06/13/17 17:26 INR 0.99 (0.93-1.08) 06/13/17 17:26 APTT 35.3 Seconds (23.7-30.8) H 06/13/17 17:26 - Constitutional Appears: Non-toxic, In Acute Distress - Head Exam Head Exam: ATRAUMATIC, NORMAL INSPECTION Additional comments: On Bipap - Eye Exam Eye Exam: EOMI, Normal appearance - ENT Exam ENT Exam: Mucous Membranes Moist - Neck Exam Neck Exam: Full ROM - Respiratory Exam Respiratory Exam: Decreased Breath Sounds, Rhonchi, Wheezes, Respiratory Distress - Cardiovascular Exam Cardiovascular Exam: REGULAR RHYTHM, +S1, +S2 - GI/Abdominal Exam GI & Abdominal Exam: Distended, Soft. absent: Guarding, Rigid, Tenderness - Rectal Exam Rectal Exam: Deferred - Exam Additional comments: Mas in draining clear yellow urine - Extremities Exam Additional comments: +2 edema in b/l LE +HD catheter located in R groin - Back Exam Back Exam: NORMAL INSPECTION - Neurological Exam Neurological Exam: Alert, Awake, Oriented x3 - Psychiatric Exam Psychiatric exam: Normal Affect, Normal Mood - Skin Skin Exam: Dry, Normal Color, Warm Assessment and Plan - Assessment and Plan (Free Text) Assessment: 51 year old male with past medical history of HTN, DLD, CHF (EF 40%), FSGS presents with shortness of breath x 1 week, currently being treated for sepsis 2 /2 multifocal pneumonia. Plan: 1. Sepsis 2/2 Multifocal Pneumonia/UTI -Currently afebrile -Ice packs prn fever -Currently on bipap, sats 90s -Urine legionalla ag positive -Urine cx growing gram negative rods, f/u sensitivities -Abx: Levaquin and Merrem -Atovaquone also added today -CXR today showing dense alveolar infiltrates bilaterally throughout L lug and at R lung base -As patient is immunocompromised 2/2 chronic steroid use, will f/u CMV, cryptoccocus studies -If any new respiratory distress, may need to be intubated -ID on consult f/u recommendations -ICU management in progress 2. Acute on Chronic Kidney disease/ Hx of Focal Segmental Glomerular Sclerosis -Baseline Cr 2.5-3.0 -BUN/Cr today 101/5.8 -MARIBETH likely secondary to dehydration; Fena suggesting intrinsic cause -Went for dialysis yesterday, will go for dialysis again today -Continue Prednisone 30mg Q12H -Strict I/Os -Nephrology on consult, f/u recommendations 3. Recurrent Hypoglycemia -Continue accuchecks -No hypoglycemic events overnight -Endocrine consulted, f/u recommendations 4. Transaminitis likely 2/2 to Acetaminophen administration -AST/ALT today 323/220 -Avoid hepatotoxic agents -Hepatic US showing mild hepatomegaly with fatty infiltration of the liver -F/U Hepatitis panel 5. Anemia (multifactorial) -Hgb 8.4 today; baseline 11.0 -Iron studies suggests iron deficient component -Will continue to monitor 6. Thrombocytopenia -Appears to have stabilized -Will continue to monitor 7. Elevated Troponins -Trops 0.26 -> 0.23 -> 0.22 --> 0.17 (trending down) -Likely secondary to acute on chronic kidney disease -Cardiology following, f/u recommendations 8. Hx of CHF (EF 40%) -BNP 6960 on admission -Strict I/Os, daily weights -Lower extremity swelling noted -Extremity US negative for DVT -Cardiology on consult, f/u recommendations 9. Hx of Hypertension -Currently normotensive -Continue Verapamil -Coreg held for bronchospasm 10. Hx of CAD -Continue ASA and Lipitor GI/DVT ppx Protonix 40mg daily Heparin 5000 Q12H <Gladys Sosa - Last Filed: 06/18/17 15:51> Objective - Vital Signs/Intake and Output Vital Signs (last 24 hours): Temp Pulse Resp BP Pulse Ox 100.4 F H 93 H 17 80/43 L 84 L 06/18/17 14:45 06/18/17 14:45 06/18/17 08:39 10/04/17 14:45 06/18/17 14:45 Intake and Output: 06/18/17 06/18/17 06:59 18:59 Intake Total 8 680 Output Total 45 Balance 2033 680 - Medications Medications: Current Medications Artificial Tears (Artificial Tears Opht Oint) 1 gm OU Q4H [facility] Last Admin: 06/18/17 11:47 Dose: 1 applic Atorvastatin Calcium (Lipitor) 80 mg PO HS [facility] Last Admin: 06/17/17 22:28 Dose: 80 mg Atovaquone (Mepron) 750 mg PO BID [facility] Stop: 06/26/17 10:46 Last Admin: 06/18/17 09:33 Dose: 750 mg Meropenem 250 mg/ Sodium (Chloride) 100 mls @ 100 mls/hr IVPB Q12H [facility] PRN Reason: Protocol Stop: 06/23/17 11:01 Last Admin: 06/18/17 10:51 Dose: 100 mls/hr Levofloxacin/Dextrose (Levaquin 500mg) 500 mg in 100 mls @ 100 mls/hr IVPB QOTHERDAY [facility] Last Admin: 06/18/17 09:33 Dose: 100 mls/hr Fentanyl Citrate (Fentanyl Citrate/Sodium Chloride 1 Mg/100 Ml) 1,000 mcg in 100 mls @ 2 mls/hr IV .Q24H PRN; Protocol; 20 MCG/HR PRN Reason: TITRATE PER MD ORDER Last Admin: 06/18/17 08:47 Dose: 100 mcg/hr, 10 mls/hr Doxycycline Hyclate 100 mg/ (Sodium Chloride) 100 mls @ 100 mls/hr IVPB Q12 [facility] PRN Reason: Protocol Last Admin: 06/18/17 09:27 Dose: 100 mls/hr Midazolam 100 mg/100ml in NS (Midazolam 100 Mg/100ml In Ns) 100 mg in 100 mls @ 10 mls/hr IV .Q10H PRN; Protocol; 10 MG/HR PRN Reason: tachypnea Last Admin: 06/18/17 05:36 Dose: 7 mg/hr, 7 mls/hr Cisatracurium Besylate 100 mg/ (Sodium Chloride) 260 mls @ 20.45 mls/hr IV .[id number] PRN; Protocol; 1 MCG/KG/MIN PRN Reason: TITRATE PER PROTOCOL Last Admin: 06/18/17 08:20 Dose: 1.3 mcg/kg/min, 26.59 mls/hr Acetaminophen (Ofirmev) 1,000 mg in 100 mls @ 400 mls/hr IVPB Q6H PRN PRN Reason: T>101.9 Stop: 06/19/17 16:13 Last Admin: 06/17/17 17:30 Dose: 400 mls/hr Propofol (Diprivan) 1,000 mg in 100 mls @ 3.934 mls/hr IV .Q24H PRN; Protocol; 5 MCG/KG/MIN PRN Reason: TITRATE PER MD ORDER Last Titration: 06/17/17 17:00 Dose: 0 mcg/kg/min, 0 mls/hr Heparin Sodium/Dextrose (Heparin 25,000 Units/250ml In D5w) 25,000 units in 250 mls @ 23.606 mls/hr IV .[id number] PRN; Protocol; 18 UNITS/KG/HR PRN Reason: ADJUST RATE PER PROTOCOL Last Titration: 06/18/17 10:09 Dose: 12 units/kg/hr, 15.737 mls/hr Norepinephrine Bitartrate 8 mg (/ Sodium Chloride) 258 mls @ 77.4 mls/hr IV .Q3H20M [facility]; 40 MCG/MIN PRN Reason: Protocol Epinephrine HCl 1 mg/ Sodium (Chloride) 51 mls @ 3.06 mls/hr IV .[id number] PRN; Protocol; 1 MCG/MIN PRN Reason: TITRATE PER MD ORDER Vasopressin 20 units/ Dextrose 101 mls @ 9.09 mls/hr IV .Q11H7M [facility]; 0.03 U/MIN PRN Reason: Protocol Insulin Human Regular (Humulin R Low) 0 units SC ACHS [facility] PRN Reason: Protocol Levalbuterol HCl (Xopenex) 1.25 mg IH [id number] PRN PRN Reason: Shortness of Breath Last Admin: 06/18/17 10:43 Dose: 1.25 mg Levalbuterol HCl (Xopenex) 1.25 mg IH [id number] [facility] Last Admin: 06/18/17 13:33 Dose: 1.25 mg Methylprednisolone (Solu-Medrol) 30 mg IVP Q12 [facility] Last Admin: 06/18/17 09:33 Dose: 30 mg Ondansetron HCl (Zofran Inj) 4 mg IVP Q6H PRN PRN Reason: Nausea/Vomiting Pantoprazole Sodium (Protonix Inj) 40 mg IVP DAILY [facility] Last Admin: 06/18/17 09:35 Dose: 40 mg - Labs Labs: 06/18/17 05:40 06/18/17 05:40 PT 12.3 Seconds (9.9-11.8) H 06/18/17 08:55 INR 1.14 (0.93-1.08) H 06/18/17 08:55 APTT 96.1 Seconds (23.7-30.8) H* 06/18/17 08:55 Attending/Attestation - Attestation I have personally seen and examined this patient.: Yes I have fully participated in the care of the patient.: Yes I have reviewed all pertinent clinical information, including history, physical exam and plan: Yes Notes (Text): 06/18/17 15:47 Attending note; Patient seen and examined with the resident in ICU. Patient is alert, awake. was on BIpap. still with significant tachypnea. Patient is a 51 year old male with history of HTN, dyslipidemia, CHF due to systolic dysfunction (EF~40%), FSGS on chronic steroids who presented with SOB and found to have multifocal legionella pneumonia/E coli UTI. on levaquin. Continue meropenem. acute on CKD: monitor creatinine closely. the patient got hemodialysis last night. Plan for dialysis today. anemia; secondary to CKD/iron deficiency anemia. elevated troponins ; Possibly secondary to demand ischemia. Cardiology evaluation appreciated. Follow up echo results. troponin is trending down. LE ultrasound negative for DVT. the possibility of intubation discussed with patient, patient's brother and patient's significant other in detail by the bedside. Upon discharge patient will follow up with Dr. Dominick Pickett. 06/18/17 15:49
[2017-06-17 07:33] LABS: TROPONIN I 0.17 ng/mL
--- NOTE | 2017-06-17 08:09 | RAD ---
HISTORY: desaturations, minimal L-sided breath sounds COMPARISON: 06/16/2017 FINDINGS: LUNGS: Dense alveolar infiltrates are seen bilaterally throughout the left lung and at the right lung base. Findings are unchanged PLEURA: No significant pleural effusion identified, no pneumothorax apparent. CARDIOVASCULAR: Moderate cardiomegaly OSSEOUS STRUCTURES: No significant abnormalities. VISUALIZED UPPER ABDOMEN: Normal. OTHER FINDINGS: None. IMPRESSION: Dense alveolar infiltrates are seen bilaterally throughout the left lung and at the right lung base. Findings are unchanged
[2017-06-17 08:34] LABS: CALCIUM 8.2 mg/dL (8.4-10.5); POTASSIUM 4.8 mmol/L (3.6-5.0); TOTAL PROTEIN 5.7 g/dL (5.8-8.3)
[2017-06-17 08:39] LABS: ARTERIAL BLOOD GAS HCO3 20.4 mmol/L (21-28); ARTERIAL BLOOD GAS PH 7.47 (7.35-7.45)
--- NOTE | 2017-06-17 09:44 | CARD ---
APPROVED REPORT EKG Measurement Heart [id number] <Conclusion> Atrial fibrillation with rapid ventricular response Nonspecific T wave abnormality, probably digitalis effect Abnormal ECG
[2017-06-17] MEDS: MethylPREDNISolone 40 mg Vial IVP SCH ×2 (09:45→22:28)
[2017-06-17 10:02] LABS: BAND 7 % (0-2); NEUTROPHIL 86 % (50.0-70.0)
[2017-06-17 10:03] LABS: HYPOCHROMIA 1+; PLATELET ESTIMATE LOW (NORMAL); POLYCHROMASIA SLIGHT; TOXIC GRANULATION 1+
[2017-06-17 10:04] LABS: ANISOCYTOSIS 2+; BURR CELLS SLIGHT; OVALOCYTES SLIGHT; POIKILOCYTOSIS 1+; TEAR DROP CELLS SLIGHT
--- NOTE | 2017-06-17 10:32 | PN ---
DATE: 06/17/2017 SUBJECTIVE: The patient is seen and examined at bedside. He appears to be comfortable on BiPAP (18/8 with FiO2 of 70%) (down from 90%). His oxygen saturation varies between 94% and 96%. His respiratory rate varies between 26 and 30, which has some improvement since yesterday. Heart rate is 101 and blood pressure is 109/53. The patient had hemodialysis yesterday when more than 1 liter was removed. PHYSICAL EXAMINATION HEENT: Head and neck atraumatic. LUNGS: Some crackles and rhonchi on the left anterior areas and basal areas and some rhonchi and crackles in the right basal area. HEART: Irregular rate and rhythm. S1 and S2 distant. ABDOMEN: Soft, nontender, and nondistended. MUSCULOSKELETAL: 2+ bilateral pedal and ankle edema. NEUROLOGIC: The patient moves all extremities spontaneously. SKIN: Color is moist. PSYCHIATRIC: The patient is alert and oriented x3. He appears to be better from respiratory status subjectively. LABORATORY DATA: WBC of 11, hemoglobin of 7.6, and platelet count of 79. Chemistry is pending. Troponin is 0.17 and trending down. ABG in the midnight showed 7.49/27/41 (after which the patient was switched from high flow to BiPAP by nighttime wind operations manager). ABG today is pending. MEDICATIONS: Lipitor, regular insulin sliding scale, low protocol, Xopenex p.r.n. and every 6 hours on standing basis, levofloxacin, meropenem, Solu-Medrol 30 mg IV q. 12 hours, Zofran p.r.n., and Verapamil. ASSESSMENT AND PLAN: This is a 51-year-old gentleman with severe Legionella pneumonia in the setting of immune suppression due to chronic steroid therapy for focal segmental glomerulosclerosis. The patient has acute kidney injury superimposed on chronic kidney disease and undergone dialysis yesterday, which appears to help somewhat provided that his respiratory status and level of comfort improved. He still requires high fi02 supplementation and his chest x-ray showed dense infiltrates in the right lower lobes and left lobar area. The patient will be continued on levofloxacin. He may benefit from another session of dialysis today of which I will talk to Nephrology Service, Dr. Marte. I will get official report of echocardiogram from Dr. Lynch. However, preliminary view did not reveal severe left ventricular systolic dysfunction. We will continue with conservative fluid and oxygen management. We will continue with head of bed elevated more than 55 degrees. I will repeat arterial blood gases and reevaluate gas exchange and ventilatory parameters. We will continue with deep venous thrombosis and gastrointestinal prophylaxis. We will continue with small dose of steroids. Addendum: Patient started to get tired, hypoxemia persisted with fi02 at 90% and 02sat inching at 88-90%. CXR dense b/l infiltrate. Added doxycycline, intubated. PEEP 15, fi02 100, Vt 450 (6 cc/pbw), RR 20, ABG is pending. Fentanyl drip and Versed PRN started will switch to Versed drip to improve pt/ vent synchrony. If still unable to achieve Pt/vent synchrony-->will utilize NMB , endotracheal aspirate for GS, culture, AFB and fungal staining were sent. Risks of bronchoscopy for BAL overweigh benefits in the setting of fi02 100 and PEEP 15. Patient had another dialysis session today-3L were removed--will continue with conservative fluid management as hemodynamics allows. CXR-showed endotracheal position of ET tube and improved aeration of both lungs (despite still dense L. lobar infiltrate present), likely due to applied PEEP. No barotrauma. Echo (discussed with Dr. Lynch) unchanged--still LVEF 40-45%. Patient was started on Levophed temporarily in carly-intubation period-->will taper it off. ccm time 40 min Elvis Cuellar MD MTDDillon
[2017-06-17] MEDS ORDERED: Propofol 10 mg/ml 1,000 MG/100 ML VIAL ONE ×2 (13:38→16:25)
[2017-06-17] MEDS ORDERED: Rocuronium 10 mg/ml (5 ml) ONE (13:42)
[2017-06-17] MEDS ORDERED: NOREPINEPHRINE BIT/0.9 % NACL 4 MG/250 ML BAG IV ONE (13:43)
[2017-06-17] MEDS ORDERED: Succinylcholine 200 mg/10 ml Inj IV ONE (13:53)
[2017-06-17] MEDS ORDERED: Propofol 10 mg/ml 1,000 MG/100 ML VIAL IV PRN (14:00)
--- NOTE | 2017-06-17 14:11 | PN ---
DATE: 06/17/2017 REASON FOR THE CONSULTATION: Followup paroxysmal atrial fibrillation, admitted with shortness of breath, acute kidney injury. He is status post dialysis. Morbid obesity. Shortness of breath. SUBJECTIVE: Lying 30-degree head up, feels a lot better. He had a dialysis yesterday. No chest pain. No shortness of breath. No palpitation. OBJECTIVE: GENERAL: Lying flat in the bed in the ICU 129, bed 1. Not in apparent distress, still in AFib. VITAL SIGNS: As follows: Temperature afebrile, heart rate 100, blood pressure 118/63. HEENT: PERRLA. Extraocular muscles intact. NECK: Supple. No carotid bruits or thyromegaly. CHEST: Clear to auscultation. HEART: S1 and S2 regular. ABDOMEN: Soft. EXTREMITIES: Clubbing and cyanosis negative. LABORATORY DATA: Blood workup as follows: WBC 11, hemoglobin , hematocrit 22.8, platelet count 79. Chemistry shows sodium 130, potassium 4.8, chloride 91, carbon dioxide 21, anion gap of 22, BUN 101, creatinine 5.8, total protein 5.7, albumin 2.8, and albumin-globulin ratio 1. IMPRESSION: A 51-year-old male with past medical history significant for morbid obesity, obstructive sleep apnea, diabetes, hypertension, hyperlipidemia, cardiomyopathy, admitted with shortness of breath, acute kidney injury, status post dialysis, went into atrial fibrillation. On admitting, the patient had normal sinus rhythm, went into atrial fibrillation, probably sepsis. The patient's last stress test on 02/26/2017 essentially normal myocardial perfusion study with ejection fraction 59%. The patient's recent echo 01/28/2017 showed concentric left ventricular hypertrophy, global hypokinesis with ejection fraction of 40%. Right ventricular systolic pressure of 50, borderline troponin is most likely secondary to acute kidney injury. Repeat troponin trending down 0.17, initial it was 0.22. No complaint of chest pain. RECOMMENDATIONS: We will repeat echo to assess LV function. Continue dialysis. If the patient remains in AFib for 48 hours, we will start anticoagulation probably with heparin. Discussed with Dr. Cuellar since the patient came into normal sinus and converted here to atrial fibrillation yesterday morning, so we will wait 24 hours. If remains, we will start anticoagulation possibly atrial fibrillation secondary to multiple underlying comorbidity and medical condition, morbid obesity, obstructive sleep apnea, sepsis, acute kidney injury. We will follow with you. Probably the novel anticoagulation is inadequate because of renal insufficiency, we will start heparin tomorrow. Discussed with Dr. Cuellar. In the interim continue aggressive control of blood pressure. Continue verapamil and continue antibiotic, dialysis as needed. I will review the echo and avoid albuterol as needed. We will do Xopenex. We will follow with you. Ez Lynch MD
[2017-06-17] MEDS ORDERED: fentaNYL 1,000 MCG in Sodium Chloride 0.9% 80 ML IV SCH (14:15)
[2017-06-17] MEDS ORDERED: Midazolam 2 MG/2 ML VIAL IVP SCH (14:15)
--- NOTE | 2017-06-17 14:17 | PN ---
DATE: 06/17/2017 LOCATION: The patient is in the ICU 129, bed 1. SUBJECTIVE: The patient is in bed, in no acute distress, and nontoxic; however, continue to have shortness of breath and low-grade fevers. PHYSICAL EXAMINATION: VITAL SIGNS: Temperature is 101.4, blood pressure is 118/60, respiratory rate is 28, and heart rate is 102. HEENT: Unremarkable. NECK: Supple. LUNGS: Decreased breath sounds. HEART: Normal S1 and S2. ABDOMEN: Soft and nontender. LABORATORY DATA: Reveals a white count of 18,000, hemoglobin of 10, and platelets of 97. The chemistries reveal the patient has a BUN of 101, creatinine of 5.8, and troponin is 0.17. Urinalysis is noted and urine for Legionella antigen is positive. Influenza is negative. Hepatitis profile is negative. Microbiology reveals Pseudomonas in the urine. Review of orders reveals the patient to be on Levaquin and meropenem. The patient is on Solu-Medrol and LDH is 2281. Chest x-ray from this morning dense alveolar infiltrates are seen bilaterally throughout the left lung and the right lung base findings are unchanged in view of x-ray itself. ASSESSMENT AND PLAN: This is a 51-year-old male with morbid obesity with severe sepsis with acute on chronic renal failure multilobar Legionella pneumonia and Pseudomonas urinary tract infection, morbid obesity with body mass index of 41, hypertension, diabetes, dyslipidemia, chronic congestive heart failure, day #4 of Levaquin and meropenem. We will add Mepron concerned about PCP on top of the Legionella since the patient has a very high LDH and diffuse alveolar interstitial findings. We will also order Fungitell 1-3 beta D glucan assay. Overall prognosis is quite poor and we would consider increasing his steroids very high to steroids as an outpatient and is only on Solu-Medrol 30 mg IV q.12 hours. Nayan Jones MD
[2017-06-17] MEDS: NOREPINEPHRINE BIT/0.9 % NACL 4 MG/250 ML BAG IV PRN ×2 (14:30→22:08)
[2017-06-17] MEDS: Fentanyl 1000mcg/100ml NS 1,000 MCG/100 ML BAG IV PRN ×2 (14:30→22:09)
--- NOTE | 2017-06-17 14:53 | RAD ---
HISTORY: intuabtation, ET tube placement COMPARISON: 06/17/2017 FINDINGS: Endotracheal tube terminates 6 cm proximal to the reymundo. The nasogastric tube terminates in the stomach LUNGS: There is interval mild improved aeration in the right lower lobe with persistent airspace disease and interval mild improvement in the left upper lobe and lingula with persistent multifocal airspace disease. PLEURA: There is a persistent moderate left pleural effusion, no pneumothorax apparent. CARDIOVASCULAR: Normal. OSSEOUS STRUCTURES: No significant abnormalities. VISUALIZED UPPER ABDOMEN: Normal. OTHER FINDINGS: None. IMPRESSION: Interval improved aeration in both lungs with persistent multifocal pneumonia and moderate left pleural effusion.
[2017-06-17 16:03] LABS: ARTERIAL BLOOD GAS HCO3 24.6 mmol/L (21-28); ARTERIAL BLOOD GAS PH 7.43 (7.35-7.45)
[2017-06-17] MEDS: Cisatracurium Besylate 100 MG in Sodium Chloride 0.9% 250 ML IV PRN (16:47)
[2017-06-17] MEDS: Midazolam 100 mg/100ml in NS 100 MG/100 ML SOL IV PRN (16:48)
--- NOTE | 2017-06-17 17:04 | PN ---
DATE: ENDOCRINOLOGY FOLLOWUP NOTE LOCATION: CCU 129, Room 1. SUBJECTIVE: This is a 51-year-old male with recent uncontrolled type 2 insulin requiring diabetes presenting here with symptomatic hypoglycemia and currently undergoing IV antibiotic management for acute pneumonitis as noted thereof. He has also been started on IV steroid therapy and currently on Solu-Medrol given at 30 mg IV piggyback every 12 hours as noted. His glycemic levels were initially fluctuating, but have improved accordingly and the latest glucose levels have raised from 148 to 171 mg/dL. LABORATORY DATA: His latest chemistry showed a BUN of 101, sodium 133, potassium 4.8, chloride 95. CO2 21. Glucose 148 and creatinine is 5.8. ASSESSMENT AND PLAN: He has been undergoing hemodialysis since admission for acute renal failure with advanced azotemia as noted thereof. He developed rapid atrial fibrillation post hemodialysis and should be followed closely for hemodynamic management as noted. So at this time, we will continue the present medical management and hold off any basal insulin for now as this is a temporary rise of the glucose values IV steroid therapy as given. We will obtain serial chemistries and supplement accordingly as needed. We will follow with you. Angela Ledezma MD
[2017-06-17] MEDS ORDERED: Heparin 25,000units in D5W 25,000 UNITS/250 ML BAG IV PRN (17:12)
[2017-06-17] MEDS: Heparin 25,000units in D5W 25,000 UNITS/250 ML BAG IV PRN (18:51)
[2017-06-17 19:00] LABS: CALCIUM 8.1 mg/dL (8.4-10.5); POTASSIUM 4.8 mmol/L (3.6-5.0)
[2017-06-17] MEDS: Atovaquone 750 mg/5 ml Susp UD PO SCH ×2 (19:01→19:35)
[2017-06-17 19:04] LABS: BASO # 0.03 K/mm3 (0.0-2.0); BASO % 0.2 % (0.0-3.0); EOS % 0.1 % (1.5-5.0); GRAN # 17.28 (1.4-6.5); GRAN % 97.3 % (50.0-68.0); LYMPH # 0.3 (1.2-3.4); LYMPH % 1.6 % (22.0-35.0); MEAN CELL VOLUME 90.5 fl (80.0-105.0); MEAN CORPUSCULAR HEMOGLOBIN 29.9 pg (25.0-35.0); MEAN CORPUSCULAR HGB CONC 33.1 g/dl (31.0-37.0); MEAN PLATELET VOLUME 10.2 fl (7.0-11.0); MONO # 0.1 (0.1-0.6); MONO % 0.8 % (1.0-6.0); RED CELL DISTRIBUTION WIDTH 16.1 % (11.5-14.5); WHITE BLOOD COUNT 17.7 10^3/ul (4.5-11.0)
[2017-06-17 19:08] LABS: HEMATOCRIT 23.9 % (42.0-52.0)
[2017-06-17 19:22] LABS: INR 1.11 (0.93-1.08); PARTIAL THROMBOPLASTIN TIME 33.1 Seconds (23.7-30.8)
[2017-06-17 19:56] LABS: CYTOMEGALOVIRUS AB (IGM) <30.00 AU/mL
[2017-06-17] MEDS: Mineral Oil/Petrolatum Opht Oint(3.5 gm) OU SCH ×2 (20:00→23:14)
[2017-06-18] MEDS: Levalbuterol 1.25 MG/3 ML Inhal Soln UD IH SCH ×3 (01:06→13:33)
[2017-06-18] MEDS: Mineral Oil/Petrolatum Opht Oint(3.5 gm) OU SCH ×4 (03:30→16:09)
[2017-06-18] MEDS: Heparin 25,000units in D5W 25,000 UNITS/250 ML BAG IV PRN (05:35)
[2017-06-18] MEDS: Midazolam 100 mg/100ml in NS 100 MG/100 ML SOL IV PRN (05:36)
[2017-06-18 05:40] LABS: ARTERIAL BLOOD GAS HCO3 21.6 mmol/L (21-28); ARTERIAL BLOOD GAS O2 CONTENT 9.6 ML/dl (15-23); ARTERIAL BLOOD GAS PH 7.28 (7.35-7.45); ARTERIAL BLOOD HGB O2 SAT 85.5 % (95.0-98.0); CARBOXYHEMOGLOBIN 1.5 % (0.5-1.5); HHB 12.7 % (0-5); METHEMOGLOBIN 0.3 % (0.0-3.0)
--- NOTE | 2017-06-18 05:51 | CARD ---
APPROVED REPORT EXAM: Two-dimensional and M-mode echocardiogram with Doppler and color Doppler. INDICATION Dyspnea LVFX 2D DIMENSIONS Left Atrium (2D)5.0 (1.6-4.0cm)IVSd1.6 (0.7-1.1cm) LVDd4.6 (3.9-5.9cm)PWd1.7 (0.7-1.1cm) LVDs3.4 (2.5-4.0cm)FS (%) 25.9 % LVEF (%)50.9 (>50%) M-Mode DIMENSIONS Aortic Root4.00 (2.2-3.7cm)Aortic Cusp Exc.2.20 (1.5-2.0cm) Aortic Valve AoV Peak Hcocdaio398.0cm/Gaby Peak GR.18mmHg Mitral Valve E/A ratio0.0 TDI E/Lateral E'0.0E/Medial E'0.0 Pulmonary Valve PV Peak Bhzwjkbg07.9cm/sPV Peak Grad.3mmHg Tricuspid Valve TR Peak Tvrvnlrw490mg/sRAP [id number] Peak Gr.40mmHg [id number] LEFT VENTRICLE The left ventricle is normal size. Proximal septal thickening is noted. There is mild asymmetric left ventricular hypertrophy. Left ventricle systolic function is low normal.EF-50%(A Fib) There is normal LV segmental wall motion. A Fib No left ventricle thrombus noted on this study. There is no ventricular septal defect visualized. There is no left ventricular aneurysm. There is no mass noted in the left ventricle. RIGHT VENTRICLE The right ventricle is normal size. There is normal right ventricular wall thickness. The right ventricular systolic function is normal. ATRIA The left atrium is moderately dilated. The right atrium size is normal. The interatrial septum is intact with no evidence for an atrial septal defect. AORTIC VALVE The aortic valve is mildly thickened but opens well. No aortic regurgitation is present. There is no aortic valvular stenosis. There is no aortic valvular vegetation. MITRAL VALVE The mitral valve is thickened but opens well. Mitral regurgitation is mild. There is no mitral valve stenosis. There is no evidence of mitral valve prolapse. TRICUSPID VALVE The tricuspid valve leaflets are thickened , but open well. There is mild tricuspid regurgitation.RVSp-50 mmof Hg There is no tricuspid valve stenosis. There is no tricuspid valve prolapse or vegetation. PULMONIC VALVE The pulmonic valve is normal in structure and function. There is trace to mild pulmonic valvular regurgitation. There is no pulmonic valvular stenosis. GREAT VESSELS The aortic root is normal in size. The ascending aorta is normal in size. The pulmonary artery is normal. The IVC is normal in size and collapses >50% with inspiration. PERICARDIAL EFFUSION There is no pleural effusion. There is no pericardial effusion. <Conclusion> The left ventricle is normal size. Proximal septal thickening is noted. There is mild asymmetric left ventricular hypertrophy. Left ventricle systolic function is low normal.EF-50%(A Fib) Mitral regurgitation is mild. There is mild tricuspid regurgitation.RVSp-50 mmof Hg The IVC is normal in size and collapses >50% with inspiration. There is no pericardial effusion.
[2017-06-18 05:57] LABS: BASO # 0.02 K/mm3 (0.0-2.0); BASO % 0.1 % (0.0-3.0); EOS % 0.1 % (1.5-5.0); GRAN # 20.05 (1.4-6.5); LYMPH # 0.3 (1.2-3.4); LYMPH % 1.3 % (22.0-35.0); MEAN CELL VOLUME 91.9 fl (80.0-105.0); MEAN CORPUSCULAR HEMOGLOBIN 29.8 pg (25.0-35.0); MEAN CORPUSCULAR HGB CONC 32.5 g/dl (31.0-37.0); MEAN PLATELET VOLUME 10.9 fl (7.0-11.0); MONO # 0.1 (0.1-0.6); MONO % 0.5 % (1.0-6.0); RED CELL DISTRIBUTION WIDTH 16.4 % (11.5-14.5); WHITE BLOOD COUNT 20.5 10^3/ul (4.5-11.0)
[2017-06-18 06:15] LABS: BILIRUBIN,TOTAL 1.2 mg/dL (0.2-1.3); CALCIUM 7.8 mg/dL (8.4-10.5); MAGNESIUM 2.3 mg/dL (1.7-2.2); TOTAL PROTEIN 5.7 g/dL (5.8-8.3)
[2017-06-18 06:25] LABS: HEMATOCRIT 22.8 % (42.0-52.0)
[2017-06-18 07:27] LABS: PHOSPHOROUS 12.2 mg/dL (2.5-4.5); POTASSIUM 5.8 mmol/L (3.6-5.0)
[2017-06-18] MEDS ORDERED: Dextrose 50% SYRINGE Inj (50 ml) IVP ONE (07:39)
[2017-06-18] MEDS ORDERED: Insulin Lispro 1 UNITS/0.01 ML SC ONE (07:39)
[2017-06-18] MEDS: Cisatracurium Besylate 100 MG in Sodium Chloride 0.9% 250 ML IV PRN (08:20)
[2017-06-18 08:40] VITALS: RESP 17
[2017-06-18] MEDS: Fentanyl 1000mcg/100ml NS 1,000 MCG/100 ML BAG IV PRN (08:47)
--- NOTE | 2017-06-18 08:55 | CP.PCM.PN ---
<Subha Noriega - Last Filed: 06/18/17 15:33> Subjective - Date & Time of Evaluation Date of Evaluation: 06/18/17 Time of Evaluation: 08:54 - Subjective Subjective: Hospitalist Service Progress Note: Patient seen and examined at bedside. Patient is intubated and sedated. Was started on levophed yesterday for low bps (70s/30s), drip off at this time. Patient also currently on heparin drip for paraoxysmal afib. Tmax recorded to be 102.2 yesterday. ROS not obtained. Objective - Vital Signs/Intake and Output Vital Signs (last 24 hours): Temp Pulse Resp BP Pulse Ox 100.0 F H 89 17 115/52 L 88 L 06/18/17 04:50 06/18/17 04:50 06/18/17 08:39 06/18/17 04:30 06/18/17 08:39 Intake and Output: 06/18/17 06/18/17 06:59 18:59 Intake Total 2078 38 Output Total 45 Balance 2033 38 - Medications Medications: Current Medications Artificial Tears (Artificial Tears Opht Oint) 1 gm OU Q4H [facility] Last Admin: 06/18/17 08:17 Dose: 1 applic Atorvastatin Calcium (Lipitor) 80 mg PO HS [facility] Last Admin: 06/17/17 22:28 Dose: 80 mg Atovaquone (Mepron) 750 mg PO BID [facility] Stop: 06/26/17 10:46 Last Admin: 06/17/17 19:35 Dose: 750 mg Meropenem 250 mg/ Sodium (Chloride) 100 mls @ 100 mls/hr IVPB Q12H [facility] PRN Reason: Protocol Stop: 06/23/17 11:01 Last Admin: 06/18/17 01:02 Dose: 100 mls/hr Levofloxacin/Dextrose (Levaquin 500mg) 500 mg in 100 mls @ 100 mls/hr IVPB QOTHERDAY [facility] Last Admin: 06/16/17 09:23 Dose: 100 mls/hr NOREPINEPHRINE BIT/0.9 % NACL (Levophed 4 Mg/ 250 Ml Ns Premixed) 4 mg in 250 mls @ 18.75 mls/hr IV .[id number] PRN; Protocol; 5 MCG/MIN PRN Reason: TITRATE PER MD ORDER Last Titration: 06/18/17 06:00 Dose: 0 mcg/min, 0 mls/hr Fentanyl Citrate (Fentanyl Citrate/Sodium Chloride 1 Mg/100 Ml) 1,000 mcg in 100 mls @ 2 mls/hr IV .Q24H PRN; Protocol; 20 MCG/HR PRN Reason: TITRATE PER MD ORDER Last Titration: 06/18/17 04:17 Dose: 100 mcg/hr, 10 mls/hr Doxycycline Hyclate 100 mg/ (Sodium Chloride) 100 mls @ 100 mls/hr IVPB Q12 [facility] PRN Reason: Protocol Last Admin: 06/17/17 22:26 Dose: 100 mls/hr Midazolam 100 mg/100ml in NS (Midazolam 100 Mg/100ml In Ns) 100 mg in 100 mls @ 10 mls/hr IV .Q10H PRN; Protocol; 10 MG/HR PRN Reason: tachypnea Last Admin: 06/18/17 05:36 Dose: 7 mg/hr, 7 mls/hr Cisatracurium Besylate 100 mg/ (Sodium Chloride) 260 mls @ 20.45 mls/hr IV .[id number] PRN; Protocol; 1 MCG/KG/MIN PRN Reason: TITRATE PER PROTOCOL Last Admin: 06/18/17 08:20 Dose: 1.3 mcg/kg/min, 26.59 mls/hr Acetaminophen (Ofirmev) 1,000 mg in 100 mls @ 400 mls/hr IVPB Q6H PRN PRN Reason: T>101.9 Stop: 06/19/17 16:13 Last Admin: 06/17/17 17:30 Dose: 400 mls/hr Propofol (Diprivan) 1,000 mg in 100 mls @ 3.934 mls/hr IV .Q24H PRN; Protocol; 5 MCG/KG/MIN PRN Reason: TITRATE PER MD ORDER Last Titration: 06/17/17 17:00 Dose: 0 mcg/kg/min, 0 mls/hr Heparin Sodium/Dextrose (Heparin 25,000 Units/250ml In D5w) 25,000 units in 250 mls @ 23.606 mls/hr IV .[id number] PRN; Protocol; 18 UNITS/KG/HR PRN Reason: ADJUST RATE PER PROTOCOL Last Admin: 06/18/17 05:35 Dose: 15 units/kg/hr, 19.672 mls/hr Insulin Human Lispro (Humalog Low) 0 units SC ACHS [facility] PRN Reason: Protocol Levalbuterol HCl (Xopenex) 1.25 mg IH [id number] PRN PRN Reason: Shortness of Breath Levalbuterol HCl (Xopenex) 1.25 mg IH [id number] [facility] Last Admin: 06/18/17 07:41 Dose: 1.25 mg Methylprednisolone (Solu-Medrol) 30 mg IVP Q12 [facility] Last Admin: 06/17/17 22:28 Dose: 30 mg Ondansetron HCl (Zofran Inj) 4 mg IVP Q6H PRN PRN Reason: Nausea/Vomiting Pantoprazole Sodium (Protonix Inj) 40 mg IVP DAILY [facility] Last Admin: 06/17/17 09:47 Dose: 40 mg Verapamil HCl (Calan Tab) 40 mg PO TID [facility] Last Admin: 06/17/17 19:34 Dose: 40 mg - Labs Labs: 06/18/17 05:40 06/18/17 05:40 PT 12.0 Seconds (9.9-11.8) H 06/17/17 18:42 INR 1.11 (0.93-1.08) H 06/17/17 18:42 APTT 100.3 Seconds (23.7-30.8) H* 06/18/17 01:35 - Head Exam Head Exam: ATRAUMATIC, NORMAL INSPECTION, NORMOCEPHALIC - Eye Exam Eye Exam: EOMI, Normal appearance - ENT Exam ENT Exam: Mucous Membranes Moist Additional comments: +ETT - Respiratory Exam Respiratory Exam: Rhonchi, Wheezes Additional comments: +ventilator breath sounds appreciated - Cardiovascular Exam Cardiovascular Exam: Irregular Rhythm, +S1, +S2 - GI/Abdominal Exam GI & Abdominal Exam: Distended, Soft. absent: Guarding, Rigid, Tenderness - Rectal Exam Rectal Exam: Deferred - Exam Additional comments: Mas in draining clear yellow urine - Extremities Exam Extremities Exam: Pedal Edema. absent: Calf Tenderness Additional comments: R HD groin catheter dressing blood tinged - Neurological Exam Neurological Exam: absent: Alert (Intubated and sedated) Assessment and Plan - Assessment and Plan (Free Text) Assessment: 51 year old male with past medical history of HTN, DLD, CHF (EF 40%), FSGS presents with shortness of breath x 1 week, currently being treated for sepsis 2 /2 multifocal pneumonia and UTI. Legionella ab positive. Plan: 1. Acute Respiratory Failure 2/2 Legionella pneumonia (possible ARDS) -Intubated and sedated -On Fentanyl, Midazolam, cisatracurium -ABG: pH 7.28 PCO2 46 PO2 54 Bicarb 21.6 -02 sats currently in 80s on the vent -Vent management per ICU tean 2. Septic Shock 2/2 Multifocal Pneumonia/UTI -Currently afebrile, T max 102.4 yesterday -Ofirmev prn fever -Hypotensive started on Levophed yesterday; off drip currently -Will place A line today for BP monitoring -Urine legionalla ag positive; mycoplasma IgG elevated -Urine cx growing pseudomonas -Abx: Levaquin, Merrem, Doxycycline -Continue Atovaquone -CXR today, f/u official read -As patient is immunocompromised 2/2 chronic steroid use, will f/u CMV, cryptoccocus studies -ID on consult f/u recommendations -ICU management in progress 3. Paraoxysmal atrial fibrillation -Patient currently on heparin drip -EKG this am -Will continue to monitor -Cardiology on consult, will f/u recommendations 4. Acute on Chronic Kidney disease/ Hx of Focal Segmental Glomerular Sclerosis -Baseline Cr 2.5-3.0 -BUN/Cr today 84/5.3 -Went for dialysis yesterday, will go for dialysis again today if BPs stable -Continue Prednisone 30mg Q12H -Strict I/Os -Nephrology on consult, f/u recommendations 5. Hyperkalemia -Potassium 5.8 today -EKG ordered -Given insulin and 1 amp D50 -Will go for HD today 6. Recurrent Hypoglycemia -Resolved -Continue accuchecks -Endocrine consulted, f/u recommendations 7. Transaminitis -AST/ALT mildly elevated 351/172 -Avoid hepatotoxic agents -Hepatic US showing mild hepatomegaly with fatty infiltration of the liver -Hepatitis panel negative 8. Anemia (multifactorial) -Hgb 7.4 today; baseline 11.0 -Iron studies suggests iron deficient component -Will continue to monitor 9. Thrombocytopenia -Appears to have stabilized -Will continue to monitor 10. Elevated Troponins -Trops 0.26 -> 0.23 -> 0.22 --> 0.17 (trending down) -Likely secondary to acute on chronic kidney disease -Cardiology following, f/u recommendations 11. Hx of CHF (EF 40%) -BNP 6960 on admission -Echo EF 50% -Strict I/Os, daily weights -Lower extremity swelling noted -Extremity US negative for DVT -Cardiology on consult, f/u recommendations 12. Hx of Hypertension -Currently hypotensive -Continue Verapamil -Coreg held for bronchospasm 13. Hx of CAD -Continue ASA and Lipitor GI/DVT ppx Protonix 40mg daily Heparin drip <SheilaAjdeba - Last Filed: 06/18/17 16:05> Objective - Vital Signs/Intake and Output Vital Signs (last 24 hours): Temp Pulse Resp BP Pulse Ox 100.4 F H 93 H 17 80/43 L 84 L 06/18/17 14:45 06/18/17 14:45 06/18/17 08:39 06/18/17 14:45 06/18/17 14:45 Intake and Output: 06/18/17 06/18/17 06:59 18:59 Intake Total 2077 680 Output Total 45 Balance 2032 680 - Medications Medications: Current Medications Artificial Tears (Artificial Tears Opht Oint) 1 gm OU Q4H [facility] Last Admin: 06/18/17 11:47 Dose: 1 applic Atorvastatin Calcium (Lipitor) 80 mg PO HS [facility] Last Admin: 06/17/17 22:28 Dose: 80 mg Atovaquone (Mepron) 750 mg PO BID [facility] Stop: 06/26/17 10:46 Last Admin: 06/18/17 09:33 Dose: 750 mg Meropenem 250 mg/ Sodium (Chloride) 100 mls @ 100 mls/hr IVPB Q12H [facility] PRN Reason: Protocol Stop: 06/23/17 11:01 Last Admin: 06/18/17 10:51 Dose: 100 mls/hr Levofloxacin/Dextrose (Levaquin 500mg) 500 mg in 100 mls @ 100 mls/hr IVPB QOTHERDAY [facility] Last Admin: 06/18/17 09:33 Dose: 100 mls/hr Fentanyl Citrate (Fentanyl Citrate/Sodium Chloride 1 Mg/100 Ml) 1,000 mcg in 100 mls @ 2 mls/hr IV .Q24H PRN; Protocol; 20 MCG/HR PRN Reason: TITRATE PER MD ORDER Last Admin: 06/18/17 08:47 Dose: 100 mcg/hr, 10 mls/hr Doxycycline Hyclate 100 mg/ (Sodium Chloride) 100 mls @ 100 mls/hr IVPB Q12 [facility] PRN Reason: Protocol Last Admin: 06/18/17 09:27 Dose: 100 mls/hr Midazolam 100 mg/100ml in NS (Midazolam 100 Mg/100ml In Ns) 100 mg in 100 mls @ 10 mls/hr IV .Q10H PRN; Protocol; 10 MG/HR PRN Reason: tachypnea Last Admin: 06/18/17 05:36 Dose: 7 mg/hr, 7 mls/hr Cisatracurium Besylate 100 mg/ (Sodium Chloride) 260 mls @ 20.45 mls/hr IV .[id number] PRN; Protocol; 1 MCG/KG/MIN PRN Reason: TITRATE PER PROTOCOL Last Admin: 06/18/17 08:20 Dose: 1.3 mcg/kg/min, 26.59 mls/hr Acetaminophen (Ofirmev) 1,000 mg in 100 mls @ 400 mls/hr IVPB Q6H PRN PRN Reason: T>101.9 Stop: 06/19/17 16:13 Last Admin: 06/17/17 17:30 Dose: 400 mls/hr Propofol (Diprivan) 1,000 mg in 100 mls @ 3.934 mls/hr IV .Q24H PRN; Protocol; 5 MCG/KG/MIN PRN Reason: TITRATE PER MD ORDER Last Titration: 06/17/17 17:00 Dose: 0 mcg/kg/min, 0 mls/hr Heparin Sodium/Dextrose (Heparin 25,000 Units/250ml In D5w) 25,000 units in 250 mls @ 23.606 mls/hr IV .[id number] PRN; Protocol; 18 UNITS/KG/HR PRN Reason: ADJUST RATE PER PROTOCOL Last Titration: 06/18/17 10:09 Dose: 12 units/kg/hr, 15.737 mls/hr Norepinephrine Bitartrate 8 mg (/ Sodium Chloride) 258 mls @ 77.4 mls/hr IV .Q3H20M [facility]; 40 MCG/MIN PRN Reason: Protocol Epinephrine HCl 1 mg/ Sodium (Chloride) 51 mls @ 3.06 mls/hr IV .[id number] PRN; Protocol; 1 MCG/MIN PRN Reason: TITRATE PER MD ORDER Vasopressin 20 units/ Dextrose 101 mls @ 9.09 mls/hr IV .Q11H7M [facility]; 0.03 U/MIN PRN Reason: Protocol Insulin Human Regular (Humulin R Low) 0 units SC ACHS [facility] PRN Reason: Protocol Levalbuterol HCl (Xopenex) 1.25 mg IH [id number] PRN PRN Reason: Shortness of Breath Last Admin: 06/18/17 10:43 Dose: 1.25 mg Levalbuterol HCl (Xopenex) 1.25 mg IH [id number] [facility] Last Admin: 06/18/17 13:33 Dose: 1.25 mg Methylprednisolone (Solu-Medrol) 30 mg IVP Q12 [facility] Last Admin: 06/18/17 09:33 Dose: 30 mg Ondansetron HCl (Zofran Inj) 4 mg IVP Q6H PRN PRN Reason: Nausea/Vomiting Pantoprazole Sodium (Protonix Inj) 40 mg IVP DAILY [facility] Last Admin: 06/18/17 09:35 Dose: 40 mg - Labs Labs: 06/18/17 05:40 06/18/17 05:40 PT 12.3 Seconds (9.9-11.8) H 06/18/17 08:55 INR 1.14 (0.93-1.08) H 06/18/17 08:55 APTT 96.1 Seconds (23.7-30.8) H* 06/18/17 08:55 Attending/Attestation - Attestation I have personally seen and examined this patient.: Yes I have fully participated in the care of the patient.: Yes I have reviewed all pertinent clinical information, including history, physical exam and plan: Yes Notes (Text): 06/18/17 15:51 Attending note; Patient seen and examined with the resident in ICU. case discussed with ICU attending in detail. patient is currently crically ill. Septic shock/ARDS; Patient is currently intubated and sedated. On Levophed/Vasopressin for septic shock. blood pressure is still low. Patient is also on 100% FiO2 with high PEEP. multifocal legionella pneumonia/E coli UTI. on levaquin/doxycycline and meropenem. currently on Atovoquone for possible PCP pneumonia. acute on CKD: monitor creatinine closely. the patient got hemodialysis yesterday. plan for hemodialysis today but hypotension might delay this. anemia; secondary to CKD/iron deficiency anemia. elevated troponins ; Possibly secondary to demand ischemia. Cardiology evaluation appreciated. echo showed ejection fraction of 50%. Paroxysmal atrial fibrillation; started on IV heparin. LE ultrasound negative for DVT. case discussed with guest associate in detail. Will discuss with [facility] for possible transfer. prognosis is very poor. Patient's brother and significant other by the bedside. Palliative care evaluation requested. 06/18/17 16:02
[2017-06-18] MEDS: Atovaquone 750 mg/5 ml Susp UD PO SCH ×2 (09:33→17:22)
[2017-06-18] MEDS: levoFLOXacin 500 mg in D5W 500 MG/100 ML BAG IVPB SCH (09:33)
[2017-06-18] MEDS: MethylPREDNISolone 40 mg Vial IVP SCH (09:33)
--- NOTE | 2017-06-18 09:55 | PN ---
DATE: 06/17/2017 SUBJECTIVE: The patient is seen in the ICU. He is on mechanical ventilation. He is sedated. He is on Levophed drip at this time. Events of earlier today are noted. The patient had stable dialysis. He was dialyzed for 3 hours. Three kilograms of fluid was removed. Subsequently throughout the day, the patient remained tachypneic. He remained hypoxic. His gas is continued to deteriorate. He was intubated at 2 o'clock in the afternoon. He had to be sedated. His blood pressure dropped today and he was started on Levophed. PHYSICAL EXAMINATION GENERAL: Morbidly obese middle-aged male, lying in bed in the ICU. He is on mechanical ventilation. VITAL SIGNS: Blood pressure is 110/67, heart rate is 99, respiratory rate is 20, and temperature is 99.7. HEENT: Normocephalic and atraumatic. NECK: Supple and no JVD. LUNGS: Bilateral equal air entry, bilateral equal expansion, and bilateral rhonchi. CARDIAC: S1 and S2. Irregularly regular, no murmur, and no rub. ABDOMEN: Obese, distended, soft, and nontender. Bowel sounds are present. EXTREMITIES: 2+ pitting edema of the lower extremities. INTAKE AND OUTPUT: 560/2540, +3000 removed during dialysis. LABORATORY DATA: WBC of 17.7, hemoglobin of 7.9, hematocrit of 24, and platelets of 99. Sodium of 135, potassium of 4.8, chloride of 95, CO2 of 21, BUN of 101, and creatinine of 5.8. Glucose of 148, calcium of 8.2, AST of 303, ALT of 189, and albumin of 2.8. Urine culture growing Pseudomonas and blood culture is negative. CURRENT MEDICATIONS: Verapamil 40 mg t.i.d., Diprivan, doxycycline 100 q. 12 hours, fentanyl, Lipitor, Mepron 750 b.i.d., meropenem, Protonix, and Solu-Medrol 30 mg IV q. 12 hours. ASSESSMENT/PLAN 1. Multiorgan dysfunction syndrome/systemic inflammatory response syndrome. 2. Respiratory failure, ventilator dependent now. 3. Severe multilobar pneumonia. 4. Acute kidney injury superimposed on chronic kidney disease stage IV, history of primary and secondary focal segmental glomerulosclerosis. 5. Hypoxemia. 6. Metabolic acidosis. 7. Morbid obesity. 8. Biventricular failure, pulmonary hypertension. 9. Adrenal suppression/hypoglycemia. PLAN 1. We will continue to dialyze the patient as needed, the patient was dialyzed yesterday and today. 2. Continue antibiotics as per ID recommendations. 3. Continue empiric antibiotics for PCP 4. Continue pressor support for now. 5. The patient remains critically ill, case discussed with the brother by phone, hoe worker at length, ICU staff. Case discussed with dialysis staff. More than 35 minutes was spent in the care of this critically ill patient. Shelly Marte MD MTDD
[2017-06-18] MEDS: NOREPINEPHRINE BIT/0.9 % NACL 4 MG/250 ML BAG IV PRN ×2 (10:24→13:06)
[2017-06-18 10:48] LABS: INR 1.14 (0.93-1.08)
--- NOTE | 2017-06-18 11:04 | CP.PCM.CON ---
History of Present Illness - History of Present Illness History of Present Illness: Palliative consult requested by Dr Mateusz Sosa Reason: Palliative support/goals of care 51 year old male with history of HTN, CHF, and DM,and focal segmental glomerulosclerosis(FSGS) who prensted to ED with increasing shortness of breath , fatigue and weakness. Family reports patient to have a productive cough. He was hypertensive,febrile and tachycardic.Temp 101.7, Lactate 2.9,Wbc 9.2. EKG showed PAT, Troponin elevated 0.22. Echocardiogram LVH - EF 50%,mild mitral regurgitation,tricuspid regurgitation. Serology testing positive for Mycoplasma and Legionella pneumonia. PMHx: HTN, DLD, DM, CHF, FSGS,pusle steroid therapy,chronic renal insufficiency. Social History: Never smoker, no alcohol or drug use. Lives with significant other. 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 Family History: Father glioblastoma, mother breast cancer. Advance Care Planning: The patient does not have an Advanced Directive. Review of Systems: As per HPI, unable to obtain patient is altered Past Patient History - Infectious Disease Hx of Infectious Diseases: None - Past Social History Smoking Status: Never Smoked - CARDIAC Hx Hypertension: Yes - PULMONARY Hx Asthma: (SOB) - NEUROLOGICAL Hx Neurological Disorder: No - HEENT Hx HEENT Problems: Yes (reading glasses) - RENAL Hx Chronic Kidney Disease: No - ENDOCRINE/METABOLIC Hx Diabetes Mellitus Type 2: Yes - HEMATOLOGICAL/ONCOLOGICAL Hx Blood Disorders: No - INTEGUMENTARY Other/Comment: lower arms and lower legs tanned, brown skin discolorations to ble noted - MUSCULOSKELETAL/RHEUMATOLOGICAL Hx Falls: No - GASTROINTESTINAL Hx Gastrointestinal Disorders: Yes (obese) - GENITOURINARY/GYNECOLOGICAL Hx Genitourinary Disorders: No - PSYCHIATRIC Hx Substance Use: No - SURGICAL HISTORY Hx Surgeries: No Meds Allergies/Adverse Reactions: Allergies Allergy/AdvReac Type Severity Reaction Status Date / Time No Known Allergies Allergy Verified 06/13/17 17:28 - Medications Medications: Current Medications Artificial Tears (Artificial Tears Opht Oint) 1 gm OU Q4H [facility] Last Admin: 06/18/17 08:17 Dose: 1 applic Atorvastatin Calcium (Lipitor) 80 mg PO HS [facility] Last Admin: 06/17/17 22:28 Dose: 80 mg Atovaquone (Mepron) 750 mg PO BID [facility] Stop: 06/26/17 10:46 Last Admin: 06/18/17 09:33 Dose: 750 mg Meropenem 250 mg/ Sodium (Chloride) 100 mls @ 100 mls/hr IVPB Q12H [facility] PRN Reason: Protocol Stop: 06/23/17 11:01 Last Admin: 06/18/17 10:51 Dose: 100 mls/hr Levofloxacin/Dextrose (Levaquin 500mg) 500 mg in 100 mls @ 100 mls/hr IVPB QOTHERDAY [facility] Last Admin: 06/18/17 09:33 Dose: 100 mls/hr NOREPINEPHRINE BIT/0.9 % NACL (Levophed 4 Mg/ 250 Ml Ns Premixed) 4 mg in 250 mls @ 18.75 mls/hr IV .[id number] PRN; Protocol; 5 MCG/MIN PRN Reason: TITRATE PER MD ORDER Last Admin: 06/18/17 10:24 Dose: 20 mcg/min, 75 mls/hr Fentanyl Citrate (Fentanyl Citrate/Sodium Chloride 1 Mg/100 Ml) 1,000 mcg in 100 mls @ 2 mls/hr IV .Q24H PRN; Protocol; 20 MCG/HR PRN Reason: TITRATE PER MD ORDER Last Admin: 06/18/17 08:47 Dose: 100 mcg/hr, 10 mls/hr Doxycycline Hyclate 100 mg/ (Sodium Chloride) 100 mls @ 100 mls/hr IVPB Q12 [facility] PRN Reason: Protocol Last Admin: 06/18/17 09:27 Dose: 100 mls/hr Midazolam 100 mg/100ml in NS (Midazolam 100 Mg/100ml In Ns) 100 mg in 100 mls @ 10 mls/hr IV .Q10H PRN; Protocol; 10 MG/HR PRN Reason: tachypnea Last Admin: 06/18/17 05:36 Dose: 7 mg/hr, 7 mls/hr Cisatracurium Besylate 100 mg/ (Sodium Chloride) 260 mls @ 20.45 mls/hr IV .[id number] PRN; Protocol; 1 MCG/KG/MIN PRN Reason: TITRATE PER PROTOCOL Last Admin: 06/18/17 08:20 Dose: 1.3 mcg/kg/min, 26.59 mls/hr Acetaminophen (Ofirmev) 1,000 mg in 100 mls @ 400 mls/hr IVPB Q6H PRN PRN Reason: T>101.9 Stop: 06/19/17 16:13 Last Admin: 06/17/17 17:30 Dose: 400 mls/hr Propofol (Diprivan) 1,000 mg in 100 mls @ 3.934 mls/hr IV .Q24H PRN; Protocol; 5 MCG/KG/MIN PRN Reason: TITRATE PER MD ORDER Last Titration: 06/17/17 17:00 Dose: 0 mcg/kg/min, 0 mls/hr Heparin Sodium/Dextrose (Heparin 25,000 Units/250ml In D5w) 25,000 units in 250 mls @ 23.606 mls/hr IV .[id number] PRN; Protocol; 18 UNITS/KG/HR PRN Reason: ADJUST RATE PER PROTOCOL Last Titration: 06/18/17 10:09 Dose: 12 units/kg/hr, 15.737 mls/hr Insulin Human Lispro (Humalog Low) 0 units SC ACHS [facility] PRN Reason: Protocol Levalbuterol HCl (Xopenex) 1.25 mg IH [id number] PRN PRN Reason: Shortness of Breath Last Admin: 06/18/17 10:43 Dose: 1.25 mg Levalbuterol HCl (Xopenex) 1.25 mg IH [id number] [facility] Last Admin: 06/18/17 07:41 Dose: 1.25 mg Methylprednisolone (Solu-Medrol) 30 mg IVP Q12 [facility] Last Admin: 06/18/17 09:33 Dose: 30 mg Ondansetron HCl (Zofran Inj) 4 mg IVP Q6H PRN PRN Reason: Nausea/Vomiting Pantoprazole Sodium (Protonix Inj) 40 mg IVP DAILY [facility] Last Admin: 06/18/17 09:35 Dose: 40 mg Physical Exam - Constitutional Appears: Chronically Ill - Head Exam Head Exam: NORMAL INSPECTION - Eye Exam Eye Exam: Normal appearance, PERRL - ENT Exam ENT Exam: Mucous Membranes Moist - Neck Exam Neck exam: Positive for: Normal Inspection - Respiratory Exam Respiratory Exam: Decreased Breath Sounds, Rhonchi - Cardiovascular Exam Cardiovascular Exam: Tachycardia, Irregular Rhythm - GI/Abdominal Exam GI & Abdominal Exam: Normal Bowel Sounds, Soft - Extremities Exam Extremities exam: Positive for: full ROM, pedal pulses present Additional comments: 2+ bilateral pedal edema - Back Exam Back exam: NORMAL INSPECTION - Neurological Exam Neurological exam: Altered - Skin Skin Exam: Dry, Pallor - Additional Findings Additional findings: palliative performance scale rating 20% Results - Vital Signs Recent Vital Signs: Last Vital Signs Temp 100.0 F H 06/18/17 08:50 Pulse 97 H 06/18/17 08:50 Resp 17 06/18/17 08:39 BP 60/30 L 06/18/17 10:14 Pulse Ox 88 L 06/18/17 08:50 - Labs Result Diagrams: 06/18/17 05:40 06/18/17 05:40 Labs: Laboratory Results - last 24 hr 06/14/17 06/14/17 06/17/17 00:45 08:00 06:14 WBC RBC Hgb Hct MCV MCH MCHC RDW Plt Count MPV Gran % Lymph % (Auto) [place] % (Auto) Eos % (Auto) Baso % (Auto) Gran # Lymph # [place] # Eos # Baso # PT INR APTT pCO2 pO2 HCO3 ABG pH ABG Total CO2 ABG O2 Saturation ABG O2 Content ABG Base Excess ABG Hemoglobin ABG Carboxyhemoglobin POC ABG HHb (Measured) ABG Methemoglobin ABG O2 Capacity ABG Potassium Hgb O2 Saturation Sodium Chloride Glucose Lactate FiO2 Potassium Carbon Dioxide Anion Gap BUN Creatinine Est GFR ( Amer) Est GFR (Non-Af Amer) POC Glucose (mg/dL) Random Glucose Hemoglobin A1c 6.5 Calcium Phosphorus Magnesium Total Bilirubin AST ALT Alkaline Phosphatase Total Protein Albumin Globulin Albumin/Globulin Ratio Arterial Blood Potassium CMV IgM Ab <30.00 Mycoplasma pneumon IgG 2.33 H Mycoplasma pneumon IgM 19 06/17/17 06/17/17 06/17/17 11:48 15:55 16:03 WBC RBC Hgb Hct MCV MCH MCHC RDW Plt Count MPV Gran % Lymph % (Auto) [place] % (Auto) Eos % (Auto) Baso % (Auto) Gran # Lymph # [place] # Eos # Baso # PT INR APTT pCO2 37 pO2 56.0 L HCO3 24.6 ABG pH 7.43 ABG Total CO2 25.7 ABG O2 Saturation 88.9 L ABG O2 Content ABG Base Excess 0.5 ABG Hemoglobin ABG Carboxyhemoglobin POC ABG HHb (Measured) ABG Methemoglobin ABG O2 Capacity ABG Potassium 4.4 Hgb O2 Saturation Sodium 133.0 Chloride 100.0 Glucose 135 H Lactate 1.3 FiO2 100.0 Potassium Carbon Dioxide Anion Gap BUN Creatinine Est GFR ( Amer) Est GFR (Non-Af Amer) POC Glucose (mg/dL) 139 H 141 H Random Glucose Hemoglobin A1c Calcium Phosphorus Magnesium Total Bilirubin AST ALT Alkaline Phosphatase Total Protein Albumin Globulin Albumin/Globulin Ratio Arterial Blood Potassium 4.4 CMV IgM Ab Mycoplasma pneumon IgG Mycoplasma pneumon IgM 06/17/17 06/17/17 06/17/17 18:42 18:42 18:42 WBC 17.7 H D RBC 2.64 L Hgb 7.9 L Hct 23.9 L MCV 90.5 MCH 29.9 MCHC 33.1 RDW 16.1 H Plt Count 99 L MPV 10.2 Gran % 97.3 H Lymph % (Auto) 1.6 L [place] % (Auto) 0.8 L Eos % (Auto) 0.1 L Baso % (Auto) 0.2 Gran # 17.28 H Lymph # 0.3 L [place] # 0.1 Eos # 0.0 Baso # 0.03 PT 12.0 H INR 1.11 H APTT 33.1 H pCO2 pO2 HCO3 ABG pH ABG Total CO2 ABG O2 Saturation ABG O2 Content ABG Base Excess ABG Hemoglobin ABG Carboxyhemoglobin POC ABG HHb (Measured) ABG Methemoglobin ABG O2 Capacity ABG Potassium Hgb O2 Saturation Sodium 135 Chloride 94 L Glucose Lactate FiO2 Potassium 4.8 Carbon Dioxide 27 Anion Gap 19 BUN 67 H Creatinine 4.9 H Est GFR ( Amer) 15 Est GFR (Non-Af Amer) 13 POC Glucose (mg/dL) Random Glucose 144 H Hemoglobin A1c Calcium 8.1 L Phosphorus Magnesium Total Bilirubin AST ALT Alkaline Phosphatase Total Protein Albumin Globulin Albumin/Globulin Ratio Arterial Blood Potassium CMV IgM Ab Mycoplasma pneumon IgG Mycoplasma pneumon IgM 06/17/17 06/18/17 06/18/17 20:05 00:38 01:35 WBC RBC Hgb Hct MCV MCH MCHC RDW Plt Count MPV Gran % Lymph % (Auto) [place] % (Auto) Eos % (Auto) Baso % (Auto) Gran # Lymph # [place] # Eos # Baso # PT INR APTT 100.3 H* pCO2 pO2 HCO3 ABG pH ABG Total CO2 ABG O2 Saturation ABG O2 Content ABG Base Excess ABG Hemoglobin ABG Carboxyhemoglobin POC ABG HHb (Measured) ABG Methemoglobin ABG O2 Capacity ABG Potassium Hgb O2 Saturation Sodium Chloride Glucose Lactate FiO2 Potassium Carbon Dioxide Anion Gap BUN Creatinine Est GFR ( Amer) Est GFR (Non-Af Amer) POC Glucose (mg/dL) 159 H 249 H Random Glucose Hemoglobin A1c Calcium Phosphorus Magnesium Total Bilirubin AST ALT Alkaline Phosphatase Total Protein Albumin Globulin Albumin/Globulin Ratio Arterial Blood Potassium CMV IgM Ab Mycoplasma pneumon IgG Mycoplasma pneumon IgM 06/18/17 06/18/17 06/18/17 05:23 05:40 05:40 WBC 20.5 H RBC 2.48 L Hgb 7.4 L Hct 22.8 L MCV 91.9 MCH 29.8 MCHC 32.5 RDW 16.4 H Plt Count 109 L MPV 10.9 Gran % 98.0 H Lymph % (Auto) 1.3 L [place] % (Auto) 0.5 L Eos % (Auto) 0.1 L Baso % (Auto) 0.1 Gran # 20.05 H Lymph # 0.3 L [place] # 0.1 Eos # 0.0 Baso # 0.02 PT INR APTT pCO2 46 H pO2 54.0 L HCO3 21.6 ABG pH 7.28 L ABG Total CO2 23.0 ABG O2 Saturation 87.1 L ABG O2 Content 9.6 L ABG Base Excess -4.9 L ABG Hemoglobin 7.9 L ABG Carboxyhemoglobin 1.5 POC ABG HHb (Measured) 12.7 H ABG Methemoglobin 0.3 ABG O2 Capacity 11.0 L ABG Potassium Hgb O2 Saturation 85.5 L Sodium 135 Chloride 96 L Glucose Lactate FiO2 100.0 Potassium 5.8 H* D Carbon Dioxide 22 Anion Gap 23 H BUN 84 H Creatinine 5.3 H Est GFR ( Amer) 14 Est GFR (Non-Af Amer) 12 POC Glucose (mg/dL) Random Glucose 228 H Hemoglobin A1c Calcium 7.8 L Phosphorus 12.2 H Magnesium 2.3 H Total Bilirubin 1.2 AST 351 H ALT 172 H Alkaline Phosphatase 86 Total Protein 5.7 L Albumin 2.8 L Globulin 2.9 Albumin/Globulin Ratio 1.0 L Arterial Blood Potassium CMV IgM Ab Mycoplasma pneumon IgG Mycoplasma pneumon IgM 06/18/17 06/18/17 08:55 08:55 WBC RBC Hgb Hct MCV MCH MCHC RDW Plt Count MPV Gran % Lymph % (Auto) [place] % (Auto) Eos % (Auto) Baso % (Auto) Gran # Lymph # [place] # Eos # Baso # PT 12.3 H INR 1.14 H APTT 96.1 H* pCO2 pO2 HCO3 ABG pH ABG Total CO2 ABG O2 Saturation ABG O2 Content ABG Base Excess ABG Hemoglobin ABG Carboxyhemoglobin POC ABG HHb (Measured) ABG Methemoglobin ABG O2 Capacity ABG Potassium Hgb O2 Saturation Sodium Chloride Glucose Lactate FiO2 Potassium Carbon Dioxide Anion Gap BUN Creatinine Est GFR ( Amer) Est GFR (Non-Af Amer) POC Glucose (mg/dL) Random Glucose Hemoglobin A1c Calcium Phosphorus Magnesium Total Bilirubin AST ALT Alkaline Phosphatase Total Protein Albumin Globulin Albumin/Globulin Ratio Arterial Blood Potassium CMV IgM Ab Mycoplasma pneumon IgG Mycoplasma pneumon IgM Assessment & Plan - Assessment and Plan (Free Text) Assessment: 51 year old male with history of FSGS immune suppression secondary to steroid therapy, DM, CKD, HTN who is admitted respiratory distress, sepsis, MARIBETH, serology positive for Mycoplasma/Legionella pneumonia. Patient' significant other,Maryan at bedside. Palliative services introduced as a support system for family. Maryan is very tearful, she understands that patient is critically ill. Maryan reports that patient's brother Ankush is also on his way to see patient. Maryan reports that the patient did not have an advanced directive and they had never really discussed his wishes regarding life prolonging treatments. Psychosocial support given. Spiritual support offered, declined by family. I later met with patients brother Ankush. 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 Ankush expressed that while hopeful that patient will pull through, he understands that this may not happen. Palliative support offered. Ankush and Maryan will meet with medical team and consider all options which are presented Time spent with family in order t provide palliative support and goals of care discussion, 30 minutes Plan: Palliative support, will assist family in establishing future goals of care.
[2017-06-18 11:07] LABS: ARTERIAL BLOOD GAS HCO3 23.1 mmol/L (21-28); ARTERIAL BLOOD GAS O2 CAPACITY 11.2 mL/dl (16-24); ARTERIAL BLOOD GAS O2 CONTENT 9.5 ML/dl (15-23); ARTERIAL BLOOD HGB O2 SAT 82.7 % (95.0-98.0); CARBOXYHEMOGLOBIN 1.1 % (0.5-1.5); HHB 15.2 % (0-5)
--- NOTE | 2017-06-18 13:03 | PN ---
ENDOCRINOLOGY FOLLOWUP NOTE DATE: LOCATION: [facility], room #1. SUBJECTIVE: This is a 51-year-old male with recent uncontrolled type 2 insulin-requiring diabetes presenting here with symptomatic hypoglycemia and is now being followed closely for metabolic management. He is also being managed for acute pneumonitis with ongoing IV antibiotics as ordered. He also has been started on IV steroid therapy with supervening hyperglycemic acceleration as noted. His latest dose of the Solu-Medrol is 30 mg IV every 12 hours as ordered. The latest chemistries today showed a BUN of 84, sodium 135, potassium 5.3, chloride 96, CO2 22, glucose 228, and creatinine 5.3. His glucose levels have ranged from 169 to 249 mg/dL. So at this time, we will actually be adding a very low dose correction scale using regular insulin as ordered. We will titrate incrementally as indicated to optimize metabolic control. If hyperglycemic levels supervene, then we will start him on the very low dose of basal insulin given twice daily as ordered. We will obtain serial chemistries and supplement accordingly as needed. We will follow with you. Angela Ledezma MD
--- NOTE | 2017-06-18 13:40 | RAD ---
HISTORY: evaluate left lung infiltrate COMPARISON: 06/17/2017 FINDINGS: LUNGS: There is an extensive left-sided alveolar infiltrate and right lower lobe infiltrate. The findings are unchanged. The endotracheal tube and nasogastric tube are in satisfactory position PLEURA: No significant pleural effusion identified, no pneumothorax apparent. CARDIOVASCULAR: Normal. OSSEOUS STRUCTURES: No significant abnormalities. VISUALIZED UPPER ABDOMEN: Normal. OTHER FINDINGS: None. IMPRESSION: There is an extensive left-sided alveolar infiltrate and right lower lobe infiltrate. The findings are unchanged. The endotracheal tube and nasogastric tube are in satisfactory position
[2017-06-18] MEDS ORDERED: Micafungin 100 MG in Sodium Chloride 0.9% 100 ML IV SCH (13:45)
--- NOTE | 2017-06-18 13:48 | PN ---
DATE: 06/18/2017 REASON FOR CONSULTATION: Paroxysmal atrial fibrillation, acute kidney injury, pneumonia, sepsis, UTI status post intubated, respiratory failure, morbid obesity. SUBJECTIVE: The patient is a 51-year-old male. The patient is intubated, sedated, and paralyzed. Hypotension, started Levophed, intubated last night. OBJECTIVE: As follows: VITAL SIGNS: Temperature is 100, heart rate 97, blood pressure 100/50, on Levophed. HEENT: PERRLA. Extraocular muscles intact. NECK: Supple. No carotid bruits or thyromegaly. CHEST: Clear to auscultation. HEART: S1 and S2 regular. ABDOMEN: Soft. EXTREMITIES: Clubbing and cyanosis negative. LABORATORY DATA: Blood workup as follows: WBC 20.5, hemoglobin 7.1, hematocrit 22.8, platelet count 109. Chemistry; sodium 135, potassium 5.8, chloride 96, carbon dioxide 22, anion gap of 23, BUN 84, creatinine 5.3, total protein 5.7, albumin 2.8. IMPRESSION: A 51-year-old morbidly obese male with past medical history significant for sleep apnea, hypertension, hyperlipidemia, cardiomyopathy, admitted with shortness of breath, pneumonia, urinary tract infection, sepsis. Admitting EKG normal sinus, the patient went into atrial fibrillation, now is in flutter, started on heparin yesterday. His acute kidney injury, he is status post 2 round of dialysis. Last night, the patient became more short of breath requiring intubation, on ventilator 80% saturating. Hypotensive this morning and started on Levophed. Legionella pneumonia and pseudomonas urinary tract infection. Echo was repeated yesterday to see left ventricular function. Overall, left ventricular function low normal 50%, near normal left ventricular function. Left ventricular hypertrophy, mild mitral regurgitation, moderate tricuspid regurgitation, systolic pressure of 50. Morbid obesity, body mass index 40 kg/m2. RECOMMENDATIONS: Continue heparin. Monitor electrolyte. May need the dialysis, so far 2 round of dialysis done. Continue broad spectrum antibiotics. Continue vent management. Overall, the patient's condition is critical. Prognosis is poor. He is extremely guarded. Positive troponin, on admission 0.17, minimal secondary to acute kidney injury with creatinine clearance of 9 mL, probably not significant hemodynamic instability. The patient had a stress test on 02/26/2017, 4 or 5 months ago, essentially normal myocardial perfusion study, but cannot definitely rule out underlying coronary artery disease because of so much comorbidity, but no plan at this point for his aggressive cardiac workup, his underlying comorbidity,and other issues, which has required more attention than borderline troponin. I discussed with Dr. Cuellar yesterday, the patient has already started last night heparin because of 36 hours AFib. Continue vasopressor as needed, try to wean off the vent as tolerated. We will follow with you. Thank you Dr. Sosa for providing me the opportunity in taking care of the patient. Ez Lynch MD
[2017-06-18] MEDS ORDERED: Albumin Human 25% (25 gm/100 ml) IV ONE (14:00)
--- NOTE | 2017-06-18 14:26 | PN ---
DATE: 06/18/2017 SUBJECTIVE: The patient is seen early this morning in the intensive care unit in #129, bed #1. The patient is now intubated. His condition continues to deteriorate. He continues to have low-grade fevers. PHYSICAL EXAMINATION: VITAL SIGNS: Temperature is 100.2; blood pressure is 90/40; respiratory rate, on the vent, and heart rate of 85. HEENT: Reveals ET tube in place. NECK: Supple. LUNGS: Decreased breath sounds. HEART: Normal S1 and S2. ABDOMEN: Soft. LABORATORY EXAMINATION: Reveals a white count of 20,000; hemoglobin of 7 and platelets of 109. BUN of 84, creatinine of 5.3, alkaline phosphatase is 172. Procal is 85. Microbiology reveals the blood cultures are negative. Sputum culture is normal octavia. Urine culture, pseudomonas. REVIEW OF ORDERS: Reveals the patient to be on doxycycline, Mepron, Levaquin, meropenem. ASSESSMENT AND PLAN: This is a 51-year-old male, morbidly obese, body mass index of 43, admitted now with severe sepsis, respiratory failure, intubated on the ventilator, multilobar Legionella pneumonia, pseudomonas urinary tract infection in a patent with diabetes mellitus, hypertension, dyslipidemia, chronic congestive heart failure, focal segmental glomerulosclerosis, glomerulonephritis and on very high-dose steroids as outpatient, now presents with Legionella pneumonia, continues to deteriorate, on Levaquin since admission, also on meropenem. Doxycycline was added by qi specialist and ICU team. No data to support dual treatment for Legionella, we will have an increased improved outcome. The patient's immunosuppressive state is a very poor prognostic sign. Overall prognosis is quite poor. We will follow closely with you. Nayan Jones MD
[2017-06-18] MEDS ORDERED: EPINEPHrine- 1 MG in Sodium Chloride 0.9% 50 ML IV PRN (15:00)
[2017-06-18] MEDS ORDERED: Vasopressin 20 UNITS in Dextrose 5% In Water 100 ML IV SCH (15:00)
--- NOTE | 2017-06-18 16:04 | PCM.PROC ---
Procedures Attestation:: I certify that I have explained the specified Operation(s) or Procedure(s), risks, benefits and reasonable alternatives to the Patient and/or other person responsible. The opportunity was given to ask questions and all questions answered - Arterial Line Left Axillary Aseptic technique was employed throughout the procedure: Hand Hygiene done prior to procedure, Full sterile barriers (mask, hair cover, sterile gown, sterile gloves), Chloraprep Antiseptic: 30 second prep for IJ or SC sites Time Out Performed: Yes Pt. placed on Pulse Ox Monitor: Yes Ultrasound Used for Placement: Yes Technique Used: Guide Wire Technique Secured by: Suture (suture and Tegaderm) Patient Tolerated Procedure: well Immediate Complications: none Additional Comments: Left auxiliary aerial line place, good waveform obtained, line secured with suture and Tegaderm
--- NOTE | 2017-06-18 16:24 | CP.CCUPN ---
CCU Subjective - Physician Review Events Since Last Encounter (Free Text): 06/18/17 16:15 Overnight patient was intubated and being treated for hypoxemic respiratory failure . Pt in severe ARDS in septic shock. The patient is currently sedated, paralyzed and on vasopressors. CCU Objective - Vital Signs / Intake & Output Vital Signs (Last 4 hours): Vital Signs Temp Pulse BP BP Pulse Ox 06/18/17 16:06 96 H 101/38 L 06/18/17 16:00 100.8 F H 95 H 85 L 06/18/17 15:50 100.6 F H 88 83/32 L 84 L 06/18/17 15:40 100.6 F H 86 84 L 06/18/17 15:30 100.6 F H 85 85/45 L 84 L 06/18/17 15:20 100.6 F H 89 100/58 L 85 L 06/18/17 15:14 100.6 F H 90 105/50 L 86 L 06/18/17 15:10 100.6 F H 94 H 84 L 06/18/17 15:05 100.6 F H 81 84/46 L 85 L 06/18/17 15:00 100.6 F H 93 H 84/33 L 85 L 06/18/17 14:55 100.6 F H 96 H 85/42 L 85 L 06/18/17 14:52 100.4 F H 87 87/41 L 85 L 06/18/17 14:50 100.6 F H 88 76/34 L 85 L 06/18/17 14:45 100.4 F H 93 H 80/43 L 84 L 06/18/17 14:40 100.4 F H 92 H 83/40 L 85 L 06/18/17 14:30 100.4 F H 87 87/33 L 85 L 06/18/17 14:23 100.4 F H 94 H 86/40 L 85 L 06/18/17 14:20 100.4 F H 90 85 L 06/18/17 14:15 100.4 F H 93 H 80/37 L 85 L 06/18/17 14:10 100.4 F H 92 H 86 L 06/18/17 14:00 100.4 F H 97 H 96/41 L 86 L 06/18/17 13:54 100.4 F H 85 87/47 L 85 L 06/18/17 13:50 100.4 F H 92 H 84 L 06/18/17 13:45 100.4 F H 83 85/45 L 82 L 06/18/17 13:40 100.2 F H 81 82 L 06/18/17 13:30 100.2 F H 89 89/44 L 81 L 06/18/17 13:27 100.2 F H 83 96/36 L 80 L 06/18/17 13:20 100.2 F H 82 81 L 06/18/17 13:15 100.2 F H 85 91/40 L 81 L 06/18/17 13:10 100.2 F H 80 81 L 06/18/17 13:00 100.2 F H 85 90/48 L 81 L 06/18/17 12:50 100.2 F H 82 81 L 06/18/17 12:45 100.2 F H 85 94/48 L 82 L 06/18/17 12:40 100.0 F H 89 82 L 06/18/17 12:30 100.2 F H 91 H 93/49 L 82 L 06/18/17 12:20 100.0 F H 90 82 L Intake and Output (Last 8hrs): Intake & Output 06/18/17 06/18/17 06/18/17 06:59 14:59 22:59 Intake Total 1782 680 Output Total 45 Balance 1737 680 Intake: IV 1782 680 Left Antecubital 500 Right Upper arm 593 Oral 0 Output: Urine 45 Urethral (Mas) 45 Other: # Bowel Movements 0 - Physical Exam Physical Exam Limitations: Positive for: Other (intubated, sedated ) Head: Positive for: Atraumatic, Normocephalic Pupils: Positive for: PERRL, Non-Reactive Extroacular Muscles: Positive for: EOMI Conjunctiva: Positive for: Normal Mouth: Positive for: Moist Mucous Membranes, Other (ett) Pharnyx: Positive for: Normal Nose (Internal): Positive for: Normal Inspection Neck: Positive for: Normal Range of Motion Respiratory/Chest: Positive for: Respiratory Distress, Accessory Muscle Use, Rales, Rhonchi, Tachypneic Cardiovascular: Positive for: Regular Rate and Rhythm, Irregular Rhythm, Tachycardic Abdomen: Positive for: Normal Bowel Sounds Upper Extremity: Positive for: Normal Inspection Lower Extremity: Positive for: Normal Inspection, Edema Neurological: Positive for: CN II-XII Intact, Speech Normal, Other (sedated, neuro exam not possible. ) Skin: Positive for: Warm, Dry Psychiatric: Positive for: Alert, Oriented x 3 - Medications Active Medications: Active Medications Generic Name Dose Route Start Last Admin Trade Name Freq PRN Reason Stop Dose Admin Artificial Tears 1 gm 06/17/17 19:00 06/18/17 16:09 Artificial Tears Opht Oint OU 1 applic Q4H OSCAR Administration Atorvastatin Calcium 80 mg 06/14/17 22:00 06/17/17 22:28 Lipitor PO 80 mg HS OSCAR Administration Atovaquone 750 mg 06/17/17 10:45 06/18/17 09:33 Mepron PO 06/26/17 10:46 750 mg BID OSCAR Administration Meropenem 250 mg/ Sodium 100 mls @ 100 mls/hr 06/14/17 11:00 06/18/17 10:51 Chloride IVPB 06/23/17 11:01 100 mls/hr Q12H OSCAR Administration Protocol Levofloxacin/Dextrose 500 mg in 100 mls @ 100 mls/hr 06/16/17 10:00 06/18/17 09:33 Levaquin 500mg IVPB 100 mls/hr QOTHERDAY OSCAR Administration Fentanyl Citrate 1,000 mcg in 100 mls @ 2 mls/hr 06/17/17 14:20 06/18/17 08: 47 Fentanyl Citrate/Sodium Chloride 1 Mg/100 Ml IV 100 mcg/hr .Q24H PRN 10 mls/hr TITRATE PER MD ORDER Administration Protocol 20 MCG/HR Doxycycline Hyclate 100 mg/ 100 mls @ 100 mls/hr 06/17/17 22:00 06/18/17 09: 27 Sodium Chloride IVPB 100 mls/hr Q12 OSCAR Administration Protocol Midazolam 100 mg/100ml in NS 100 mg in 100 mls @ 10 mls/hr 06/17/17 15:33 12/30 05:36 Midazolam 100 Mg/100ml In Ns IV 7 mg/hr .Q10H PRN 7 mls/hr tachypnea Administration Protocol 10 MG/HR Cisatracurium Besylate 100 mg/ 260 mls @ 20.45 mls/hr 06/17/17 16:07 08:20 Sodium Chloride IV 1.3 mcg/kg/min .[id number] PRN 26.59 mls/hr TITRATE PER PROTOCOL Administration Protocol 1 MCG/KG/MIN Acetaminophen 1,000 mg in 100 mls @ 400 mls/hr 06/17/17 16:12 06/17/17 17:30 Ofirmev IVPB 06/19/17 16:13 400 mls/hr Q6H PRN Administration T>101.9 Propofol 1,000 mg in 100 mls @ 3.934 mls/hr 06/17/17 14:00 06/17/17 17:00 Diprivan IV 0 mcg/kg/min .Q24H PRN 0 mls/hr TITRATE PER MD ORDER Titration Protocol 5 MCG/KG/MIN Norepinephrine Bitartrate 8 mg 258 mls @ 77.4 mls/hr 06/18/17 13:45 06/18/17 15:50 / Sodium Chloride IV 40 mcg/min .[id number] OSCAR 77.4 mls/hr Protocol Administration 40 MCG/MIN Epinephrine HCl 1 mg/ Sodium 51 mls @ 3.06 mls/hr 06/18/17 15:00 06/18/17 15: 53 Chloride IV 1 mcg/min .[id number] PRN 3.06 mls/hr TITRATE PER MD ORDER Administration Protocol 1 MCG/MIN Vasopressin 20 units/ Dextrose 101 mls @ 9.09 mls/hr 06/18/17 15:00 06/18/17 15:50 IV 9.09 mls/hr .Q11H7M OSCAR Administration Protocol 0.03 U/MIN Insulin Human Regular 0 units 06/18/17 16:30 Humulin R Low SC ACHS OSCAR Protocol Levalbuterol HCl 1.25 mg 06/14/17 19:46 06/18/17 10:43 Xopenex IH 1.25 mg [id number] PRN Administration Shortness of Breath Levalbuterol HCl 1.25 mg 06/15/17 14:00 06/18/17 13:33 Xopenex IH 1.25 mg [id number] OSCAR Administration Methylprednisolone 30 mg 06/16/17 22:00 06/18/17 09:33 Solu-Medrol IVP 30 mg Q12 OSCAR Administration Ondansetron HCl 4 mg 06/14/17 00:28 Zofran Inj IVP Q6H PRN Nausea/Vomiting Pantoprazole Sodium 40 mg 06/17/17 10:00 06/18/17 09:35 Protonix Inj IVP 40 mg DAILY OSCAR Administration - Patient Studies Lab Studies: Microbiology Studies 06/17/17 14:50 Gram Stain - Final Sputum Lab Studies 06/18/17 06/18/17 06/18/17 Range/Units 15:55 10:44 08:55 WBC (4.5-11.0) 10^3/ul RBC (3.5-6.1) 10^6/uL Hgb (14.0-18.0) g/dL Hct (42.0-52.0) % MCV (80.0-105.0) fl MCH (25.0-35.0) pg MCHC (31.0-37.0) g/dl RDW (11.5-14.5) % Plt Count (120.0-450.0) 10^3/uL MPV (7.0-11.0) fl Gran % (50.0-68.0) % Lymph % (Auto) (22.0-35.0) % Mower % (Auto) (1.0-6.0) % Eos % (Auto) (1.5-5.0) % Baso % (Auto) (0.0-3.0) % Gran # (1.4-6.5) Lymph # (1.2-3.4) Mower # (0.1-0.6) Eos # (0.0-0.7) Baso # (0.0-2.0) K/mm3 PT 12.3 H (9.9-11.8) Seconds INR 1.14 H (0.93-1.08) APTT (23.7-30.8) Seconds pCO2 59 H (35-45) mm/Hg pO2 54.0 L (80-100) mm/Hg HCO3 23.1 (21-28) mmol/L ABG pH 7.20 L (7.35-7.45) ABG Total CO2 24.9 (22-28) mmol.L ABG O2 Saturation 84.5 L (95-98) % ABG O2 Content 9.5 L (15-23) ML/dl ABG Base Excess -4.9 L (-2.0-3.0) mmol/L ABG Hemoglobin 8.1 L (11.7-17.4) g/dL ABG Carboxyhemoglobin 1.1 (0.5-1.5) % POC ABG HHb (Measured) 15.2 H (0-5) % ABG Methemoglobin 1.0 (0.0-3.0) % ABG O2 Capacity 11.2 L (16-24) mL/dl Hgb O2 Saturation 82.7 L (95.0-98.0) % FiO2 100.0 % Sodium (132-148) mmol/L Potassium (3.6-5.0) mmol/L Chloride (98-107) mmol/L Carbon Dioxide (21-33) mmol/L Anion Gap (10-20) BUN (7-21) mg/dL Creatinine (0.8-1.5) mg/dL Est GFR ( Amer) Est GFR (Non-Af Amer) POC Glucose (mg/dL) 295 H (65-110) mg/dL Random Glucose (70-110) mg/dL Calcium (8.4-10.5) mg/dL Phosphorus (2.5-4.5) mg/dL Magnesium (1.7-2.2) mg/dL Total Bilirubin (0.2-1.3) mg/dL AST (17-59) U/L ALT (7-56) U/L Alkaline Phosphatase (38-126) U/L Total Protein (5.8-8.3) g/dL Albumin (3.0-4.8) g/dL Globulin gm/dL Albumin/Globulin Ratio (1.1-1.8) CMV IgM Ab AU/mL Mycoplasma pneumon IgG (<=0.90) Mycoplasma pneumon IgM (<770) U/mL 06/18/17 06/18/17 06/18/17 Range/Units 08:55 05:40 05:40 WBC 20.5 H (4.5-11.0) 10^3/ul RBC 2.48 L (3.5-6.1) 10^6/uL Hgb 7.4 L (14.0-18.0) g/dL Hct 22.8 L (42.0-52.0) % MCV 91.9 (80.0-105.0) fl MCH 29.8 (25.0-35.0) pg MCHC 32.5 (31.0-37.0) g/dl RDW 16.4 H (11.5-14.5) % Plt Count 109 L (120.0-450.0) 10^3/uL MPV 10.9 (7.0-11.0) fl Gran % 98.0 H (50.0-68.0) % Lymph % (Auto) 1.3 L (22.0-35.0) % Mower % (Auto) 0.5 L (1.0-6.0) % Eos % (Auto) 0.1 L (1.5-5.0) % Baso % (Auto) 0.1 (0.0-3.0) % Gran # 20.05 H (1.4-6.5) Lymph # 0.3 L (1.2-3.4) Mower # 0.1 (0.1-0.6) Eos # 0.0 (0.0-0.7) Baso # 0.02 (0.0-2.0) K/mm3 PT (9.9-11.8) Seconds INR (0.93-1.08) APTT 96.1 H* (23.7-30.8) Seconds pCO2 (35-45) mm/Hg pO2 (80-100) mm/Hg HCO3 (21-28) mmol/L ABG pH (7.35-7.45) ABG Total CO2 (22-28) mmol.L ABG O2 Saturation (95-98) % ABG O2 Content (15-23) ML/dl ABG Base Excess (-2.0-3.0) mmol/L ABG Hemoglobin (11.7-17.4) g/dL ABG Carboxyhemoglobin (0.5-1.5) % POC ABG HHb (Measured) (0-5) % ABG Methemoglobin (0.0-3.0) % ABG O2 Capacity (16-24) mL/dl Hgb O2 Saturation (95.0-98.0) % FiO2 % Sodium 135 (132-148) mmol/L Potassium 5.8 H* D (3.6-5.0) mmol/L Chloride 96 L (98-107) mmol/L Carbon Dioxide 22 (21-33) mmol/L Anion Gap 23 H (10-20) BUN 84 H (7-21) mg/dL Creatinine 5.3 H (0.8-1.5) mg/dL Est GFR ( Amer) 14 Est GFR (Non-Af Amer) 12 POC Glucose (mg/dL) (65-110) mg/dL Random Glucose 228 H (70-110) mg/dL Calcium 7.8 L (8.4-10.5) mg/dL Phosphorus 12.2 H (2.5-4.5) mg/dL Magnesium 2.3 H (1.7-2.2) mg/dL Total Bilirubin 1.2 (0.2-1.3) mg/dL AST 351 H (17-59) U/L ALT 172 H (7-56) U/L Alkaline Phosphatase 86 (38-126) U/L Total Protein 5.7 L (5.8-8.3) g/dL Albumin 2.8 L (3.0-4.8) g/dL Globulin 2.9 gm/dL Albumin/Globulin Ratio 1.0 L (1.1-1.8) CMV IgM Ab AU/mL Mycoplasma pneumon IgG (<=0.90) Mycoplasma pneumon IgM (<770) U/mL 06/18/17 06/18/17 06/18/17 Range/Units 05:23 01:35 00:38 WBC (4.5-11.0) 10^3/ul RBC (3.5-6.1) 10^6/uL Hgb (14.0-18.0) g/dL Hct (42.0-52.0) % MCV (80.0-105.0) fl MCH (25.0-35.0) pg MCHC (31.0-37.0) g/dl RDW (11.5-14.5) % Plt Count (120.0-450.0) 10^3/uL MPV (7.0-11.0) fl Gran % (50.0-68.0) % Lymph % (Auto) (22.0-35.0) % Mower % (Auto) (1.0-6.0) % Eos % (Auto) (1.5-5.0) % Baso % (Auto) (0.0-3.0) % Gran # (1.4-6.5) Lymph # (1.2-3.4) Mower # (0.1-0.6) Eos # (0.0-0.7) Baso # (0.0-2.0) K/mm3 PT (9.9-11.8) Seconds INR (0.93-1.08) APTT 100.3 H* (23.7-30.8) Seconds pCO2 46 H (35-45) mm/Hg pO2 54.0 L (80-100) mm/Hg HCO3 21.6 (21-28) mmol/L ABG pH 7.28 L (7.35-7.45) ABG Total CO2 23.0 (22-28) mmol.L ABG O2 Saturation 87.1 L (95-98) % ABG O2 Content 9.6 L (15-23) ML/dl ABG Base Excess -4.9 L (-2.0-3.0) mmol/L ABG Hemoglobin 7.9 L (11.7-17.4) g/dL ABG Carboxyhemoglobin 1.5 (0.5-1.5) % POC ABG HHb (Measured) 12.7 H (0-5) % ABG Methemoglobin 0.3 (0.0-3.0) % ABG O2 Capacity 11.0 L (16-24) mL/dl Hgb O2 Saturation 85.5 L (95.0-98.0) % FiO2 100.0 % Sodium (132-148) mmol/L Potassium (3.6-5.0) mmol/L Chloride (98-107) mmol/L Carbon Dioxide (21-33) mmol/L Anion Gap (10-20) BUN (7-21) mg/dL Creatinine (0.8-1.5) mg/dL Est GFR ( Amer) Est GFR (Non-Af Amer) POC Glucose (mg/dL) 249 H (65-110) mg/dL Random Glucose (70-110) mg/dL Calcium (8.4-10.5) mg/dL Phosphorus (2.5-4.5) mg/dL Magnesium (1.7-2.2) mg/dL Total Bilirubin (0.2-1.3) mg/dL AST (17-59) U/L ALT (7-56) U/L Alkaline Phosphatase (38-126) U/L Total Protein (5.8-8.3) g/dL Albumin (3.0-4.8) g/dL Globulin gm/dL Albumin/Globulin Ratio (1.1-1.8) CMV IgM Ab AU/mL Mycoplasma pneumon IgG (<=0.90) Mycoplasma pneumon IgM (<770) U/mL 06/17/17 06/17/17 06/17/17 Range/Units 20:05 18:42 18:42 WBC (4.5-11.0) 10^3/ul RBC (3.5-6.1) 10^6/uL Hgb (14.0-18.0) g/dL Hct (42.0-52.0) % MCV (80.0-105.0) fl MCH (25.0-35.0) pg MCHC (31.0-37.0) g/dl RDW (11.5-14.5) % Plt Count (120.0-450.0) 10^3/uL MPV (7.0-11.0) fl Gran % (50.0-68.0) % Lymph % (Auto) (22.0-35.0) % Mower % (Auto) (1.0-6.0) % Eos % (Auto) (1.5-5.0) % Baso % (Auto) (0.0-3.0) % Gran # (1.4-6.5) Lymph # (1.2-3.4) Mower # (0.1-0.6) Eos # (0.0-0.7) Baso # (0.0-2.0) K/mm3 PT 12.0 H (9.9-11.8) Seconds INR 1.11 H (0.93-1.08) APTT 33.1 H (23.7-30.8) Seconds pCO2 (35-45) mm/Hg pO2 (80-100) mm/Hg HCO3 (21-28) mmol/L ABG pH (7.35-7.45) ABG Total CO2 (22-28) mmol.L ABG O2 Saturation (95-98) % ABG O2 Content (15-23) ML/dl ABG Base Excess (-2.0-3.0) mmol/L ABG Hemoglobin (11.7-17.4) g/dL ABG Carboxyhemoglobin (0.5-1.5) % POC ABG HHb (Measured) (0-5) % ABG Methemoglobin (0.0-3.0) % ABG O2 Capacity (16-24) mL/dl Hgb O2 Saturation (95.0-98.0) % FiO2 % Sodium 135 (132-148) mmol/L Potassium 4.8 (3.6-5.0) mmol/L Chloride 94 L (98-107) mmol/L Carbon Dioxide 27 (21-33) mmol/L Anion Gap 19 (10-20) BUN 67 H (7-21) mg/dL Creatinine 4.9 H (0.8-1.5) mg/dL Est GFR ( Amer) 15 Est GFR (Non-Af Amer) 13 POC Glucose (mg/dL) 159 H (65-110) mg/dL Random Glucose 144 H (70-110) mg/dL Calcium 8.1 L (8.4-10.5) mg/dL Phosphorus (2.5-4.5) mg/dL Magnesium (1.7-2.2) mg/dL Total Bilirubin (0.2-1.3) mg/dL AST (17-59) U/L ALT (7-56) U/L Alkaline Phosphatase (38-126) U/L Total Protein (5.8-8.3) g/dL Albumin (3.0-4.8) g/dL Globulin gm/dL Albumin/Globulin Ratio (1.1-1.8) CMV IgM Ab AU/mL Mycoplasma pneumon IgG (<=0.90) Mycoplasma pneumon IgM (<770) U/mL 06/17/17 06/17/17 06/17/17 Range/Units 18:42 16:03 11:48 WBC 17.7 H D (4.5-11.0) 10^3/ul RBC 2.64 L (3.5-6.1) 10^6/uL Hgb 7.9 L (14.0-18.0) g/dL Hct 23.9 L (42.0-52.0) % MCV 90.5 (80.0-105.0) fl MCH 29.9 (25.0-35.0) pg MCHC 33.1 (31.0-37.0) g/dl RDW 16.1 H (11.5-14.5) % Plt Count 99 L (120.0-450.0) 10^3/uL MPV 10.2 (7.0-11.0) fl Gran % 97.3 H (50.0-68.0) % Lymph % (Auto) 1.6 L (22.0-35.0) % Mower % (Auto) 0.8 L (1.0-6.0) % Eos % (Auto) 0.1 L (1.5-5.0) % Baso % (Auto) 0.2 (0.0-3.0) % Gran # 17.28 H (1.4-6.5) Lymph # 0.3 L (1.2-3.4) Mower # 0.1 (0.1-0.6) Eos # 0.0 (0.0-0.7) Baso # 0.03 (0.0-2.0) K/mm3 PT (9.9-11.8) Seconds INR (0.93-1.08) APTT (23.7-30.8) Seconds pCO2 (35-45) mm/Hg pO2 (80-100) mm/Hg HCO3 (21-28) mmol/L ABG pH (7.35-7.45) ABG Total CO2 (22-28) mmol.L ABG O2 Saturation (95-98) % ABG O2 Content (15-23) ML/dl ABG Base Excess (-2.0-3.0) mmol/L ABG Hemoglobin (11.7-17.4) g/dL ABG Carboxyhemoglobin (0.5-1.5) % POC ABG HHb (Measured) (0-5) % ABG Methemoglobin (0.0-3.0) % ABG O2 Capacity (16-24) mL/dl Hgb O2 Saturation (95.0-98.0) % FiO2 % Sodium (132-148) mmol/L Potassium (3.6-5.0) mmol/L Chloride (98-107) mmol/L Carbon Dioxide (21-33) mmol/L Anion Gap (10-20) BUN (7-21) mg/dL Creatinine (0.8-1.5) mg/dL Est GFR ( Amer) Est GFR (Non-Af Amer) POC Glucose (mg/dL) 141 H 139 H (65-110) mg/dL Random Glucose (70-110) mg/dL Calcium (8.4-10.5) mg/dL Phosphorus (2.5-4.5) mg/dL Magnesium (1.7-2.2) mg/dL Total Bilirubin (0.2-1.3) mg/dL AST (17-59) U/L ALT (7-56) U/L Alkaline Phosphatase (38-126) U/L Total Protein (5.8-8.3) g/dL Albumin (3.0-4.8) g/dL Globulin gm/dL Albumin/Globulin Ratio (1.1-1.8) CMV IgM Ab AU/mL Mycoplasma pneumon IgG (<=0.90) Mycoplasma pneumon IgM (<770) U/mL 06/14/17 06/14/17 Range/Units 08:00 00:45 WBC (4.5-11.0) 10^3/ul RBC (3.5-6.1) 10^6/uL Hgb (14.0-18.0) g/dL Hct (42.0-52.0) % MCV (80.0-105.0) fl MCH (25.0-35.0) pg MCHC (31.0-37.0) g/dl RDW (11.5-14.5) % Plt Count (120.0-450.0) 10^3/uL MPV (7.0-11.0) fl Gran % (50.0-68.0) % Lymph % (Auto) (22.0-35.0) % Mower % (Auto) (1.0-6.0) % Eos % (Auto) (1.5-5.0) % Baso % (Auto) (0.0-3.0) % Gran # (1.4-6.5) Lymph # (1.2-3.4) Mower # (0.1-0.6) Eos # (0.0-0.7) Baso # (0.0-2.0) K/mm3 PT (9.9-11.8) Seconds INR (0.93-1.08) APTT (23.7-30.8) Seconds pCO2 (35-45) mm/Hg pO2 (80-100) mm/Hg HCO3 (21-28) mmol/L ABG pH (7.35-7.45) ABG Total CO2 (22-28) mmol.L ABG O2 Saturation (95-98) % ABG O2 Content (15-23) ML/dl ABG Base Excess (-2.0-3.0) mmol/L ABG Hemoglobin (11.7-17.4) g/dL ABG Carboxyhemoglobin (0.5-1.5) % POC ABG HHb (Measured) (0-5) % ABG Methemoglobin (0.0-3.0) % ABG O2 Capacity (16-24) mL/dl Hgb O2 Saturation (95.0-98.0) % FiO2 % Sodium (132-148) mmol/L Potassium (3.6-5.0) mmol/L Chloride (98-107) mmol/L Carbon Dioxide (21-33) mmol/L Anion Gap (10-20) BUN (7-21) mg/dL Creatinine (0.8-1.5) mg/dL Est GFR ( Amer) Est GFR (Non-Af Amer) POC Glucose (mg/dL) (65-110) mg/dL Random Glucose (70-110) mg/dL Calcium (8.4-10.5) mg/dL Phosphorus (2.5-4.5) mg/dL Magnesium (1.7-2.2) mg/dL Total Bilirubin (0.2-1.3) mg/dL AST (17-59) U/L ALT (7-56) U/L Alkaline Phosphatase (38-126) U/L Total Protein (5.8-8.3) g/dL Albumin (3.0-4.8) g/dL Globulin gm/dL Albumin/Globulin Ratio (1.1-1.8) CMV IgM Ab <30.00 AU/mL Mycoplasma pneumon IgG 2.33 H (<=0.90) Mycoplasma pneumon IgM 19 (<770) U/mL Laboratory Results - last 24 hr 06/14/17 06/14/17 06/17/17 00:45 08:00 11:48 WBC RBC Hgb Hct MCV MCH MCHC RDW Plt Count MPV Gran % Lymph % (Auto) Mower % (Auto) Eos % (Auto) Baso % (Auto) Gran # Lymph # Mower # Eos # Baso # PT INR APTT pCO2 pO2 HCO3 ABG pH ABG Total CO2 ABG O2 Saturation ABG O2 Content ABG Base Excess ABG Hemoglobin ABG Carboxyhemoglobin POC ABG HHb (Measured) ABG Methemoglobin ABG O2 Capacity Hgb O2 Saturation FiO2 Sodium Potassium Chloride Carbon Dioxide Anion Gap BUN Creatinine Est GFR ( Amer) Est GFR (Non-Af Amer) POC Glucose (mg/dL) 139 H Random Glucose Calcium Phosphorus Magnesium Total Bilirubin AST ALT Alkaline Phosphatase Total Protein Albumin Globulin Albumin/Globulin Ratio CMV IgM Ab <30.00 Mycoplasma pneumon IgG 2.33 H Mycoplasma pneumon IgM 19 06/17/17 06/17/17 06/17/17 16:03 18:42 18:42 WBC 17.7 H D RBC 2.64 L Hgb 7.9 L Hct 23.9 L MCV 90.5 MCH 29.9 MCHC 33.1 RDW 16.1 H Plt Count 99 L MPV 10.2 Gran % 97.3 H Lymph % (Auto) 1.6 L Mower % (Auto) 0.8 L Eos % (Auto) 0.1 L Baso % (Auto) 0.2 Gran # 17.28 H Lymph # 0.3 L Mower # 0.1 Eos # 0.0 Baso # 0.03 PT INR APTT pCO2 pO2 HCO3 ABG pH ABG Total CO2 ABG O2 Saturation ABG O2 Content ABG Base Excess ABG Hemoglobin ABG Carboxyhemoglobin POC ABG HHb (Measured) ABG Methemoglobin ABG O2 Capacity Hgb O2 Saturation FiO2 Sodium 135 Potassium 4.8 Chloride 94 L Carbon Dioxide 27 Anion Gap 19 BUN 67 H Creatinine 4.9 H Est GFR ( Amer) 15 Est GFR (Non-Af Amer) 13 POC Glucose (mg/dL) 141 H Random Glucose 144 H Calcium 8.1 L Phosphorus Magnesium Total Bilirubin AST ALT Alkaline Phosphatase Total Protein Albumin Globulin Albumin/Globulin Ratio CMV IgM Ab Mycoplasma pneumon IgG Mycoplasma pneumon IgM 06/17/17 06/17/17 06/18/17 18:42 20:05 00:38 WBC RBC Hgb Hct MCV MCH MCHC RDW Plt Count MPV Gran % Lymph % (Auto) Mower % (Auto) Eos % (Auto) Baso % (Auto) Gran # Lymph # Mower # Eos # Baso # PT 12.0 H INR 1.11 H APTT 33.1 H pCO2 pO2 HCO3 ABG pH ABG Total CO2 ABG O2 Saturation ABG O2 Content ABG Base Excess ABG Hemoglobin ABG Carboxyhemoglobin POC ABG HHb (Measured) ABG Methemoglobin ABG O2 Capacity Hgb O2 Saturation FiO2 Sodium Potassium Chloride Carbon Dioxide Anion Gap BUN Creatinine Est GFR ( Amer) Est GFR (Non-Af Amer) POC Glucose (mg/dL) 159 H 249 H Random Glucose Calcium Phosphorus Magnesium Total Bilirubin AST ALT Alkaline Phosphatase Total Protein Albumin Globulin Albumin/Globulin Ratio CMV IgM Ab Mycoplasma pneumon IgG Mycoplasma pneumon IgM 06/18/17 06/18/17 06/18/17 01:35 05:23 05:40 WBC 20.5 H RBC 2.48 L Hgb 7.4 L Hct 22.8 L MCV 91.9 MCH 29.8 MCHC 32.5 RDW 16.4 H Plt Count 109 L MPV 10.9 Gran % 98.0 H Lymph % (Auto) 1.3 L Mower % (Auto) 0.5 L Eos % (Auto) 0.1 L Baso % (Auto) 0.1 Gran # 20.05 H Lymph # 0.3 L Mower # 0.1 Eos # 0.0 Baso # 0.02 PT INR APTT 100.3 H* pCO2 46 H pO2 54.0 L HCO3 21.6 ABG pH 7.28 L ABG Total CO2 23.0 ABG O2 Saturation 87.1 L ABG O2 Content 9.6 L ABG Base Excess -4.9 L ABG Hemoglobin 7.9 L ABG Carboxyhemoglobin 1.5 POC ABG HHb (Measured) 12.7 H ABG Methemoglobin 0.3 ABG O2 Capacity 11.0 L Hgb O2 Saturation 85.5 L FiO2 100.0 Sodium Potassium Chloride Carbon Dioxide Anion Gap BUN Creatinine Est GFR ( Amer) Est GFR (Non-Af Amer) POC Glucose (mg/dL) Random Glucose Calcium Phosphorus Magnesium Total Bilirubin AST ALT Alkaline Phosphatase Total Protein Albumin Globulin Albumin/Globulin Ratio CMV IgM Ab Mycoplasma pneumon IgG Mycoplasma pneumon IgM 06/18/17 06/18/17 06/18/17 05:40 08:55 08:55 WBC RBC Hgb Hct MCV MCH MCHC RDW Plt Count MPV Gran % Lymph % (Auto) Mower % (Auto) Eos % (Auto) Baso % (Auto) Gran # Lymph # Mower # Eos # Baso # PT 12.3 H INR 1.14 H APTT 96.1 H* pCO2 pO2 HCO3 ABG pH ABG Total CO2 ABG O2 Saturation ABG O2 Content ABG Base Excess ABG Hemoglobin ABG Carboxyhemoglobin POC ABG HHb (Measured) ABG Methemoglobin ABG O2 Capacity Hgb O2 Saturation FiO2 Sodium 135 Potassium 5.8 H* D Chloride 96 L Carbon Dioxide 22 Anion Gap 23 H BUN 84 H Creatinine 5.3 H Est GFR ( Amer) 14 Est GFR (Non-Af Amer) 12 POC Glucose (mg/dL) Random Glucose 228 H Calcium 7.8 L Phosphorus 12.2 H Magnesium 2.3 H Total Bilirubin 1.2 AST 351 H ALT 172 H Alkaline Phosphatase 86 Total Protein 5.7 L Albumin 2.8 L Globulin 2.9 Albumin/Globulin Ratio 1.0 L CMV IgM Ab Mycoplasma pneumon IgG Mycoplasma pneumon IgM 06/18/17 06/18/17 10:44 15:55 WBC RBC Hgb Hct MCV MCH MCHC RDW Plt Count MPV Gran % Lymph % (Auto) Mower % (Auto) Eos % (Auto) Baso % (Auto) Gran # Lymph # Mower # Eos # Baso # PT INR APTT pCO2 59 H pO2 54.0 L HCO3 23.1 ABG pH 7.20 L ABG Total CO2 24.9 ABG O2 Saturation 84.5 L ABG O2 Content 9.5 L ABG Base Excess -4.9 L ABG Hemoglobin 8.1 L ABG Carboxyhemoglobin 1.1 POC ABG HHb (Measured) 15.2 H ABG Methemoglobin 1.0 ABG O2 Capacity 11.2 L Hgb O2 Saturation 82.7 L FiO2 100.0 Sodium Potassium Chloride Carbon Dioxide Anion Gap BUN Creatinine Est GFR ( Amer) Est GFR (Non-Af Amer) POC Glucose (mg/dL) 295 H Random Glucose Calcium Phosphorus Magnesium Total Bilirubin AST ALT Alkaline Phosphatase Total Protein Albumin Globulin Albumin/Globulin Ratio CMV IgM Ab Mycoplasma pneumon IgG Mycoplasma pneumon IgM EKG/Cardiology Studies: Cardiology / EKG Studies 06/18/17 07:41 ELECTROCARDIOGRAM Stat Comment: Reason For Exam: EKG irregularities, hyperkalemic Fingerstick Blood Sugar Results: 295 Review of Systems - Review of Systems Systems not reviewed;Unavailable: Intubated Critical Care Progress Note - Ventilator Checklist Head of Bed 30 Degrees: Yes Daily Sedation Vacation: Yes Daily Assessment of Readiness to Wean: Yes Daily Spontaneous Breathing Trial: Yes PUD Prophalyxis: Yes DVT Prophylaxis: Yes Oral Care with Chlorhexidine Gluconate {CHG}: Yes Assessment/Plan - Assessment and Plan (Free Text) Assessment: 51 y/o M w/ Severe ARDS Intubated, sedated and paralyzed On treatment for Legionella w/ levaquin Empiric abx coverage w. Meropenum and prophyactic PCP cpverage + anti fungals. ESRD w. FSGS history on recent HD x 2. No urine output currently . Shock on Levophed, Vasopressin and Epi drip to keep MAP> 65. Severe ARDS PF < 100 On 100% 110-14 peep with o2 sat 82-88%. New ABg pending. Plan to keep Ph> 7.2 and pao2> 55. ARDS net protocol. [facility] was contacted for possible ECMO. Refractory treatments such as Flolan, Rota-prone, ECMO not available. No CVVh either. DVT P. A FIb rate controlled . off heparin drip due to possible ECMO. [facility] accepting transfer . cc time 125 min
[2017-06-18] MEDS ORDERED: Insulin Reg-LOW-Coverage SC SCH (16:30)
[2017-06-18 16:47] LABS: ARTERIAL BLOOD GAS HCO3 22.3 mmol/L (21-28); ARTERIAL BLOOD GAS O2 CAPACITY 10.9 mL/dl (16-24); ARTERIAL BLOOD GAS O2 CONTENT 9.7 ML/dl (15-23); ARTERIAL BLOOD HGB O2 SAT 87.6 % (95.0-98.0); CARBOXYHEMOGLOBIN 1.3 % (0.5-1.5); HHB 10.4 % (0-5); METHEMOGLOBIN 0.8 % (0.0-3.0)
[2017-06-18 16:49] LABS: ARTERIAL BLOOD GAS PH 7.13 (7.35-7.45)
[2017-06-18] MEDS ORDERED: PREMIXED IV SCH (17:45)
[2017-06-18] MEDS ORDERED: EPOPROSTENOL IV SCH (17:45)
[2017-06-18 17:46] VITALS: TEMP 100.9; O2SAT 86
[2017-06-18 17:57] VITALS: BP 116/50; PULSE 93
[2017-06-18 18:21] LABS: ARTERIAL BLOOD GAS HCO3 21.2 mmol/L (21-28); ARTERIAL BLOOD GAS O2 CAPACITY 12.2 mL/dl (16-24); ARTERIAL BLOOD GAS O2 CONTENT 10.8 ML/dl (15-23); ARTERIAL BLOOD HGB O2 SAT 86.7 % (95.0-98.0); CARBOXYHEMOGLOBIN 1.3 % (0.5-1.5); HHB 11.5 % (0-5); METHEMOGLOBIN 0.5 % (0.0-3.0)
[2017-06-18 18:26] LABS: ARTERIAL BLOOD GAS PH 7.15 (7.35-7.45)
--- NOTE | 2017-06-18 19:03 | CP.PCM.PN ---
Subjective - Date & Time of Evaluation Date of Evaluation: 06/18/17 Time of Evaluation: 19:00 - Subjective Subjective: case d/w [facility] ECMO team. Case discussed about ECMo and severe ARDS. Plan was discussed with the family, the high risk of treatment and transfer was also discussed. The patient is currently on vasopressors w MAP> 65 , Intubated 100% fio2 and 14 peep, paralyzed and sedated. PAo2> 55. Family is at bedside and they understood the risks of transfer and the high mortality of the disease process and the transfer. Pt's girlfriend and brother is at bedside . [facility] attending Dr CARMEN accepted. Case discussed. Ambulance here for transfer. Objective - Vital Signs/Intake and Output Vital Signs (last 24 hours): Temp Pulse Resp BP Pulse Ox 100.9 F H 93 H 17 116/50 L 86 L 06/18/17 17:40 06/18/17 17:56 06/18/17 08:39 06/18/17 17:56 06/18/17 17:40 Intake and Output: 06/18/17 06/18/17 06:59 18:59 Intake Total 8 2466 Output Total 45 10 Balance 2032 2456 - Medications Medications: Current Medications Artificial Tears (Artificial Tears Opht Oint) 1 gm OU Q4H [facility] Last Admin: 06/18/17 16:09 Dose: 1 applic Atorvastatin Calcium (Lipitor) 80 mg PO HS [facility] Last Admin: 06/17/17 22:28 Dose: 80 mg Atovaquone (Mepron) 750 mg PO BID [facility] Stop: 06/26/17 10:46 Last Admin: 06/18/17 17:22 Dose: 750 mg Meropenem 250 mg/ Sodium (Chloride) 100 mls @ 100 mls/hr IVPB Q12H [facility] PRN Reason: Protocol Stop: 06/23/17 11:01 Last Admin: 06/18/17 10:51 Dose: 100 mls/hr Levofloxacin/Dextrose (Levaquin 500mg) 500 mg in 100 mls @ 100 mls/hr IVPB QOTHERDAY [facility] Last Admin: 06/18/17 09:33 Dose: 100 mls/hr Fentanyl Citrate (Fentanyl Citrate/Sodium Chloride 1 Mg/100 Ml) 1,000 mcg in 100 mls @ 2 mls/hr IV .Q24H PRN; Protocol; 20 MCG/HR PRN Reason: TITRATE PER MD ORDER Last Admin: 06/18/17 08:47 Dose: 100 mcg/hr, 10 mls/hr Doxycycline Hyclate 100 mg/ (Sodium Chloride) 100 mls @ 100 mls/hr IVPB Q12 [facility] PRN Reason: Protocol Last Admin: 06/18/17 09:27 Dose: 100 mls/hr Midazolam 100 mg/100ml in NS (Midazolam 100 Mg/100ml In Ns) 100 mg in 100 mls @ 10 mls/hr IV .Q10H PRN; Protocol; 10 MG/HR PRN Reason: tachypnea Last Admin: 06/18/17 05:36 Dose: 7 mg/hr, 7 mls/hr Cisatracurium Besylate 100 mg/ (Sodium Chloride) 260 mls @ 20.45 mls/hr IV .[id number] PRN; Protocol; 1 MCG/KG/MIN PRN Reason: TITRATE PER PROTOCOL Last Admin: 06/18/17 08:20 Dose: 1.3 mcg/kg/min, 26.59 mls/hr Acetaminophen (Ofirmev) 1,000 mg in 100 mls @ 400 mls/hr IVPB Q6H PRN PRN Reason: T>101.9 Stop: 06/19/17 16:13 Last Admin: 06/17/17 17:30 Dose: 400 mls/hr Propofol (Diprivan) 1,000 mg in 100 mls @ 3.934 mls/hr IV .Q24H PRN; Protocol; 5 MCG/KG/MIN PRN Reason: TITRATE PER MD ORDER Last Titration: 06/17/17 17:00 Dose: 0 mcg/kg/min, 0 mls/hr Norepinephrine Bitartrate 8 mg (/ Sodium Chloride) 258 mls @ 77.4 mls/hr IV .Q3H20M [facility]; 40 MCG/MIN PRN Reason: Protocol Last Admin: 06/18/17 15:50 Dose: 40 mcg/min, 77.4 mls/hr Epinephrine HCl 1 mg/ Sodium (Chloride) 51 mls @ 3.06 mls/hr IV .[id number] PRN; Protocol; 1 MCG/MIN PRN Reason: TITRATE PER MD ORDER Last Admin: 06/18/17 15:53 Dose: 1 mcg/min, 3.06 mls/hr Vasopressin 20 units/ Dextrose 101 mls @ 9.09 mls/hr IV .Q11H7M [facility]; 0.03 U/MIN PRN Reason: Protocol Last Admin: 06/18/17 15:50 Dose: 9.09 mls/hr EPOPROSTENOL 1.5 mg/ (Miscellaneous) 50 mls @ 8 mls/hr IV Q6H [facility] Insulin Human Regular (Humulin R Low) 0 units SC ACHS [facility] PRN Reason: Protocol Last Admin: 06/18/17 17:21 Dose: 3 units Levalbuterol HCl (Xopenex) 1.25 mg IH [id number] PRN PRN Reason: Shortness of Breath Last Admin: 06/18/17 10:43 Dose: 1.25 mg Levalbuterol HCl (Xopenex) 1.25 mg IH [id number] [facility] Last Admin: 06/18/17 13:33 Dose: 1.25 mg Methylprednisolone (Solu-Medrol) 30 mg IVP Q12 [facility] Last Admin: 06/18/17 09:33 Dose: 30 mg Ondansetron HCl (Zofran Inj) 4 mg IVP Q6H PRN PRN Reason: Nausea/Vomiting Pantoprazole Sodium (Protonix Inj) 40 mg IVP DAILY [facility] Last Admin: 06/18/17 09:35 Dose: 40 mg - Labs Labs: 06/18/17 05:40 06/18/17 05:40 PT 12.3 Seconds (9.9-11.8) H 06/18/17 08:55 INR 1.14 (0.93-1.08) H 06/18/17 08:55 APTT 96.1 Seconds (23.7-30.8) H* 06/18/17 08:55
[2017-06-18 19:15] LABS: CYTOMEGALOVIRUS AB (IGG) <0.60 U/mL
--- NOTE | 2017-06-18 20:51 | PN ---
DATE: 06/18/2017 SUBJECTIVE: The patient is seen in the ICU. He is sedated, he is on mechanical ventilation. He is requiring 90% oxygen. He is on 50 of PEEP. He is still hypoxic. Also he is very hypotensive. He is on high dose of Levophed. He is on IV Levaquin, IV heparin, Levophed 40 mcg per minute, IV doxycycline, and Mepron. PHYSICAL EXAMINATION: GENERAL: Morbidly obese, middle-aged male, lying in bed in the ICU on mechanical ventilation. VITAL SIGNS: Blood pressure 89/44, heart rate 89, respiratory rate 17, temperature 100.2, and T-max at 100.9. HEENT: Normocephalic, atraumatic, pupil sluggish. NECK: Supple and no JVD appreciated. LUNGS: Bilateral equal air entry, bilateral equal expansion, rhonchi and crackles left side more than right. CARDIAC: S1 and S2. Irregularly irregular, no murmur, and no rub. ABDOMEN: Obese, distended, soft, and nontender. Bowel sounds are present. EXTREMITIES: 2+ pitting edema of the lower extremities. INTAKE AND OUTPUT: 2865/3065. LABORATORY DATA: WBC 20.5, hemoglobin 7.4, hematocrit 23, and platelets 109. Sodium 135, potassium 5.8, chloride 96, CO2 22, BUN 84, creatinine 5.3, glucose 228, calcium 7.8, phosphorus 12.2, magnesium 2.3, AST 351, ALT 172, total protein 5.7, albumin 2.8. Urine Legionella positive. Urine mycoplasma pneumoniae IgG positive. Blood gas pH 7.13, pO2 62, pCO2 67, on 100% FiO2. Echocardiogram, mild asymmetric left ventricular hypertrophy, EF of about 50%, mild mitral regurgitation, mild tricuspid regurgitation. No pericardial effusion. CURRENT MEDICATIONS: Diprivan, doxycycline 100 mg q. 12 hours, epinephrine 1 mcg per minute, Levaquin 500 mg q. 12 hours, Lipitor 80 mg, Mepron 750 mg b.i.d., meropenem 100 mg q. 12 hours, Levophed 40 mcg per minute, Protonix, Solu-Medrol, and Xopenex. ASSESSMENT AND PLAN: A 51-year-old male with septic shock, acute renal failure, respiratory failure, acute respiratory distress syndrome, and multilobular Legionella pneumoniae, atypical pneumonia. The patient is critically ill. He is profoundly hypoxic. Profoundly acidotic, hyperkalemic, profoundly hypotensive despite pressors. Critically ill. Unable to get dialysis today because of hemodynamic instability. At this time, continue antibacterials, empiric PCP treatment, add antifungals?. The patient also has adrenal suppression. Continue steroids. Continue ventilatory support. Transfer to is being considered for trial of ECMO. Hold dialysis at present. Repeat potassium in p.m. If persistently high, use insulin and dextrose. Can use Kayexalate 30 g. Case is discussed with brother at bedside at length. Case is discussed with Dr. Escobar. Case is discussed with ICU resident. Case is discussed with dialysis staff. More than 35 minutes was spent in the care of this critically ill patient. Shelly Marte MD
--- NOTE | 2017-06-19 02:22 | CARD ---
APPROVED REPORT EKG Measurement Heart [id number] <Conclusion> Atrial fibrillation Nonspecific intraventricular conduction delay ST abnormality, possible digitalis effect Abnormal ECG
--- NOTE | 2017-06-19 06:34 | CP.PCM.DIS ---
<Subha Noriega - Last Filed: 06/19/17 15:37> Provider - Provider Date of Admission: 06/13/17 19:45 Attending physician: Gladys Sosa MD Consults: Nephro: Melanieer ID: Ruby Endocrine: Cam Cardiology: Hernandez Palliative Care: Paramonte Time Spent in preparation of Discharge (in minutes): 40 Hospital Course - Lab Results Lab Results: Micro Results 06/17/17 14:50 Sputum Gram Stain - Final 06/14/17 08:00 Sputum Gram Stain - Final 06/14/17 08:00 Sputum Sputum Culture - Final NORMAL ORAL CUCO 06/13/17 23:11 Urine,Clean Catch Urine Culture - Final Pseudomonas Aeruginosa 06/13/17 23:08 Naris MRSA Culture (Admit) - Final MRSA NOT DETECTED Most Recent Lab Values WBC 20.5 10^3/ul (4.5-11.0) H 06/18/17 05:40 RBC 2.48 10^6/uL (3.5-6.1) L 06/18/17 05:40 Hgb 7.4 g/dL (14.0-18.0) L 06/18/17 05:40 Hct 22.8 % (42.0-52.0) L 06/18/17 05:40 MCV 91.9 fl (80.0-105.0) 06/18/17 05:40 MCH 29.8 pg (25.0-35.0) 06/18/17 05:40 MCHC 32.5 g/dl (31.0-37.0) 06/18/17 05:40 RDW 16.4 % (11.5-14.5) H 06/18/17 05:40 Plt Count 109 10^3/uL (120.0-450.0) L 06/18/17 05:40 MPV 10.9 fl (7.0-11.0) 06/18/17 05:40 Gran % 98.0 % (50.0-68.0) H 06/18/17 05:40 Lymph % (Auto) 1.3 % (22.0-35.0) L 06/18/17 05:40 Sherman % (Auto) 0.5 % (1.0-6.0) L 06/18/17 05:40 Eos % (Auto) 0.1 % (1.5-5.0) L 06/18/17 05:40 Baso % (Auto) 0.1 % (0.0-3.0) 06/18/17 05:40 Gran # 20.05 (1.4-6.5) H 06/18/17 05:40 Lymph # 0.3 (1.2-3.4) L 06/18/17 05:40 Sherman # 0.1 (0.1-0.6) 06/18/17 05:40 Eos # 0.0 (0.0-0.7) 06/18/17 05:40 Baso # 0.02 K/mm3 (0.0-2.0) 06/18/17 05:40 Neutrophils % (Manual) 86 % (50.0-70.0) H 06/17/17 06:14 Band Neutrophils % 7 % (0-2) H 06/17/17 06:14 Lymphocytes % (Manual) 3 % (22.0-35.0) L 06/17/17 06:14 Monocytes % (Manual) 4 % (1.0-6.0) 06/17/17 06:14 Toxic Granulation 1+ 06/17/17 06:14 Platelet Evaluation Low (NORMAL) 06/17/17 06:14 Large Platelets Present 06/13/17 17:26 Polychromasia Slight 06/17/17 06:14 Hypochromasia 1+ 06/17/17 06:14 Poikilocytosis (manual 1+ 06/17/17 06:14 Anisocytosis (manual) 2+ 06/17/17 06:14 Tear Drop Cells Slight 06/17/17 06:14 Ovalocytes Slight 06/17/17 06:14 Moy Cells Slight 06/17/17 06:14 Schistocytes Slight 06/17/17 06:14 Retic Count 0.93 % (0.5-1.5) 06/15/17 05:30 PT 12.3 Seconds (9.9-11.8) H 06/18/17 08:55 INR 1.14 (0.93-1.08) H 06/18/17 08:55 APTT 96.1 Seconds (23.7-30.8) H* 06/18/17 08:55 pCO2 61 mm/Hg (35-45) H 06/18/17 18:18 pO2 58.0 mm/Hg (80-100) L 06/18/17 18:18 HCO3 21.2 mmol/L (21-28) 06/18/17 18:18 ABG pH 7.15 (7.35-7.45) L* 06/18/17 18:18 ABG Total CO2 23.1 mmol.L (22-28) 06/18/17 18:18 ABG O2 Saturation 88.3 % (95-98) L 06/18/17 18:18 ABG O2 Content 10.8 ML/dl (15-23) L 06/18/17 18:18 ABG Base Excess -7.6 mmol/L (-2.0-3.0) L 06/18/17 18:18 ABG Hemoglobin 8.8 g/dL (11.7-17.4) L 06/18/17 18:18 ABG Carboxyhemoglobin 1.3 % (0.5-1.5) 06/18/17 18:18 POC ABG HHb (Measured) 11.5 % (0-5) H 06/18/17 18:18 ABG Methemoglobin 0.5 % (0.0-3.0) 06/18/17 18:18 ABG O2 Capacity 12.2 mL/dl (16-24) L 06/18/17 18:18 ABG Potassium 4.4 mmol/L (3.6-5.2) 06/17/17 15:55 VBG pH 7.38 (7.32-7.43) 06/13/17 21:03 VBG pCO2 36.0 (40-60) L 06/13/17 21:03 VBG HCO3 21.3 mmol/l (21-28) 06/13/17 21:03 VBG Total CO2 22.4 mmol.L (22-28) 06/13/17 21:03 VBG O2 Sat (Calc) 98.5 % (40-65) H 06/13/17 21:03 VBG Base Excess -3.3 mmol/L (0.0-2.0) L 06/13/17 21:03 VBG Potassium 4.1 mmol/L (3.6-5.2) 06/13/17 21:03 Hgb O2 Saturation 86.7 % (95.0-98.0) L 06/18/17 18:18 Sodium 133.0 mmol/L (132-148) 06/17/17 15:55 Chloride 100.0 mmol/L (98-107) 06/17/17 15:55 Glucose 135 mg/dl (75-110) H 06/17/17 15:55 Lactate 1.3 mmol/L (0.7-2.1) 06/17/17 15:55 FiO2 100.0 % 06/18/17 18:18 Inspiratory BiPAP 18 06/17/17 08:30 Sodium 135 mmol/L (132-148) 06/18/17 05:40 Potassium 5.8 mmol/L (3.6-5.0) H* D 06/18/17 05:40 Chloride 96 mmol/L (98-107) L 06/18/17 05:40 Carbon Dioxide 22 mmol/L (21-33) 06/18/17 05:40 Anion Gap 23 (10-20) H 06/18/17 05:40 BUN 84 mg/dL (7-21) H 06/18/17 05:40 Creatinine 5.3 mg/dL (0.8-1.5) H 06/18/17 05:40 Est GFR ( Amer) 14 06/18/17 05:40 Est GFR (Non-Af Amer) 12 06/18/17 05:40 POC Glucose (mg/dL) 295 mg/dL (65-110) H 06/18/17 15:55 Random Glucose 228 mg/dL (70-110) H 06/18/17 05:40 Hemoglobin A1c 6.5 % (4.2-6.5) 06/17/17 06:14 Uric Acid 11.9 mg/dL (3.5-8.5) H 06/14/17 05:20 Calcium 7.8 mg/dL (8.4-10.5) L 06/18/17 05:40 Phosphorus 12.2 mg/dL (2.5-4.5) H 06/18/17 05:40 Magnesium 2.3 mg/dL (1.7-2.2) H 06/18/17 05:40 Iron 16 ug/dL (45-180) L 06/15/17 05:30 TIBC 151 ug/dL (261-462) L 06/15/17 05:30 % Saturation 10 % (20-55) L 06/15/17 05:30 Ferritin 2680.0 ng/mL 06/15/17 05:30 Total Bilirubin 1.2 mg/dL (0.2-1.3) 06/18/17 05:40 AST 351 U/L (17-59) H 06/18/17 05:40 ALT 172 U/L (7-56) H 06/18/17 05:40 Alkaline Phosphatase 86 U/L (38-126) 06/18/17 05:40 Lactate Dehydrogenase 2281 U/L (333-699) H 06/17/17 05:30 Total Creatine Kinase 39 U/L (35-230) 06/17/17 05:30 Troponin I 0.17 ng/mL H* D 06/17/17 05:30 NT-Pro-B Natriuret Pep 6960 pg/mL (0-450) H 06/13/17 17:26 Total Protein 5.7 g/dL (5.8-8.3) L 06/18/17 05:40 Albumin 2.8 g/dL (3.0-4.8) L 06/18/17 05:40 Globulin 2.9 gm/dL 06/18/17 05:40 Albumin/Globulin Ratio 1.0 (1.1-1.8) L 06/18/17 05:40 Triglycerides 238 mg/dL (35-160) H 06/17/17 05:30 Cholesterol 58 mg/dL (130-200) L 06/17/17 05:30 LDL Cholesterol Direct < 30 mg/dL (0-129) 06/17/17 05:30 HDL Cholesterol 12 mg/dL (29-60) L 06/17/17 05:30 Lipase 152 U/L (23-300) 06/13/17 17:26 Vitamin B12 562 pg/mL (239-931) 06/15/17 05:30 Folate 19.0 ng/mL 06/15/17 05:30 Procalcitonin 85.40 NG/ML (0.19-0.49) H 06/14/17 00:45 TSH 3rd Generation 1.01 mIU/mL (0.46-4.68) 06/17/17 06:14 Arterial Blood Potassium 4.4 mmol/L (3.6-5.2) 06/17/17 15:55 Venous Blood Potassium 4.1 mmol/L (3.6-5.2) 06/13/17 21:03 Urine Color Yellow (YELLOW) 06/13/17 23:11 Urine Appearance Clear (CLEAR) 06/13/17 23:11 Urine pH 5.5 (4.7-8.0) 06/13/17 23:11 Ur Specific Caldwell 1.020 (1.005-1.035) 06/13/17 23:11 Urine Protein 30 mg/dL (<30 mg/dL) H 06/13/17 23:11 Urine Glucose (UA) Negative mg/dL (NEGATIVE) 06/13/17 23:11 Urine Ketones Negative mg/dL (NEGATIVE) 06/13/17 23:11 Urine Blood Negative (NEGATIVE) 06/13/17 23:11 Urine Nitrate Negative (NEGATIVE) 06/13/17 23:11 Urine Bilirubin Negative (NEGATIVE) 06/13/17 23:11 Urine Urobilinogen 0.2 E.U./dL (<1 E.U./dL) 06/13/17 23:11 Ur Leukocyte Esterase Negative Hector/uL (NEGATIVE) 06/13/17 23:11 Urine RBC 0 - 2 /hpf (0-2) 06/13/17 23:11 Urine WBC Negative /hpf (0-6) 06/13/17 23:11 Ur Epithelial Cells 0 - 2 /hpf (0-5) 06/13/17 23:11 Amorphous Sediment Moderate 06/13/17 23:11 Urine Bacteria Many (NEG) 06/13/17 23:11 Urine Osmolality 297 mosm/kg (300-1000) L 06/14/17 16:30 Ur Random Creatinine 91 mg/dL 06/14/17 16:30 Ur Random Sodium 55 meq/L 06/14/17 16:30 CMV IgG Ab <0.60 U/mL 06/14/17 08:00 CMV IgM Ab <30.00 AU/mL 06/14/17 08:00 Hepatitis A IgM Ab Negative (NEGATIVE) 06/15/17 08:00 Hep Bs Antigen Negative (NEGATIVE) 06/15/17 08:00 Hep B Core IgM Ab Negative (NEGATIVE) 06/15/17 08:00 Hepatitis C Antibody Negative (NEGATIVE) 06/15/17 08:00 Influenza Typ A,B (EIA) Negative for flu a/b (NEGATIVE) 06/14/17 07:30 Ur L.pneumophila Ag Positive (NEGATIVE) H 06/14/17 16:30 Mycoplasma pneumon IgG 2.33 (<=0.90) H 06/14/17 00:45 Mycoplasma pneumon IgM 19 U/mL (<770) 06/14/17 00:45 - Hospital Course Hospital Course: Patient is a 51 year old male with history of HTN, dyslipidemia, CHF due to systolic dysfunction (EF~40%), 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 On arrival to the ED patient was hypertensive, tachycardic and tachypnic with a temperature of 101.7. Code sepsis was called. Patient was admitted to the ICU. CT chest showed dense multifocal infiltrates. Urine legionella antigen came back positive. He was started on levaquin. Patient was also started on Merrem and doxycycline. Atovaquone was added. Ucx is grew pseudomonas sensitive to current abx treatment. Patient initially on presentation was having recurrent episodes of hypoglycemia, Endocrine was consulted and on the case. Hypoglycemia resolved. While in the ICU, patient was placed on HFNC. Respiratory status started to decline, patient was hypoxic. Bipap was placed. Patient was subsequently intubated and sedated for acute respiratory failure likely 2/2 legionella pneumonia. Patient was hypotensive, with BPs 70/30s. Found to be in septic shock and was started on pressors. CXR at this time showed extensive L sided alveolar infiltrate and right lower lung infiltrate. Blood cx were negative, sputum cultures were negative. He was found to have acute on CKD, anemia and elevated troponins. He has anemia of chronic disease. Troponins were trending down. Cardiology was consulted and on the case. Echo showed LVEF of 50%. Baseline Cr is 2.5. FeNA suggests intrinsic cause. Renal was consulted and on the case. Patient is on chronic steroids for FSGS. Mas in place for strict I/Os. During hospital course, patient was started on dialysis for worsening renal function. He received dialysis on 06/16 and 06/17. Patient had lower extremity swelling, LE ultrasound negative for DVT. Heparin drip was started for paroxysmal afib. Patient also found to have transaminitis. Hepatic US showed mild hepatomegaly with fatty infiltrates; hepatitis panel was negative. On 06/18, patient was in severe ARDs in septic shock, with hypoxemic respiratory failure. Patient also with K+ of 5.8, 1 amp of D50 and insulin was given. Plan was for dialysis however was placed on hold due to hypotension. Prognosis was poor. Palliative care on consult. Heparin drip was held for possible ECMO. Patient was transferred to [facility] ([facility]3] for ECMO treatment. Discharge Exam - Head Exam Head Exam: ATRAUMATIC, NORMAL INSPECTION - Eye Exam Eye Exam: Normal appearance - ENT Exam ENT Exam: Mucous Membranes Moist - Neck Exam Neck exam: Full Rom Additional comments: +ETT tube - Respiratory Exam Respiratory Exam: Accessory Muscle Use, Decreased Breath Sounds, Rales, Wheezes - Cardiovascular Exam Cardiovascular Exam: Irregular Rhythm, +S1, +S2 - GI/Abdominal Exam GI & Abdominal Exam: Distended, Soft. absent: Guarding, Rebound, Rigid - Rectal Exam Rectal Exam: Deferred - Exam Additional comments: Mas in draining urine - Extremities Exam Extremities exam: pedal edema, pedal pulses present Additional comments: R groin HD catheter in place - Neurological Exam Additional comments: Intubated and sedated Discharge Plan - Follow Up Plan Condition: CRITICAL Disposition: Trans to Other Acute Care Hosp Instructions: Sepsis (ED) <Gladys Sosa - Last Filed: 06/19/17 16:51> Provider - Provider Date of Admission: 06/13/17 19:45 Attending physician: Gladys Sosa MD Hospital Course - Lab Results Lab Results: Micro Results 06/17/17 14:50 Sputum Gram Stain - Final 06/17/17 14:50 Sputum Sputum Culture - Final No growth. 06/14/17 08:00 Sputum Gram Stain - Final 06/14/17 08:00 Sputum Sputum Culture - Final NORMAL ORAL CUCO 06/13/17 23:11 Urine,Clean Catch Urine Culture - Final Pseudomonas Aeruginosa 06/13/17 23:08 Naris MRSA Culture (Admit) - Final MRSA NOT DETECTED Most Recent Lab Values WBC 20.5 10^3/ul (4.5-11.0) H 06/18/17 05:40 RBC 2.48 10^6/uL (3.5-6.1) L 06/18/17 05:40 Hgb 7.4 g/dL (14.0-18.0) L 06/18/17 05:40 Hct 22.8 % (42.0-52.0) L 06/18/17 05:40 MCV 91.9 fl (80.0-105.0) 06/18/17 05:40 MCH 29.8 pg (25.0-35.0) 06/18/17 05:40 MCHC 32.5 g/dl (31.0-37.0) 06/18/17 05:40 RDW 16.4 % (11.5-14.5) H 06/18/17 05:40 Plt Count 109 10^3/uL (120.0-450.0) L 06/18/17 05:40 MPV 10.9 fl (7.0-11.0) 06/18/17 05:40 Gran % 98.0 % (50.0-68.0) H 06/18/17 05:40 Lymph % (Auto) 1.3 % (22.0-35.0) L 06/18/17 05:40 Sherman % (Auto) 0.5 % (1.0-6.0) L 06/18/17 05:40 Eos % (Auto) 0.1 % (1.5-5.0) L 06/18/17 05:40 Baso % (Auto) 0.1 % (0.0-3.0) 06/18/17 05:40 Gran # 20.05 (1.4-6.5) H 06/18/17 05:40 Lymph # 0.3 (1.2-3.4) L 06/18/17 05:40 Sherman # 0.1 (0.1-0.6) 06/18/17 05:40 Eos # 0.0 (0.0-0.7) 06/18/17 05:40 Baso # 0.02 K/mm3 (0.0-2.0) 06/18/17 05:40 Neutrophils % (Manual) 86 % (50.0-70.0) H 06/17/17 06:14 Band Neutrophils % 7 % (0-2) H 06/17/17 06:14 Lymphocytes % (Manual) 3 % (22.0-35.0) L 06/17/17 06:14 Monocytes % (Manual) 4 % (1.0-6.0) 06/17/17 06:14 Toxic Granulation 1+ 06/17/17 06:14 Platelet Evaluation Low (NORMAL) 06/17/17 06:14 Large Platelets Present 06/13/17 17:26 Polychromasia Slight 06/17/17 06:14 Hypochromasia 1+ 06/17/17 06:14 Poikilocytosis (manual 1+ 06/17/17 06:14 Anisocytosis (manual) 2+ 06/17/17 06:14 Tear Drop Cells Slight 06/17/17 06:14 Ovalocytes Slight 06/17/17 06:14 Moy Cells Slight 06/17/17 06:14 Schistocytes Slight 06/17/17 06:14 Retic Count 0.93 % (0.5-1.5) 06/15/17 05:30 PT 12.3 Seconds (9.9-11.8) H 06/18/17 08:55 INR 1.14 (0.93-1.08) H 06/18/17 08:55 APTT 96.1 Seconds (23.7-30.8) H* 06/18/17 08:55 pCO2 61 mm/Hg (35-45) H 06/18/17 18:18 pO2 58.0 mm/Hg (80-100) L 06/18/17 18:18 HCO3 21.2 mmol/L (21-28) 06/18/17 18:18 ABG pH 7.15 (7.35-7.45) L* 06/18/17 18:18 ABG Total CO2 23.1 mmol.L (22-28) 06/18/17 18:18 ABG O2 Saturation 88.3 % (95-98) L 06/18/17 18:18 ABG O2 Content 10.8 ML/dl (15-23) L 06/18/17 18:18 ABG Base Excess -7.6 mmol/L (-2.0-3.0) L 06/18/17 18:18 ABG Hemoglobin 8.8 g/dL (11.7-17.4) L 06/18/17 18:18 ABG Carboxyhemoglobin 1.3 % (0.5-1.5) 06/18/17 18:18 POC ABG HHb (Measured) 11.5 % (0-5) H 06/18/17 18:18 ABG Methemoglobin 0.5 % (0.0-3.0) 06/18/17 18:18 ABG O2 Capacity 12.2 mL/dl (16-24) L 06/18/17 18:18 ABG Potassium 4.4 mmol/L (3.6-5.2) 06/17/17 15:55 VBG pH 7.38 (7.32-7.43) 06/13/17 21:03 VBG pCO2 36.0 (40-60) L 06/13/17 21:03 VBG HCO3 21.3 mmol/l (21-28) 06/13/17 21:03 VBG Total CO2 22.4 mmol.L (22-28) 06/13/17 21:03 VBG O2 Sat (Calc) 98.5 % (40-65) H 06/13/17 21:03 VBG Base Excess -3.3 mmol/L (0.0-2.0) L 06/13/17 21:03 VBG Potassium 4.1 mmol/L (3.6-5.2) 06/13/17 21:03 Hgb O2 Saturation 86.7 % (95.0-98.0) L 06/18/17 18:18 Sodium 133.0 mmol/L (132-148) 06/17/17 15:55 Chloride 100.0 mmol/L (98-107) 06/17/17 15:55 Glucose 135 mg/dl (75-110) H 06/17/17 15:55 Lactate 1.3 mmol/L (0.7-2.1) 06/17/17 15:55 FiO2 100.0 % 06/18/17 18:18 Inspiratory BiPAP 18 06/17/17 08:30 Sodium 135 mmol/L (132-148) 06/18/17 05:40 Potassium 5.8 mmol/L (3.6-5.0) H* D 06/18/17 05:40 Chloride 96 mmol/L (98-107) L 06/18/17 05:40 Carbon Dioxide 22 mmol/L (21-33) 06/18/17 05:40 Anion Gap 23 (10-20) H 06/18/17 05:40 BUN 84 mg/dL (7-21) H 06/18/17 05:40 Creatinine 5.3 mg/dL (0.8-1.5) H 06/18/17 05:40 Est GFR ( Amer) 14 06/18/17 05:40 Est GFR (Non-Af Amer) 12 06/18/17 05:40 POC Glucose (mg/dL) 295 mg/dL (65-110) H 06/18/17 15:55 Random Glucose 228 mg/dL (70-110) H 06/18/17 05:40 Hemoglobin A1c 6.5 % (4.2-6.5) 06/17/17 06:14 Uric Acid 11.9 mg/dL (3.5-8.5) H 06/14/17 05:20 Calcium 7.8 mg/dL (8.4-10.5) L 06/18/17 05:40 Phosphorus 12.2 mg/dL (2.5-4.5) H 06/18/17 05:40 Magnesium 2.3 mg/dL (1.7-2.2) H 06/18/17 05:40 Iron 16 ug/dL (45-180) L 06/15/17 05:30 TIBC 151 ug/dL (261-462) L 06/15/17 05:30 % Saturation 10 % (20-55) L 06/15/17 05:30 Ferritin 2680.0 ng/mL 06/15/17 05:30 Total Bilirubin 1.2 mg/dL (0.2-1.3) 06/18/17 05:40 AST 351 U/L (17-59) H 06/18/17 05:40 ALT 172 U/L (7-56) H 06/18/17 05:40 Alkaline Phosphatase 86 U/L (38-126) 06/18/17 05:40 Lactate Dehydrogenase 2281 U/L (333-699) H 06/17/17 05:30 Total Creatine Kinase 39 U/L (35-230) 06/17/17 05:30 Troponin I 0.17 ng/mL H* D 06/17/17 05:30 NT-Pro-B Natriuret Pep 6960 pg/mL (0-450) H 06/13/17 17:26 Total Protein 5.7 g/dL (5.8-8.3) L 06/18/17 05:40 Albumin 2.8 g/dL (3.0-4.8) L 06/18/17 05:40 Globulin 2.9 gm/dL 06/18/17 05:40 Albumin/Globulin Ratio 1.0 (1.1-1.8) L 06/18/17 05:40 Triglycerides 238 mg/dL (35-160) H 06/17/17 05:30 Cholesterol 58 mg/dL (130-200) L 06/17/17 05:30 LDL Cholesterol Direct < 30 mg/dL (0-129) 06/17/17 05:30 HDL Cholesterol 12 mg/dL (29-60) L 06/17/17 05:30 Lipase 152 U/L (23-300) 06/13/17 17:26 Vitamin B12 562 pg/mL (239-931) 06/15/17 05:30 Folate 19.0 ng/mL 06/15/17 05:30 Procalcitonin 85.40 NG/ML (0.19-0.49) H 06/14/17 00:45 TSH 3rd Generation 1.01 mIU/mL (0.46-4.68) 06/17/17 06:14 Arterial Blood Potassium 4.4 mmol/L (3.6-5.2) 06/17/17 15:55 Venous Blood Potassium 4.1 mmol/L (3.6-5.2) 06/13/17 21:03 Urine Color Yellow (YELLOW) 06/13/17 23:11 Urine Appearance Clear (CLEAR) 06/13/17 23:11 Urine pH 5.5 (4.7-8.0) 06/13/17 23:11 Ur Specific Caldwell 1.020 (1.005-1.035) 06/13/17 23:11 Urine Protein 30 mg/dL (<30 mg/dL) H 06/13/17 23:11 Urine Glucose (UA) Negative mg/dL (NEGATIVE) 06/13/17 23:11 Urine Ketones Negative mg/dL (NEGATIVE) 06/13/17 23:11 Urine Blood Negative (NEGATIVE) 06/13/17 23:11 Urine Nitrate Negative (NEGATIVE) 06/13/17 23:11 Urine Bilirubin Negative (NEGATIVE) 06/13/17 23:11 Urine Urobilinogen 0.2 E.U./dL (<1 E.U./dL) 06/13/17 23:11 Ur Leukocyte Esterase Negative Hector/uL (NEGATIVE) 06/13/17 23:11 Urine RBC 0 - 2 /hpf (0-2) 06/13/17 23:11 Urine WBC Negative /hpf (0-6) 06/13/17 23:11 Ur Epithelial Cells 0 - 2 /hpf (0-5) 06/13/17 23:11 Amorphous Sediment Moderate 06/13/17 23:11 Urine Bacteria Many (NEG) 06/13/17 23:11 Urine Osmolality 297 mosm/kg (300-1000) L 06/14/17 16:30 Ur Random Creatinine 91 mg/dL 06/14/17 16:30 Ur Random Sodium 55 meq/L 06/14/17 16:30 CMV IgG Ab <0.60 U/mL 06/14/17 08:00 CMV IgM Ab <30.00 AU/mL 06/14/17 08:00 Hepatitis A IgM Ab Negative (NEGATIVE) 06/15/17 08:00 Hep Bs Antigen Negative (NEGATIVE) 06/15/17 08:00 Hep B Core IgM Ab Negative (NEGATIVE) 06/15/17 08:00 Hepatitis C Antibody Negative (NEGATIVE) 06/15/17 08:00 Influenza Typ A,B (EIA) Negative for flu a/b (NEGATIVE) 06/14/17 07:30 Ur L.pneumophila Ag Positive (NEGATIVE) H 06/14/17 16:30 Mycoplasma pneumon IgG 2.33 (<=0.90) H 06/14/17 00:45 Mycoplasma pneumon IgM 19 U/mL (<770) 06/14/17 00:45 Attending/Attestation - Attestation I have personally seen and examined this patient.: Yes I have fully participated in the care of the patient.: Yes I have reviewed all pertinent clinical information, including history, physical exam and plan: Yes Notes (Text): 06/19/17 16:50 Attending note; Patient seen and examined with the resident in ICU. case discussed with ICU attending in detail. patient is currently critically ill. Septic shock/ARDS; Patient is currently intubated and sedated. On Levophed/Vasopressin for septic shock. blood pressure is still low. Patient is also on 100% FiO2 with high PEEP. multifocal legionella pneumonia/E coli UTI. on levaquin/doxycycline and meropenem. currently on Atovoquone for possible PCP pneumonia. acute on CKD: monitor creatinine closely. the patient got hemodialysis yesterday. plan for hemodialysis today but hypotension might delay this. anemia; secondary to CKD/iron deficiency anemia. elevated troponins ; Possibly secondary to demand ischemia. Cardiology evaluation appreciated. echo showed ejection fraction of 50%. Paroxysmal atrial fibrillation; started on IV heparin. LE ultrasound negative for DVT. case discussed with slip cover cutter in detail. Will discuss with [facility] ([facility]3] for possible transfer. prognosis is very poor. Patient's brother and significant other by the bedside. Palliative care evaluation requested. Transferred to [facility] ICU for higher level of care. diagnosis; Legionella pneumonia ARDS Septic shock Acute on chronic kidney disease Status post hemodialysis Anemia Elevated troponin Paroxysmal atrial fibrillation
--- NOTE | 2017-06-19 08:09 | PROCN ---
PROCEDURE DATE: 06/17/2017 PROCEDURE: Endotracheal intubation (emergent). INDICATION: Hypoxemic respiratory failure. DESCRIPTION OF PROCEDURE: The patient was pre-oxygenated with 100% FiO2 via Ambu bag. He was sedated with propofol 10 mL. Direct laryngoscopy with MAC 4 blade was performed; however, the patient started to require additional sedation. Anesthesiology attending, performed video-assisted laryngoscopy with GlideScope. Vocal cords identified and trachea intubated. Position confirmed by end-tidal CO2 gauge, gastric and lung bilateral auscultation. Chest x-ray confirmed endotracheal position of the tube. Elvis Cuellar MD
== END 2017-06-18 20:15 | disposition short-term general hospital (02) | DRG 584 ==
LOC: ED 17:14 → ERH 19:45 → CCU 22:00
PROVIDERS: ADMIT Internal Medicine; ATTEND Internal Medicine
PROC: 02H633Z Insertion of Infusion Device into Right Atrium, Percutaneous Approach (ICD-10-PCS; principal; 2017-06-16)
PROC: 5A1945Z Respiratory Ventilation, 24-96 Consecutive Hours (ICD-10-PCS; 2017-06-16)
PROC: 0BH17EZ Insertion of Endotracheal Airway into Trachea, Via Natural or Artificial Opening (ICD-10-PCS; 2017-06-17)
DX: A41.51 Sepsis due to Escherichia coli [E. coli] (principal); A48.1 Legionnaires' disease; J96.01 Acute respiratory failure with hypoxia; R65.21 Severe sepsis with septic shock; N17.9 Acute kidney failure, unspecified; N18.6 End stage renal disease; Z99.11 Dependence on respirator [ventilator] status; I13.2 Hypertensive heart and chronic kidney disease with heart failure and with stage 5 chronic kidney disease, or end stage renal disease; I42.9 Cardiomyopathy, unspecified; D61.818 Other pancytopenia; I50.20 Unspecified systolic (congestive) heart failure; E87.4 Mixed disorder of acid-base balance; E11.22 Type 2 diabetes mellitus with diabetic chronic kidney disease; D89.9 Disorder involving the immune mechanism, unspecified; E11.42 Type 2 diabetes mellitus with diabetic polyneuropathy; E11.51 Type 2 diabetes mellitus with diabetic peripheral angiopathy without gangrene; E11.319 Type 2 diabetes mellitus with unspecified diabetic retinopathy without macular edema; B96.5 Pseudomonas (aeruginosa) (mallei) (pseudomallei) as the cause of diseases classified elsewhere; E11.649 Type 2 diabetes mellitus with hypoglycemia without coma; E87.1 Hypo-osmolality and hyponatremia; E87.5 Hyperkalemia; I08.1 Rheumatic disorders of both mitral and tricuspid valves; I50.82 Biventricular heart failure; J80 Acute respiratory distress syndrome; N04.9 Nephrotic syndrome with unspecified morphologic changes; N39.0 Urinary tract infection, site not specified; E88.81 Metabolic syndrome and other insulin resistance; D50.9 Iron deficiency anemia, unspecified; D63.1 Anemia in chronic kidney disease; E11.65 Type 2 diabetes mellitus with hyperglycemia; E66.01 Morbid (severe) obesity due to excess calories; E78.00 Pure hypercholesterolemia, unspecified; E78.5 Hyperlipidemia, unspecified; G47.33 Obstructive sleep apnea (adult) (pediatric); I25.10 Atherosclerotic heart disease of native coronary artery without angina pectoris; I27.20 Pulmonary hypertension, unspecified; I48.0 Paroxysmal atrial fibrillation; J45.909 Unspecified asthma, uncomplicated; J98.09 Other diseases of bronchus, not elsewhere classified; M79.89 Other specified soft tissue disorders; N05.9 Unspecified nephritic syndrome with unspecified morphologic changes; N26.9 Renal sclerosis, unspecified; R74.0 Nonspecific elevation of levels of transaminase and lactic acid dehydrogenase [LDH]; R91.8 Other nonspecific abnormal finding of lung field; T38.0X5A Adverse effect of glucocorticoids and synthetic analogues, initial encounter; Y95 Nosocomial condition; Z68.41 Body mass index [BMI] 40.0-44.9, adult; Z79.4 Long term (current) use of insulin; Z79.52 Long term (current) use of systemic steroids; Z79.899 Other long term (current) drug therapy; Z80.3 Family history of malignant neoplasm of breast; Z80.8 Family history of malignant neoplasm of other organs or systems; Z87.441 Personal history of nephrotic syndrome; Z99.2 Dependence on renal dialysis